=== PATIENT | male | born 1940 | race Caucasian/White ===

== ENCOUNTER 2016-08-12 07:31 | Inpatient (IN) | payer MEDICARE, MEDICAID ==
[~2016-08-12] VITALS: Ht 180.3 cm; Wt 110.5 kg
[~2016-08-12 07:31] MED LIST: /SUCR1TA OR; /WARF25TA PO; /WARF4TA OR; ACET65TA OR; ALLO100T OR; ALLO10TA PO; ARTI99.0 OU; ARTISOL10 OU; ASPI325T PO; ATEN50TA2 OR; ATOR1TAB18 PO; CETI10TA PO; CLOP75TA2 PO; DARV100T OR; DEMA100T PO; DIGO0.126 OR; DIGO0.257 OR; DILT180C3 OR; DILT1TAB7 PO; FERR325T PO; GLIM4TAB PO; GLIMEPIRIDE PO; GLUC500T OR; INSULANT SC; INVO300T PO; LEVA500T PO; LOPR100T OR; METF1000 PO; METO100T PO; METO5TAB2 PO; NITR4TASL SL; NORT10CA2 PO; NOVOLIN N SUBQ; OMEPPOW18 PO; ONGLYZA PO; PANT40TA2 PO; POTASSIUM PO; SUCR1TAB56 PO; TORS100T PO; VERA80TA OR; VICTOZA SUBQ; ZOCO40TA OR
[2016-08-12 08:44] LABS: BASO % 0.1 % (0.0-1.0); EOS # 0.3 K/mm3 (0.0-0.50); EOS % 2.5 % (0.0-3.0); LARGE UNSTAINED CELL # 0.1 K/mm3 (0.0-0.4); LARGE UNSTAINED CELL % 0.7 % (0.0-4.0); LYMPH # 1.2 K/mm3 (1.5-4.5); LYMPH % 11.1 % (24.0-44.0); MEAN CORPUSCULAR HEMOGLOBIN 25.9 pg (27.0-33.0); MEAN CORPUSCULAR HGB CONC 30.5 g/dl (32.0-36.5); MEAN CORPUSCULAR VOLUME 84.9 fl (80.0-96.0); MONO # 0.3 K/mm3 (0.0-0.8); MONO % 2.8 % (0.0-5.0); NEUTROPHILS # 9.1 K/mm3 (1.8-7.7); NEUTROPHILS % 82.8 % (36.0-66.0); PLATELET COUNT, AUTOMATED 346 k/mm3 (150-450); RED CELL DISTRIBUTION WIDTH 16.9 % (11.5-14.5)
[2016-08-12 08:55] LABS: ALBUMIN/GLOBULIN RATIO 0.97 (1.00-1.93); BILIRUBIN,DIRECT 0.1 MG/DL (0.0-0.2); BILIRUBIN,TOTAL 0.3 MG/DL (0.2-1.0); CALCIUM LEVEL 8.8 MG/DL (8.8-10.2); CREATININE FOR GFR 1.33 MG/DL (0.70-1.30); GLOMERULAR FILTRATION RATE 55.8 (>42); TOTAL PROTEIN 6.1 GM/DL (6.4-8.2)
[2016-08-12 09:28] LABS: INR 1.08
[2016-08-12] MEDS ORDERED: BYET1INJ SC (10:27)
[2016-08-12] MEDS ORDERED: NITROGLYCERIN 0.4 MG SUBL TABLET SL PRN (12:15)
[2016-08-12] MEDS ORDERED: POLYVINYL ALCOHOL OPHTH SOLN 15 ML(LIQUITEARS) OU PRN (12:15)
--- NOTE | 2016-08-12 13:02 | ECGEPIP ---
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
--- NOTE | 2016-08-12 15:19 | HPEPDOC ---
General Date of Admission 2016 Primary Care Physician: Dutch Lofton [facility] Attending Physician: GAUDENCIO ALVARENGA MD Chief Complaint Other Outpatient Providers: Dr. Cardona - Cardiology Dr. You - Gastroenterology The patient is a 75-year-old male admitted with a reason for visit of Bloody Stools. Source: Patient History of Present Illness Lucien Gillis is a 75 y/o male currently taking plavix and aspirin with a history of invasive polypectomy, GERD, HTN, HLD, and cardiac stent placements, presenting to the ED with a c/o hematochezia. He reports he has had 3 bloody BMs beginning yesterday at 2000, then again this AM at 0200 and 0630. Each time, pt reports BMs to be liquid diarrhea with occasional solid chunks, which is unusual for him. He describes the BMs as bright red blood filling the toilet bowl and dark red blood clots and streaks in his stool. Pt also has c/o of extreme weakness and fatigue this AM and reports having difficulty walking due to the weakness. Pt notes no episodes of blood in stool prior to this event. Pt currently denies any SOB, chest pain/pressure/tightness, palpitations , dizziness, N/V, abdominal pain, h/a, or changes in vision. Pt checks his blood sugars daily and notes that it was around 165 prior to arrival at the ED. Pt also monitors his BP daily and states it usually is around 130 systolic. Pt reports taking Plavix 75mg QD and Aspirin 325 PO QD. Pt' s last meal was at 1600 yesterday. Home Medications Scheduled ([place]) 5 Mcg/0.02 Ml Inj 5 MCG SC BID (Reported) Allopurinol (Allopurinol) 100 Mg Tab 200 MG PO DAILY (Reported) Aspirin (Aspirin) 325 Mg Tab 325 MG PO DAILY (Reported) Atorvastatin Calcium (Atorvastatin Calcium) 80 Mg Tab 80 MG PO QPM (Reported) Cetirizine HCl (Cetirizine HCl) 10 Mg Tab 10 MG PO DAILY (Reported) Clopidogrel Bisulfate (Clopidogrel) 75 Mg Tab 75 MG PO DAILY (Reported) Diltiazem HCl (Diltiazem HCl ER) 360 Mg Tab 360 MG PO DAILY (Reported) Ferrous Sulfate (Ferrous Sulfate) 325 Mg Tab 325 MG PO TID (Reported) Glimepiride (Glimepiride) 4 Mg Tab 4 MG PO DAILY (Reported) Insulin Glargine (Lantus) 1 Units/0.01 Ml Susp 50 UNITS SC BID (Reported) Metformin Hydrochloride (Metformin HCl) 1,000 Mg Tab 1,000 MG PO BID (Reported ) Metoprolol Tartrate (Metoprolol Tartrate) 100 Mg Tab 100 MG PO BID (Reported) Nortriptyline HCl (Nortriptyline HCl) 10 Mg Cap 10 MG PO TID (Reported) Pantoprazole Sodium (Pantoprazole Sodium) 40 Mg Tab 40 MG PO QPM (Reported) Torsemide (Torsemide) 100 Mg Tab 50 MG PO DAILY (Reported) Scheduled PRN Artificial Tears (Artificial Tears) 1.4 % Tran 1 DROP OU QID PRN PRN DRY EYES ( Reported) Nitroglycerin (Nitrostat) 0.4 Mg Subl 0.4 MG SL PRN PRN PRN CHEST PAIN (Reported ) Allergies Coded Allergies: No Known Drug Allergy (Verified Allergy, Unknown, 10/29/12) Past Medical History Medical History Diabetes - IDDM:controlled; GERD; Gout; Previous DC; Hypercholesterolemia; Hypertension Surgical History Cardiac Stents; Polypectomy via abdominal incision; R knee; L shoulder Family History Significant Family History: No pertinent family hx Social History * Smoker: former Smoker (2PPD/20 years. Non-smoking since 1996) Alcohol: other (Abstinent since 1996) Drugs: denies Recent Travel/Sick Contacts: Denies: Recent sick contacts, Recent travel Psychosocial History: No pertinent psych hx Review of Symptoms Constitutional: Reports: Malaise, Weakness, Denies: Chills, Fever, Night Sweats Eyes: Denies: Pain, Vision change ENT: Denies: Dysphagia, Head Aches Skin: Denies: Jaundice, Lesions, Rash Pulmonary: Denies: Cough, Dyspnea, Pleuritic Chest Pain Cardiovascular: Denies: Chest Pain, Edema, Lt Headedness, Orthopnea, Palpitations, Paroxysmal Noc. Dyspnea Gastrointestinal: Reports: Hematochezia, Denies: Abdominal Pain, Nausea, Vomiting Genitourinary: Denies: Dysuria, Frequency, Incontinence Hematologic: Denies: Bleeding Excessively, Bruising Endocrine: Denies: Polydipsia Musculoskeletal: Denies: Joint Pain Neurological: Reports: Numbness, Denies: Confusion Psych: Reports: Mood Normal Physical Examination General Exam: Positive: Alert, Cooperative, No Acute Distress, Other (Very pale appearing) Eye Exam: Positive: Conjunctiva & lids normal, EOMI, PERRLA, Negative: Ptosis, Sclera icteric ENT Exam: Positive: Atraumatic, Pharynx Normal, Negative: Mucous membr. moist/pink Neck Exam: Positive: +2 carotid pulse wo bruit, Supple, Negative: JVD, Lymphadenopathy, thyromegaly Chest Exam: Positive: Clear to auscultation, Normal air movement, Negative: Diminished, Rales, Rhonchi, Wheezing Heart Exam: Positive: Normal S1, Normal S2, Rate Normal, Regular Rhythm, Negative: Murmurs, Rubs Abdomen Exam: Positive: Hernia (midline Abdominal hernia), Normal bowel sounds , Other (Flat, ND, midline surgical scar approximately 6'' in length), Soft, Negative: Hepatospenomegaly, Mass, Tenderness Extremity Exam: Positive: Normal pulses, Negative: Clubbing, Cyanosis, Edema, Swelling, Tenderness Skin Exam: Positive: Nl turgor and temperature, Negative: Breakdown, Rash Neuro Exam: Positive: Normal Speech Psych Exam: Positive: Mental status NL, Mood NL, Oriented x 3 Vital Signs BP 94-118 Systolic 59-61 Diastolic; Pulse 77-85; Resp 18; Tmax 97.4; 94% on R/A Height (in): 71 Weight (kg): 110.77 Laboratory Data Labs 24H Laboratory Tests 2 08/12/16 08:25: Aspartate Amino Transf (AST/SGOT) 7L, Alanine Aminotransferase (ALT/SGPT) 11L, Alkaline Phosphatase 89, Total Bilirubin 0.3, Direct Bilirubin 0.1, Albumin 3.0L , Albumin/Globulin Ratio 0.97L, Amylase Level 50, Anion Gap 9, White Blood Count 11.0H, Red Blood Count 3.72L, Hemoglobin 9.6L, Hematocrit 31.6L, Mean Corpuscular Volume 84.9, Mean Corpuscular Hemoglobin 25.9L, Mean Corpuscular Hemoglobin Concent 30.5L, Red Cell Distribution Width 16.9H, Platelet Count 346 , Neutrophils (%) (Auto) 82.8H, Lymphocytes (%) (Auto) 11.1L, Monocytes (%) ( Auto) 2.8, Eosinophils (%) (Auto) 2.5, Basophils (%) (Auto) 0.1, Neutrophils # ( Auto) 9.1H, Lymphocytes # (Auto) 1.2L, Monocytes # (Auto) 0.3, Eosinophils # ( Auto) 0.3, Basophils # (Auto) 0.0, Calcium Level 8.8, Glomerular Filtration Rate 55.8, Large Unclassified Cells # 0.1, Large Unclassified Cells % 0.7, Lipase 107, Total Protein 6.1L 08/12/16 09:11: Prothromb Time International Ratio 1.08, Prothrombin Time 14.1 CBC/BMP Laboratory Tests 08/12/16 08:25 Red Blood Count 3.72 L, Mean Corpuscular Volume 84.9, Mean Corpuscular Hemoglobin 25.9 L, Mean Corpuscular Hemoglobin Concent 30.5 L, Red Cell Distribution Width 16.9 H, Neutrophils (%) (Auto) 82.8 H, Lymphocytes (%) (Auto ) 11.1 L, Monocytes (%) (Auto) 2.8, Eosinophils (%) (Auto) 2.5, Basophils (%) ( Auto) 0.1, Neutrophils # (Auto) 9.1 H, Lymphocytes # (Auto) 1.2 L, Monocytes # ( Auto) 0.3, Eosinophils # (Auto) 0.3, Basophils # (Auto) 0.0 Plan / VTE VTE Prophylaxis Ordered?: Yes Plan Plan Pt is a 75 y/o male presenting with hematochezia. 1. Acute Gastrointestinal bleeding: It is likely the etiology of the bleeding is lower GI in nature, possible right sided with the hx of bright red blood mixed with old blood, however, hemorrhoids, anal fissures, diverticular disease or ulcer could still be on the differential despite the pt denying any pain on defecation. The pt currently has a mildly elevated WBC, which could suggest an infectious etiology, all of which could be bleeding more due to the pt's antiplatelet regimen. There is also concern that this may be malignancy as cause of hematochezia for this pt b/c of pt's hx of "pre-cancerous" polyps and previous polypectomy and lack of previous episodes of bloody stools. It is less likely the pt's bleeding is cardiogenic despite his extensive cardiac history because pt does not describe any abdominal pain surround this episode of hematochezia. At this time, we will consult GI, Dr. You, and potentially schedule him for an EGD/colonoscopy to identify source of bleeding. We will hold his Plavix and aspirin and continue to replenish fluids, trend his H/H q6, give pantoprazole 40mg BID, and transfuse if necessary. Will keep him NPO at this time. 2. Symptomatic hypotension: secondary to GI bleeding and diarrhea. Pt reports baseline at 130 systolic. Will continue on maintenance fluids. 3. Anemia - likely secondary to his GI bleeding. Pt's baseline hemoglobin is 12- 13. We will trend H/H Q6 4. JEMIMA: Pt's BUN/Creatinine is a little elevated. We suspect it is due to his overnight episodes of diarrhea and overall hypovolemia. Will continue pt on maintenance fluids and expect it to resolve. 5. IDDM: Pt's DM is controlled and managed by PCP - will continue current home regimen of Lantus 100 unit/mL Sub-q: 50 in AM/50 in PM and hold all oral anti- diabetic medications 6. HLD: Controlled and managed by PCP - continue Atorvastatin 80mg PO QD 7. HTN: Controlled and managed by PCP - continue Diltiazem HCL 360mg PO TID, Metoprolol tartrate 100mg PO BID, 8. DVT prophylaxis: TINA's, SCDs IVF: Continue Diet: Make NPO Activity: Continue Current Respiratory: Pulse Ox on Room Air GME ATTESTATION GME ATTESTATION My preceptor for this patient encounter was physically present in the building during the encounter and was fully available. As needed, all aspects of the patient interview, examination, medical decision making process, and medical care plan development were reviewed and approved by the preceptor. Preceptor is aware and concurs with the plan as stated in the body of this note and will attest to such by his/her cosignature. JAVIER JENNINGS DO Aug 12, 2016 12:11
[2016-08-12] MEDS: HumaLOG INSULIN (NovoLOG) PER UNIT SC SCH (18:00)
[2016-08-12 18:22] VITALS: BP 142/63
--- NOTE | 2016-08-12 18:33 | EDDOCDS ---
Nurse's Notes [facility] Name: Lucien Gillis Age: 75 yrs Sex: Male : 1940 Arrival Date: 08/12/2016 Time: 07:31 Bed Admit Hold Private MD: Dutch Lofton NCFM; Paco Mcarthur Diagnosis: Diverticulosis of large intestine without perforation or abscess with bleeding Presentation: 08/12 07:35 Presenting complaint: Patient states: started with some blood with stool yesterday. dy states that blood is bright red with some clots noted. denies pain. states that today he has had 2 bouts with increased weakness throughout day. Suicide/Homicide risk assessment- the patient denies having any suicidal and/or homicidal ideations and does not present with any other emotional, behavioral or mental health complaints. 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 Transition of care: patient was not received from another setting of care. 07:35 Acuity: RAYNE Level 3 dy 07:35 Method Of Arrival: Wheelchair dy 17:15 Adult Sepsis Screening: The patient does not have new or worsening altered mentation. bcj Patient's respiratory rate is less than 22. Systolic blood pressure is greater than 100. Patient has a qSOFA score of 0- Negative Sepsis Screen. Triage Assessment: 07:41 General: Appears in no apparent distress. Pain: Denies pain. dy Historical: - Allergies: No known drug Allergies; - Home Meds: 1. Byetta 5 mcg/dose (250 mcg/mL) 1.2 mL subcutaneous pnij 2 times per day 2. Lantus 100 unit/mL Sub-Q crtg 50 units in the morning and nighttime 3. atorvastatin 80 mg oral tab 1 tab once daily 4. metformin 500 mg Oral Tb24 2 tabs 2 times per day 5. clopidogrel 75 mg oral tab 1 tab once daily 6. nortriptyline 10 mg Oral cap tid 7. diltiazem HCl 360 mg Oral Tb24 1 tab once daily 8. ferrous sulfate 325 mg (65 mg iron) Oral TbEC three times a day 9. glimepiride 4 mg Oral tab 1 tab once daily 10. torsemide 50 mg oral tab 1 tab once daily 11. allopurinol 100 mg Oral tab 2 tabs once daily 12. metoprolol tartrate 100 mg Oral tab 1 tab 2 times per day 13. cetirizine 10 mg oral tab 1 tab once daily 14. aspirin 325 mg Oral tab 1 tab once daily 15. pantoprazole 40 mg oral TbEC 1 tab once daily 16. Nitrostat 0.4 mg SL subl 1 tab every 5 minutes as needed - PMHx: Diabetes - IDDM: controlled; GERD; Gout; Hypercholesterolemia; Hypertension; - PSHx: Cardiac stents; - Social history: Smoking status: Patient states former smoker of tobacco. No barriers to communication noted, The patient speaks fluent Micronesian, Speaks appropriately for age. - Family history: Not pertinent. - : The pt / caregiver states he / she is on anticoagulants: Plavix. Home medication list is obtained from the patient. - Exposure Risk Screening:: None identified. Screenin:28 Screening information is obtained from the patient. Fall risk: No risks identified. bcj Assistance ADL's: requires no assistance with activities of daily living. Abuse/DV Screen: The patient / caregiver reports he/she is: not in a situation that causes fear, pain or injury. Nutritional screening: No deficits noted. home support is adequate. 15:19 Advance Directives: There is an active DNR order. bcj Assessment: 08:28 General: Appears in no apparent distress, comfortable, Behavior is cooperative. Pain: bcj Denies pain. GI: Abdomen is flat, non- distended Bowel sounds present X 4 quads. Abd is soft and non tender X 4 quads. Derm: Skin is pink, warm & dry. pale. 09:41 General: Appears in no apparent distress, comfortable, Behavior is cooperative. Pain: bcj Denies pain. GI: Abdomen is flat, non- distended. Derm: Skin is pink, warm & dry. 11:17 General: Appears in no apparent distress, comfortable, Behavior is cooperative. Pain: bcj Denies pain. Cardiovascular: Rhythm is sinus rhythm. Derm: Skin is pink, warm & dry. pale. 15:19 General: Appears in no apparent distress, comfortable, Behavior is cooperative. Pain: bcj Denies pain. Cardiovascular: Rhythm is sinus rhythm. GI: Abdomen is non- distended. Derm: Skin is pink, warm & dry. 17:12 General: Appears in no apparent distress, comfortable, Behavior is cooperative. Pain: bcj Denies pain. Cardiovascular: Rhythm is sinus rhythm. GI: Abdomen is flat, non- distended Abd is soft and non tender X 4 quads. Derm: Skin is pink, warm & dry. 18:01 General: Appears in no apparent distress, comfortable, Behavior is cooperative. Pain: j Denies pain. Cardiovascular: Rhythm is sinus rhythm. GI: Abdomen is non- distended. Derm: Skin is pink, warm & dry. pale. Vital Signs: 07:37 BP 94 / 61; Pulse 85; Resp 18; Temp 97.4(T); Pulse Ox 94% on R/A; Weight 109.77 kg; dy Height 5 ft. 11 in. (180.34 cm); 08:28 BP 118 / 59 Supine; Pulse 78; bcj 08:28 BP 94 / 51 Sitting; Pulse 77; bcj 09:45 BP 114 / 64; Pulse 88; bcj 10:30 BP 115 / 66; Pulse 88; bcj 11:00 BP 118 / 56; Pulse 86; bcj 13:00 BP 120 / 74; Pulse 76; bcj 15:30 BP 128 / 54; Pulse 81; bcj 17:12 BP 138 / 58; Pulse 74; Resp 16; Temp 97.6(O); Pulse Ox 95% on R/A; Pain 0/10; bcj 18:01 BP 115 / 74; Pulse 78; Resp 16; Temp 98.2(O); Pulse Ox 95% on R/A; Pain 0/10; bcj 07:37 Body Mass Index 33.75 (109.77 kg, 180.34 cm) dy Vitals: 07:37 Log In Time: August 12, 2016 at 07:30. dy 08:28 Refer to monitor trend for complete vital signs trends. [facility] ED Course: 07:33 Patient visited by Dvaide Salter. mm15 07:33 Paco Mcarthur PA is Private Physician. mm15 07:33 Dutch Lofton is Private Physician. mm15 07:33 Patient moved to Waiting mm15 07:37 Triage Initiated dy 07:42 Dolly Rivera,CULLEN is Primary Nurse. dy 07:42 Patient moved to 9 dy 07:46 Irene Santamaria MD is Attending Physician. sd1 07:47 Patient visited by Irene Santamaria MD. sd1 08:20 Patient visited by Al Masters PCA. jlf 08:28 No apparent distress. Resting quietly. awaiting re-evaluation by ER physician. bcj 08:28 The patient / caregiver is instructed regarding the plan of care and ED course. Patient german has correct armband on for positive identification. Placed in gown. Bed in low position. Call light in reach. Side rails up X 1. quality assurance monitor on. Pulse ox on. NIBP on. 08:28 Inserted saline lock: 20 gauge in right antecubital area. Labs drawn. (by ED staff). bcj Sent per order to lab. 08:31 Patient visited by Ayad Moe RN. bcj 08:52 Primary Nurse role handed off by Dolly Rivera RN jc4 08:53 Ayad Moe RN is Primary Nurse. jc4 09:13 [facility] Payment Agreement was scanned into [employer] and attached to record. lg 09:17 Patient visited by Al Masters PCA. jlf 09:41 No apparent distress. Resting quietly. Awaiting bed assignment. bcj 09:41 IV is intact. bcj 09:45 Patient visited by Ayad Moe RN. bcj 09:46 Sung Albarado is Hospitalizing Provider. sd1 10:00 EKG done. (by ED staff). Reviewed by Irene Santamaria MD. rn1 11:17 No apparent distress. Resting quietly. Awaiting bed assignment. bcj 11:17 IV is intact. bcj 11:19 Patient visited by Ayad Moe RN. bcj 12:23 Patient moved to Admit Hold jc4 13:43 EKG-ADULT Returned. EDMS 14:54 T-Sheet-- Draft Copy was scanned into [employer] and attached to record. gb 15:19 IV is intact. No procedures done that require assistance. bcj 15:21 Patient visited by Ayad Moe RN. bcj 16:42 Patient visited by Ayad Moe RN. bcj 17:12 No apparent distress. Resting quietly. Awaiting bed assignment. bcj 17:12 IV is intact. bcj 18:01 No apparent distress. Resting quietly. Awaiting bed assignment. bcj 18:01 IV is intact. bcj 18:31 Patient visited by Ayad Moe RN. bcj Output: 15:19 Stool: 3 (Loose Stool) ; Total: 0.00ml. bcj Order Results: Lab Order: Amylase; SPEC'M 08/12/16 08:25 Test: AMYLASE; Value: 50; Range: 25-115; Units: U/L; Status: F Lab Order: Basic Metabolic Profile; SPEC'M 08/12/16 08:25 Test: GLUCOSE, FASTING; Value: 199; Range: 83-110; Abnormal: Above high normal; Units: MG/DL; Status: F Test: BLOOD UREA NITROGEN; Value: 31; Range: 7-18; Abnormal: Above high normal; Units: MG/DL; Status: F Test: CREATININE FOR GFR; Value: 1.33; Range: 0.70-1.30; Abnormal: Above high normal; Units: MG/DL; Status: F Test: GLOMERULAR FILTRATION RATE; Value: 55.8; Range: >42; Status: F Test: SODIUM LEVEL; Value: 144; Range: 136-145; Units: MEQ/L; Status: F Test: POTASSIUM SERUM; Value: 5.0; Range: 3.5-5.1; Units: MEQ/L; Status: F Test: CHLORIDE LEVEL; Value: 112; Range: 98-107; Abnormal: Above high normal; Units: MEQ/L; Status: F Test: CARBON DIOXIDE LEVEL; Value: 23; Range: 21-32; Units: MEQ/L; Status: F Test: ANION GAP; Value: 9; Range: 8-16; Units: MEQ/L; Status: F Test: CALCIUM LEVEL; Value: 8.8; Range: 8.8-10.2; Units: MG/DL; Status: F Test Note: ; Units are mL/min/1.73 m2 Chronic Kidney Disease Staging per NKF: Stage I & II GFR >=60 Normal to Mildly Decreased Stage III GFR 30-59 Moderately Decreased Stage IV GFR 15-29 Severely Decreased Stage V GFR <15 Very Little GFR Left ESRD GFR <15 on SOLDER TECHNICIAN Lab Order: CBC with Diff; SPEC'M 08/12/16 08:25 Test: WHITE BLOOD COUNT; Value: 11.0; Range: 4.0-10.0; Abnormal: Above high normal; Units: K/mm3; Status: F Test: RED BLOOD COUNT; Value: 3.72; Range: 4.30-6.10; Abnormal: Below low normal; Units: M/mm3; Status: F Test: HEMOGLOBIN; Value: 9.6; Range: 14.0-18.0; Abnormal: Below low normal; Units: g/dl; Status: F Test: HEMATOCRIT; Value: 31.6; Range: 42.0-52.0; Abnormal: Below low normal; Units: %; Status: F Test: MEAN CORPUSCULAR VOLUME; Value: 84.9; Range: 80.0-96.0; Units: fl; Status: F Test: MEAN CORPUSCULAR HEMOGLOBIN; Value: 25.9; Range: 27.0-33.0; Abnormal: Below low normal; Units: pg; Status: F Test: MEAN CORPUSCULAR HGB CONC; Value: 30.5; Range: 32.0-36.5; Abnormal: Below low normal; Units: g/dl; Status: F Test: RED CELL DISTRIBUTION WIDTH; Value: 16.9; Range: 11.5-14.5; Abnormal: Above high normal; Units: %; Status: F Test: PLATELET COUNT, AUTOMATED; Value: 346; Range: 150-450; Units: k/mm3; Status: F Test: NEUTROPHILS %; Value: 82.8; Range: 36.0-66.0; Abnormal: Above high normal; Units: %; Status: F Test: LYMPH %; Value: 11.1; Range: 24.0-44.0; Abnormal: Below low normal; Units: %; Status: F Test: MONO %; Value: 2.8; Range: 0.0-5.0; Units: %; Status: F Test: EOS %; Value: 2.5; Range: 0.0-3.0; Units: %; Status: F Test: BASO %; Value: 0.1; Range: 0.0-1.0; Units: %; Status: F Test: LARGE UNSTAINED CELL %; Value: 0.7; Range: 0.0-4.0; Units: %; Status: F Test: NEUTROPHILS #; Value: 9.1; Range: 1.8-7.7; Abnormal: Above high normal; Units: K/mm3; Status: F Test: LYMPH #; Value: 1.2; Range: 1.5-4.5; Abnormal: Below low normal; Units: K/mm3; Status: F Test: MONO #; Value: 0.3; Range: 0.0-0.8; Units: K/mm3; Status: F Test: EOS #; Value: 0.3; Range: 0.0-0.50; Units: K/mm3; Status: F Test: BASO #; Value: 0.0; Range: 0.0-0.2; Units: K/mm3; Status: F Test: LARGE UNSTAINED CELL #; Value: 0.1; Range: 0.0-0.4; Units: K/mm3; Status: F Lab Order: Lipase; [facility] 08/12/16 08:25 Test: LIPASE; Value: 107; Range: 73-393; Units: U/L; Status: F Lab Order: Liver Profile; [facility] 08/12/16 08:25 Test: AST/SGOT; Value: 7; Range: 15-37; Abnormal: Below low normal; Units: U/L; Status: F Test: ALT/SGPT; Value: 11; Range: 12-78; Abnormal: Below low normal; Units: U/L; Status: F Test: ALKALINE PHOSPHATASE; Value: 89; Range: 45-117; Units: U/L; Status: F Test: BILIRUBIN,TOTAL; Value: 0.3; Range: 0.2-1.0; Units: MG/DL; Status: F Test: BILIRUBIN,DIRECT; Value: 0.1; Range: 0.0-0.2; Units: MG/DL; Status: F Test: TOTAL PROTEIN; Value: 6.1; Range: 6.4-8.2; Abnormal: Below low normal; Units: GM/DL; Status: F Test: ALBUMIN; Value: 3.0; Range: 3.2-5.2; Abnormal: Below low normal; Units: GM/DL; Status: F Test: ALBUMIN/GLOBULIN RATIO; Value: 0.97; Range: 1.00-1.93; Abnormal: Below low normal; Status: F Lab Order: Prothrombin Time Profile\E\INR; [facility] 08/12/16 09:11 Test: PROTHROMBIN TIME; Value: 14.1; Range: 12.3-14.5; Units: SECONDS; Status: F Test: INR; Value: 1.08; Status: F Test Note: ; THERAPUTIC HUMAN INR VALUES INDICATIONS NORMAL RANGES PROPHYLAXIS/TREATMENT OF: VENOUS THROMBOSIS 2.0-3.0 PULMONARY EMBOLISM 2.0-3.0 PREVENTION OF SYSTEMIC EMBOLISM FROM: TISSUE HEART VALVES 2.0-3.0 ACUTE MYOCARDIAL INFARCTION 2.0-3.0 VALVULAR HEART DISEASE 2.0-3.0 ATRIAL FIBRILLATION 2.0-3.0 MECHANICAL VALVES(HIGH RISK) 2.5-3.5 RECURRENT MYOCARDIAL INFARCTION 2.5-3.5 Lab Order: Type & Screen; [facility] 08/12/16 08:25 Test: BLOOD TYPE; Value: B NEG; Status: F Test: AB SCREEN (INDIRECT STONE)GEL; Value: NEGATIVE; Status: F Lab Order: HEMOGLOBIN; [facility] 08/12/16 12:32 Test: HEMOGLOBIN; Value: 9.6; Range: 14.0-18.0; Abnormal: Below low normal; Units: g/dl; Status: F Lab Order: HEMOGLOBIN & HEMATOCRIT; [facility] 08/12/16 17:46 Test: HEMOGLOBIN; Value: 9.6; Range: 14.0-18.0; Abnormal: Below low normal; Units: g/dl; Status: F Test: HEMATOCRIT; Value: 31.5; Range: 42.0-52.0; Abnormal: Below low normal; Units: %; Status: F Radiology Order: EKG-ADULT Test: EKG-ADULT REASON FOR EXAMINATION: weakness; Stationary ECG Study; [facility] - ED; ; Test Date: 2016-08-12; Pat Name: LUCIEN GILLIS Department:; Room: [place] [address]; Gender: M Gear Nicker: rn; : 1940 Requested By: Irene Santamaria; Order Number: [id number] Reading MD: Rocky Brewer; Measurements; Intervals Black; Rate: 82 P: 72; MN: 186 QRS: 24; QRSD: 90 T: 77; QT: 373; QTc: 437; Interpretive Statements; SINUS RHYTHM; NONSPECIFIC ST T-WAVE ABNORMALITY; ; Electronically Signed On 08-12-2016 13:01:55 EST by Rocky Brewer; Outcome: 09:46 Decision to Hospitalize by Provider. sd1 17:12 Discharge Assessment: patient administered narcotics - no. The following High Risk j Discharge criteria are identified: None. Admitted to ICU accompanied by nurse, accompanied by tech, via stretcher, on monitor. Condition: stable. No special radiology studies were completed. Admission hand-off: Report called to Lashell BERMAN. Property :Personal belongings accompany Pt. 18:32 Patient left the ED. [facility] Signatures: Dispatcher [employer] EDMS Irene Santamaria MD MD sd1 Ayad Moe, RN RN Radha Guerra, Reg Reg gb Tabitha Chen, Reg Reg lg Jeet Lane, RN RN Marilyn Navarro, RN RN Davide Miller mm15 Al Masters, SILK WINDING MACHINE OPERATOR SILK WINDING MACHINE OPERATOR Artur Rajan rn1 MTDClau
--- NOTE | 2016-08-12 18:33 | EDDOCDS ---
Physician Documentation [facility] Name: Lucien Gillis Age: 75 yrs Sex: Male : 1940 Arrival Date: 08/12/2016 Time: 07:31 Bed Admit Hold Private MD: Dutch Lofton [facility]; Paco Mcarthur Disposition: 08/12/16 09:46 Hospitalization ordered by Sung Albarado for Inpatient Admission. Preliminary diagnosis is Diverticulosis of large intestine without perforation or abscess with bleeding. - Bed requested for M ICU. - Status is Inpatient Admission. bcj - Condition is Stable. - Problem is new. - Symptoms are unchanged. Historical: - Allergies: No known drug Allergies; - Home Meds: 1. Byetta 5 mcg/dose (250 mcg/mL) 1.2 mL subcutaneous pnij 2 times per day 2. Lantus 100 unit/mL Sub-Q crtg 50 units in the morning and nighttime 3. atorvastatin 80 mg oral tab 1 tab once daily 4. metformin 500 mg Oral Tb24 2 tabs 2 times per day 5. clopidogrel 75 mg oral tab 1 tab once daily 6. nortriptyline 10 mg Oral cap tid 7. diltiazem HCl 360 mg Oral Tb24 1 tab once daily 8. ferrous sulfate 325 mg (65 mg iron) Oral TbEC three times a day 9. glimepiride 4 mg Oral tab 1 tab once daily 10. torsemide 50 mg oral tab 1 tab once daily 11. allopurinol 100 mg Oral tab 2 tabs once daily 12. metoprolol tartrate 100 mg Oral tab 1 tab 2 times per day 13. cetirizine 10 mg oral tab 1 tab once daily 14. aspirin 325 mg Oral tab 1 tab once daily 15. pantoprazole 40 mg oral TbEC 1 tab once daily 16. Nitrostat 0.4 mg SL subl 1 tab every 5 minutes as needed - PMHx: Diabetes - IDDM: controlled; GERD; Gout; Hypercholesterolemia; Hypertension; - PSHx: Cardiac stents; - Social history: Smoking status: Patient states former smoker of tobacco. No barriers to communication noted, The patient speaks fluent Vietnamese, Speaks appropriately for age. - Family history: Not pertinent. - : The pt / caregiver states he / she is on anticoagulants: Plavix. Home medication list is obtained from the patient. - Exposure Risk Screening:: None identified. Vital Signs: 08/12 07:37 BP 94 / 61; Pulse 85; Resp 18; Temp 97.4(T); Pulse Ox 94% on R/A; Weight 109.77 kg / dy 242 lbs; Height 5 ft. 11 in. (180.34 cm); 08:28 BP 118 / 59 Supine; Pulse 78; bcj 08:28 BP 94 / 51 Sitting; Pulse 77; bcj 09:45 BP 114 / 64; Pulse 88; bcj 10:30 BP 115 / 66; Pulse 88; bcj 11:00 BP 118 / 56; Pulse 86; bcj 13:00 BP 120 / 74; Pulse 76; bcj 15:30 BP 128 / 54; Pulse 81; bcj 17:12 BP 138 / 58; Pulse 74; Resp 16; Temp 97.6(O); Pulse Ox 95% on R/A; Pain 0/10; bcj 18:01 BP 115 / 74; Pulse 78; Resp 16; Temp 98.2(O); Pulse Ox 95% on R/A; Pain 0/10; bcj 07:37 Body Mass Index 33.75 (109.77 kg, 180.34 cm) dy MDM: 07:46 Digital Printer Operator/Pulse Ox/q 15 min VS ordered. sd1 07:46 IV Saline Lock ordered. sd1 07:46 Oxygen at 4L/Min NC or Home dosage ordered. sd1 07:46 Undress patient appropriately for examination ordered. sd1 07:46 Orthostatic VS ordered. sd1 07:47 Amylase Ordered. EDMS 07:47 Basic Metabolic Profile Ordered. EDMS 07:47 CBC with Diff Ordered. EDMS 07:47 Lipase Ordered. EDMS 07:47 Liver Profile Ordered. EDMS 07:47 Prothrombin Time Profile\E\INR Ordered. EDMS 07:47 Type & Screen Ordered. EDMS 07:47 NOTHING BY MOUTH+DIET ordered. EDMS 07:47 BED REQUEST+ADM ordered. EDMS 08:11 Financial registration complete. lg 09:13 [facility] Payment Agreement was scanned into [employer] and attached to record. lg 09:29 Basic Metabolic Profile Reviewed. sd1 09:29 CBC with Diff Reviewed. sd1 09:29 Liver Profile Reviewed. sd1 09:29 Amylase Reviewed. sd1 09:29 Lipase Reviewed. sd1 09:29 Type & Screen Reviewed. sd1 09:30 Misc. Nursing Order ordered. sd1 09:30 Prothrombin Time Profile\E\INR Reviewed. sd1 09:43 ECG WITH READING ER PHYS+CARDIAG ordered. EDMS 11:12 Admission / Observation Status ordered. EDMS 11:15 NPO DIET ordered. EDMS 12:18 HEMOGLOBIN Ordered. EDMS 13:15 HEMOGLOBIN & HEMATOCRIT Ordered. EDMS 14:54 T-Sheet-- Draft Copy was scanned into [employer] and attached to record. gb Signatures: Dispatcher [employer] EDMS Irene Santamaria MD MD sd1 Trupti Alonso, Environmental Technician Unit lbd Ayad Moe, RN RN bcRadha Anguiano, Reg Reg gb Tabitha Chen, Reg Reg lg Jeet Lane, RN Marilyn Byers, RN RN jc4 The chart was reviewed and I authenticate all verbal orders and agree with the evaluation and treatment provided.Corrections: (The following items were deleted from the chart) 13:15 12:18 HEMOGLOBIN ordered. EDMS EDMS 13:15 12:18 HEMOGLOBIN ordered. EDMS EDMS Attachments: 09:13 [facility] Payment Agreement lg 14:54 T-Sheet-- Draft Copy gb MTDD
[2016-08-12] MEDS ORDERED: DEXTROSE 50% 50 ML SYRINGE IV PRN (19:45)
[2016-08-12] MEDS ORDERED: GLUCOSE 4 GM CHEW TABLET PO PRN (19:45)
[2016-08-12] MEDS ORDERED: GLUCAGON FOR INJ 1 MG VIAL (J1610) SC PRN (19:45)
[2016-08-12] MEDS: NORTRIPTYLINE 10 MG CAP PO SCH ×2 (19:46→20:26)
[2016-08-12 20:00] VITALS: BP 140/65
[2016-08-12] MEDS: PANTOPRAZOLE 40MG INJ (PROTONIX) (C9113) IV SCH (20:26)
[2016-08-12] MEDS: ATORVASTATIN 20 MG TAB PO SCH (20:26)
[2016-08-12] MEDS: LEVEMIR (INSULIN DETEMIR) 1 UNITS/0.01ML SC SCH (20:30)
[2016-08-12] MEDS: NS 1,000 ML IV SCH (20:36)
[2016-08-12] MEDS ORDERED: METOPROLOL TARTRATE 100 MG TAB PO SCH (21:00)
[2016-08-13] VITALS (9 sets, daily range): BP systolic 131–176; BP diastolic 63–76
[2016-08-13] MEDS: HumaLOG INSULIN (NovoLOG) PER UNIT SC SCH ×6 (05:51→21:00)
[2016-08-13 06:40] LABS: MEAN CORPUSCULAR HEMOGLOBIN 25.7 pg (27.0-33.0); MEAN CORPUSCULAR HGB CONC 30.5 g/dl (32.0-36.5); MEAN CORPUSCULAR VOLUME 84.2 fl (80.0-96.0); RED CELL DISTRIBUTION WIDTH 17.2 % (11.5-14.5); WHITE BLOOD COUNT 8.2 K/mm3 (4.0-10.0)
[2016-08-13 06:44] LABS: INR 1.13
[2016-08-13 07:05] LABS: ALBUMIN/GLOBULIN RATIO 1.03 (1.00-1.93); ALKALINE PHOSPHATASE 88 U/L (45-117); ALT/SGPT 12 U/L (12-78); ANION GAP 11 MEQ/L (8-16); AST/SGOT 7 U/L (15-37); BILIRUBIN,TOTAL 0.3 MG/DL (0.2-1.0); BLOOD UREA NITROGEN 30 MG/DL (7-18); CALCIUM LEVEL 8.3 MG/DL (8.8-10.2); CARBON DIOXIDE LEVEL 23 MEQ/L (21-32); CHLORIDE LEVEL 113 MEQ/L (98-107); CREATININE FOR GFR 1.19 MG/DL (0.70-1.30); GLOMERULAR FILTRATION RATE > 60.0 (>42); GLUCOSE, FASTING 100 MG/DL (83-110); POTASSIUM SERUM 4.2 MEQ/L (3.5-5.1); SODIUM LEVEL 147 MEQ/L (136-145); TOTAL PROTEIN 5.9 GM/DL (6.4-8.2)
[2016-08-13] MEDS ORDERED: TORSEMIDE (DEMADEX) 50 MG PER 1/2 TAB PO SCH (09:00)
[2016-08-13] MEDS: LEVEMIR (INSULIN DETEMIR) 1 UNITS/0.01ML SC SCH ×3 (09:00→21:00)
[2016-08-13] MEDS ORDERED: PANTOPRAZOLE 40MG INJ (PROTONIX) (C9113) IV SCH (09:00)
[2016-08-13] MEDS: NS 1,000 ML IV SCH ×2 (09:02→17:30)
[2016-08-13] MEDS: NORTRIPTYLINE 10 MG CAP PO SCH ×3 (09:02→20:32)
[2016-08-13] MEDS: diltiaZEM **CD** 180 MG CAP PO SCH (09:02)
[2016-08-13] MEDS: CETIRIZINE (ZyrTEC) 10 MG TAB PO SCH (09:02)
[2016-08-13] MEDS: ALLOPURINOL 100 MG TAB PO SCH (09:02)
[2016-08-13] MEDS: PANTOPRAZOLE 40MG INJ (PROTONIX) (C9113) IV SCH ×2 (09:03→20:31)
--- NOTE | 2016-08-13 15:31 | IPNPDOC ---
Assessment/Plan Date Seen The patient was seen on 08/13/16. 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 He did have a slight drop in his H&H last night, however he has not had any bleeding. He also has not had any bowel movements at all since his last one in the emergency department. His acute kidney injury is also improving, this was likely a result of hypovolemia. We will advance him to clear liquids diet at this time, and move him to the [facility] floor. The plan is to perform an EGD and colonoscopy on Monday, therefore he will need to be nothing by mouth after midnight Monday evening. I will change his sliding scale insulin as well as fingersticks to before meals and at bedtime, we will resume his long-acting insulin, hopefully this will be sufficient while he is on a clear liquids diet, as he normally also receive his Byetta twice a day, which we are currently holding. Subjective Review of Systems CC/HPI The patient is a 75-year-old male admitted with a reason for visit of Gi Bleed. Events since last encounter Mr. Gillis is once again very pleasant to speak with. He purportedly is completely asymptomatic, he even states that his dizziness upon sitting upright has improved to what he considers to be his baseline. He has not had any bowel movements since coming up from the emergency department. He is hungry. Otherwise , he is in no pain or discomfort, he denies any nausea, vomiting, palpitations, chest discomfort. Objective Physical Examination General Exam: Positive: Alert, Cooperative, No Acute Distress, Other Eye Exam: Positive: Conjunctiva & lids normal, EOMI Chest Exam: Positive: Clear to auscultation, Normal air movement Heart Exam: Positive: Normal S1, Normal S2, Other (distant heart sounds), Rate Normal, Regular Rhythm Abdomen Exam: Positive: Hernia, Normal bowel sounds, Soft, Negative: Tenderness Extremity Exam: Positive: Normal pulses, Negative: Swelling, Tenderness Skin Exam: Positive: Nl turgor and temperature Neuro Exam: Positive: Normal Speech Psych Exam: Positive: Mental status NL, Mood NL, Oriented x 3 Vital Signs/I&O Vital Signs Date Time Temp Pulse Resp B/P Pulse Ox O2 Delivery O2 Flow Rate FiO2 08/13/16 12:00 98.3 93 20 163/76 94 Room Air I&O- Last 24 Hours up to 6 AM 08/13/16 06:00 Intake Total 875 ml Output Total 925 ml Balance -50 ml Laboratory Data Labs 24H Laboratory Tests 2 08/12/16 20:29: Bedside Glucose (Misc Panel) 112H 08/12/16 23:41: Bedside Glucose (Misc Panel) 116H 08/13/16 05:07: Bedside Glucose (Misc Panel) 109 08/13/16 06:23: Activated Partial Thromboplast Time 21.4L, Blood Urea Nitrogen 30H, Creatinine 1.19, Sodium Level 147H, Potassium Level 4.2, Chloride Level 113H, Carbon Dioxide Level 23, Calcium Level 8.3L, Aspartate Amino Transf (AST/SGOT) 7L, Alanine Aminotransferase (ALT/SGPT) 12, Alkaline Phosphatase 88, Total Bilirubin 0.3, Total Protein 5.9L, Albumin 3.0L, Albumin/Globulin Ratio 1.03, Anion Gap 11, Glomerular Filtration Rate > 60.0, Prothromb Time International Ratio 1.13, Prothrombin Time 14.6H 08/13/16 11:25: Bedside Glucose (Misc Panel) 164H CBC/BMP Laboratory Tests 08/12/16 17:46 08/13/16 00:01 08/13/16 06:23 Calcium Level 8.3 L, Aspartate Amino Transf (AST/SGOT) 7 L, Alanine Aminotransferase (ALT/SGPT) 12, Alkaline Phosphatase 88, Total Bilirubin 0.3, Total Protein 5.9 L, Albumin 3.0 L, Red Blood Count 3.38 L, Mean Corpuscular Volume 84.2, Mean Corpuscular Hemoglobin 25.7 L, Mean Corpuscular Hemoglobin Concent 30.5 L, Red Cell Distribution Width 17.2 H FSBS Laboratory Tests Test 08/12/16 20:29 08/12/16 23:41 08/13/16 05:07 08/13/16 11:25 Range/Units Bedside Glucose (Misc Panel) 112 116 109 164 83-110 MG/DL Microbiology Microbiology 08/12/16 MRSA Screen, Received Pending JAVIER JENNINGS DO Aug 13, 2016 15:31
[2016-08-13] MEDS: ATORVASTATIN 20 MG TAB PO SCH (20:32)
[2016-08-13] MEDS: METOPROLOL TARTRATE 100 MG TAB PO SCH (20:32)
[2016-08-14] VITALS (9 sets, daily range): BP systolic 114–166; BP diastolic 56–73
[2016-08-14] MEDS: NS 1,000 ML IV SCH ×2 (03:15→16:10)
[2016-08-14] MEDS ORDERED: GOLYTELY SOLN 4000 ML BTL PO ONE (06:00)
[2016-08-14 06:31] LABS: MEAN CORPUSCULAR HGB CONC 30.6 g/dl (32.0-36.5); MEAN CORPUSCULAR VOLUME 84.8 fl (80.0-96.0); RED CELL DISTRIBUTION WIDTH 17.3 % (11.5-14.5); WHITE BLOOD COUNT 8.9 K/mm3 (4.0-10.0)
[2016-08-14 06:38] LABS: CALCIUM LEVEL 8.3 MG/DL (8.8-10.2); CHLORIDE LEVEL 114 MEQ/L (98-107); CREATININE FOR GFR 0.96 MG/DL (0.70-1.30); GLUCOSE, FASTING 117 MG/DL (83-110); SODIUM LEVEL 146 MEQ/L (136-145)
[2016-08-14 06:47] LABS: BLOOD UREA NITROGEN 15 MG/DL (7-18)
[2016-08-14 06:57] LABS: ANION GAP 9 MEQ/L (8-16); CARBON DIOXIDE LEVEL 23 MEQ/L (21-32)
[2016-08-14] MEDS: diltiaZEM **CD** 180 MG CAP PO SCH (08:35)
[2016-08-14] MEDS: PANTOPRAZOLE 40MG INJ (PROTONIX) (C9113) IV SCH ×2 (08:35→22:05)
[2016-08-14] MEDS: HumaLOG INSULIN (NovoLOG) PER UNIT SC SCH ×4 (08:35→21:00)
[2016-08-14] MEDS: NORTRIPTYLINE 10 MG CAP PO SCH ×3 (08:35→22:05)
[2016-08-14] MEDS: CETIRIZINE (ZyrTEC) 10 MG TAB PO SCH (08:36)
[2016-08-14] MEDS: ALLOPURINOL 100 MG TAB PO SCH (08:36)
[2016-08-14] MEDS: METOPROLOL TARTRATE 100 MG TAB PO SCH ×2 (08:36→22:07)
--- NOTE | 2016-08-14 11:00 | IPNPDOC ---
Assessment/Plan Date Seen The patient was seen on 08/14/16. Problems Problems: (1) GI bleed Status: Acute Response to Treatment: Stable Discussed With: Resident Medical Officer, Patient Problem Specific Plan: Consult Specialist, Monitor Clinically, Repeat Labs Problem Text: Transfused 1 unit PRBC yesterday. 2 units ordered, however had some mild reaction to 1st unit which was stopped. Patient agreed to continue with 2nd unit, administered without issue. Hg stable at this time. Continue with serial H/H. Plan for colonoscopy tomorrow. Patient admits to some BRBPR today. Follow as per GI, assistance appreciated. (2) Acute blood loss anemia Status: Acute Problem Specific Plan: Consult Specialist, Monitor Clinically, Repeat Labs Problem Text: As per above, secondary to presumed lower GI bleed. 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 General: Denies: Chills, Fatigue, Malaise, Night Sweats, Normal Appetite, Other Symptoms, ROS Unobtainable Constitutional: Denies: Chills, Fatigue, Fever, Lethargy, Malaise, Night Sweats , Other, Weakness, Weight Loss Eyes: Denies: Conjunctivae inflammation, Eyelid inflammation, Other, Pain, Redness, Vision change ENT: Denies: Dysphagia, Ear Pain, Epistaxis, Head Aches, Other Symptoms, Post Nasal Drip, Sinus Congestion, Sore Throat Skin: Denies: Breakdown, Bruising, Dry, Itching, Jaundice, Lesions, Nail Changes, Other, Rash Pulmonary: Denies: Cough, Dyspnea, Other Symptoms, Pleuritic Chest Pain Cardiovascular: Denies: Chest Pain, Edema, Lt Headedness, Orthopnea, Other Symptoms, Palpitations, Paroxysmal Noc. Dyspnea Gastrointestinal: Denies: Abdominal Pain, Constipation, Diarrhea, Hematochezia , Melena, Nausea, Other Symptoms, Vomiting Genitourinary: Denies: Dysuria, Frequency, Hematuria, Incontinence, Other Symptoms, Retention Objective Physical Examination General Exam: Positive: Alert, Cooperative, No Acute Distress, Other Eye Exam: Positive: Conjunctiva & lids normal, EOMI ENT Exam: Positive: Atraumatic Neck Exam: Positive: Supple Chest Exam: Positive: Clear to auscultation, Normal air movement Heart Exam: Positive: Normal S1, Normal S2, Other (distant heart sounds), Rate Normal, Regular Rhythm Abdomen Exam: Positive: Hernia, Normal bowel sounds, Soft, Negative: Tenderness Extremity Exam: Positive: Normal pulses, Negative: Swelling, Tenderness Skin Exam: Positive: Nl turgor and temperature Neuro Exam: Positive: Normal Speech Psych Exam: Positive: Mental status NL, Mood NL, Oriented x 3 Vital Signs/I&O Vital Signs Date Time Temp Pulse Resp B/P Pulse Ox O2 Delivery O2 Flow Rate FiO2 08/14/16 08:36 72 144/69 08/14/16 06:00 96.2 20 92 08/14/16 04:05 Room Air I&O- Last 24 Hours up to 6 AM 08/14/16 06:00 Intake Total 2960 ml Output Total 950 ml Balance 2010 ml Laboratory Data Labs 24H Laboratory Tests 2 08/13/16 11:25: Bedside Glucose (Misc Panel) 164H 08/13/16 16:46: Bedside Glucose (Misc Panel) 122H 08/13/16 20:42: Bedside Glucose (Misc Panel) 128H 08/14/16 05:46: Anion Gap 9, Blood Urea Nitrogen 15, Creatinine 0.96, Sodium Level 146H, Potassium Level 4.0, Chloride Level 114H, Carbon Dioxide Level 23, Calcium Level 8.3L CBC/BMP Laboratory Tests 08/13/16 18:29 08/14/16 05:46 Calcium Level 8.3 L, Red Blood Count 3.57 L, Mean Corpuscular Volume 84.8, Mean Corpuscular Hemoglobin 26.0 L, Mean Corpuscular Hemoglobin Concent 30.6 L, Red Cell Distribution Width 17.3 H FSBS Laboratory Tests Test 08/13/16 11:25 08/13/16 16:46 08/13/16 20:42 Range/Units Bedside Glucose (Misc Panel) 164 122 128 83-110 MG/DL Microbiology Microbiology 08/12/16 MRSA Screen - Final, Complete GAUDENCIO ALVARENGA MD Aug 14, 2016 11:00
--- NOTE | 2016-08-14 12:05 | CR ---
DATE OF CONSULTATION: 08/13/2016 This is a 75-year-old white male admitted to [facility] ([facility]) for a 24-hour history of having acute lower gastrointestinal (GI) bleeding, bright red blood per rectum with clots. The patient has not had any previous episodes of GI bleeding nor does he have a previous history of peptic ulcer disease. The patient is on chronic medication of Plavix 75 mg a day and aspirin 325 mg a day for coronary artery disease. He is status post stent placement approximately five years ago. He has no complaints of abdominal pain, weight loss, or change in bowel habits. No fevers, night sweats, or shaking chills and he denies any hematemesis. The patient is being seen for anemia status post acute GI bleed. PAST MEDICAL HISTORY: Positive for: 1. Gout. 2. Diastolic congestive heart failure (CHF). 3. Pericardial effusion in 2009. 4. Diabetes mellitus. 5. Fatty liver. 6. Reflux. 7. Hyperlipidemia. 8. Hypertension. 9. Coronary artery disease with stents placed approximately five years ago. 10. The patient had a ST elevation myocardial infarction (STEMI) in 2012. 11. The patient had a history of atrial fibrillation but appears to be in sinus rhythm now. 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 Last upper endoscopies were in 2006 and 2009 for routine followup. The patient's only findings were diverticulosis and a hiatal hernia. SOCIAL HISTORY: Cigarettes: The patient stopped smoking and drinking in 1996. He used to smoke two packs of cigarettes a day for over 20 years. LABORATORY STUDIES: On admission showed a white count 11,000, hemoglobin and hematocrit is 9.6 and 31.6, now it is down to 8.7 and 28.5. INR was 1.13. He has had a gradual drop in his blood counts starting in September 2015 where he had a count of 14 and 45.5 and then this has been gradually falling to July 2016 he had a count of 9.6 and 31.6. PHYSICAL EXAMINATION: GENERAL: He is a well-developed, well-nourished, slightly obese, white male in no obvious acute distress. Appears his stated age. CHEST: Clear to auscultation. CARDIOVASCULAR: Examination showed a regular rhythm, 2/6 systolic ejection murmur in the left lower sternal border. ABDOMEN: Soft, nontender. No masses, guarding, rebound, or hepatosplenomegaly. Bowel sounds are positive. ANALYSIS: Probable lower gastrointestinal (GI) bleed, possibly secondary to diverticular bleed with some influence from the patient taking high-dose aspirin and Plavix. The plan will be to set the patient up for an upper and lower endoscopy on Monday for further evaluation. The patient's blood counts should be followed and if his blood count goes below 8 and 28 then I would recommend that due to his heart disease he be given several units of packed cells.
--- NOTE | 2016-08-14 19:32 | EDDOCDS ---
Physician Documentation [facility] Name: Lucien Gillis Age: 75 yrs Sex: Male : 1940 Arrival Date: 08/12/2016 Time: 07:31 Bed Admit Hold Private MD: Dutch Lofton [facility]; Paco Mcarthur Disposition: 08/12/16 09:46 Hospitalization ordered by Sung Albarado for Inpatient Admission. Preliminary diagnosis is Diverticulosis of large intestine without perforation or abscess with bleeding. - Bed requested for M ICU. - Status is Inpatient Admission. bcj - Condition is Stable. - Problem is new. - Symptoms are unchanged. Historical: - Allergies: No known drug Allergies; - Home Meds: 1. Byetta 5 mcg/dose (250 mcg/mL) 1.2 mL subcutaneous pnij 2 times per day 2. Lantus 100 unit/mL Sub-Q crtg 50 units in the morning and nighttime 3. atorvastatin 80 mg oral tab 1 tab once daily 4. metformin 500 mg Oral Tb24 2 tabs 2 times per day 5. clopidogrel 75 mg oral tab 1 tab once daily 6. nortriptyline 10 mg Oral cap tid 7. diltiazem HCl 360 mg Oral Tb24 1 tab once daily 8. ferrous sulfate 325 mg (65 mg iron) Oral TbEC three times a day 9. glimepiride 4 mg Oral tab 1 tab once daily 10. torsemide 50 mg oral tab 1 tab once daily 11. allopurinol 100 mg Oral tab 2 tabs once daily 12. metoprolol tartrate 100 mg Oral tab 1 tab 2 times per day 13. cetirizine 10 mg oral tab 1 tab once daily 14. aspirin 325 mg Oral tab 1 tab once daily 15. pantoprazole 40 mg oral TbEC 1 tab once daily 16. Nitrostat 0.4 mg SL subl 1 tab every 5 minutes as needed - PMHx: Diabetes - IDDM: controlled; GERD; Gout; Hypercholesterolemia; Hypertension; - PSHx: Cardiac stents; - Social history: Smoking status: Patient states former smoker of tobacco. No barriers to communication noted, The patient speaks fluent Kinyarwanda, Speaks appropriately for age. - Family history: Not pertinent. - : The pt / caregiver states he / she is on anticoagulants: Plavix. Home medication list is obtained from the patient. - Exposure Risk Screening:: None identified. Vital Signs: 08/12 07:37 BP 94 / 61; Pulse 85; Resp 18; Temp 97.4(T); Pulse Ox 94% on R/A; Weight 109.77 kg / dy 242 lbs; Height 5 ft. 11 in. (180.34 cm); 08:28 BP 118 / 59 Supine; Pulse 78; bcj 08:28 BP 94 / 51 Sitting; Pulse 77; bcj 09:45 BP 114 / 64; Pulse 88; bcj 10:30 BP 115 / 66; Pulse 88; bcj 11:00 BP 118 / 56; Pulse 86; bcj 13:00 BP 120 / 74; Pulse 76; bcj 15:30 BP 128 / 54; Pulse 81; bcj 17:12 BP 138 / 58; Pulse 74; Resp 16; Temp 97.6(O); Pulse Ox 95% on R/A; Pain 0/10; bcj 18:01 BP 115 / 74; Pulse 78; Resp 16; Temp 98.2(O); Pulse Ox 95% on R/A; Pain 0/10; bcj 07:37 Body Mass Index 33.75 (109.77 kg, 180.34 cm) dy MDM: 07:46 Conveyor Weigher Operator/Pulse Ox/q 15 min VS ordered. sd1 07:46 IV Saline Lock ordered. sd1 07:46 Oxygen at 4L/Min NC or Home dosage ordered. sd1 07:46 Undress patient appropriately for examination ordered. sd1 07:46 Orthostatic VS ordered. sd1 07:47 Amylase Ordered. EDMS 07:47 Basic Metabolic Profile Ordered. EDMS 07:47 CBC with Diff Ordered. EDMS 07:47 Lipase Ordered. EDMS 07:47 Liver Profile Ordered. EDMS 07:47 Prothrombin Time Profile\E\INR Ordered. EDMS 07:47 Type & Screen Ordered. EDMS 07:47 NOTHING BY MOUTH+DIET ordered. EDMS 07:47 BED REQUEST+ADM ordered. EDMS 08:11 Financial registration complete. lg 09:13 [facility] [place] was scanned into [employer] and attached to record. lg 09:29 Basic Metabolic Profile Reviewed. sd1 09:29 CBC with Diff Reviewed. sd1 09:29 Liver Profile Reviewed. sd1 09:29 Amylase Reviewed. sd1 09:29 Lipase Reviewed. sd1 09:29 Type & Screen Reviewed. sd1 09:30 Misc. Nursing Order ordered. sd1 09:30 Prothrombin Time Profile\E\INR Reviewed. sd1 09:43 ECG WITH READING ER PHYS+CARDIAG ordered. EDMS 11:12 Admission / Observation Status ordered. EDMS 11:15 NPO DIET ordered. EDMS 12:18 HEMOGLOBIN Ordered. EDMS 13:15 HEMOGLOBIN & HEMATOCRIT Ordered. EDMS 14:54 T-Sheet-- Draft Copy was scanned into [employer] and attached to record. gb 08/13 10:02 ECG/EKG was scanned into [employer] and attached to record. gb Signatures: Dispatcher [employer] EDMS Irene Santamaria MD MD sd1 Trupti Alonso, Picture Frames Inspector Unit lbd Ayad Moe, RN RN Radha Guerra, Reg Reg gb Tabitha Chen, Reg Reg lg Jeet Lane, RN Marilyn Byers RN RN [id number] The chart was reviewed and I authenticate all verbal orders and agree with the evaluation and treatment provided.Corrections: (The following items were deleted from the chart) 08/12 13:15 12:18 HEMOGLOBIN ordered. EDMS EDMS 13:15 12:18 HEMOGLOBIN ordered. EDMS EDMS Attachments: 09:13 [facility] [place] Agreement lg 14:54 T-Sheet-- Draft Copy 08/13 10:02 ECG/EKG gb Chart Complete MTDD
--- NOTE | 2016-08-14 19:32 | EDDOCDS ---
Nurse's Notes [facility] Name: Lucien Gillis Age: 75 yrs Sex: Male : 1940 Arrival Date: 08/12/2016 Time: 07:31 Bed Admit Hold Private MD: Dutch Lofton NCFM; Paco Mcarthur Diagnosis: Diverticulosis of large intestine without perforation or abscess with bleeding Presentation: 08/12 07:35 Presenting complaint: Patient states: started with some blood with stool yesterday. dy states that blood is bright red with some clots noted. denies pain. states that today he has had 2 bouts with increased weakness throughout day. Suicide/Homicide risk assessment- the patient denies having any suicidal and/or homicidal ideations and does not present with any other emotional, behavioral or mental health complaints. 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 Transition of care: patient was not received from another setting of care. 07:35 Acuity: RAYNE Level 3 dy 07:35 Method Of Arrival: Wheelchair dy 17:15 Adult Sepsis Screening: The patient does not have new or worsening altered mentation. bcj Patient's respiratory rate is less than 22. Systolic blood pressure is greater than 100. Patient has a qSOFA score of 0- Negative Sepsis Screen. Triage Assessment: 07:41 General: Appears in no apparent distress. Pain: Denies pain. dy Historical: - Allergies: No known drug Allergies; - Home Meds: 1. Byetta 5 mcg/dose (250 mcg/mL) 1.2 mL subcutaneous pnij 2 times per day 2. Lantus 100 unit/mL Sub-Q crtg 50 units in the morning and nighttime 3. atorvastatin 80 mg oral tab 1 tab once daily 4. metformin 500 mg Oral Tb24 2 tabs 2 times per day 5. clopidogrel 75 mg oral tab 1 tab once daily 6. nortriptyline 10 mg Oral cap tid 7. diltiazem HCl 360 mg Oral Tb24 1 tab once daily 8. ferrous sulfate 325 mg (65 mg iron) Oral TbEC three times a day 9. glimepiride 4 mg Oral tab 1 tab once daily 10. torsemide 50 mg oral tab 1 tab once daily 11. allopurinol 100 mg Oral tab 2 tabs once daily 12. metoprolol tartrate 100 mg Oral tab 1 tab 2 times per day 13. cetirizine 10 mg oral tab 1 tab once daily 14. aspirin 325 mg Oral tab 1 tab once daily 15. pantoprazole 40 mg oral TbEC 1 tab once daily 16. Nitrostat 0.4 mg SL subl 1 tab every 5 minutes as needed - PMHx: Diabetes - IDDM: controlled; GERD; Gout; Hypercholesterolemia; Hypertension; - PSHx: Cardiac stents; - Social history: Smoking status: Patient states former smoker of tobacco. No barriers to communication noted, The patient speaks fluent Jamaican, Speaks appropriately for age. - Family history: Not pertinent. - : The pt / caregiver states he / she is on anticoagulants: Plavix. Home medication list is obtained from the patient. - Exposure Risk Screening:: None identified. Screenin:28 Screening information is obtained from the patient. Fall risk: No risks identified. bcj Assistance ADL's: requires no assistance with activities of daily living. Abuse/DV Screen: The patient / caregiver reports he/she is: not in a situation that causes fear, pain or injury. Nutritional screening: No deficits noted. home support is adequate. 15:19 Advance Directives: There is an active DNR order. bcj Assessment: 08:28 General: Appears in no apparent distress, comfortable, Behavior is cooperative. Pain: bcj Denies pain. GI: Abdomen is flat, non- distended Bowel sounds present X 4 quads. Abd is soft and non tender X 4 quads. Derm: Skin is pink, warm & dry. pale. 09:41 General: Appears in no apparent distress, comfortable, Behavior is cooperative. Pain: bcj Denies pain. GI: Abdomen is flat, non- distended. Derm: Skin is pink, warm & dry. 11:17 General: Appears in no apparent distress, comfortable, Behavior is cooperative. Pain: bcj Denies pain. Cardiovascular: Rhythm is sinus rhythm. Derm: Skin is pink, warm & dry. pale. 15:19 General: Appears in no apparent distress, comfortable, Behavior is cooperative. Pain: bcj Denies pain. Cardiovascular: Rhythm is sinus rhythm. GI: Abdomen is non- distended. Derm: Skin is pink, warm & dry. 17:12 General: Appears in no apparent distress, comfortable, Behavior is cooperative. Pain: bcj Denies pain. Cardiovascular: Rhythm is sinus rhythm. GI: Abdomen is flat, non- distended Abd is soft and non tender X 4 quads. Derm: Skin is pink, warm & dry. 18:01 General: Appears in no apparent distress, comfortable, Behavior is cooperative. Pain: j Denies pain. Cardiovascular: Rhythm is sinus rhythm. GI: Abdomen is non- distended. Derm: Skin is pink, warm & dry. pale. Vital Signs: 07:37 BP 94 / 61; Pulse 85; Resp 18; Temp 97.4(T); Pulse Ox 94% on R/A; Weight 109.77 kg; dy Height 5 ft. 11 in. (180.34 cm); 08:28 BP 118 / 59 Supine; Pulse 78; bcj 08:28 BP 94 / 51 Sitting; Pulse 77; bcj 09:45 BP 114 / 64; Pulse 88; bcj 10:30 BP 115 / 66; Pulse 88; bcj 11:00 BP 118 / 56; Pulse 86; bcj 13:00 BP 120 / 74; Pulse 76; bcj 15:30 BP 128 / 54; Pulse 81; bcj 17:12 BP 138 / 58; Pulse 74; Resp 16; Temp 97.6(O); Pulse Ox 95% on R/A; Pain 0/10; bcj 18:01 BP 115 / 74; Pulse 78; Resp 16; Temp 98.2(O); Pulse Ox 95% on R/A; Pain 0/10; bcj 07:37 Body Mass Index 33.75 (109.77 kg, 180.34 cm) dy Vitals: 07:37 Log In Time: August 12, 2016 at 07:30. dy 08:28 Refer to monitor trend for complete vital signs trends. [facility] ED Course: 07:33 Patient visited by Davide Salter. mm15 07:33 Paco Mcarthur PA is Private Physician. mm15 07:33 Dutch Lofton is Private Physician. mm15 07:33 Patient moved to Waiting mm15 07:37 Triage Initiated dy 07:42 Dolly Rivera,CULLEN is Primary Nurse. dy 07:42 Patient moved to 9 dy 07:46 Irene Santamaria MD is Attending Physician. sd1 07:47 Patient visited by Irene Santamaria MD. sd1 08:20 Patient visited by Al Masters PCA. jlf 08:28 No apparent distress. Resting quietly. awaiting re-evaluation by ER physician. bcj 08:28 The patient / caregiver is instructed regarding the plan of care and ED course. Patient german has correct armband on for positive identification. Placed in gown. Bed in low position. Call light in reach. Side rails up X 1. compliance monitor on. Pulse ox on. NIBP on. 08:28 Inserted saline lock: 20 gauge in right antecubital area. Labs drawn. (by ED staff). bcj Sent per order to lab. 08:31 Patient visited by Ayad Moe RN. bcj 08:52 Primary Nurse role handed off by Dolly Rivera RN jc4 08:53 Ayad Moe RN is Primary Nurse. jc4 09:13 [facility] Payment Agreement was scanned into [employer] and attached to record. lg 09:17 Patient visited by Al Masters PCA. jlf 09:41 No apparent distress. Resting quietly. Awaiting bed assignment. bcj 09:41 IV is intact. bcj 09:45 Patient visited by Ayad Moe RN. bcj 09:46 Sung Albarado is Hospitalizing Provider. sd1 10:00 EKG done. (by ED staff). Reviewed by Irene Santamaria MD. rn1 11:17 No apparent distress. Resting quietly. Awaiting bed assignment. bcj 11:17 IV is intact. bcj 11:19 Patient visited by Ayad Moe RN. bcj 12:23 Patient moved to Admit Hold jc4 13:43 EKG-ADULT Returned. EDMS 14:54 T-Sheet-- Draft Copy was scanned into [employer] and attached to record. gb 15:19 IV is intact. No procedures done that require assistance. bcj 15:21 Patient visited by Ayad Moe RN. bcj 16:42 Patient visited by Ayad Moe RN. bcj 17:12 No apparent distress. Resting quietly. Awaiting bed assignment. bcj 17:12 IV is intact. bcj 18:01 No apparent distress. Resting quietly. Awaiting bed assignment. bcj 18:01 IV is intact. bcj 18:31 Patient visited by Ayad Moe RN. bcj 08/13 10:02 ECG/EKG was scanned into [employer] and attached to record. gb Output: 08/12 15:19 Stool: 3 (Loose Stool) ; Total: 0.00ml. bcj Order Results: Lab Order: Amylase; SPEC'M 08/12/16 08:25 Test: AMYLASE; Value: 50; Range: 25-115; Units: U/L; Status: F Lab Order: Basic Metabolic Profile; SPEC'M 08/12/16 08:25 Test: GLUCOSE, FASTING; Value: 199; Range: 83-110; Abnormal: Above high normal; Units: MG/DL; Status: F Test: BLOOD UREA NITROGEN; Value: 31; Range: 7-18; Abnormal: Above high normal; Units: MG/DL; Status: F Test: CREATININE FOR GFR; Value: 1.33; Range: 0.70-1.30; Abnormal: Above high normal; Units: MG/DL; Status: F Test: GLOMERULAR FILTRATION RATE; Value: 55.8; Range: >42; Status: F Test: SODIUM LEVEL; Value: 144; Range: 136-145; Units: MEQ/L; Status: F Test: POTASSIUM SERUM; Value: 5.0; Range: 3.5-5.1; Units: MEQ/L; Status: F Test: CHLORIDE LEVEL; Value: 112; Range: 98-107; Abnormal: Above high normal; Units: MEQ/L; Status: F Test: CARBON DIOXIDE LEVEL; Value: 23; Range: 21-32; Units: MEQ/L; Status: F Test: ANION GAP; Value: 9; Range: 8-16; Units: MEQ/L; Status: F Test: CALCIUM LEVEL; Value: 8.8; Range: 8.8-10.2; Units: MG/DL; Status: F Test Note: ; Units are mL/min/1.73 m2 Chronic Kidney Disease Staging per NKF: Stage I & II GFR >=60 Normal to Mildly Decreased Stage III GFR 30-59 Moderately Decreased Stage IV GFR 15-29 Severely Decreased Stage V GFR <15 Very Little GFR Left ESRD GFR <15 on MDM DEVELOPER Lab Order: CBC with Diff; SPEC'M 08/12/16 08:25 Test: WHITE BLOOD COUNT; Value: 11.0; Range: 4.0-10.0; Abnormal: Above high normal; Units: K/mm3; Status: F Test: RED BLOOD COUNT; Value: 3.72; Range: 4.30-6.10; Abnormal: Below low normal; Units: M/mm3; Status: F Test: HEMOGLOBIN; Value: 9.6; Range: 14.0-18.0; Abnormal: Below low normal; Units: g/dl; Status: F Test: HEMATOCRIT; Value: 31.6; Range: 42.0-52.0; Abnormal: Below low normal; Units: %; Status: F Test: MEAN CORPUSCULAR VOLUME; Value: 84.9; Range: 80.0-96.0; Units: fl; Status: F Test: MEAN CORPUSCULAR HEMOGLOBIN; Value: 25.9; Range: 27.0-33.0; Abnormal: Below low normal; Units: pg; Status: F Test: MEAN CORPUSCULAR HGB CONC; Value: 30.5; Range: 32.0-36.5; Abnormal: Below low normal; Units: g/dl; Status: F Test: RED CELL DISTRIBUTION WIDTH; Value: 16.9; Range: 11.5-14.5; Abnormal: Above high normal; Units: %; Status: F Test: PLATELET COUNT, AUTOMATED; Value: 346; Range: 150-450; Units: k/mm3; Status: F Test: NEUTROPHILS %; Value: 82.8; Range: 36.0-66.0; Abnormal: Above high normal; Units: %; Status: F Test: LYMPH %; Value: 11.1; Range: 24.0-44.0; Abnormal: Below low normal; Units: %; Status: F Test: MONO %; Value: 2.8; Range: 0.0-5.0; Units: %; Status: F Test: EOS %; Value: 2.5; Range: 0.0-3.0; Units: %; Status: F Test: BASO %; Value: 0.1; Range: 0.0-1.0; Units: %; Status: F Test: LARGE UNSTAINED CELL %; Value: 0.7; Range: 0.0-4.0; Units: %; Status: F Test: NEUTROPHILS #; Value: 9.1; Range: 1.8-7.7; Abnormal: Above high normal; Units: K/mm3; Status: F Test: LYMPH #; Value: 1.2; Range: 1.5-4.5; Abnormal: Below low normal; Units: K/mm3; Status: F Test: MONO #; Value: 0.3; Range: 0.0-0.8; Units: K/mm3; Status: F Test: EOS #; Value: 0.3; Range: 0.0-0.50; Units: K/mm3; Status: F Test: BASO #; Value: 0.0; Range: 0.0-0.2; Units: K/mm3; Status: F Test: LARGE UNSTAINED CELL #; Value: 0.1; Range: 0.0-0.4; Units: K/mm3; Status: F Lab Order: Lipase; [facility] 08/12/16 08:25 Test: LIPASE; Value: 107; Range: 73-393; Units: U/L; Status: F Lab Order: Liver Profile; [facility] 08/12/16 08:25 Test: AST/SGOT; Value: 7; Range: 15-37; Abnormal: Below low normal; Units: U/L; Status: F Test: ALT/SGPT; Value: 11; Range: 12-78; Abnormal: Below low normal; Units: U/L; Status: F Test: ALKALINE PHOSPHATASE; Value: 89; Range: 45-117; Units: U/L; Status: F Test: BILIRUBIN,TOTAL; Value: 0.3; Range: 0.2-1.0; Units: MG/DL; Status: F Test: BILIRUBIN,DIRECT; Value: 0.1; Range: 0.0-0.2; Units: MG/DL; Status: F Test: TOTAL PROTEIN; Value: 6.1; Range: 6.4-8.2; Abnormal: Below low normal; Units: GM/DL; Status: F Test: ALBUMIN; Value: 3.0; Range: 3.2-5.2; Abnormal: Below low normal; Units: GM/DL; Status: F Test: ALBUMIN/GLOBULIN RATIO; Value: 0.97; Range: 1.00-1.93; Abnormal: Below low normal; Status: F Lab Order: Prothrombin Time Profile\E\INR; [facility] 08/12/16 09:11 Test: PROTHROMBIN TIME; Value: 14.1; Range: 12.3-14.5; Units: SECONDS; Status: F Test: INR; Value: 1.08; Status: F Test Note: ; THERAPUTIC HUMAN INR VALUES INDICATIONS NORMAL RANGES PROPHYLAXIS/TREATMENT OF: VENOUS THROMBOSIS 2.0-3.0 PULMONARY EMBOLISM 2.0-3.0 PREVENTION OF SYSTEMIC EMBOLISM FROM: TISSUE HEART VALVES 2.0-3.0 ACUTE MYOCARDIAL INFARCTION 2.0-3.0 VALVULAR HEART DISEASE 2.0-3.0 ATRIAL FIBRILLATION 2.0-3.0 MECHANICAL VALVES(HIGH RISK) 2.5-3.5 RECURRENT MYOCARDIAL INFARCTION 2.5-3.5 Lab Order: Type & Screen; [facility] 08/12/16 08:25 Test: BLOOD TYPE; Value: B NEG; Status: F Test: AB SCREEN (INDIRECT STONE)GEL; Value: NEGATIVE; Status: F Lab Order: HEMOGLOBIN; [facility] 08/12/16 12:32 Test: HEMOGLOBIN; Value: 9.6; Range: 14.0-18.0; Abnormal: Below low normal; Units: g/dl; Status: F Lab Order: HEMOGLOBIN & HEMATOCRIT; [facility] 08/12/16 17:46 Test: HEMOGLOBIN; Value: 9.6; Range: 14.0-18.0; Abnormal: Below low normal; Units: g/dl; Status: F Test: HEMATOCRIT; Value: 31.5; Range: 42.0-52.0; Abnormal: Below low normal; Units: %; Status: F Radiology Order: EKG-ADULT Test: EKG-ADULT REASON FOR EXAMINATION: weakness; Stationary ECG Study; [facility] - ED; ; Test Date: 2016-08-12; Pat Name: LUCIEN GILLIS Department:; Room: [place] [address]; Gender: M 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 sd1 17:12 Discharge Assessment: patient administered narcotics - no. The following High Risk [facility] Discharge criteria are identified: None. Admitted to ICU accompanied by nurse, accompanied by tech, via stretcher, on monitor. Condition: stable. No special radiology studies were completed. Admission hand-off: Report called to Lashell BERMAN. Property :Personal belongings accompany Pt. 18:32 Patient left the ED. [facility] Signatures: Dispatcher [employer] EDMS Irene Santamaria MD MD sd1 Ayad Moe, RN RN Radha Guerra, Reg Reg gb Tabitha Chen, Reg Reg lg Jeet Lane, RN RN Marilyn Navarro, RN RN Davide Miller mm15 Al Masters, ROSANNA OPTICAL FABRICATION TECHNICIAN Artur Rajan rn1 Chart Complete MTDD
--- NOTE | 2016-08-14 19:32 | EDDOCDS ---
Physician Documentation [facility] Name: Lucien Gillis Age: 75 yrs Sex: Male : 1940 Arrival Date: 08/12/2016 Time: 07:31 Bed Admit Hold Private MD: Dutch Lofton [facility]; Paco Mcarthur Disposition: 08/12/16 09:46 Hospitalization ordered by Sung Albarado for Inpatient Admission. Preliminary diagnosis is Diverticulosis of large intestine without perforation or abscess with bleeding. - Bed requested for M ICU. - Status is Inpatient Admission. bcj - Condition is Stable. - Problem is new. - Symptoms are unchanged. Historical: - Allergies: No known drug Allergies; - Home Meds: 1. Byetta 5 mcg/dose (250 mcg/mL) 1.2 mL subcutaneous pnij 2 times per day 2. Lantus 100 unit/mL Sub-Q crtg 50 units in the morning and nighttime 3. atorvastatin 80 mg oral tab 1 tab once daily 4. metformin 500 mg Oral Tb24 2 tabs 2 times per day 5. clopidogrel 75 mg oral tab 1 tab once daily 6. nortriptyline 10 mg Oral cap tid 7. diltiazem HCl 360 mg Oral Tb24 1 tab once daily 8. ferrous sulfate 325 mg (65 mg iron) Oral TbEC three times a day 9. glimepiride 4 mg Oral tab 1 tab once daily 10. torsemide 50 mg oral tab 1 tab once daily 11. allopurinol 100 mg Oral tab 2 tabs once daily 12. metoprolol tartrate 100 mg Oral tab 1 tab 2 times per day 13. cetirizine 10 mg oral tab 1 tab once daily 14. aspirin 325 mg Oral tab 1 tab once daily 15. pantoprazole 40 mg oral TbEC 1 tab once daily 16. Nitrostat 0.4 mg SL subl 1 tab every 5 minutes as needed - PMHx: Diabetes - IDDM: controlled; GERD; Gout; Hypercholesterolemia; Hypertension; - PSHx: Cardiac stents; - Social history: Smoking status: Patient states former smoker of tobacco. No barriers to communication noted, The patient speaks fluent Bulgarian, Speaks appropriately for age. - Family history: Not pertinent. - : The pt / caregiver states he / she is on anticoagulants: Plavix. Home medication list is obtained from the patient. - Exposure Risk Screening:: None identified. Vital Signs: 08/12 07:37 BP 94 / 61; Pulse 85; Resp 18; Temp 97.4(T); Pulse Ox 94% on R/A; Weight 109.77 kg / dy 242 lbs; Height 5 ft. 11 in. (180.34 cm); 08:28 BP 118 / 59 Supine; Pulse 78; bcj 08:28 BP 94 / 51 Sitting; Pulse 77; bcj 09:45 BP 114 / 64; Pulse 88; bcj 10:30 BP 115 / 66; Pulse 88; bcj 11:00 BP 118 / 56; Pulse 86; bcj 13:00 BP 120 / 74; Pulse 76; bcj 15:30 BP 128 / 54; Pulse 81; bcj 17:12 BP 138 / 58; Pulse 74; Resp 16; Temp 97.6(O); Pulse Ox 95% on R/A; Pain 0/10; bcj 18:01 BP 115 / 74; Pulse 78; Resp 16; Temp 98.2(O); Pulse Ox 95% on R/A; Pain 0/10; bcj 07:37 Body Mass Index 33.75 (109.77 kg, 180.34 cm) dy MDM: 07:46 Meat Specialist/Pulse Ox/q 15 min VS ordered. sd1 07:46 IV Saline Lock ordered. sd1 07:46 Oxygen at 4L/Min NC or Home dosage ordered. sd1 07:46 Undress patient appropriately for examination ordered. sd1 07:46 Orthostatic VS ordered. sd1 07:47 Amylase Ordered. EDMS 07:47 Basic Metabolic Profile Ordered. EDMS 07:47 CBC with Diff Ordered. EDMS 07:47 Lipase Ordered. EDMS 07:47 Liver Profile Ordered. EDMS 07:47 Prothrombin Time Profile\E\INR Ordered. EDMS 07:47 Type & Screen Ordered. EDMS 07:47 NOTHING BY MOUTH+DIET ordered. EDMS 07:47 BED REQUEST+ADM ordered. EDMS 08:11 Financial registration complete. lg 09:13 [facility] [place] was scanned into [employer] and attached to record. lg 09:29 Basic Metabolic Profile Reviewed. sd1 09:29 CBC with Diff Reviewed. sd1 09:29 Liver Profile Reviewed. sd1 09:29 Amylase Reviewed. sd1 09:29 Lipase Reviewed. sd1 09:29 Type & Screen Reviewed. sd1 09:30 Misc. Nursing Order ordered. sd1 09:30 Prothrombin Time Profile\E\INR Reviewed. sd1 09:43 ECG WITH READING ER PHYS+CARDIAG ordered. EDMS 11:12 Admission / Observation Status ordered. EDMS 11:15 NPO DIET ordered. EDMS 12:18 HEMOGLOBIN Ordered. EDMS 13:15 HEMOGLOBIN & HEMATOCRIT Ordered. EDMS 14:54 T-Sheet-- Draft Copy was scanned into [employer] and attached to record. gb 08/13 10:02 ECG/EKG was scanned into MED[employer] and attached to record. gb Signatures: Dispatcher [employer] EDMS Irene Santamaria MD MD sd1 Trupti Alonso, Hadoop Developer Unit lbd Ayad Moe, RN RN Radha Guerra, Reg Reg gb Tabitha Chen, Reg Reg lg Jeet Lane, RN Marilyn Byers RN RN jc4 The chart was reviewed and I authenticate all verbal orders and agree with the evaluation and treatment provided.Corrections: (The following items were deleted from the chart) 08/12 13:15 12:18 HEMOGLOBIN ordered. EDMS EDMS 13:15 12:18 HEMOGLOBIN ordered. EDMS EDMS Attachments: 09:13 [facility] [place] Agreement lg 14:54 T-Sheet-- Draft Copy 08/13 10:02 ECG/EKG gb Chart Complete MTDD
[2016-08-14] MEDS: ATORVASTATIN 20 MG TAB PO SCH (22:06)
[2016-08-15] VITALS (9 sets, daily range): BP systolic 118–165; BP diastolic 56–80
[2016-08-15] MEDS: NS 1,000 ML IV SCH (03:19)
[2016-08-15 05:57] LABS: MEAN CORPUSCULAR HEMOGLOBIN 25.3 pg (27.0-33.0); MEAN CORPUSCULAR VOLUME 84.2 fl (80.0-96.0); RED CELL DISTRIBUTION WIDTH 18.5 % (11.5-14.5)
[2016-08-15] MEDS ORDERED: GOLYTELY SOLN 4000 ML BTL PO ONE (06:00)
[2016-08-15 06:28] LABS: ANION GAP 8 MEQ/L (8-16); BLOOD UREA NITROGEN 7 MG/DL (7-18); CALCIUM LEVEL 8.1 MG/DL (8.8-10.2); CARBON DIOXIDE LEVEL 24 MEQ/L (21-32); CHLORIDE LEVEL 114 MEQ/L (98-107); CREATININE FOR GFR 0.85 MG/DL (0.70-1.30); GLOMERULAR FILTRATION RATE > 60.0 (>42); GLUCOSE, FASTING 137 MG/DL (83-110); POTASSIUM SERUM 4.2 MEQ/L (3.5-5.1); SODIUM LEVEL 146 MEQ/L (136-145)
[2016-08-15] MEDS: PANTOPRAZOLE 40MG INJ (PROTONIX) (C9113) IV SCH ×2 (08:09→21:03)
[2016-08-15] MEDS: NORTRIPTYLINE 10 MG CAP PO SCH ×3 (08:09→21:03)
[2016-08-15] MEDS: HumaLOG INSULIN (NovoLOG) PER UNIT SC SCH ×4 (08:09→20:57)
[2016-08-15] MEDS: CETIRIZINE (ZyrTEC) 10 MG TAB PO SCH (08:10)
[2016-08-15] MEDS: ALLOPURINOL 100 MG TAB PO SCH (08:10)
[2016-08-15] MEDS: METOPROLOL TARTRATE 100 MG TAB PO SCH ×2 (08:11→21:03)
[2016-08-15] MEDS: diltiaZEM **CD** 180 MG CAP PO SCH (08:12)
--- NOTE | 2016-08-15 10:33 | IPNPDOC ---
Assessment/Plan Date Seen The patient was seen on 08/15/16. Problems Problems: (1) GI bleed Status: Acute Response to Treatment: Stable Discussed With: X Ray Consultant, Patient Problem Specific Plan: Consult Specialist, Monitor Clinically, Repeat Labs Problem Text: Transfused 1 unit PRBC. Hg relatively stable at this time. Continue with serial H/H. Plan for colonoscopy today. Follow as per GI, assistance appreciated. (2) Acute blood loss anemia Status: Acute Problem Specific Plan: Consult Specialist, Monitor Clinically, Repeat Labs Problem Text: As per above, secondary to presumed lower GI bleed. 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 Continue serial H/H. Further instructions as per results of colonoscopy and follow up with GI. Subjective Review of Systems CC/HPI The patient is a 75-year-old male admitted with a reason for visit of Gi Bleed. General: Denies: Chills, Fatigue, Malaise, Night Sweats, Normal Appetite, Other Symptoms, ROS Unobtainable Constitutional: Denies: Chills, Fatigue, Fever, Lethargy, Malaise, Night Sweats , Other, Weakness, Weight Loss Eyes: Denies: Conjunctivae inflammation, Eyelid inflammation, Other, Pain, Redness, Vision change ENT: Denies: Dysphagia, Ear Pain, Epistaxis, Head Aches, Other Symptoms, Post Nasal Drip, Sinus Congestion, Sore Throat Skin: Denies: Breakdown, Bruising, Dry, Itching, Jaundice, Lesions, Nail Changes, Other, Rash Pulmonary: Denies: Cough, Dyspnea, Other Symptoms, Pleuritic Chest Pain Cardiovascular: Denies: Chest Pain, Edema, Lt Headedness, Orthopnea, Other Symptoms, Palpitations, Paroxysmal Noc. Dyspnea Gastrointestinal: Denies: Abdominal Pain, Constipation, Diarrhea, Hematochezia , Melena, Nausea, Other Symptoms, Vomiting Objective Physical Examination General Exam: Positive: Alert, Cooperative, No Acute Distress, Other Eye Exam: Positive: Conjunctiva & lids normal, EOMI ENT Exam: Positive: Atraumatic Neck Exam: Positive: Supple Chest Exam: Positive: Clear to auscultation, Normal air movement Heart Exam: Positive: Normal S1, Normal S2, Other (distant heart sounds), Rate Normal, Regular Rhythm Abdomen Exam: Positive: Hernia, Normal bowel sounds, Soft, Negative: Tenderness Extremity Exam: Positive: Normal pulses, Negative: Swelling, Tenderness Skin Exam: Positive: Nl turgor and temperature Neuro Exam: Positive: Normal Speech Psych Exam: Positive: Mental status NL, Mood NL, Oriented x 3 Vital Signs/I&O Vital Signs Date Time Temp Pulse Resp B/P Pulse Ox O2 Delivery O2 Flow Rate FiO2 08/15/16 08:12 62 154/68 08/15/16 06:00 97.0 20 93 08/14/16 14:00 Room Air I&O- Last 24 Hours up to 6 AM 08/15/16 06:00 Intake Total 3700 ml Output Total 850 ml Balance 2850 ml Laboratory Data Labs 24H Laboratory Tests 2 08/14/16 11:43: Bedside Glucose (Misc Panel) 113H 08/14/16 16:42: Bedside Glucose (Misc Panel) 137H 08/14/16 20:28: Bedside Glucose (Misc Panel) 149H 08/15/16 05:32: Anion Gap 8, Blood Urea Nitrogen 7#, Creatinine 0.85, Sodium Level 146H, Potassium Level 4.2, Chloride Level 114H, Carbon Dioxide Level 24, Calcium Level 8.1L, Glomerular Filtration Rate > 60.0 CBC/BMP Laboratory Tests 08/14/16 12:17 08/14/16 18:34 08/15/16 00:14 08/15/16 05:32 Calcium Level 8.1 L, Red Blood Count 3.51 L, Mean Corpuscular Volume 84.2, Mean Corpuscular Hemoglobin 25.3 L, Mean Corpuscular Hemoglobin Concent 30.0 L, Red Cell Distribution Width 18.5 H FSBS Laboratory Tests Test 08/14/16 11:43 08/14/16 16:42 08/14/16 20:28 Range/Units Bedside Glucose (Misc Panel) 113 137 149 83-110 MG/DL Microbiology Microbiology 08/12/16 MRSA Screen - Final, Complete GAUDENCIO ALVARENGA MD Aug 15, 2016 10:33
[2016-08-15] MEDS ORDERED: PROPOFOL 200 MG/20 ML VIAL As Ordered ONE (14:25)
--- NOTE | 2016-08-15 14:39 | ROOR ---
Patient Name: Lucien Gillis Procedure Date: 08/15/2016 2:26 PM Date of : 1940 Age: 75 Room: [facility] Gender: Male Note Status: Finalized Procedure: Upper GI endoscopy Indications: Recent gastrointestinal bleeding Providers: Collin You MD Referring MD: 2. Inpatient 2. Inpatient Requesting Provider: Medicines: Monitored Anesthesia Care Complications: No immediate complications. Procedure: Pre-Anesthesia Assessment: - The heart rate, respiratory rate, oxygen saturations, blood pressure, adequacy of pulmonary ventilation, and response to care were monitored throughout the procedure. The Endoscope was introduced through the mouth, and advanced to the second part of duodenum. The upper GI endoscopy was accomplished without difficulty. The patient tolerated the procedure well. Findings: The Z-line was regular and was found 40 cm from the incisors. A medium-sized hiatus hernia was present. No other significant abnormalities were identified in a careful examination of the stomach. The exam of the duodenum was otherwise normal. Impression: - Z-line regular, 40 cm from the incisors. - Medium-sized hiatus hernia. - No specimens collected. - The examination was otherwise normal. Recommendation: - Patient has a contact number available for emergencies. The signs and symptoms of potential delayed complications were discussed with the patient. Return to normal activities tomorrow. Written discharge instructions were provided to the patient. - Resume previous diet. - Return patient to [facility] for [facility] care. - The findings and recommendations were discussed with the referring physician. Collin You MD Collin You MD 08/15/2016 2:39:18 PM This report has been signed electronically. Number of Addenda: 0 Note Initiated On: 08/15/2016 2:26 PM Estimated Blood Loss: Estimated blood loss: none.
--- NOTE | 2016-08-15 15:16 | ROOR ---
Patient Name: Lucien Gillis Procedure Date: 08/15/2016 2:25 PM Date of : 1940 Age: 75 Room: [facility] Gender: Male Note Status: Finalized Procedure: Colonoscopy to Anastomosis + Biopsies + Carbon Spot Marking Indications: Rectal bleeding Providers: Collin You MD Referring MD: 2. Inpatient 2. Inpatient Requesting Provider: Medicines: Monitored Anesthesia Care Complications: No immediate complications. Procedure: Pre-Anesthesia Assessment: - The heart rate, respiratory rate, oxygen saturations, blood pressure, adequacy of pulmonary ventilation, and response to care were monitored throughout the procedure. The Colonoscope was introduced through the anus and advanced to the ileocolonic anastomosis. The colonoscopy was performed without difficulty. The patient tolerated the procedure well. The quality of the bowel preparation was fair. Findings: The perianal and digital rectal examinations were normal. Non-bleeding internal hemorrhoids were found during retroflexion. The hemorrhoids were small and Grade I (internal hemorrhoids that do not prolapse). Multiple small and large-mouthed diverticula were found in the recto-sigmoid colon, in the sigmoid colon and in the descending colon. A large polyp was found in the descending colon. The polyp was sessile. Biopsies were taken with a cold forceps for histology. Area was successfully injected with Spot (carbon black) for tattooing. An ulcerated partially obstructing large mass was found in the transverse colon. The mass was partially circumferential (involving two-thirds of the lumen circumference). No bleeding was present. This was biopsied with a cold forceps for histology. The exam was otherwise without abnormality. Impression: - Non-bleeding internal hemorrhoids. - Diverticulosis in the recto-sigmoid colon, in the sigmoid colon and in the descending colon. - One large polyp in the descending colon. Biopsied. Injected. - Rule out malignancy, partially obstructing tumor in the transverse colon. Biopsied. - The examination was otherwise normal. - Malignant-appearing tumor in the colon. Biopsied. Recommendation: - Return patient to [facility] for ongoing care. - Resume previous diet. - The findings and recommendations were discussed with the patient. - The findings and recommendations were discussed with the referring physician. Collin You MD Collin You MD 08/15/2016 3:15:58 PM This report has been signed electronically. Number of Addenda: 0 Note Initiated On: 08/15/2016 2:25 PM Estimated Blood Loss: Estimated blood loss: none.
[2016-08-15] MEDS: ATORVASTATIN 20 MG TAB PO SCH (21:02)
[2016-08-16 06:00] VITALS: BP 140/60
[2016-08-16 06:46] LABS: MEAN CORPUSCULAR HEMOGLOBIN 26.1 pg (27.0-33.0); MEAN CORPUSCULAR HGB CONC 30.6 g/dl (32.0-36.5); MEAN CORPUSCULAR VOLUME 85.4 fl (80.0-96.0); RED CELL DISTRIBUTION WIDTH 17.4 % (11.5-14.5); WHITE BLOOD COUNT 11.2 K/mm3 (4.0-10.0)
[2016-08-16 06:55] LABS: ANION GAP 10 MEQ/L (8-16); BLOOD UREA NITROGEN 6 MG/DL (7-18); CALCIUM LEVEL 8.5 MG/DL (8.8-10.2); CARBON DIOXIDE LEVEL 22 MEQ/L (21-32); CHLORIDE LEVEL 113 MEQ/L (98-107); CREATININE FOR GFR 0.93 MG/DL (0.70-1.30); GLOMERULAR FILTRATION RATE > 60.0 (>42); GLUCOSE, FASTING 168 MG/DL (83-110); POTASSIUM SERUM 4.4 MEQ/L (3.5-5.1); SODIUM LEVEL 145 MEQ/L (136-145)
[2016-08-16] MEDS: HumaLOG INSULIN (NovoLOG) PER UNIT SC SCH ×4 (08:21→19:56)
[2016-08-16] MEDS: PANTOPRAZOLE 40MG INJ (PROTONIX) (C9113) IV SCH ×2 (08:22→20:02)
[2016-08-16] MEDS: CETIRIZINE (ZyrTEC) 10 MG TAB PO SCH (08:22)
[2016-08-16] MEDS: METOPROLOL TARTRATE 100 MG TAB PO SCH ×2 (08:22→20:03)
[2016-08-16] MEDS: ALLOPURINOL 100 MG TAB PO SCH (08:22)
[2016-08-16] MEDS: diltiaZEM **CD** 180 MG CAP PO SCH (08:22)
[2016-08-16] MEDS: NORTRIPTYLINE 10 MG CAP PO SCH ×3 (08:22→20:02)
[2016-08-16 10:00] VITALS: BP 161/60
--- NOTE | 2016-08-16 12:18 | REP ---
CT abdomen and pelvis without contrast, 08/16/2016. Comparison: CT abdomen and pelvis 10/15/2015, 10/14/2015, CT abdomen 04/02/2010. Technique: 3 mm spiral axial sections performed through abdomen and pelvis without contrast. Findings: There are small bilateral pleural effusions, right greater than left, increased from prior study. Bibasilar fibroatelectatic changes are seen in the lung bases. There is some stable fibrotic scarring in bases and along the lateral aspect of the right lung base and abutting the major fissure. The visualized portions of the heart are borderline in size. Liver is without focal lesion. The liver is enlarged, however 19.6 cm craniocaudal dimension. The spleen is mildly enlarged 13.6 cm craniocaudal dimension. Mild atrophic changes are seen in the pancreas. The gallbladder is unremarkable. Thickening of the left adrenal which is of density greater than adenoma therefore indeterminate. The right adrenal is within normal limits. There are two small right renal cortical cysts. Stomach is normal. Small bowel is without obstruction. Postsurgical changes are seen compatible with prior right hemicolectomy with ileocolonic anastomosis which is patent. Circumferential mural thickening is seen in the midportion of the transverse colon, 4.4 cm in length. This may be secondary to spasm or fixed narrowing. There is no bowel obstruction. There is extensive diverticulosis within the sigmoid colon. There is no free air or ascites. The bladder is underdistended yet grossly normal in appearance. Prostate is not enlarged. There is no lytic or blastic lesions of bone. Impression: 1. Small bilateral pleural effusions with bibasilar compressive atelectasis, increased bilaterally since 10/15/2015. Stranding densities within the lateral right base contiguous with the major fissure, on images 3 through 11 series 201 most compatible with scarring yet with some progressive thickening from prior studies.Interval followup recommended in 3 months. 2. Circumferential area of mural thickening and narrowing within the mid transverse colon of 4.4 cm in length. Differential diagnosis includes spasm, fixed narrowing. 3. Consider CT abdomen and pelvis with IV and oral contrast or possibly PET scan. MTDD
[2016-08-16 14:00] VITALS: BP 142/62
--- NOTE | 2016-08-16 15:42 | CR ---
DATE OF CONSULTATION: 08/16/2016 REASON FOR CONSULTATION: Status post colonoscopy, one large polyp in descending colon and tumor rule out malignancy in transverse colon. HISTORY OF PRESENT ILLNESS: The patient is a 75-year-old male without has been in the hospital since 08/12/2016. The patient was admitted to the hospital for history of bloody stools. The patient's significant past medical history include gastroesophageal reflux disease (GERD), hypertension, hyperlipidemia, cardiac stent placement, history of invasive polypectomy, and currently taking aspirin and Plavix. Presented to the ED on the with hematochezia. Since being in the hospital, the patient has had an upper endoscopy as well as a colonoscopy. Colonoscopy revealed diverticulitis, diverticulosis as well as a large polyp in descending colon which was biopsied. There was also a partially obstructing tumor discovered in the transverse colon, which was also biopsied to rule out malignancy. Still awaiting the results of biopsy at this time. Currently, the patient is not having any abdominal pain or discomfort. The patient denies any diarrhea, constipation, nausea, vomiting. The patient also denies chest pain, shortness of breath, headaches, changes in urination, changes in vision or hearing as well as palpitations. The patient's last bowel movement was yesterday and was regular without any blood. PAST MEDICAL HISTORY: Diabetes, controlled, GERD, gout, myocardial infarction (MA), congestive heart failure, hypercholesterolemia, hypertension, coronary artery disease with cardiac stents, history of atrial fibrillation. PAST SURGICAL HISTORY: Cardiac stents, status post right hemicolectomy in 2004, upper endoscopy, the last one being in 2009. SOCIAL HISTORY: The patient stopped smoking cigarettes and stopped drinking in 1996. The patient used to smoke two packs of cigarettes a day for over 20 years. HOME MEDICATIONS: - allopurinol - aspirin - atorvastatin - cetirizine - clopidogrel - diltiazem - ferrous sulfate - glimepiride - insulin glargine - metformin - metoprolol - nortriptyline - pantoprazole - torsemide The patient also has medications as needed, Artificial Tears and nitroglycerin. PHYSICAL EXAMINATION: VITAL SIGNS: Temperature 100.3, pulse 74, respiratory rate 18, blood pressure 161/60, pulse oximetry 94% on 3 liters nasal cannula. APPEARANCE: The patient is alert and oriented, comfortable. No acute distress. HEENT: Extraocular muscles intact. Eyes spontaneously open. Pupils equal and reactive to light and accommodation. No erythema or exudates in the oropharynx. CARDIAC: Normal S1 and S2 with no clicks, rubs, gallops or murmurs. LUNGS: Equal bilaterally. No wheezing on exam. ABDOMEN: Soft and distended. No guarding or rebound tenderness on exam. No pain to palpation. No rigidity. No masses or organomegaly palpated on exam. EXTREMITIES: Lower extremity, mild edema. The patient is wearing knee high stockings. The patient reports no pain in legs on exam. Pedal pulses 2 out of 4 bilaterally. ASSESSMENT AND PLAN: The patient is status post colonoscopy with polyp in descending colon and questionable malignancy in transverse colon. Discussed treatment plan with patient. Awaiting current pathology report for polyp in descending colon as well as tumor in transverse colon. Will talk with Dr. You about possible removal of polyp prior to any surgery. Discussed possible open surgery for removal of questionable malignancy in transverse colon. Also discuss possible removal of polyp if not performed by Dr. You, in addition to transverse colon surgery. At this current time awaiting pathology report. The patient will continue on current treatment plan at this time. Will discuss more with the patient after pathology report and discussion with Dr. You. Discussed plan with my attending Dr. Nino. My preceptor for this patient encounter was Dr. Nino. The preceptor was physically present in the building during the encounter and was fully available. As needed, all aspects of the patient interview, examination, medical decision making process, and medical care plan development were reviewed and approved by the preceptor. The preceptor is aware and concurs with the plan as stated in the body of this note and will attest to such by his/her cosignature. HEMA
--- NOTE | 2016-08-16 17:17 | IPNPDOC ---
Assessment/Plan Date Seen The patient was seen on 08/16/16. Problems Problems: (1) GI bleed Status: Acute Response to Treatment: Stable Discussed With: Custodial Services Manager, Patient Problem Specific Plan: Consult Specialist, Monitor Clinically, Repeat Labs Problem Text: * PRBC transfusion on 08/13/16 and 08/14/16. H/H is stable. * Colonoscopy shows mass-like lesion. biopsy results are pending. Suspect GI malignancy. * Obtain CT abdomen. * Consults General surgery. (2) Acute blood loss anemia Status: Acute Problem Specific Plan: Consult Specialist, Monitor Clinically, Repeat Labs Problem Text: As per above, secondary to presumed lower GI bleed. 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 Events since last encounter Patient is seen and examed in the room today. Patient tolerated colonoscopy without complication. He was informed about mass-like lesion. He is very concerned. No overnight event is reported. Objective Physical Examination General Exam: Positive: Alert, Cooperative, No Acute Distress, Other Eye Exam: Positive: Conjunctiva & lids normal, EOMI ENT Exam: Positive: Atraumatic Neck Exam: Positive: Supple Chest Exam: Positive: Clear to auscultation, Normal air movement Heart Exam: Positive: Normal S1, Normal S2, Other (distant heart sounds), Rate Normal, Regular Rhythm Abdomen Exam: Positive: Hernia, Normal bowel sounds, Soft, Negative: Tenderness Extremity Exam: Positive: Normal pulses, Negative: Swelling, Tenderness Skin Exam: Positive: Nl turgor and temperature Neuro Exam: Positive: Normal Speech Psych Exam: Positive: Mental status NL, Mood NL, Oriented x 3 Vital Signs/I&O Vital Signs Date Time Temp Pulse Resp B/P Pulse Ox O2 Delivery O2 Flow Rate FiO2 08/16/16 14:00 98.3 60 18 142/62 97 Nasal Cannula 2.0 I&O- Last 24 Hours up to 6 AM 08/16/16 06:00 Intake Total 1245 ml Output Total 1350 ml Balance -105 ml Laboratory Data Labs 24H Laboratory Tests 2 08/15/16 20:32: Bedside Glucose (Misc Panel) 184H 08/16/16 06:00: Anion Gap 10, Blood Urea Nitrogen 6L, Creatinine 0.93, Sodium Level 145, Potassium Level 4.4, Chloride Level 113H, Carbon Dioxide Level 22, Calcium Level 8.5L, Carcinoembryonic Antigen 1.3, Glomerular Filtration Rate > 60.0 08/16/16 11:26: Bedside Glucose (Misc Panel) 155H CBC/BMP Laboratory Tests 08/15/16 22:40 08/16/16 06:00 Calcium Level 8.5 L, Red Blood Count 3.48 L, Mean Corpuscular Volume 85.4, Mean Corpuscular Hemoglobin 26.1 L, Mean Corpuscular Hemoglobin Concent 30.6 L, Red Cell Distribution Width 17.4 H FSBS Laboratory Tests Test 08/15/16 20:32 08/16/16 11:26 Range/Units Bedside Glucose (Misc Panel) 184 155 83-110 MG/DL Microbiology Microbiology 08/12/16 MRSA Screen - Final, Complete AVIS WAGNER DO Aug 16, 2016 17:17
[2016-08-16 18:00] VITALS: BP 152/60
[2016-08-16] MEDS: ATORVASTATIN 20 MG TAB PO SCH (20:02)
[2016-08-16 22:00] VITALS: BP 148/52
[2016-08-17 06:00] VITALS: BP_SYST 138
[2016-08-17 06:44] LABS: MEAN CORPUSCULAR HEMOGLOBIN 25.6 pg (27.0-33.0); MEAN CORPUSCULAR HGB CONC 29.9 g/dl (32.0-36.5); MEAN CORPUSCULAR VOLUME 85.3 fl (80.0-96.0); RED CELL DISTRIBUTION WIDTH 18.6 % (11.5-14.5); WHITE BLOOD COUNT 9.1 K/mm3 (4.0-10.0)
[2016-08-17 06:58] LABS: ANION GAP 9 MEQ/L (8-16); BLOOD UREA NITROGEN 7 MG/DL (7-18); CARBON DIOXIDE LEVEL 24 MEQ/L (21-32); CHLORIDE LEVEL 110 MEQ/L (98-107); CREATININE FOR GFR 0.93 MG/DL (0.70-1.30); GLOMERULAR FILTRATION RATE > 60.0 (>42); GLUCOSE, FASTING 178 MG/DL (83-110); SODIUM LEVEL 143 MEQ/L (136-145)
[2016-08-17] MEDS: diltiaZEM **CD** 180 MG CAP PO SCH (08:27)
[2016-08-17] MEDS: NORTRIPTYLINE 10 MG CAP PO SCH ×3 (08:27→20:37)
[2016-08-17] MEDS: HumaLOG INSULIN (NovoLOG) PER UNIT SC SCH ×4 (08:27→20:36)
[2016-08-17] MEDS: METOPROLOL TARTRATE 100 MG TAB PO SCH ×2 (08:28→20:38)
[2016-08-17] MEDS: ALLOPURINOL 100 MG TAB PO SCH (08:28)
[2016-08-17] MEDS: PANTOPRAZOLE 40MG INJ (PROTONIX) (C9113) IV SCH ×2 (08:29→20:36)
[2016-08-17] MEDS: CETIRIZINE (ZyrTEC) 10 MG TAB PO SCH (08:29)
--- NOTE | 2016-08-17 09:07 | IPNPDOC ---
Date/Time Seen The patient was seen on 08/17/16 at 09:02. Progress Note SUBJECTIVE: Patient is a 75-year-old male with GI bleed. Patient still reports no abdominal pain today. Patient has not had bowel movement for past 2 days. Denies nausea vomiting pain with urination. Denies chest pain or shortness of breath. OBJECTIVE: PHYSICAL EXAMINATION: VITAL SIGNS: Please see below. GENERAL: Alert and orientated sitting in bed. Comfortable in no distress. HEENT: Extraocular muscles intact. CARDIOVASCULAR: Normal S1-S2 without clicks rubs gallops or murmurs.. RESPIRATORY: Equal bilaterally. No wheezing. ABDOMINAL: Soft and nondistended. Bowel sounds heard auscultation. No pain to palpation. No guarding or rebound tenderness. EXTREMITIES: Pedal pulses 2 out of 4 bilaterally. NEUROLOGICAL: Speech intact. LABORATORY DATA: Please see below. MICROBIOLOGY: Please see below. ASSESSMENT AND PLAN: Patient is a 75-year-old male with GI bleed. Patient reports still not abdominal pain at this time. Patient is haven't a bowel movement since before colonoscopy. Still awaiting pathology report of biopsies. Patient will most likely be a outpatient procedure. Need a cardiology consult prior to clear patient for surgery. Discussed patient with Dr. danae perez. Continue current treatment plan at this time. And continue monitoring as necessary. PROBLEMS: 1. Large polyp in descending colon 2. Tumor in the transverse colon, possible malignancy. 3. GI bleed VS, I&O, 24H, Fishbone VS, I&O, 24H, Fishbone Vital Signs Date Time Temp Pulse Resp B/P Pulse Ox O2 Delivery O2 Flow Rate FiO2 08/17/16 08:27 83 162/95 08/17/16 06:00 97.2 20 75 Nasal Cannula 3.0 I&O- Last 24 Hours up to 6 AM 08/17/16 06:00 Intake Total 960 ml Output Total 450 ml Balance 510 ml Laboratory Tests 2 08/16/16 11:26: Bedside Glucose (Misc Panel) 155H 08/17/16 06:18: Anion Gap 9, Blood Urea Nitrogen 7, Creatinine 0.93, Sodium Level 143, Potassium Level 4.0, Chloride Level 110H, Carbon Dioxide Level 24, Calcium Level 8.0L, Glomerular Filtration Rate > 60.0 Laboratory Tests 08/17/16 06:18 Calcium Level 8.0 L, Red Blood Count 3.47 L, Mean Corpuscular Volume 85.3, Mean Corpuscular Hemoglobin 25.6 L, Mean Corpuscular Hemoglobin Concent 29.9 L, Red Cell Distribution Width 18.6 H Microbiology 08/12/16 MRSA Screen - Final, Complete GME ATTESTATION GME ATTESTATION My preceptor for this patient encounter was Dr. Nino and he was physically present in the building during the encounter and was fully available. As needed , all aspects of the patient interview, examination, medical decision making process, and medical care plan development were reviewed and approved by the preceptor. Preceptor is aware and concurs with the plan as stated in the body of this note and will attest to such by his/her cosignature. GAUDENCIO RACHEL DO Aug 17, 2016 09:07
[2016-08-17 14:00] VITALS: BP 139/55
--- NOTE | 2016-08-17 17:30 | IPNPDOC ---
Assessment/Plan Date Seen The patient was seen on 08/17/16. Problems Problems: (1) GI bleed Status: Acute Response to Treatment: Stable Discussed With: Roll Capper, Patient Problem Specific Plan: Consult Specialist, Monitor Clinically, Repeat Labs Problem Text: * PRBC transfusion on 08/13/16 and 08/14/16. H/H is stable. * Colonoscopy shows mass-like lesion. biopsy results high grade adenocarcinoma. * Consults General surgery. (2) Acute blood loss anemia Status: Acute Problem Specific Plan: Consult Specialist, Monitor Clinically, Repeat Labs Problem Text: * No active bleeding currently. * H/H is stable. * Pt has colon cancer that is most likely the cause for his bleeding. 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 Events since last encounter Pt is seen and examed in the room today. Patient has not had bowel movement for the past 2 days. No rectal bleeding is noted. He still requires O2 support. Objective Physical Examination General Exam: Positive: Alert, Cooperative, No Acute Distress, Other Eye Exam: Positive: Conjunctiva & lids normal, EOMI ENT Exam: Positive: Atraumatic Neck Exam: Positive: Supple Chest Exam: Positive: Clear to auscultation, Normal air movement Heart Exam: Positive: Normal S1, Normal S2, Other (distant heart sounds), Rate Normal, Regular Rhythm Abdomen Exam: Positive: Hernia, Normal bowel sounds, Soft, Negative: Tenderness Extremity Exam: Positive: Normal pulses, Negative: Swelling, Tenderness Skin Exam: Positive: Nl turgor and temperature Neuro Exam: Positive: Normal Speech Psych Exam: Positive: Mental status NL, Mood NL, Oriented x 3 Vital Signs/I&O Vital Signs Date Time Temp Pulse Resp B/P Pulse Ox O2 Delivery O2 Flow Rate FiO2 08/17/16 14:00 98.9 60 19 139/55 97 Nasal Cannula 3.0 I&O- Last 24 Hours up to 6 AM 08/17/16 06:00 Intake Total 960 ml Output Total 450 ml Balance 510 ml Laboratory Data Labs 24H Laboratory Tests 2 08/17/16 06:18: Anion Gap 9, Blood Urea Nitrogen 7, Creatinine 0.93, Sodium Level 143, Potassium Level 4.0, Chloride Level 110H, Carbon Dioxide Level 24, Calcium Level 8.0L, Glomerular Filtration Rate > 60.0 CBC/BMP Laboratory Tests 08/17/16 06:18 Calcium Level 8.0 L, Red Blood Count 3.47 L, Mean Corpuscular Volume 85.3, Mean Corpuscular Hemoglobin 25.6 L, Mean Corpuscular Hemoglobin Concent 29.9 L, Red Cell Distribution Width 18.6 H Microbiology Microbiology 08/12/16 MRSA Screen - Final, Complete AVIS WAGNER DO Aug 17, 2016 17:30
[2016-08-17] MEDS: ATORVASTATIN 20 MG TAB PO SCH (20:37)
[2016-08-17 22:00] VITALS: BP 148/72
[2016-08-18 06:00] VITALS: BP 145/60
[2016-08-18 06:39] LABS: MEAN CORPUSCULAR HEMOGLOBIN 25.9 pg (27.0-33.0); MEAN CORPUSCULAR HGB CONC 30.5 g/dl (32.0-36.5); RED CELL DISTRIBUTION WIDTH 16.9 % (11.5-14.5); WHITE BLOOD COUNT 9.7 K/mm3 (4.0-10.0)
[2016-08-18 06:58] LABS: ANION GAP 8 MEQ/L (8-16); BLOOD UREA NITROGEN 10 MG/DL (7-18); CALCIUM LEVEL 8.5 MG/DL (8.8-10.2); CARBON DIOXIDE LEVEL 25 MEQ/L (21-32); CHLORIDE LEVEL 108 MEQ/L (98-107); CREATININE FOR GFR 0.99 MG/DL (0.70-1.30); GLOMERULAR FILTRATION RATE > 60.0 (>42); GLUCOSE, FASTING 217 MG/DL (83-110); POTASSIUM SERUM 4.1 MEQ/L (3.5-5.1); SODIUM LEVEL 141 MEQ/L (136-145)
[2016-08-18] MEDS: METOPROLOL TARTRATE 100 MG TAB PO SCH ×2 (08:26→21:20)
[2016-08-18] MEDS: ALLOPURINOL 100 MG TAB PO SCH (08:27)
[2016-08-18] MEDS: HumaLOG INSULIN (NovoLOG) PER UNIT SC SCH ×4 (08:27→21:21)
[2016-08-18] MEDS: CETIRIZINE (ZyrTEC) 10 MG TAB PO SCH (08:28)
[2016-08-18] MEDS: diltiaZEM **CD** 180 MG CAP PO SCH (08:28)
[2016-08-18] MEDS: NORTRIPTYLINE 10 MG CAP PO SCH ×3 (08:28→21:20)
[2016-08-18] MEDS: PANTOPRAZOLE 40MG INJ (PROTONIX) (C9113) IV SCH ×2 (08:28→21:19)
--- NOTE | 2016-08-18 10:09 | IPNPDOC ---
Date/Time Seen The patient was seen on 08/18/16 at 08:20. Progress Note SUBJECTIVE: Patient is a 75-year-old male with GI bleed. While in the hospital was found to have via colonoscopy a descending colon polyp and a transverse colon obstructing tumor. Today patient has no complaints. No abdominal pain, chest pain, shortness of breath, leg swelling, nausea, vomiting. Has not had a BM since before colonoscopy. Is passing gas. Has been ambulating more, walking around the hallways with his air tank. OBJECTIVE: PHYSICAL EXAMINATION: VITAL SIGNS: Please see below. GENERAL: Alert and orientated. No acute distress. HEENT: EOM intact. CARDIOVASCULAR: Normal s1 and s2. No clicks, rubs, gallops or murmurs. RESPIRATORY: Equal bilaterally. ABDOMINAL: Soft, nondistended. No pain to palpation. No masses or organomegaly palpated. EXTREMITIES: Radial pulse 2/4 bilaterally. No lower extremity edema. LABORATORY DATA: Please see below. MICROBIOLOGY: Please see below. ASSESSMENT AND PLAN: Patient is a 75-year-old male with descending colon polyp PROBLEMS: 1. GI bleed 2. Descending colon polyp 3. Transverse colon adenocarcinoma DISPOSITION: Pathology report returned. 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 Descending colon polyp shows villous adenoma and a fragment of adenocarcinoma similar to specimen seen with transverse colon, most likely a carry over from transverse colon. Plan is for possible outpatient hemicolectomy. Patient has history of heart stents and needs clearance from cab driver Dr. Cardona prior to procedure. Discussed with patient the plan and answered patients questions. Patient understood the plan. Continue to monitor the patient while in the hospital. Encourage patient ambulation, patient is compliant with. Monitor for bowel movements. Ordered Senokot S 2 tablets now and Colace 200 mg PO BID to help with bowel movements. Discussed plan with Dr. Nino. VS, I&O, 24H, Fishbone VS, I&O, 24H, Fishbone Vital Signs Date Time Temp Pulse Resp B/P Pulse Ox O2 Delivery O2 Flow Rate FiO2 08/18/16 06:00 98.6 74 17 145/60 92 Nasal Cannula 3.0 I&O- Last 24 Hours up to 6 AM 08/18/16 05:59 Intake Total 1400 ml Output Total 500 ml Balance 900 ml Laboratory Tests 2 08/17/16 11:30: Bedside Glucose (Misc Panel) 188H 08/17/16 16:35: Bedside Glucose (Misc Panel) 158H 08/17/16 20:07: Bedside Glucose (Misc Panel) 254H 08/18/16 06:14: Anion Gap 8, Blood Urea Nitrogen 10, Creatinine 0.99, Sodium Level 141, Potassium Level 4.1, Chloride Level 108H, Carbon Dioxide Level 25, Calcium Level 8.5L, Glomerular Filtration Rate > 60.0 Laboratory Tests 08/18/16 06:14 Calcium Level 8.5 L, Red Blood Count 3.44 L, Mean Corpuscular Volume 85.0, Mean Corpuscular Hemoglobin 25.9 L, Mean Corpuscular Hemoglobin Concent 30.5 L, Red Cell Distribution Width 16.9 H Microbiology 08/12/16 MRSA Screen - Final, Complete GME ATTESTATION GME ATTESTATION My preceptor for this patient encounter was Dr. Nino and he was physically present in the building during the encounter and was fully available. As needed , all aspects of the patient interview, examination, medical decision making process, and medical care plan development were reviewed and approved by the preceptor. Preceptor is aware and concurs with the plan as stated in the body of this note and will attest to such by his/her cosignature. GAUDENCIO RACHEL DO Aug 18, 2016 08:42
[2016-08-18] MEDS: DOCUSATE SODIUM 100 MG CAP PO SCH (12:14)
[2016-08-18] MEDS: FUROSEMIDE 100 MG/10 ML VIAL (J1940) IV SCH ×2 (12:14→16:52)
[2016-08-18] MEDS: SENOKOT S TAB PO SCH (12:14)
[2016-08-18 14:00] VITALS: BP 138/62
--- NOTE | 2016-08-18 17:44 | IPNPDOC ---
Assessment/Plan Date Seen The patient was seen on 08/18/16. Problems Problems: (1) Respiratory distress Status: Acute Response to Treatment: Controlled Problem Text: * secondary to bilateral pleural effusion. * At baseline patient does not need O2 at home. * Will continue diuresis. Trial of O2 weaning as tolerated. (2) GI bleed Status: Acute Response to Treatment: Stable Discussed With: Counseling Services Manager, Patient Problem Specific Plan: Consult Specialist, Monitor Clinically, Repeat Labs Problem Text: * PRBC transfusion on 08/13/16 and 08/14/16. H/H is stable. * Colonoscopy shows mass-like lesion. biopsy results high grade adenocarcinoma. * Consulted General surgery. Patient will need open abd surgery for tumor removal. However, surgeon believes the patient is medically clear for the procedure now. * Continue to optimize breathing; treating CHF and wean patient off O2 as tolerated. (3) Acute blood loss anemia Status: Acute Problem Specific Plan: Consult Specialist, Monitor Clinically, Repeat Labs Problem Text: * No active bleeding currently. * H/H is stable. * Pt has colon cancer that is most likely the cause for his bleeding. 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 Events since last encounter Patient is seen and examed in the room today. Patient still requires O2 support during exertion. Has no bowel movement since the bowel prep 3 days ago. He states he has bowel movement Q3D as his baseline before and he has not had enough oral intake in the past few days. Objective Physical Examination General Exam: Positive: Alert, Cooperative, No Acute Distress, Other Eye Exam: Positive: Conjunctiva & lids normal, EOMI ENT Exam: Positive: Atraumatic Neck Exam: Positive: Supple Chest Exam: Positive: Clear to auscultation, Normal air movement Heart Exam: Positive: Normal S1, Normal S2, Other (distant heart sounds), Rate Normal, Regular Rhythm Abdomen Exam: Positive: Hernia, Normal bowel sounds, Soft, Negative: Tenderness Extremity Exam: Positive: Normal pulses, Negative: Swelling, Tenderness Skin Exam: Positive: Nl turgor and temperature Neuro Exam: Positive: Normal Speech Psych Exam: Positive: Mental status NL, Mood NL, Oriented x 3 Vital Signs/I&O Vital Signs Date Time Temp Pulse Resp B/P Pulse Ox O2 Delivery O2 Flow Rate FiO2 08/18/16 17:00 91 Nasal Cannula 1.0 08/18/16 14:00 97.0 70 19 138/62 I&O- Last 24 Hours up to 6 AM 08/18/16 06:00 Intake Total 1640 ml Output Total 1300 ml Balance 340 ml Laboratory Data Labs 24H Laboratory Tests 2 08/17/16 20:07: Bedside Glucose (Misc Panel) 254H 08/18/16 06:14: Anion Gap 8, Blood Urea Nitrogen 10, Creatinine 0.99, Sodium Level 141, Potassium Level 4.1, Chloride Level 108H, Carbon Dioxide Level 25, Calcium Level 8.5L, Glomerular Filtration Rate > 60.0 08/18/16 09:46: B-Type Natriuretic Peptide 363H CBC/BMP Laboratory Tests 08/18/16 06:14 Calcium Level 8.5 L, Red Blood Count 3.44 L, Mean Corpuscular Volume 85.0, Mean Corpuscular Hemoglobin 25.9 L, Mean Corpuscular Hemoglobin Concent 30.5 L, Red Cell Distribution Width 16.9 H FSBS Laboratory Tests Test 08/17/16 20:07 Range/Units Bedside Glucose (Misc Panel) 254 83-110 MG/DL Microbiology Microbiology 08/12/16 MRSA Screen - Final, Complete AVIS WAGNER DO Aug 18, 2016 17:44
[2016-08-18 20:30] VITALS: BP 142/56
[2016-08-18] MEDS: ATORVASTATIN 20 MG TAB PO SCH (21:20)
[2016-08-19 06:35] VITALS: BP 143/70
[2016-08-19 07:04] LABS: MEAN CORPUSCULAR HEMOGLOBIN 25.6 pg (27.0-33.0); MEAN CORPUSCULAR HGB CONC 30.1 g/dl (32.0-36.5); MEAN CORPUSCULAR VOLUME 85.1 fl (80.0-96.0); RED CELL DISTRIBUTION WIDTH 16.9 % (11.5-14.5); WHITE BLOOD COUNT 8.9 K/mm3 (4.0-10.0)
[2016-08-19 07:21] LABS: ANION GAP 8 MEQ/L (8-16); BLOOD UREA NITROGEN 13 MG/DL (7-18); CALCIUM LEVEL 8.6 MG/DL (8.8-10.2); CARBON DIOXIDE LEVEL 28 MEQ/L (21-32); CHLORIDE LEVEL 106 MEQ/L (98-107); CREATININE FOR GFR 0.95 MG/DL (0.70-1.30); GLOMERULAR FILTRATION RATE > 60.0 (>42); GLUCOSE, FASTING 238 MG/DL (83-110); POTASSIUM SERUM 4.2 MEQ/L (3.5-5.1); SODIUM LEVEL 142 MEQ/L (136-145)
[2016-08-19] MEDS: CETIRIZINE (ZyrTEC) 10 MG TAB PO SCH (08:30)
[2016-08-19] MEDS: ALLOPURINOL 100 MG TAB PO SCH (08:30)
[2016-08-19] MEDS: SENOKOT S TAB PO SCH (08:30)
[2016-08-19] MEDS: DOCUSATE SODIUM 100 MG CAP PO SCH (08:30)
[2016-08-19] MEDS: METOPROLOL TARTRATE 100 MG TAB PO SCH ×2 (08:31→21:34)
[2016-08-19] MEDS: diltiaZEM **CD** 180 MG CAP PO SCH (08:34)
[2016-08-19] MEDS: NORTRIPTYLINE 10 MG CAP PO SCH ×3 (08:34→21:33)
[2016-08-19] MEDS: PANTOPRAZOLE 40MG INJ (PROTONIX) (C9113) IV SCH ×2 (08:35→21:33)
[2016-08-19] MEDS: FUROSEMIDE 100 MG/10 ML VIAL (J1940) IV SCH ×2 (08:35→17:59)
[2016-08-19] MEDS: HumaLOG INSULIN (NovoLOG) PER UNIT SC SCH ×4 (08:36→21:34)
--- NOTE | 2016-08-19 11:10 | IPNPDOC ---
Date/Time Seen The patient was seen on 08/19/16 at 11:03. Progress Note SUBJECTIVE: Patient is a 75 yo male with history of rectal bleeding and adenocarcinoma of the transverse colon. Patient reports no abdominal pain. Patient and nurse report 2 bowel movements the previous day with no blood. Patient reports good appetite and has been ambulating. No chest pain, palpitations, headache, or back pain. OBJECTIVE: PHYSICAL EXAMINATION: VITAL SIGNS: Please see below. GENERAL: Alert and orientated. No distress. Cooperative. On 1 L nasal canula. HEENT:EOM inatct. CARDIOVASCULAR: normal s1 and s2, no clicks rubs or gallops. RESPIRATORY: symmetrical chest rise. equal bilaterally. ABDOMINAL: Soft, nontender, nondistended. No pain to palpation. EXTREMITIES: No lower extremity edema. Radial pulses 2/4 bilaterally. NEUROLOGICAL: Speech intact. LABORATORY DATA: Please see below. MICROBIOLOGY: Please see below. ASSESSMENT AND PLAN: Patient is a 75 yo male with adenocarcinoma of the transverse colon. PROBLEMS: 1. GI bleed 2. Adenocarcinoma of the transverse colon DISPOSITION: Plan is patient is ready to be discharged from hospital from surgical stand point. Patient and nurse reported multiple bowel movements previous day without blood. Still reports no abdominal pain, nausea or vomiting. Patient will follow up with Dr. Nino outpatient and discuss undergoing operation for transverse colon resection for adenocarcinoma. Patient requires clearance from cardiology prior to surgery. VS, I&O, 24H, Fishbone VS, I&O, 24H, Fishbone Vital Signs Date Time Temp Pulse Resp B/P Pulse Ox O2 Delivery O2 Flow Rate FiO2 08/19/16 08:34 69 143/70 08/19/16 06:35 96.3 16 98 Room Air 08/18/16 21:20 1.0 I&O- Last 24 Hours up to 6 AM 08/19/16 06:00 Intake Total 1980 ml Output Total 2850 ml Balance -870 ml Laboratory Tests 2 08/18/16 11:53: Bedside Glucose (Misc Panel) 183H 08/18/16 16:30: Bedside Glucose (Misc Panel) 237H 08/18/16 20:33: Bedside Glucose (Misc Panel) 277H 08/19/16 06:05: Anion Gap 8, Blood Urea Nitrogen 13, Creatinine 0.95, Sodium Level 142, Potassium Level 4.2, Chloride Level 106, Carbon Dioxide Level 28, Calcium Level 8.6L, Glomerular Filtration Rate > 60.0 Laboratory Tests 08/19/16 06:05 Calcium Level 8.6 L, Red Blood Count 3.61 L, Mean Corpuscular Volume 85.1, Mean Corpuscular Hemoglobin 25.6 L, Mean Corpuscular Hemoglobin Concent 30.1 L, Red Cell Distribution Width 16.9 H Microbiology 08/12/16 MRSA Screen - Final, Complete GME ATTESTATION GME ATTESTATION My preceptor for this patient encounter was Dr. Nino and he was physically present in the building during the encounter and was fully available. As needed , all aspects of the patient interview, examination, medical decision making process, and medical care plan development were reviewed and approved by the preceptor. Preceptor is aware and concurs with the plan as stated in the body of this note and will attest to such by his/her cosignature. GAUDENCIO RACHEL DO Aug 19, 2016 11:10
[2016-08-19 14:00] VITALS: BP 141/65
--- NOTE | 2016-08-19 15:33 | IPNPDOC ---
Assessment/Plan Date Seen The patient was seen on 08/19/16. Problems Problems: (1) Respiratory distress Status: Acute Response to Treatment: Controlled Problem Text: * secondary to bilateral pleural effusion. * At baseline patient does not need O2 at home. * Will continue diuresis. Trial of O2 weaning as tolerated. * Breathing is improving with diuresis. (2) Colon cancer Status: Acute Response to Treatment: Uncontrolled Problem Text: * Biopsy shows high grade adenocarcinoma. * GI and general surgery consulted. * Currently patient is being treated for his other medical condition. (3) GI bleed Status: Acute Response to Treatment: Stable Discussed With: Olap Developer, Patient Problem Specific Plan: Consult Specialist, Monitor Clinically, Repeat Labs Problem Text: * PRBC transfusion on 08/13/16 and 08/14/16. H/H is stable. * Colonoscopy shows mass-like lesion. biopsy results high grade adenocarcinoma. * Consulted General surgery. Patient will need open abd surgery for tumor removal. However, surgeon believes the patient is medically clear for the procedure now. * Continue to optimize breathing; treating CHF and wean patient off O2 as tolerated. (4) Acute blood loss anemia Status: Acute Problem Specific Plan: Consult Specialist, Monitor Clinically, Repeat Labs Problem Text: * No active bleeding currently. * H/H is stable. * Pt has colon cancer that is most likely the cause for his bleeding. 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 Events since last encounter Patient is seen and examed in the room today. Patient states his breathing is improving. He has been having increased urinary output from diuresis. No overnight event is reported. Patient finally had bowel movement yesterday night. That was the first bowel movement since the colonoscopy 4 days ago. Objective Physical Examination General Exam: Positive: Alert, Cooperative, No Acute Distress, Other Eye Exam: Positive: Conjunctiva & lids normal, EOMI ENT Exam: Positive: Atraumatic Neck Exam: Positive: Supple Chest Exam: Positive: Clear to auscultation, Normal air movement Heart Exam: Positive: Normal S1, Normal S2, Other (distant heart sounds), Rate Normal, Regular Rhythm Abdomen Exam: Positive: Hernia, Normal bowel sounds, Soft, Negative: Tenderness Extremity Exam: Positive: Normal pulses, Negative: Swelling, Tenderness Skin Exam: Positive: Nl turgor and temperature Neuro Exam: Positive: Normal Speech Psych Exam: Positive: Mental status NL, Mood NL, Oriented x 3 Vital Signs/I&O Vital Signs Date Time Temp Pulse Resp B/P Pulse Ox O2 Delivery O2 Flow Rate FiO2 08/19/16 14:00 97.7 69 16 141/65 95 Room Air 08/19/16 08:00 1.0 I&O- Last 24 Hours up to 6 AM 08/19/16 05:59 Intake Total 2220 ml Output Total 3650 ml Balance -1430 ml Laboratory Data Labs 24H Laboratory Tests 2 08/18/16 16:30: Bedside Glucose (Misc Panel) 237H 08/18/16 20:33: Bedside Glucose (Misc Panel) 277H 08/19/16 06:05: Anion Gap 8, Blood Urea Nitrogen 13, Creatinine 0.95, Sodium Level 142, Potassium Level 4.2, Chloride Level 106, Carbon Dioxide Level 28, Calcium Level 8.6L, Glomerular Filtration Rate > 60.0 08/19/16 12:07: Bedside Glucose (Misc Panel) 299H CBC/BMP Laboratory Tests 08/19/16 06:05 Calcium Level 8.6 L, Red Blood Count 3.61 L, Mean Corpuscular Volume 85.1, Mean Corpuscular Hemoglobin 25.6 L, Mean Corpuscular Hemoglobin Concent 30.1 L, Red Cell Distribution Width 16.9 H FSBS Laboratory Tests Test 08/18/16 16:30 08/18/16 20:33 08/19/16 12:07 Range/Units Bedside Glucose (Misc Panel) 237 277 299 83-110 MG/DL Microbiology Microbiology 08/12/16 MRSA Screen - Final, Complete AVIS WAGNER DO Aug 19, 2016 15:33
[2016-08-19 21:20] VITALS: BP 130/55
[2016-08-19] MEDS: ATORVASTATIN 20 MG TAB PO SCH (21:33)
[2016-08-20 00:05] VITALS: BP 119/58
[2016-08-20 07:18] LABS: ANION GAP 7 MEQ/L (8-16); BLOOD UREA NITROGEN 14 MG/DL (7-18); CALCIUM LEVEL 8.1 MG/DL (8.8-10.2); CARBON DIOXIDE LEVEL 29 MEQ/L (21-32); CHLORIDE LEVEL 105 MEQ/L (98-107); CREATININE FOR GFR 0.94 MG/DL (0.70-1.30); GLOMERULAR FILTRATION RATE > 60.0 (>42); GLUCOSE, FASTING 267 MG/DL (83-110); POTASSIUM SERUM 3.7 MEQ/L (3.5-5.1); SODIUM LEVEL 141 MEQ/L (136-145)
[2016-08-20] MEDS: HumaLOG INSULIN (NovoLOG) PER UNIT SC SCH ×4 (07:30→21:28)
[2016-08-20 08:00] VITALS: BP 146/67
[2016-08-20] MEDS: PANTOPRAZOLE 40MG INJ (PROTONIX) (C9113) IV SCH ×2 (08:36→20:20)
[2016-08-20] MEDS: FUROSEMIDE 100 MG/10 ML VIAL (J1940) IV SCH ×2 (08:36→16:31)
[2016-08-20] MEDS: NORTRIPTYLINE 10 MG CAP PO SCH ×3 (08:37→20:21)
[2016-08-20] MEDS: ALLOPURINOL 100 MG TAB PO SCH (08:37)
[2016-08-20] MEDS: SENOKOT S TAB PO SCH (08:37)
[2016-08-20] MEDS: diltiaZEM **CD** 180 MG CAP PO SCH (08:37)
[2016-08-20] MEDS: DOCUSATE SODIUM 100 MG CAP PO SCH (08:38)
[2016-08-20] MEDS: METOPROLOL TARTRATE 100 MG TAB PO SCH ×2 (08:38→20:22)
[2016-08-20] MEDS: CETIRIZINE (ZyrTEC) 10 MG TAB PO SCH (08:38)
--- NOTE | 2016-08-20 10:47 | NOCOX ---
DATE OF STUDY: 08/18/2016 to 08/19/2016 INTERPRETATION: Recording overnight oximetry was performed initially on room air and then with the addition of 1 and 2 liters of oxygen. A total of 7 hours and 41 minutes of data was reviewed. Mean oxygenation for the entire study was 91%. Minimum saturation is listed as 61%. He was on room air for approximately the first 50 minutes, and then 1 liter was added. When he continued to have difficulties later in the night, that was increased to 2 liters. In reviewing the tracing, on 2 liters, he still appeared to have a stretch of time where his saturations were in the low 80s but then increased back up to the low 90s. This may be positional versus dislodgment of the device. IMPRESSION: Nocturnal hypoxemia. It is possible that it is ablated by 2 liters via nasal cannula, though there was one stretch when the saturations were in the 80s. It may have been positional versus dislodgment of the cannula. Clinical correlation will be necessary.
[2016-08-20 16:00] VITALS: BP 163/96
--- NOTE | 2016-08-20 17:19 | IPNPDOC ---
Assessment/Plan Date Seen The patient was seen on 08/20/16. Problems Problems: (1) Respiratory distress Status: Acute Response to Treatment: Controlled Problem Text: * secondary to bilateral pleural effusion. * At baseline patient does not need O2 at home. * Will continue diuresis. * Breathing is improving with diuresis. Patient has been weaning off O2. (2) Colon cancer Status: Acute Response to Treatment: Uncontrolled Problem Text: * Biopsy shows high grade adenocarcinoma. * GI and general surgery consulted. * Currently patient is being treated for his other medical condition. (3) GI bleed Status: Acute Response to Treatment: Stable Discussed With: Wholesale Loan Processor, Patient Problem Specific Plan: Consult Specialist, Monitor Clinically, Repeat Labs Problem Text: * PRBC transfusion on 08/13/16 and 08/14/16. H/H is stable. * Colonoscopy shows mass-like lesion. biopsy results high grade adenocarcinoma. * Consulted General surgery. Patient will need open abd surgery for tumor removal. However, surgeon believes the patient is medically clear for the procedure now. * Continue to optimize breathing; treating CHF and wean patient off O2 as tolerated. (4) Acute blood loss anemia Status: Acute Problem Specific Plan: Consult Specialist, Monitor Clinically, Repeat Labs Problem Text: * No active bleeding currently. * H/H is stable. * Pt has colon cancer that is most likely the cause for his bleeding. 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 Events since last encounter Patient is seen and examed in the room today. Patient states his breathing is improving with diuresis. Patient has been walking around the hallway for exercise. No overnight event is reported. Objective Physical Examination General Exam: Positive: Alert, Cooperative, No Acute Distress, Other Eye Exam: Positive: Conjunctiva & lids normal, EOMI ENT Exam: Positive: Atraumatic Neck Exam: Positive: Supple Chest Exam: Positive: Clear to auscultation, Normal air movement Heart Exam: Positive: Normal S1, Normal S2, Other (distant heart sounds), Rate Normal, Regular Rhythm Abdomen Exam: Positive: Hernia, Normal bowel sounds, Soft, Negative: Tenderness Extremity Exam: Positive: Normal pulses, Negative: Swelling, Tenderness Skin Exam: Positive: Nl turgor and temperature Neuro Exam: Positive: Normal Speech Psych Exam: Positive: Mental status NL, Mood NL, Oriented x 3 Vital Signs/I&O Vital Signs Date Time Temp Pulse Resp B/P Pulse Ox O2 Delivery O2 Flow Rate FiO2 08/20/16 16:00 97.2 70 18 163/96 93 Room Air 08/20/16 02:44 1.0 I&O- Last 24 Hours up to 6 AM 08/20/16 05:59 Intake Total 1680 ml Output Total 1150 ml Balance 530 ml Laboratory Data Labs 24H Laboratory Tests 2 08/19/16 17:18: Bedside Glucose (Misc Panel) 245H 08/19/16 21:14: Bedside Glucose (Misc Panel) 287H 08/20/16 06:27: Anion Gap 7L, Blood Urea Nitrogen 14, Creatinine 0.94, Sodium Level 141, Potassium Level 3.7, Chloride Level 105, Carbon Dioxide Level 29, Calcium Level 8.1L, Glomerular Filtration Rate > 60.0 CBC/BMP Laboratory Tests 08/20/16 06:27 Calcium Level 8.1 L FSBS Laboratory Tests Test 08/19/16 17:18 08/19/16 21:14 Range/Units Bedside Glucose (Misc Panel) 245 287 83-110 MG/DL Microbiology Microbiology 08/12/16 MRSA Screen - Final, Complete AVIS WAGNER DO Aug 20, 2016 17:19
[2016-08-20 20:00] VITALS: BP 133/62
[2016-08-20] MEDS: ATORVASTATIN 20 MG TAB PO SCH (20:21)
[2016-08-21 04:00] VITALS: BP 155/70
[2016-08-21 08:00] VITALS: BP 166/72
--- NOTE | 2016-08-21 08:27 | ECHO ---
DATE OF PROCEDURE: 08/19/2016 REFERRING PHYSICIAN: Nancy Locke MD INDICATION: Dyspnea. HEIGHT: 71 inches WEIGHT: 108.3 kg MEASUREMENTS: Ventricular septum: 1.76 cm Posterior wall: 1.81 cm Left ventricle diastole: 4.7 cm Left atrium: 4.6 cm Aortic root: 3.7 cm LVOT: 1.9 cm Inferior vena cava: 1.4 cm DOPPLER MEASUREMENTS: Mild aortic regurgitation. Aortic valve velocity: 174 cm/s LVOT velocity: 109 cm/s LVOT VTI: 22.0 cm Mitral E velocity: 66.9 cm/s Mitral A velocity: 40.0 cm/s Mitral deceleration time: 183 ms Very mild tricuspid regurgitation. Estimated right ventricle systolic pressure 34 mmHg assuming a right atrial pressure of 5 mmHg. Pulmonary artery systolic pressure 46 mmHg by pulmonary acceleration time method. MITRAL ANNULAR TISSUE DOPPLER: E prime septal: 6.8 cm/s E prime lateral: 7.4 cm/s DESCRIPTION: Rhythm was sinus with occasional premature ventricular contractions (PVCs) . This is a technically difficult echocardiogram. No pericardial effusion. CONCLUSIONS: 1. Moderately-severe concentric left ventricle hypertrophy. Normal left ventricle (LV) wall motion and wall thickening. Normal LV systolic function. Left ventricular ejection fraction (LVEF) 60% by visual estimate. Grade II LV diastolic dysfunction (pseudonormal LV filling pattern). 2. Moderate left atrial dilatation. 3. Suggestive of moderate elevation of pulmonary artery systolic pressure. 4. Mild aortic valve sclerosis. No aortic stenosis. Mild aortic regurgitation. 5. Technically difficult echocardiogram.
[2016-08-21] MEDS: TORSEMIDE (DEMADEX) 50 MG PER 1/2 TAB PO SCH (08:35)
[2016-08-21] MEDS: HumaLOG INSULIN (NovoLOG) PER UNIT SC SCH ×4 (08:35→20:28)
[2016-08-21] MEDS: NORTRIPTYLINE 10 MG CAP PO SCH ×3 (08:35→20:14)
[2016-08-21] MEDS: ALLOPURINOL 100 MG TAB PO SCH (08:35)
[2016-08-21] MEDS: CETIRIZINE (ZyrTEC) 10 MG TAB PO SCH (08:38)
[2016-08-21] MEDS: SENOKOT S TAB PO SCH (08:38)
[2016-08-21] MEDS: DOCUSATE SODIUM 100 MG CAP PO SCH (08:38)
[2016-08-21] MEDS: METOPROLOL TARTRATE 100 MG TAB PO SCH ×2 (08:38→20:28)
[2016-08-21] MEDS: diltiaZEM **CD** 180 MG CAP PO SCH (08:38)
[2016-08-21] MEDS: PANTOPRAZOLE 40MG INJ (PROTONIX) (C9113) IV SCH (08:39)
[2016-08-21 16:00] VITALS: BP 164/77
--- NOTE | 2016-08-21 18:13 | IPNPDOC ---
Assessment/Plan Date Seen The patient was seen on 08/21/16. Problems Problems: (1) DEREJE (obstructive sleep apnea) Status: Chronic Response to Treatment: Stable Problem Text: * Still requires 2L at night to prevent desaturation. * Tried CPAP previous but he could not tolerate it. * Does not have O2 tank at home. Consult social service * Will follow nocturnal O2 measurement. (2) Respiratory distress Status: Acute Response to Treatment: Controlled Problem Text: * secondary to bilateral pleural effusion. * At baseline patient does not need O2 at home. * Will continue diuresis. * Breathing is improving with diuresis. Patient has been weaning off O2. (3) Colon cancer Status: Acute Response to Treatment: Uncontrolled Problem Text: * Biopsy shows high grade adenocarcinoma. * GI and general surgery consulted. * Currently patient is being treated for his other medical condition. (4) GI bleed Status: Acute Response to Treatment: Stable Discussed With: Aerobics Teacher, Patient Problem Specific Plan: Consult Specialist, Monitor Clinically, Repeat Labs Problem Text: * PRBC transfusion on 08/13/16 and 08/14/16. H/H is stable. * Colonoscopy shows mass-like lesion. biopsy results high grade adenocarcinoma. * Consulted General surgery. Patient will need open abd surgery for tumor removal. However, surgeon believes the patient is medically clear for the procedure now. * Continue to optimize breathing; treating CHF and wean patient off O2 as tolerated. (5) Acute blood loss anemia Status: Acute Problem Specific Plan: Consult Specialist, Monitor Clinically, Repeat Labs Problem Text: * No active bleeding currently. * H/H is stable. * Pt has colon cancer that is most likely the cause for his bleeding. 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 Events since last encounter Patient is seen and examed in the room today. Patient does not requires O2 during the daytime. No sign of respiratory distress. Patient has good oral intake. No discomfort. However, patient does require O2 support at night for his DEREJE. Previously patient has tried CPAP but he was not able to tolerate it. Objective Physical Examination General Exam: Positive: Alert, Cooperative, No Acute Distress, Other Eye Exam: Positive: Conjunctiva & lids normal, EOMI ENT Exam: Positive: Atraumatic Neck Exam: Positive: Supple Chest Exam: Positive: Clear to auscultation, Normal air movement Heart Exam: Positive: Normal S1, Normal S2, Other (distant heart sounds), Rate Normal, Regular Rhythm Abdomen Exam: Positive: Hernia, Normal bowel sounds, Soft, Negative: Tenderness Extremity Exam: Positive: Normal pulses, Negative: Swelling, Tenderness Skin Exam: Positive: Nl turgor and temperature Neuro Exam: Positive: Normal Speech Psych Exam: Positive: Mental status NL, Mood NL, Oriented x 3 Vital Signs/I&O Vital Signs Date Time Temp Pulse Resp B/P Pulse Ox O2 Delivery O2 Flow Rate FiO2 08/21/16 16:00 97.9 77 18 164/77 93 Room Air 08/21/16 04:00 1.5 I&O- Last 24 Hours up to 6 AM 08/21/16 06:00 Intake Total 480 ml Balance 480 ml Laboratory Data Labs 24H Laboratory Tests 2 08/20/16 20:36: Bedside Glucose (Misc Panel) 316H 08/21/16 07:58: Bedside Glucose (Misc Panel) 303H 08/21/16 12:37: Bedside Glucose (Misc Panel) 311H 08/21/16 17:09: Bedside Glucose (Misc Panel) 344H FSBS Laboratory Tests Test 08/20/16 20:36 08/21/16 07:58 08/21/16 12:37 08/21/16 17:09 Range/Units Bedside Glucose (Misc Panel) 316 303 311 344 83-110 MG/DL Microbiology Microbiology 08/12/16 MRSA Screen - Final, Complete AVIS WAGNER DO Aug 21, 2016 18:13
[2016-08-21 20:00] VITALS: BP 164/62
[2016-08-21] MEDS: PANTOPRAZOLE 40MG TAB (PROTONIX) PO SCH (20:13)
[2016-08-21] MEDS: ATORVASTATIN 20 MG TAB PO SCH (20:14)
[2016-08-22 04:00] VITALS: BP 175/77
[2016-08-22] MEDS: HumaLOG INSULIN (NovoLOG) PER UNIT SC SCH ×4 (07:57→21:46)
[2016-08-22 08:00] VITALS: BP 134/88
[2016-08-22] MEDS: NORTRIPTYLINE 10 MG CAP PO SCH ×3 (08:32→21:45)
[2016-08-22] MEDS: PANTOPRAZOLE 40MG TAB (PROTONIX) PO SCH ×2 (08:32→21:45)
[2016-08-22] MEDS: TORSEMIDE (DEMADEX) 50 MG PER 1/2 TAB PO SCH (08:32)
[2016-08-22] MEDS: diltiaZEM **CD** 180 MG CAP PO SCH (08:32)
[2016-08-22] MEDS: SENOKOT S TAB PO SCH (08:33)
[2016-08-22] MEDS: ALLOPURINOL 100 MG TAB PO SCH (08:33)
[2016-08-22] MEDS: CETIRIZINE (ZyrTEC) 10 MG TAB PO SCH (08:33)
[2016-08-22] MEDS: METOPROLOL TARTRATE 100 MG TAB PO SCH ×2 (08:34→21:45)
[2016-08-22] MEDS: DOCUSATE SODIUM 100 MG CAP PO SCH (08:51)
--- NOTE | 2016-08-22 10:44 | NOCOX ---
DATE OF PROCEDURE: 08/21/2016 INTERPRETATION: Recording nocturnal polysomnography was performed on room air. About an hour and a half in, he was placed on 1 liter of oxygen. Approximately an hour and a half later, the nurse increased him to 2 liters by nasal cannula, which he remained on throughout the night. I reviewed 5 hours and 50 minutes of data. Mean oxygen saturation for the study was 94%. Minimum recorded value likely in the low 80s. It is listed as 76% on the form, but I feel that is likely artifact. In reviewing the SpO2 tracing, he had periods of variability. It appeared that his saturation likely had a mean value below 89% on room air. After he was placed on 1 liter, he appeared to do reasonably well but did appear to drift down to the mid 80s. He was then placed on 2 liters, which appeared to be sufficient. There is 1-2% variability it the SpO2 waveform suggestive of sleep disordered breathing. IMPRESSION: 1. Nocturnal hypoxemia, appears to be reasonably palliated on 2 liters by nasal cannula. 2. Variability in the SpO2 waveform that may be suggest sleep disordered breathing. Clinical correlation will be necessary. HEMA
[2016-08-22 16:00] VITALS: BP 128/60
--- NOTE | 2016-08-22 17:41 | IPN ---
DATE: 08/22/2016 SUBJECTIVE: The patient was seen and examined in the room today. The patient denies any respiratory distress, breathing comfortably in the room. No overnight events were reported. The patient has a good appetite. No issues with bowel movements or urination. The patient had a nocturnal pulse oximetry test yesterday; however, the test was not complete. OBJECTIVE: VITAL SIGNS: Temperature is 97.3, pulse is 91, respiration rate is 18, blood pressure is 134/88, pulse oximetry is 96% in room air. GENERAL: No signs of acute distress. Alert and oriented times three. HEENT: Normocephalic, atraumatic. Extraocular motor grossly intact. CARDIOVASCULAR: Positive S1, S2, regular rate. Distant heart sounds. LUNGS: Clear to auscultation bilaterally. No wheezes or rhonchi. ABDOMEN: Obese, soft, nontender, nondistended. Bowel sounds present. EXTREMITIES: Mild bilateral lower extremity edema. No sign of cyanosis. LABORATORY DATA: WBC is 8.9, hemoglobin 9.2, hematocrit 30.7, platelet count is 323. Sodium is 141, potassium 3.7, chloride is 105, carbon dioxide 29, BUN 14, creatinine 0.94, GFR is greater than 60, fasting glucose is 267. Calcium is 8.1. ASSESSMENT AND PLAN: 1. Colon cancer. Biopsy from colonoscopy showed high-grade adenocarcinoma. Gastrointestinal (GI) and general surgery was consulted, and per Dr. Nino's recommendations, the patient can followup with Dr. Nino in the outpatient setting. Currently, the patient has been optimized for medical condition. 2. History of GI bleed from the colon cancer. The patient had a blood transfusion on 08/13 and 08/14. The patient had a colonoscopy that showed mass-like lesions. Biopsy was taken. GI bleeding gradually resolved. No recurrence. The patient's hemoglobin and hematocrit has been stable. 3. Acute blood loss anemia, resolved. The patient has colon cancer. 4. Symptomatic hypotension. 5. Congestive heart failure exacerbation, diastolic dysfunction. Echocardiogram was done on 08/19/2016. The patient has been on the diuretic; currently, the patient is compensated. 6. Respiratory distress secondary to congestive heart failure exacerbation. The patient's breathing returned to his baseline. 7. Obstructive sleep apnea. The patient had a continuous positive airway pressure (CPAP) previously but unable to tolerate it. The patient did not complete nocturnal oxygen measurement on 08/21/2016. Will repeat the study today. financial services specialist has been involved in the case to help with oxygen supplement application. 8. Hyperlipidemia. 9. Hypertension. 10. Type 2 diabetes. On a consistent carbohydrate diet and on sliding scale. DISPOSITION: Currently, the patient is approaching his baseline. Will repeat the nocturnal pulse oximetry measurement tonight in order to help the patient apply for nighttime oxygen supplement. The patient may be discharged afterwards. The patient should followup with Dr. Nino for the colon cancer followup.
[2016-08-22 20:00] VITALS: BP 124/65
[2016-08-22] MEDS: ATORVASTATIN 20 MG TAB PO SCH (21:45)
[2016-08-23] VITALS: BP 164/68
[2016-08-23 02:28] VITALS: O2SAT 91
[2016-08-23 08:00] VITALS: BP 151/69
[2016-08-23] MEDS ORDERED: PANT40TA2 PO (08:03)
[2016-08-23] MEDS: DOCUSATE SODIUM 100 MG CAP PO SCH (08:39)
[2016-08-23] MEDS: TORSEMIDE (DEMADEX) 50 MG PER 1/2 TAB PO SCH (08:39)
[2016-08-23] MEDS: NORTRIPTYLINE 10 MG CAP PO SCH (08:39)
[2016-08-23] MEDS: CETIRIZINE (ZyrTEC) 10 MG TAB PO SCH (08:40)
[2016-08-23 08:41] VITALS: BP 151/69
[2016-08-23] MEDS: SENOKOT S TAB PO SCH (08:41)
[2016-08-23] MEDS: diltiaZEM **CD** 180 MG CAP PO SCH (08:41)
[2016-08-23] MEDS: METOPROLOL TARTRATE 100 MG TAB PO SCH (08:41)
[2016-08-23] MEDS: PANTOPRAZOLE 40MG TAB (PROTONIX) PO SCH (08:42)
[2016-08-23] MEDS: ALLOPURINOL 100 MG TAB PO SCH (08:42)
[2016-08-23] MEDS: HumaLOG INSULIN (NovoLOG) PER UNIT SC SCH ×2 (08:43→12:31)
--- NOTE | 2016-08-23 13:14 | DSES ---
DATE OF ADMISSION: 08/12/2016 DATE OF DISCHARGE: PRIMARY CARE PROVIDER: Dutch Lofton ADMISSIONS NURSE: Dr. Cardona PARTS SALES REPRESENTATIVE: Dr. You CONSULTANTS: Dr. Nino PROCEDURES: EGD, colonoscopy by Dr. You. Significant findings transverse colon mass demonstrates high-grade moderately to poorly differentiated adenocarcinoma, which he will need to followup outpatient with Dr. Nino. COMPLICATIONS: None. ADMISSION/DISCHARGE DIAGNOSES: 1. Colon mass with biopsy proven pathology consistent with moderate to poorly differentiated adenocarcinoma. 2. Acute gastrointestinal (GI) bleed. 3. Symptomatic hypotension. 4. Symptomatic anemia. 5. Acute kidney injury resolved. 6. Diabetes. 7. Hyperlipidemia. 8. Hypertension. BRIEF HOSPITAL COURSE: Mr. Gillis is a 75-year-old gentleman who presented to the emergency department on 08/12/2016 with bloody stools, had been taking Plavix and aspirin. History of invasive polypectomy in the past. He was encouraged to discontinue the Plavix and aspirin and Dr. You was consulted. On the EGD/ colonoscopy there was found to be a transverse colon mass that was pathology proven to be poorly differentiated adenocarcinoma. Dr. Nino was consulted and likely scheduled for hemicolectomy and appropriate oncology followup. He did receive 2 units of packed red blood cells while in the hospital on August 13 and August 14 with no further issues and his hemoglobin and hematocrit have remained stable since then. For further information regarding the intake physical and diagnostics, please refer to the history and physical. For consultative notes please refer to Dr. You's EGD colonoscopy reports as well as Dr. Nino's consult notes. At any rate he is stable today and looked to be appropriate for discharge. PHYSICAL EXAMINATION: Temperature is 96.8, pulse 74, respiratory rate 18, blood pressure 151/69, SpO2 is 93% on room air. GENERAL: The patient appears to be in no acute distress. He is pleasant. He is eating breakfast and tolerating meals. HEENT: Unremarkable. LUNGS: Clear. HEART: Regular rate and rhythm. ABDOMEN: Soft. EXTREMITIES: No edema. No calf tenderness. White count 8.9, hemoglobin 9.2, platelet 323. Sodium 141, potassium 3.7, chloride 105, bicarb 29, anion gap 7, BUN is 14, creatinine 0.94, glucose 267. DISCHARGE CONDITION: Good. DISPOSITION: Discharge to home with appropriate followup. MEDICATIONS; - pantoprazole 40 mg twice a day - allopurinol 200 mg daily - artificial tears one drop both eyes four times a day - Lipitor 80 mg daily - Byetta 5 mg subcu twice a day - Zyrtec 10 mg daily - diltiazem 360 mg daily - ferrous sulfate 325 mg three times a day - glimepiride 4 mg daily - Lantus 50 units twice a day - metformin 1000 mg twice a day - metoprolol tartrate 100 mg twice a day - sublingual nitroglycerin 0.4 mg sublingually every 5 minutes as needed for chest pain - nortriptyline 10 mg three times a day - furosemide 100 mg half a tablet daily MEDICATIONS TO HOLD: Aspirin and Plavix. DISCHARGE INSTRUCTIONS: Discharge to home. Activity as tolerated. Consistent carbohydrate diet. Followup with primary care provider in a week. Follow up with Dr. Nino within the next 1-2 weeks. Return to the emergency department if symptoms should worsen or progress. He voices understanding. Discharge took approximately 35 minutes.
--- NOTE | 2016-08-24 06:27 | NOCOX ---
DATE OF PROCEDURE: 08/22/2016 INTERPRETATION: Recording nocturnal oximetry was performed initially on room air. Approximately three and a half hours into the study, 2 liters of oxygen was added. Overall for the study his mean oxygen saturation was 91%. Corey is listed at 66%. There are regions of significant variation in the SpO2 waveform suggestive of sleep disordered breathing. In regards to oxygenation, it appears that oxygenation was appropriate on 2 liters of nasal cannula, though there was a time period initially that it may not have been enough which may be related to position or sleep stage. IMPRESSION: 1. Nocturnal hypoxemia, possibly reasonably well palliated on 2 liters by nasal cannula. There was a short period of time when saturations were in the 80% percentile that may have been secondary to stage sleep or position. 2. Fluctuations in SpO2 waveform that may be suggestive of sleep disordered breathing. Clinical correlation will be necessary. [facility]
== END 2016-08-23 13:40 | disposition home or self-care (01) | DRG 374 ==
LOC: M ED 07:31 → M ED INP 11:09 → M ICU 18:17 → M MSPAV 08-13 16:35 → M PED 08-19 23:58
PROVIDERS: ADMIT Internal Medicine; ATTEND Hospitalist
PROC: 30233N1 Transfusion of Nonautologous Red Blood Cells into Peripheral Vein, Percutaneous Approach (ICD-10-PCS; 2016-08-13)
PROC: 0DBL8ZX Excision of Transverse Colon, Via Natural or Artificial Opening Endoscopic, Diagnostic (ICD-10-PCS; 2016-08-15)
PROC: 0DBM8ZX Excision of Descending Colon, Via Natural or Artificial Opening Endoscopic, Diagnostic (ICD-10-PCS; 2016-08-15)
PROC: 0DJ08ZZ Inspection of Upper Intestinal Tract, Via Natural or Artificial Opening Endoscopic (ICD-10-PCS; principal; 2016-08-15 10:29)
DX: C18.4 Malignant neoplasm of transverse colon (principal); I50.33 Acute on chronic diastolic (congestive) heart failure; K92.2 Gastrointestinal hemorrhage, unspecified; D62 Acute posthemorrhagic anemia; N17.9 Acute kidney failure, unspecified; E11.9 Type 2 diabetes mellitus without complications; I95.9 Hypotension, unspecified; K57.30 Diverticulosis of large intestine without perforation or abscess without bleeding; D12.4 Benign neoplasm of descending colon; E78.5 Hyperlipidemia, unspecified; I10 Essential (primary) hypertension; Z79.4 Long term (current) use of insulin; Z79.899 Other long term (current) drug therapy; Z95.9 Presence of cardiac and vascular implant and graft, unspecified; I25.2 Old myocardial infarction; Z87.891 Personal history of nicotine dependence; Z90.49 Acquired absence of other specified parts of digestive tract

== ENCOUNTER → 2016-09-17 | Outpatient (CLI) | payer MEDICARE, MEDICAID ==
[~2016-09-17] MED LIST changes: +ASPI81TA85 PO; +BYET1INJ SC; +CARA1TAB2 PO
[2016-09-17 11:05] LABS: ALBUMIN 3.2 GM/DL (3.2-5.2); ALKALINE PHOSPHATASE 119 U/L (45-117); ALT/SGPT 11 U/L (12-78); ANION GAP 9 MEQ/L (8-16); AST/SGOT 9 U/L (15-37); BILIRUBIN,TOTAL 0.4 MG/DL (0.2-1.0); BLOOD UREA NITROGEN 13 MG/DL (7-18); CALCIUM LEVEL 8.9 MG/DL (8.8-10.2); CARBON DIOXIDE LEVEL 28 MEQ/L (21-32); CHLORIDE LEVEL 105 MEQ/L (98-107); CREATININE FOR GFR 1.14 MG/DL (0.70-1.30); GLOMERULAR FILTRATION RATE > 60.0 (>42); GLUCOSE, FASTING 54 MG/DL (83-110); POTASSIUM SERUM 4.4 MEQ/L (3.5-5.1); SODIUM LEVEL 142 MEQ/L (136-145); TOTAL PROTEIN 6.4 GM/DL (6.4-8.2)
[2016-09-17 11:25] LABS: MEAN CORPUSCULAR HEMOGLOBIN 23.8 pg (27.0-33.0); MEAN CORPUSCULAR HGB CONC 28.8 g/dl (32.0-36.5); MEAN CORPUSCULAR VOLUME 82.6 fl (80.0-96.0); RED CELL DISTRIBUTION WIDTH 20.4 % (11.5-14.5); WHITE BLOOD COUNT 13.2 K/mm3 (4.0-10.0)
== END ==
LOC: M LAB 10:26
PROVIDERS: ATTEND Nurse Practitioner Family
DX: Z01.812 Encounter for preprocedural laboratory examination (principal); E11.9 Type 2 diabetes mellitus without complications

== ENCOUNTER → 2016-09-17 | Outpatient (CLI) | payer MEDICARE, MEDICAID ==
[~2016-09-17] MED LIST changes: +CIPR-250 PO; +COLA100C PO; +FLAG250T PO; +PERCOCET PO
--- NOTE | 2016-09-17 11:16 | REP ---
Clinical: Chest pain with high risk factors. Technique: PA and lateral views. Comparison: 10/04/2013. Findings: Mediastinum and cardiac silhouette are stable. Chronic bibasilar changes are appreciated. Superimposed small left pleural effusion and bibasilar atelectasis (left greater than right) suggested. No pneumothorax. Skeletal structures intact. Impression: Small left pleural effusion and bibasilar atelectasis (left greater than right). Underlying chronic changes similar to 2013. Signed by Melquiades Blanca MD 09/17/2016 11:07 A
== END ==
LOC: M RAD 10:30
PROVIDERS: ATTEND Surgery
DX: Z87.891 Personal history of nicotine dependence (principal); J90 Pleural effusion, not elsewhere classified; J98.11 Atelectasis; Z79.899 Other long term (current) drug therapy

== ENCOUNTER → 2016-09-20 | Outpatient (CLI) | payer MEDICARE, MEDICAID ==
[~2016-09-20] MED LIST changes: -CIPR-250 PO; -COLA100C PO; -FLAG250T PO; -PERCOCET PO
== END ==
LOC: M CARPUL 10:57
PROVIDERS: ATTEND Surgery
DX: Z87.891 Personal history of nicotine dependence (principal)

== ENCOUNTER 2016-09-27 08:19 | Inpatient (IN) | payer MEDICARE, MEDICAID ==
--- NOTE | 2016-09-26 19:14 | HPE ---
DATE OF ADMISSION: 09/27/2016 HISTORY OF PRESENT ILLNESS: The patient is a 75-year-old gentleman who presents with a transverse colon cancer appreciated on colonoscopy. The patient had evidence of evidence of recent admission for rectal bleeding last month and had some significant shortness of breath, was fluid overloaded at that time. Fortunately had some significant improvement with his fluid overload issues and, gradually after he improved and has anemia improved as well, he was discharged to home. The plan was for him to continue making some progress with increased activity and improving his respiratory issues, and plan on operative intervention for his transverse colon cancer. The patient has undergone a right hemicolectomy in 2004, for a colon cancer which was not involving lymph nodes or metastatic. He had a colonoscopy for gastrointestinal (GI) bleeding anemia in July which revealed a large, ulcerating mass in the transverse colon consistent with a high-grade/moderately to poorly-differentiated adenocarcinoma. PAST MEDICAL HISTORY: The patient's past medical history is significant for history of sleep apnea, history of cardiac stents, history of right colectomy, history of diabetes mellitus, history of gastroesophageal (GE) reflux, history of gout, history of myocardial infarction, history of hypercholesterolemia, history of hypertension, history of right knee surgery, history of left shoulder surgery. MEDICATIONS: Include allopurinol, aspirin, atorvastatin, cetirizine, diltiazem, iron, glimepiride, insulin, metformin, metoprolol, nortriptyline, pantoprazole and torsemide. PHYSICAL EXAMINATION: GENERAL: The patient's physical exam reveals an elderly man who looks stated age. HEENT is unremarkable. NECK: Supple without adenopathy. LUNGS: Clear although with crackles at the bases bilaterally with no significant wheezing. HEART: Regular with multiple irregular beats. ABDOMEN: Softly distended. Has a midline incision which I feel he may have a small incisional hernia present, but more importantly been up just above the midline, I do believe that I can feel this transverse colon mass. It is nontender. IMPRESSION AND PLAN: The patient has evidence of a transverse colon cancer, and the recommendation at this time is to proceed with a transverse colectomy. I do feel that we may be able to mobilize this colon somewhat laparoscopically to allow a smaller incision, and given his overall medical problems, I would like to optimize the incision size as much as possible/ decrease this as much as possible. The operative intervention will be a laparoscopic-assisted transverse colectomy with probable primary anastomosis. However, at this point it is hard to know if I will need to mobilize his hepatic flexure to adequately bring this colon together. It looks like he has a fair bit of redundancy to his transverse colon but, once again I may need to mobilize his colon off his liver edge/gallbladder area on the right-hand side, and if so, then I would mobilize the entire portion of this colon, re-resect his ileocolic anastomosis and perform a new ileocolic anastomosis in the left upper quadrant. The patient will undergo a mechanical as well as antibiotic bowel prep, will be given intravenous (IV) fluids, IV antibiotics, placed nothing by mouth, and the have thromboembolism deterrent stockings (TEDs) and sequentials at the time of the operative intervention, as well as Castro catheter. The risk of operative intervention have been discussed with the patient at length, those including but not limited to infection, bleeding, damage to surrounding structures as well as need for colostomy, as well as need for open operative intervention. The patient understands would like to proceed with this. The patient has an additional polyp in the mid-sigmoid colon. If he does need a larger open operative intervention and we can feel this transverse colon polyp and it is readily accessible, it may be reasonable to perform a polypectomy as well, although at this point, when I have reviewed the colonoscopy with Dr. You and we have reviewed the pictures in [employer], it does seem that it would be amenable to colonoscopic removal and when I evaluate the polyp it seems as though it is medium in size and not truly large at this point. In any case, operative intervention for this benign-appearing sigmoid polyp is not the planned operative procedure at this time. He understands this as well and understands if we do happen to take out the polyp and it is readily accessible, we will do that at that time.
[~2016-09-27] VITALS: Ht 180.3 cm; Wt 110.9 kg
[2016-09-27] MEDS ORDERED: LR 1,000 ML IV SCH ×4 (08:30→16:15)
[2016-09-27] MEDS ORDERED: MIDAZOLAM INJ 2 MG/2 ML VIAL (J2250) As Ordered ONE (09:25)
[2016-09-27] MEDS ORDERED: fentaNYL 250 MCG/5 ML INJECTION (J3010) As Ordered ONE (09:26)
[2016-09-27] MEDS ORDERED: PROPOFOL 200 MG/20 ML VIAL As Ordered ONE ×2 (09:27→09:28)
[2016-09-27] MEDS ORDERED: LIDOCAINE 2% INJ 100 MG/5 ML SDV (FOR ANES.) As Ordered ONE ×2 (09:27→09:28)
[2016-09-27] MEDS ORDERED: ROCURONIUM BROMIDE 50 MG/5 ML VIAL As Ordered ONE ×2 (09:29→14:39)
[2016-09-27] MEDS ORDERED: BUPIVACAINE/EPIN 0.25% 30 ML VIAL As Ordered ONE (10:29)
[2016-09-27] MEDS ORDERED: GLUCAGON FOR INJ 1 MG VIAL (J1610) As Ordered ONE (10:32)
[2016-09-27] MEDS ORDERED: ALBUTEROL SULFATE 2.5 MG/0.5 ML INH NEB SOLN INH ONE (11:00)
[2016-09-27] MEDS ORDERED: ERTAPENEM SODIUM 1 GM in NS MINI-BAG PLUS 50 ML IV ONE (11:15)
[2016-09-27] MEDS ORDERED: BUPIVACAINE/EPIN 0.25% 30 ML VIAL XX ONE (11:39)
[2016-09-27] MEDS ORDERED: BUPIVACAINE LIPOSOME/PF 1.3% 20 ML VIAL (13.3MG/ML)(EXPAREL) As Ordered ONE (12:30)
[2016-09-27] MEDS ORDERED: BUPIVACAINE HCL 0.25% 30 ML VIAL As Ordered ONE (12:30)
[2016-09-27] MEDS ORDERED: ePHEDrine SULFATE 25 MG/5 ML(5MG/ML) SYRINGE As Ordered ONE ×2 (12:52→13:58)
[2016-09-27] MEDS ORDERED: dexameTHASONE 4 MG/ML 1ML VIAL (J1100) As Ordered ONE (13:03)
[2016-09-27] MEDS ORDERED: METOCLOPRAMIDE INJ 10MG/2ML VIAL (J2765) As Ordered ONE (13:03)
[2016-09-27] MEDS ORDERED: BUPIVACAINE LIPOSOME/PF 1.3% 20 ML VIAL (13.3MG/ML)(EXPAREL) INJ ONE (13:17)
[2016-09-27] MEDS ORDERED: BUPIVACAINE HCL 0.25% 30 ML VIAL XX ONE (13:19)
[2016-09-27] MEDS ORDERED: HYDROmorphone HCL 2 MG/ML 1ML VIAL (J1170) As Ordered ONE (14:26)
[2016-09-27] MEDS ORDERED: ONDANSETRON 4MG/2ML VIAL (J2405) As Ordered ONE (14:48)
[2016-09-27] MEDS ORDERED: DESFLURANE 240 ML INHALANT As Ordered ONE (14:57)
[2016-09-27] MEDS ORDERED: GLYCOPYRROLATE INJ 0.2 MG/ML 2 ML VIAL As Ordered ONE (15:11)
[2016-09-27] MEDS ORDERED: NEOSTIGMINE 1MG/ML 5 ML SYRINGE (J2710) As Ordered ONE (15:12)
[2016-09-27] MEDS ORDERED: ONDANSETRON 4MG/2ML VIAL (J2405) IV PRN ×2 (15:15→16:15)
[2016-09-27] MEDS ORDERED: ACETAMINOPHEN TAB 650MG DOSE (2X325MG) PO PRN (15:15)
[2016-09-27] MEDS ORDERED: PROMETHAZINE INJ 25 MG/ML VIAL (J2550) IV PRN (15:15)
[2016-09-27] MEDS ORDERED: zolPIDEM TARTRATE 10MG TAB PO PRN (15:15)
[2016-09-27] MEDS ORDERED: METOCLOPRAMIDE INJ 10MG/2ML VIAL (J2765) IV PRN ×2 (15:15→16:15)
[2016-09-27] MEDS: LR 1,000 ML IV SCH ×2 (15:15→21:36)
[2016-09-27] MEDS ORDERED: GLUCOSE 4 GM CHEW TABLET PO PRN (15:30)
[2016-09-27] MEDS ORDERED: IPRATROPIUM 0.5MG/ALBUTEROL 2.5MG INH SOL UD 3ML (DUONEB)(J7620) NEB PRN (15:30)
[2016-09-27] MEDS ORDERED: DEXTROSE 50% 50 ML SYRINGE IV PRN (15:30)
[2016-09-27] MEDS ORDERED: GLUCAGON FOR INJ 1 MG VIAL (J1610) SC PRN (15:30)
[2016-09-27] MEDS ORDERED: fentaNYL 100 MCG/2 ML INJECTION (J3010) As Ordered ONE (15:44)
[2016-09-27] MEDS: fentaNYL 100 MCG/2 ML INJECTION (J3010) IV PRN ×7 (15:48→16:57)
[2016-09-27 16:04] LABS: MEAN CORPUSCULAR HEMOGLOBIN 23.9 pg (27.0-33.0); MEAN CORPUSCULAR HGB CONC 28.4 g/dl (32.0-36.5); MEAN CORPUSCULAR VOLUME 83.9 fl (80.0-96.0); RED CELL DISTRIBUTION WIDTH 18.8 % (11.5-14.5); WHITE BLOOD COUNT 18.6 K/mm3 (4.0-10.0)
[2016-09-27] MEDS ORDERED: PERCOCET 5MG/325MG TAB PO PRN (16:15)
[2016-09-27] MEDS ORDERED: MEPERIDINE INJ 25 MG/ML VIAL (J2175) IV PRN (16:15)
[2016-09-27 16:55] LABS: ANION GAP 9 MEQ/L (8-16); BLOOD UREA NITROGEN 17 MG/DL (7-18); CALCIUM LEVEL 8.7 MG/DL (8.8-10.2); CARBON DIOXIDE LEVEL 26 MEQ/L (21-32); CHLORIDE LEVEL 105 MEQ/L (98-107); GLOMERULAR FILTRATION RATE > 60.0 (>42); GLUCOSE, FASTING 203 MG/DL (83-110); POTASSIUM SERUM 4.4 MEQ/L (3.5-5.1); SODIUM LEVEL 140 MEQ/L (136-145)
[2016-09-27 17:30] VITALS: BP 158/70
[2016-09-27 18:00] VITALS: BP 144/65
[2016-09-27] MEDS: ERTAPENEM SODIUM 1 GM in NS MINI-BAG PLUS 50 ML IV SCH (18:30)
[2016-09-27 19:00] VITALS: BP 168/74
[2016-09-27] MEDS: IPRATROPIUM 0.5MG/ALBUTEROL 2.5MG INH SOL UD 3ML (DUONEB)(J7620) NEB SCH (19:58)
[2016-09-27 20:00] VITALS: BP 138/65
[2016-09-27 21:00] VITALS: BP 135/62
[2016-09-27] MEDS ORDERED: POLYVINYL ALCOHOL OPHTH SOLN 15 ML(LIQUITEARS) OU PRN (21:00)
[2016-09-27 21:37] LABS: CALCIUM LEVEL 8.7 MG/DL (8.8-10.2); CREATININE FOR GFR 1.36 MG/DL (0.70-1.30); GLOMERULAR FILTRATION RATE 54.4 (>42); POTASSIUM SERUM 4.4 MEQ/L (3.5-5.1)
[2016-09-27 22:00] VITALS: BP 141/70
--- NOTE | 2016-09-27 22:03 | CR ---
DATE OF CONSULTATION: 09/27/2016 This is a patient of Dr. Wen. Dr. Suazo and Dr. Angela consultations completed for Dr. Nino. REASON FOR CONSULTATION: Medical management. HISTORY OF PRESENT ILLNESS: This is a 75-year-old who underwent a transverse colectomy today apparently without complication. Postoperatively he had no complaints. I was called for assistance with his medications. Currently the patient is not complaining of any chest pain. He is not short of breath. He does have some abdominal discomfort. He is not passing any flatus. He is concerned about his urinary output. PAST MEDICAL HISTORY: Notable for diabetes, hypertension, hyperlipidemia, osteoarthritis, gastroesophageal reflux disease (GERD), gout, sleep apnea, noncompliant with his BiPAP for many years, congestive heart failure, with left ventricular ejection fraction of 50%. Currently he is status post PTCA, hiatal hernia, history of colon cancer. PAST SURGICAL HISTORY: Notable for a colectomy and open reduction, internal fixation (ORIF) of the right leg. SOCIAL HISTORY: The patient is a former smoker who quit over 10 years ago. Does not use alcohol currently. No known drug allergies. MEDICATIONS: Currently include: - Artificial Tears - glimepiride - atorvastatin - Byetta - metoprolol tartrate - torsemide - nortriptyline - Lantus - Carafate - cetirizine - diltiazem CD - Protonix - allopurinol - metformin - Invokana - colchicine - Tylenol - sublingual nitroglycerin - Motrin - he had previously been on Plavix. FAMILY HISTORY: Not obtained. REVIEW OF SYSTEMS: Notable for no headache. No visual changes. No runny nose. No sore throat prior to his procedure. Now he has a slight sore throat. No chest pain, no shortness of breath. He has some abdominal discomfort which has been improving. Otherwise, unremarkable. PHYSICAL EXAMINATION: Temperature 99, pulse 100, respiratory rate 16, blood pressure is 168/74, 90% on 2 liters nasal cannula. He is awake and appropriately interactive. Pleasantly conversant. Head is normocephalic, sinuses nontender. Pupils equal, round and reactive. Anicteric. Mucous membranes moist. Neck supple, thick. Breathing is symmetrical, rested. I to E ratio is 1:4. Decreased aeration. No wheezes. Heart is distant sounding, normal S1, S2. His heart rate is regular. Abdomen is notable for clean dry and intact dressings. Hypoactive bowel sounds. No lower extremity edema. White cell count from earlier today was 18.6, hemoglobin 10.8, BUN 17, creatinine 1.1. ASSESSMENT: This is a 75-year-old postoperative day #0, status post transverse colectomy. PLAN: 1. Cardiovascular. The patient has coronary artery disease. The patient should be restarted on aspirin and Plavix as soon as reasonably possible. Will continue his statin in the perioperative period. 2. The patient has congestive heart failure, diastolic dysfunction. I have elected to decrease the rate of fluid infusion. I have also held his torsemide which would be reevaluated tomorrow. 3. The patient has history of atrial fibrillation or flutter. He is currently on Cardizem which I have held. I have continued his beta blockade, dosing at every 6 hours. Would consider restarting his Cardizem in the morning depending on his postoperative course. Could use short acting Cardizem with hold parameters. 4. The patient has diabetes. Will be maintained on sliding scale. He is on Lantus at home and may benefit from long acting insulin here in the hospital which can be assessed in the morning depending again on his clinical course. 5. The patient has gout. Will continue his allopurinol. 6. The patient has sleep apnea. He is noncompliant with BiPAP. Does use nocturnal oxygen, which he is currently wearing. Should followup with Dr. Suazo after discharge. 7. Deep venous thrombosis (DVT) prophylaxis. Management of GI issues, pain and activity per the primary team. This patient will be signed out to Dr. Ross.
[2016-09-27] MEDS: ATORVASTATIN 20 MG TAB PO SCH (22:48)
[2016-09-27] MEDS: HumaLOG INSULIN (NovoLOG) PER UNIT SC SCH (22:56)
[2016-09-28] MEDS: METOPROLOL TARTRATE 100 MG TAB PO SCH ×4 (00:39→17:32)
[2016-09-28 02:00] VITALS: BP 150/70
[2016-09-28] MEDS: IPRATROPIUM 0.5MG/ALBUTEROL 2.5MG INH SOL UD 3ML (DUONEB)(J7620) NEB SCH ×4 (02:16→20:00)
[2016-09-28 04:50] LABS: MEAN CORPUSCULAR VOLUME 82.6 fl (80.0-96.0)
[2016-09-28 04:53] LABS: ANION GAP 9 MEQ/L (8-16); BLOOD UREA NITROGEN 18 MG/DL (7-18); CALCIUM LEVEL 8.8 MG/DL (8.8-10.2); CARBON DIOXIDE LEVEL 27 MEQ/L (21-32); CHLORIDE LEVEL 104 MEQ/L (98-107); CREATININE FOR GFR 1.18 MG/DL (0.70-1.30); GLOMERULAR FILTRATION RATE > 60.0 (>42); GLUCOSE, FASTING 291 MG/DL (83-110); POTASSIUM SERUM 4.3 MEQ/L (3.5-5.1); SODIUM LEVEL 140 MEQ/L (136-145)
[2016-09-28 06:00] VITALS: BP 159/67
--- NOTE | 2016-09-28 08:20 | IPN ---
DATE: 09/28/2016 75-year-old gentleman that the hospitalist was requested to be involved with for medical management. He is resting, sitting at bedside. Has not passed any flatus at this point. Feels his abdominal pain is adequately controlled. No nausea, vomiting. No chest pain. OBJECTIVE: Temperature is 98.5, pulse 100, respiratory rate 16, , blood pressure (BP) 159/67, SPO2 is 94% on 2 liters. General: The patient appears to be in no acute distress. He is alert, oriented, pleasant. HEENT: Unremarkable. Lungs clear. Heart regular rate and rhythm. Abdomen does have dressings in place on the anterior abdomen from his surgical procedure with Dr. Nino. Otherwise normoactive bowel sounds. No masses or rebound. Extremities: No edema or calf tenderness. LABORATORY DATA: White count is 1800, hemoglobin 10, platelets 334,000. Sodium 140, potassium 4.3, chloride 104, bicarb 27, anion gap 9, BUN is 18, creatinine 1.18, glucose 291. ASSESSMENT/PLAN: 1. History of colon cancer status post resection by Dr. Nino Postoperative day #1. 2. History of coronary artery disease. Will plan on restarting aspirin and Plavix as soon as he tolerating by mouth intake. He is continued on a statin perioperatively. 3. Congestive heart failure (CHF), diastolic dysfunction. His rate on his lactated Ringers was reduced yesterday by Dr. Scott. I agree with this. Currently his furosemide is on hold. Will currently wait until he has been advanced on his diet and then assume his regular home dose. 4. History of atrial fibrillation/atrial flutter. Cardizem has been held. He is continued on beta-gerson dosing every 6 hours. Will however go ahead and plan on restarting his Cardizem this morning since he does have slightly elevated blood pressure and some tachycardia. 5. Diabetes. Continue fingersticks every 6 hours with sliding scale coverage and Lantus if need be. Hoping to advance his diet today if okay with Dr. Nino and he will need switch to before meal and at bedtime sliding scale coverage with consistent carbohydrate diet. 6. History of gout. Continue allopurinol. 7. History of obstructive sleep apnea (DEREJE), noncompliant with BiPAP, but he does use nocturnal oxygen. Followup with Dr. Rechlin after discharge. He is currently on our DEREJE protocol. 8. Deep vein thrombosis (DVT) prophylaxis, as well as, gastrointestinal (GI) issues. Pain management will be addressed by the primary team.
[2016-09-28 09:09] LABS: ANION GAP 8 MEQ/L (8-16); BLOOD UREA NITROGEN 18 MG/DL (7-18); CALCIUM LEVEL 8.7 MG/DL (8.8-10.2); CARBON DIOXIDE LEVEL 27 MEQ/L (21-32); CHLORIDE LEVEL 105 MEQ/L (98-107); CREATININE FOR GFR 1.08 MG/DL (0.70-1.30); GLOMERULAR FILTRATION RATE > 60.0 (>42); GLUCOSE, FASTING 205 MG/DL (83-110); POTASSIUM SERUM 4.8 MEQ/L (3.5-5.1); SODIUM LEVEL 140 MEQ/L (136-145)
[2016-09-28] MEDS ORDERED: MORPHINE 4 MG/ML 1ML SYRINGE IV PRN (09:45)
[2016-09-28 10:00] VITALS: BP 159/72
[2016-09-28] MEDS: PANTOPRAZOLE 40MG INJ (PROTONIX) (C9113) IV SCH (10:18)
[2016-09-28] MEDS: ALLOPURINOL 100 MG TAB PO SCH (10:18)
[2016-09-28] MEDS: CETIRIZINE (ZyrTEC) 10 MG TAB PO SCH (10:18)
[2016-09-28] MEDS: diltiaZEM **CD** 180 MG CAP PO SCH (10:18)
[2016-09-28] MEDS: MORPHINE 2 MG/ML 1ML SYRINGE IV PRN ×2 (10:23→21:00)
[2016-09-28 14:00] VITALS: BP 173/84
[2016-09-28 16:21] LABS: ANION GAP 9 MEQ/L (8-16); BLOOD UREA NITROGEN 16 MG/DL (7-18); CALCIUM LEVEL 8.7 MG/DL (8.8-10.2); CARBON DIOXIDE LEVEL 26 MEQ/L (21-32); CHLORIDE LEVEL 107 MEQ/L (98-107); CREATININE FOR GFR 0.85 MG/DL (0.70-1.30); GLOMERULAR FILTRATION RATE > 60.0 (>42); GLUCOSE, FASTING 167 MG/DL (83-110); POTASSIUM SERUM 4.6 MEQ/L (3.5-5.1); SODIUM LEVEL 142 MEQ/L (136-145)
[2016-09-28] MEDS: ERTAPENEM SODIUM 1 GM in NS MINI-BAG PLUS 50 ML IV SCH (17:31)
[2016-09-28 20:00] VITALS: O2SAT 90
[2016-09-28] MEDS: HumaLOG INSULIN (NovoLOG) PER UNIT SC SCH (20:49)
[2016-09-28] MEDS: ATORVASTATIN 20 MG TAB PO SCH (21:00)
[2016-09-28 21:54] LABS: ANION GAP 5 MEQ/L (8-16); BLOOD UREA NITROGEN 14 MG/DL (7-18); CALCIUM LEVEL 8.7 MG/DL (8.8-10.2); CARBON DIOXIDE LEVEL 29 MEQ/L (21-32); CHLORIDE LEVEL 107 MEQ/L (98-107); CREATININE FOR GFR 0.86 MG/DL (0.70-1.30); GLOMERULAR FILTRATION RATE > 60.0 (>42); GLUCOSE, FASTING 181 MG/DL (83-110); POTASSIUM SERUM 4.5 MEQ/L (3.5-5.1); SODIUM LEVEL 141 MEQ/L (136-145)
[2016-09-28 22:00] VITALS: BP 140/65
[2016-09-29] MEDS: METOPROLOL TARTRATE 100 MG TAB PO SCH ×5 (00:25→23:39)
[2016-09-29] MEDS: LR 1,000 ML IV SCH ×2 (00:25→20:47)
[2016-09-29 01:51] VITALS: O2SAT 88
[2016-09-29] MEDS: IPRATROPIUM 0.5MG/ALBUTEROL 2.5MG INH SOL UD 3ML (DUONEB)(J7620) NEB SCH ×4 (01:51→20:03)
[2016-09-29 06:00] VITALS: BP 151/72
[2016-09-29 07:13] LABS: MEAN CORPUSCULAR HEMOGLOBIN 23.6 pg (27.0-33.0); MEAN CORPUSCULAR HGB CONC 28.4 g/dl (32.0-36.5); RED CELL DISTRIBUTION WIDTH 18.8 % (11.5-14.5); WHITE BLOOD COUNT 15.8 K/mm3 (4.0-10.0)
[2016-09-29 07:30] LABS: ANION GAP 6 MEQ/L (8-16); BLOOD UREA NITROGEN 13 MG/DL (7-18); CALCIUM LEVEL 8.7 MG/DL (8.8-10.2); CARBON DIOXIDE LEVEL 28 MEQ/L (21-32); CHLORIDE LEVEL 106 MEQ/L (98-107); CREATININE FOR GFR 0.77 MG/DL (0.70-1.30); GLOMERULAR FILTRATION RATE > 60.0 (>42); GLUCOSE, FASTING 199 MG/DL (83-110); POTASSIUM SERUM 4.6 MEQ/L (3.5-5.1); SODIUM LEVEL 140 MEQ/L (136-145)
[2016-09-29] MEDS: PANTOPRAZOLE 40MG INJ (PROTONIX) (C9113) IV SCH (08:34)
[2016-09-29] MEDS: ALLOPURINOL 100 MG TAB PO SCH (08:34)
[2016-09-29] MEDS: CETIRIZINE (ZyrTEC) 10 MG TAB PO SCH (08:34)
[2016-09-29] MEDS: diltiaZEM **CD** 180 MG CAP PO SCH (08:34)
[2016-09-29 09:46] LABS: ANION GAP 9 MEQ/L (8-16); BLOOD UREA NITROGEN 13 MG/DL (7-18); CARBON DIOXIDE LEVEL 26 MEQ/L (21-32); CHLORIDE LEVEL 106 MEQ/L (98-107); GLOMERULAR FILTRATION RATE > 60.0 (>42); GLUCOSE, FASTING 195 MG/DL (83-110); POTASSIUM SERUM 4.6 MEQ/L (3.5-5.1); SODIUM LEVEL 141 MEQ/L (136-145)
--- NOTE | 2016-09-29 13:24 | RO ---
DATE OF PROCEDURE: 09/29/2016 PREOPERATIVE DIAGNOSIS: Transverse colon cancer. POSTOPERATIVE DIAGNOSIS: Transverse colon cancer. PROCEDURE: Transverse colectomy with transverse colon anastomosis. SURGEON: Dr. Dionisio Nino FUEL CELL ASSEMBLER: Dr. Moe (Dr. Moe provided retraction, assistance with observation, exposure and with the anastomosis). ESTIMATED BLOOD LOSS: Minimal. FLUIDS: Crystalloid. DISPOSITION: The patient was taken to recovery room awake, alert, stable. BRIEF OPERATIVE SUMMARY: The patient was taken to the operating room and was given general anesthesia. After adequate anesthesia was established, the patient was prepped and draped in usual sterile fashion. Next, a left subcostal incision was made with skin knife. Blunt dissection was carried down to fascia and the patient had numerous midline incisions present and I was hoping to get into the left upper quadrant to perform a laparoscopic colectomy and using the Veress needle, I was able to insert the Veress needle into the abdominal wall but he had such a very pliable abdominal wall, I did not feel comfortable with this placement and thus I felt an open approach would be more reasonable. Thus going to midline, I made a small incision on the midline and then once making the small incision getting down to the fascia, what was apparent was that the fascial layer was tightly adherent to underlying scar tissue and retracting this area and trying to expose the posterior aspect of the fascia and using the trocar, I made an enterotomy in the small bowel thus I felt that it was not a situation that would be amenable to further attempts at a laparoscopic approach. Thus an open incision was made above the midline. Electrocautery was used to cut through dermis, underlying subcutaneous tissue down through what appeared to be several hernias present. The adhesions along the midline were extensive, severe and needed to be taken down sharply with scissors. There were a few small serosal tears with taking down these adhesions that were imbricated with #3-0 Vicryl and the enterotomy in the small bowel was taken care with some interrupted #3-0 Vicryls as well. Next, once this I was able to mobilize this, the omentum was lifted up, the transverse colon could be seen and the palpable mass could be seen left of midline on the transverse colon. Taking down the omentum off the transverse colon, I was able to get into the avascular plane but once again, because of previous surgery in there were multiple adhesions out of proportion to what I would have expected, I needed to take this transverse colon and eventually mobilized it off the hepatic flexure area and the ileocolic anastomosis and the small bowel was left, it was still tightly adherent to the deeper structures, i.e. the duodenal area in this area but I was able to mobilize it well enough that I felt that it gave a good amount of redundancy. Then I went to the splenic flexure and mobilized the splenic flexure in the same manner. Once again, a great deal of adhesions all in this area as well and eventually this was taken down adequately so that the transverse colon could be brought over to the mid right transverse colon. The bowel was resected using LENKA staplers. [place] 60 staplers were used to transect the mesentery. There was some minimal oozing from the mesentery which was controlled along the staple line with some clips. Once this bowel was resected down to its base, there seemed to be a little bit of avascular portion of the transverse colon which was re-resected and then a [id number] anastomosis was created. The abdomen was copiously irrigated until clear and additional reinforcing anterior #3-0 Vicryls were placed along the suture line as well as in the crotch of the anastomosis. The incision then was closed with looped #0 PDS and vee were used to approximate the skin. A dry sterile dressing was applied. The patient was awakened, extubated and brought to the recovery room awake, alert, hemodynamically stable. During the procedure, a separate cart was used for the final closure.
[2016-09-29 14:00] VITALS: BP 169/77
--- NOTE | 2016-09-29 17:45 | IPN ---
DATE: 09/29/2016 75-year-old gentleman seen at bedside. No overnight issues reported. Resting comfortably. No chest pain. No nausea or vomiting. OBJECTIVE: Temperature is 98.4, pulse 87, respiratory rate is 18, BP is 161/73, SPO2 is 92% on 2 liters. General: The patient appears to be in no acute distress. He is alert, oriented, pleasant to talk to. HEENT: Unremarkable. Lungs: Clear. Heart: Regular rhythm. Abdomen: Soft. Extremities: No edema. No calf tenderness. LABORATORY DATA: White count is 15.8, down from 18,000, hemoglobin 9.8, platelets 315,000. Sodium 141, potassium 4.6, chloride 106, bicarb 26, anion gap 9, BUN is 13, creatinine 0.8, glucose 195. ASSESSMENT/PLAN: 1. History of colon cancer, status post resection by Dr. Nino. Postoperative day #2. 2. History of coronary artery disease. Restarting aspirin and Plavix as soon as he resumes regular oral by mouth intake. Continue statin therapy. 3. CHF, diastolic dysfunction. Will resume his furosemide once he resumes p.o. intake. 4. History of atrial fibrillation with atrial flutter. Will resume his Cardizem. 5. Diabetes. Continue fingersticks every 6 hours with sliding scale coverage until he begins eating. Once he has advanced his diet will resume his Lantus as well as his sliding scale coverage before food and nightly. 6. History of gout, on allopurinol. 7. Obstructive sleep apnea (DEREJE). Noncompliant with BiPap, but he does use nocturnal oxygen. 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 8. Deep venous thrombosis (DVT) prophylaxis, gastrointestinal (GI) prophylaxis, pain management is addressed by primary team.
[2016-09-29] MEDS: ERTAPENEM SODIUM 1 GM in NS MINI-BAG PLUS 50 ML IV SCH (18:49)
[2016-09-29 19:54] VITALS: O2SAT 93
[2016-09-29] MEDS: ALVIMOPAN 12 MG CAPSULE (ENTEREG) PO SCH (20:47)
[2016-09-29] MEDS: ATORVASTATIN 20 MG TAB PO SCH (20:47)
[2016-09-29] MEDS: HumaLOG INSULIN (NovoLOG) PER UNIT SC SCH (21:00)
[2016-09-29 22:00] VITALS: BP 198/89
[2016-09-30 02:27] VITALS: O2SAT 94
[2016-09-30] MEDS: IPRATROPIUM 0.5MG/ALBUTEROL 2.5MG INH SOL UD 3ML (DUONEB)(J7620) NEB SCH ×4 (02:35→19:41)
[2016-09-30] MEDS: METOPROLOL TARTRATE 100 MG TAB PO SCH ×4 (05:25→23:19)
[2016-09-30 06:00] VITALS: BP 192/86
[2016-09-30] MEDS ORDERED: **hydrALAZINE** 10 MG TAB PO ONE (06:15)
[2016-09-30 06:54] LABS: MEAN CORPUSCULAR HEMOGLOBIN 23.4 pg (27.0-33.0); MEAN CORPUSCULAR HGB CONC 28.1 g/dl (32.0-36.5); MEAN CORPUSCULAR VOLUME 83.3 fl (80.0-96.0); RED CELL DISTRIBUTION WIDTH 18.8 % (11.5-14.5); WHITE BLOOD COUNT 13.8 K/mm3 (4.0-10.0)
[2016-09-30 07:10] LABS: ANION GAP 9 MEQ/L (8-16); BLOOD UREA NITROGEN 11 MG/DL (7-18); CALCIUM LEVEL 8.7 MG/DL (8.8-10.2); CARBON DIOXIDE LEVEL 26 MEQ/L (21-32); CHLORIDE LEVEL 107 MEQ/L (98-107); CREATININE FOR GFR 0.72 MG/DL (0.70-1.30); GLOMERULAR FILTRATION RATE > 60.0 (>42); GLUCOSE, FASTING 200 MG/DL (83-110); POTASSIUM SERUM 4.5 MEQ/L (3.5-5.1); SODIUM LEVEL 142 MEQ/L (136-145)
[2016-09-30] MEDS: PANTOPRAZOLE 40MG INJ (PROTONIX) (C9113) IV SCH (08:37)
[2016-09-30 08:45] VITALS: BP 146/66
[2016-09-30] MEDS: ALVIMOPAN 12 MG CAPSULE (ENTEREG) PO SCH ×2 (09:15→21:57)
[2016-09-30] MEDS: ALLOPURINOL 100 MG TAB PO SCH (09:15)
[2016-09-30] MEDS: CETIRIZINE (ZyrTEC) 10 MG TAB PO SCH (09:16)
[2016-09-30] MEDS: diltiaZEM **CD** 180 MG CAP PO SCH (09:16)
[2016-09-30] MEDS ORDERED: BISACODYL 10 MG SUPP PR ONE (09:30)
[2016-09-30 13:00] VITALS: BP 143/65
[2016-09-30 14:00] VITALS: BP 156/70
--- NOTE | 2016-09-30 17:10 | IPN ---
DATE: 09/30/2016 A 75-year-old gentleman seen at bedside. No overnight issues reported. Resting comfortably. He states he is not passing flatus yet but denies any chest pain. No nausea or vomiting. OBJECTIVE: Temperature is 97.7, pulse 62, respiratory rate 16, blood pressure (BP) 156/70, SPO2 is 93% on 2 liters. GENERAL: The patient appears to be in no acute distress, alert, pleasant. HEENT: Unremarkable. LUNGS: Clear. HEART: Regular rate and rhythm. ABDOMEN: Soft. EXTREMITIES: No edema. No calf tenderness. LABORATORY DATA: White count 13.8, down from 15,000, hemoglobin is 10, platelets 342,000. Sodium 142, potassium 4.5, chloride 107, bicarbonate 26, anion gap 9, BUN is 11, creatinine 0.72, glucose is 200. ASSESSMENT AND PLAN: 1. History of colon cancer status post resection by Dr. Nino, postoperative day #3. 2. History of coronary artery disease. Plan will be to resume his aspirin and Plavix as soon as he resumes oral intake. Continue statin therapy. 3. Congestive heart failure (CHF) with diastolic dysfunction. Continue furosemide when he resumes oral intake. 4. History of atrial fibrillation with atrial flutter. Continue with Cardizem. 5. Diabetes. Continue fingersticks every 6 hours. Will change to before meals and at bedtime as well as change his sliding scale coverage. Plan on resuming his Lantus when diet is resumed. 6. History of gout. Continue allopurinol. 7. Obstructive sleep apnea (DEREJE), noncompliant with BiPAP, but he does use nocturnal oxygen. 8. Deep vein thrombosis (DVT) prophylaxis with thromboembolic deterrents (TEDs) and sequential compression devices (SCDs). Further management by his primary team.
[2016-09-30] MEDS: ERTAPENEM SODIUM 1 GM in NS MINI-BAG PLUS 50 ML IV SCH (17:12)
[2016-09-30] MEDS: HumaLOG INSULIN (NovoLOG) PER UNIT SC SCH (21:00)
[2016-09-30] MEDS: ATORVASTATIN 20 MG TAB PO SCH (21:57)
[2016-09-30] MEDS: **hydrALAZINE** 10 MG TAB PO SCH (21:58)
[2016-09-30 21:59] VITALS: BP 135/73
[2016-10-01] MEDS: IPRATROPIUM 0.5MG/ALBUTEROL 2.5MG INH SOL UD 3ML (DUONEB)(J7620) NEB SCH ×4 (01:28→19:28)
[2016-10-01] MEDS: METOPROLOL TARTRATE 100 MG TAB PO SCH ×3 (05:25→17:44)
[2016-10-01 06:00] VITALS: BP 177/86
[2016-10-01 06:58] LABS: MEAN CORPUSCULAR HEMOGLOBIN 24.3 pg (27.0-33.0); MEAN CORPUSCULAR VOLUME 83.6 fl (80.0-96.0); RED CELL DISTRIBUTION WIDTH 18.7 % (11.5-14.5); WHITE BLOOD COUNT 9.4 K/mm3 (4.0-10.0)
[2016-10-01 07:05] LABS: ANION GAP 8 MEQ/L (8-16); BLOOD UREA NITROGEN 13 MG/DL (7-18); CALCIUM LEVEL 8.8 MG/DL (8.8-10.2); CARBON DIOXIDE LEVEL 26 MEQ/L (21-32); CHLORIDE LEVEL 108 MEQ/L (98-107); CREATININE FOR GFR 0.83 MG/DL (0.70-1.30); GLOMERULAR FILTRATION RATE > 60.0 (>42); GLUCOSE, FASTING 232 MG/DL (83-110); POTASSIUM SERUM 3.9 MEQ/L (3.5-5.1); SODIUM LEVEL 142 MEQ/L (136-145)
[2016-10-01 09:08] VITALS: BP 157/72
[2016-10-01 09:17] VITALS: BP 157/72
[2016-10-01] MEDS: ALVIMOPAN 12 MG CAPSULE (ENTEREG) PO SCH ×2 (09:31→20:25)
[2016-10-01] MEDS: **hydrALAZINE** 10 MG TAB PO SCH ×2 (09:31→20:26)
[2016-10-01] MEDS: diltiaZEM **CD** 180 MG CAP PO SCH (09:32)
[2016-10-01] MEDS: ALLOPURINOL 100 MG TAB PO SCH (09:32)
[2016-10-01] MEDS: CETIRIZINE (ZyrTEC) 10 MG TAB PO SCH (09:33)
[2016-10-01] MEDS: PANTOPRAZOLE 40MG INJ (PROTONIX) (C9113) IV SCH (09:33)
--- NOTE | 2016-10-01 10:41 | IPN ---
DATE: 10/01/2016 75-year-old gentleman seen at bedside. No overnight issues, resting comfortably. OBJECTIVE Temperature 96.8, pulse 76, respiratory rate 22, blood pressure 157/72, SpO2 is 97% on 2 liters. GENERAL: The patient appears to be in no acute distress. He is alert, pleasant. HEENT: Unremarkable. LUNGS: Clear. HEART: Regular rate and rhythm. ABDOMEN: Soft. EXTREMITIES: No edema. No calf tenderness. LABORATORIES: White count 9.4, hemoglobin 9.7, platelets 328. Sodium is 142, potassium 3.9, chloride 108, bicarb 26, anion gap 8, BUN is 13, creatinine 0.83, glucose 232. ASSESSMENT/PLAN: 1. History of colon cancer status post resection by Dr. Nino. Postoperative day 4. He is attempting to advance his diet today. 2. History of coronary artery disease. Will resume the aspirin and Plavix today. Continue statin therapy. 3. Congestive heart failure (CHF) with diastolic dysfunction. Continue furosemide starting to tomorrow. 4. History of atrial fibrillation with A-flutter. Continue Cardizem with hold parameters. 5. Diabetes. Continue fingersticks before meals and at bedtime. Sliding scale coverage. Will resume Lantus tomorrow. 6. History of gout. Continue allopurinol. 7. Obstructive sleep apnea (DEREJE) . Noncompliant with BiPAP. Uses nocturnal oxygen. 8. Deep vein thrombosis (DVT) prophylaxis. Thromboembolic deterrent stockings (TEDS) and sequential compression devices (SCD).
[2016-10-01] MEDS: HumaLOG INSULIN (NovoLOG) PER UNIT SC SCH ×3 (12:19→20:16)
[2016-10-01 14:00] VITALS: BP 159/72
--- NOTE | 2016-10-01 17:32 | IPN ---
DATE: 09/30/2016 SUBJECTIVE: The patient states that he has had no flatus. The patient continues to have a low-grade temperature with a temperature of 100.6 yesterday but has been afebrile since that, last temperature overnight and into the morning. Overall not complaining of any chest pain. No respiratory complaints. No dysuria, although he has a Castro in. Will take out this morning. His incision seems to be healing nicely without any erythema, drainage, or discharge. He is not complaining of any significant pain that is not controlled with some minimal pain medications. He is not having any nausea. No vomiting. No crampy abdominal pain. PHYSICAL EXAMINATION: His lungs are diminished with crackles at the bases. Heart is regular. Abdomen is soft, nontender except maury-incisionally, and, once again, his incision seems to be healing adequately at this time. IMPRESSION AND PLAN: 1. Respiratory. The patient needs it seems to be stable, although I appreciate medicines recommendations concerning this. I anticipate with his obese abdomen and his overall baseline chronic obstructive pulmonary disease (COPD) and congestive heart failure (CHF) issues, he has some additional atelectasis. Will continue with his current respiratory treatments. 2. Gastrointestinal (GI). Still has not had a flatus or bowel movements, although he has been okay without any nausea, vomiting; thus I will start him on some clear liquids today. Will see how he does with that. He did have a fair bit of stool in his colon, so I will give him a suppository. 3. Castro. Will discontinue his Castro. 4. His white count was elevated, slowly coming down. I am not sure of the etiology for this. It may be inflammatory. It is hard to know, but overall he continues to have some slow but progressive improvement of this. Will see how he does over the ensuing 24-48 hours.
[2016-10-01] MEDS: ASPIRIN 81 MG ENTERIC TAB PO SCH (17:43)
[2016-10-01] MEDS: ERTAPENEM SODIUM 1 GM in NS MINI-BAG PLUS 50 ML IV SCH (17:45)
[2016-10-01] MEDS: MORPHINE 2 MG/ML 1ML SYRINGE IV PRN (18:12)
[2016-10-01] MEDS: ATORVASTATIN 20 MG TAB PO SCH (20:25)
[2016-10-01 22:00] VITALS: BP 176/84
[2016-10-02] MEDS: METOPROLOL TARTRATE 100 MG TAB PO SCH ×4 (00:11→18:00)
[2016-10-02] MEDS: IPRATROPIUM 0.5MG/ALBUTEROL 2.5MG INH SOL UD 3ML (DUONEB)(J7620) NEB SCH ×4 (01:15→19:57)
[2016-10-02 05:17] VITALS: BP 142/67
[2016-10-02 06:00] VITALS: BP 129/61
[2016-10-02 06:33] LABS: MEAN CORPUSCULAR HGB CONC 29.3 g/dl (32.0-36.5); MEAN CORPUSCULAR VOLUME 81.7 fl (80.0-96.0); RED CELL DISTRIBUTION WIDTH 18.2 % (11.5-14.5); WHITE BLOOD COUNT 8.8 K/mm3 (4.0-10.0)
[2016-10-02 06:44] LABS: ANION GAP 8 MEQ/L (8-16); BLOOD UREA NITROGEN 11 MG/DL (7-18); CALCIUM LEVEL 8.5 MG/DL (8.8-10.2); CARBON DIOXIDE LEVEL 26 MEQ/L (21-32); CHLORIDE LEVEL 109 MEQ/L (98-107); CREATININE FOR GFR 0.78 MG/DL (0.70-1.30); GLOMERULAR FILTRATION RATE > 60.0 (>42); GLUCOSE, FASTING 222 MG/DL (83-110); POTASSIUM SERUM 4.2 MEQ/L (3.5-5.1); SODIUM LEVEL 143 MEQ/L (136-145)
[2016-10-02] MEDS: HumaLOG INSULIN (NovoLOG) PER UNIT SC SCH ×4 (07:30→20:16)
[2016-10-02] MEDS: **hydrALAZINE** 10 MG TAB PO SCH ×2 (07:56→20:10)
[2016-10-02] MEDS: ALLOPURINOL 100 MG TAB PO SCH (07:56)
[2016-10-02] MEDS: ASPIRIN 81 MG ENTERIC TAB PO SCH (07:57)
[2016-10-02] MEDS: ALVIMOPAN 12 MG CAPSULE (ENTEREG) PO SCH ×2 (07:58→20:10)
[2016-10-02] MEDS: CETIRIZINE (ZyrTEC) 10 MG TAB PO SCH (07:58)
[2016-10-02] MEDS: diltiaZEM **CD** 180 MG CAP PO SCH (07:58)
[2016-10-02] MEDS: PANTOPRAZOLE 40MG INJ (PROTONIX) (C9113) IV SCH (07:59)
[2016-10-02] MEDS: PERCOCET 5MG/325MG TAB PO PRN ×2 (08:05→20:10)
--- NOTE | 2016-10-02 08:56 | IPN ---
DATE: 10/02/2016 A 75-year-old gentleman seen at bedside, resting comfortably, did finish his clear liquid diet this morning and states he did have flatulence last night. He is a little disappointed with the clear liquid diet and plans on discussing this with the surgeon when he rounds today to see if he could have his diet advanced. OBJECTIVE: VITAL SIGNS: Temperature is 97.6, pulse 61, respiratory rate 20, blood pressure 129/61, SPO2 is 92% on room air. GENERAL: The patient appears to be in no acute distress. He is alert, oriented, pleasant. HEENT: Unremarkable. LUNGS: Clear. HEART: Regular rate and rhythm. ABDOMEN: Soft. Normoactive bowel sounds. No masses. No rebound. EXTREMITIES: No edema. No calf tenderness. LABORATORY DATA: White count 8.8, hemoglobin 9.7, platelets 354. Sodium 143, potassium 4.2, chloride 109, bicarbonate 26, anion gap 8, BUN is 11, creatinine 0.78, glucose 222. ASSESSMENT AND PLAN: 1. History of colon cancer, status post resection by Dr. Nino, postoperative day number five. We will see if his diet will be advanced but I will leave this to the surgical team's discretion. 2. History of coronary artery disease. We resumed aspirin yesterday and we should be able to resume Plavix today. Continue on statin therapy. 3. Congestive heart failure with diastolic dysfunction. Continue furosemide. We will resume his furosemide today. 4. Atrial fibrillation with history of flutter. Continue Cardizem with hold parameters. 5. Diabetes. Continue with fingersticks before meals and at bedtime, sliding scale coverage, and plan on resuming Lantus/long-acting as long as his diet is progressed. 6. History of gout. Continue allopurinol. 7. Obstructive sleep apnea (DEREJE). He is noncompliant with bilevel positive airway pressure (BiPAP). He is using nocturnal oxygen. 8. Deep vein thrombosis (DVT) prophylaxis. Thromboembolic-deterrent stockings (TEDS) and sequentials. DISPOSITION: We will see how he does today. I do anticipate that he is likely close to discharge within the next day or two. However, I will leave this to the primary team's discretion.
[2016-10-02] MEDS: TORSEMIDE (DEMADEX) 50 MG PER 1/2 TAB PO SCH (09:00)
[2016-10-02 10:00] VITALS: BP 129/60
[2016-10-02 14:00] VITALS: BP 142/65
[2016-10-02] MEDS: ERTAPENEM SODIUM 1 GM in NS MINI-BAG PLUS 50 ML IV SCH (17:00)
[2016-10-02] MEDS: ATORVASTATIN 20 MG TAB PO SCH (20:10)
[2016-10-02 22:00] VITALS: BP 146/68
[2016-10-03] MEDS: IPRATROPIUM 0.5MG/ALBUTEROL 2.5MG INH SOL UD 3ML (DUONEB)(J7620) NEB SCH ×4 (00:08→20:28)
[2016-10-03] MEDS: METOPROLOL TARTRATE 100 MG TAB PO SCH ×5 (00:25→23:49)
[2016-10-03 06:00] VITALS: BP 146/67
[2016-10-03 06:55] LABS: MEAN CORPUSCULAR HEMOGLOBIN 23.8 pg (27.0-33.0); MEAN CORPUSCULAR VOLUME 82.1 fl (80.0-96.0); RED CELL DISTRIBUTION WIDTH 18.2 % (11.5-14.5); WHITE BLOOD COUNT 10.7 K/mm3 (4.0-10.0)
[2016-10-03 07:03] LABS: ANION GAP 8 MEQ/L (8-16); BLOOD UREA NITROGEN 12 MG/DL (7-18); CALCIUM LEVEL 8.9 MG/DL (8.8-10.2); CARBON DIOXIDE LEVEL 28 MEQ/L (21-32); CHLORIDE LEVEL 105 MEQ/L (98-107); CREATININE FOR GFR 0.95 MG/DL (0.70-1.30); GLOMERULAR FILTRATION RATE > 60.0 (>42); GLUCOSE, FASTING 220 MG/DL (83-110); POTASSIUM SERUM 4.2 MEQ/L (3.5-5.1); SODIUM LEVEL 141 MEQ/L (136-145)
[2016-10-03] MEDS: TORSEMIDE (DEMADEX) 50 MG PER 1/2 TAB PO SCH (08:16)
[2016-10-03] MEDS: ALVIMOPAN 12 MG CAPSULE (ENTEREG) PO SCH ×2 (08:17→19:52)
[2016-10-03] MEDS: PERCOCET 5MG/325MG TAB PO PRN ×2 (08:18→19:52)
[2016-10-03] MEDS: CETIRIZINE (ZyrTEC) 10 MG TAB PO SCH (08:19)
[2016-10-03] MEDS: ALLOPURINOL 100 MG TAB PO SCH (08:19)
[2016-10-03] MEDS: HumaLOG INSULIN (NovoLOG) PER UNIT SC SCH ×4 (08:19→20:30)
[2016-10-03] MEDS: ASPIRIN 81 MG ENTERIC TAB PO SCH (08:20)
[2016-10-03] MEDS: **hydrALAZINE** 10 MG TAB PO SCH ×2 (08:20→19:52)
[2016-10-03] MEDS: PANTOPRAZOLE 40MG INJ (PROTONIX) (C9113) IV SCH (08:20)
[2016-10-03] MEDS: diltiaZEM **CD** 180 MG CAP PO SCH (08:20)
[2016-10-03] MEDS: DOCUSATE SODIUM 100 MG CAP PO SCH ×2 (13:05→19:51)
--- NOTE | 2016-10-03 14:02 | IPNPDOC ---
Date Seen The patient was seen on 10/03/16. Progress Note Hospitalist Progress Note Subjective: Patient states that he feels well Objective: Physical Exam: Vitals: Vital Sign - Last 24 Hours 10/02/16 10/02/16 10/02/16 10/02/16 14:00 18:00 19:49 20:10 Temp 98.7 Pulse 63 68 Resp 16 B/P 142/65 142/65 Pulse Ox 94 O2 Delivery Nasal Cannula Nasal Cannula Nasal Cannula O2 Flow Rate 1.5 3.0 2.0 10/02/16 10/02/16 10/03/16 10/03/16 20:10 22:00 00:25 06:00 Temp 97.4 97.8 Pulse 66 61 70 Resp 20 18 18 B/P 146/68 132/58 146/67 Pulse Ox 97 97 O2 Delivery Nasal Cannula Nasal Cannula O2 Flow Rate 1.5 1.5 10/03/16 10/03/16 10/03/16 10/03/16 06:23 07:30 08:18 08:20 Pulse 70 Resp 18 B/P 146/67 O2 Delivery Nasal Cannula Room Air O2 Flow Rate 3.0 10/03/16 10/03/16 10/03/16 08:20 08:48 13:05 Pulse 64 Resp 18 B/P 146/67 135/65 General: Awake, alert, no acute distress HEENT: Normocephalic, atraumatic, extraocular movements intact CV: Regular rate and rhythm Lungs: Clear to auscultation bilaterally Abd: Soft Extremities: No edema Neuro: Alert and oriented 3 Psych: Normal mood and affect Labs and Imaging: Laboratory Tests 10/03/16 06:39 Calcium Level 8.9, Red Blood Count 4.52, Mean Corpuscular Volume 82.1, Mean Corpuscular Hemoglobin 23.8 L, Mean Corpuscular Hemoglobin Concent 29.0 L, Red Cell Distribution Width 18.2 H Assessment and Plan: 75-year-old male with diabetes mellitus type 2, hypertension, hyperlipidemia, osteoarthritis, GERD, gout, DEREJE noncompliant with BiPAP, chronic CHF, colon cancer, who is admitted on the service of Dr. Nino and has undergone transverse colectomy. We have been consulted for medical management. 1. Diabetes mellitus type 2: The patient's diet has just been advanced to normal today. At his time, we will continue his sliding scale insulin. We are currently holding the patient's home glimepiride, metformin, Byetta, and Lantus 50 units twice a day. Since his fingersticks have continued to be under 200, we will not restart these at this time. As the amount that the patient eats continues to increase, we can slowly add these back. 2. DEREJE: The patient is noncompliant with BiPAP. He has been using nocturnal oxygen. 3. Coronary artery disease, HLP: Continue aspirin, statin, and beta gerson. It is documented that the patient was previously on Plavix, but this was not reported on his current home med list. 4. Chronic diastolic CHF: Continue diuretic. The patient currently appears compensated. 5. History of gout: Continue home allopurinol. 6. Hypertension: Currently controlled. Continue home beta gerson, hydralazine, and calcium channel gerson. 7. History of a flutter/A. fib: It is documented in prior notes, that the patient has a history of A. fib/flutter. He currently appears to be in sinus rhythm. He is rate controlled, and we will continue his calcium channel gerson and beta gerson. He does not report any anticoagulation at home. DVT prophylaxis: As per the primary team Dispo: at the discretion of the primary team VS, I&O, 24H, Fishbone Vital Signs/I&O Vital Signs Date Time Temp Pulse Resp B/P Pulse Ox O2 Delivery O2 Flow Rate FiO2 10/03/16 13:05 64 135/65 10/03/16 08:48 18 10/03/16 07:30 Room Air 10/03/16 06:23 3.0 10/03/16 06:00 97.8 97 I&O- Last 24 Hours up to 6 AM 10/03/16 06:00 Intake Total 1460 ml Output Total 300 ml Balance 1160 ml Laboratory Data 24H LABS Laboratory Tests 2 10/02/16 16:37: Bedside Glucose (Misc Panel) 178H 10/02/16 19:47: Bedside Glucose (Misc Panel) 192H 10/03/16 06:39: Anion Gap 8, Blood Urea Nitrogen 12, Creatinine 0.95, Sodium Level 141, Potassium Level 4.2, Chloride Level 105, Carbon Dioxide Level 28, Calcium Level 8.9, Glomerular Filtration Rate > 60.0 10/03/16 12:07: Bedside Glucose (Misc Panel) 202H CBC/BMP Laboratory Tests 10/03/16 06:39 Calcium Level 8.9, Red Blood Count 4.52, Mean Corpuscular Volume 82.1, Mean Corpuscular Hemoglobin 23.8 L, Mean Corpuscular Hemoglobin Concent 29.0 L, Red Cell Distribution Width 18.2 H ARCELIA ARANGO Oct 03, 2016 14:02
[2016-10-03] MEDS: ATORVASTATIN 20 MG TAB PO SCH (19:51)
[2016-10-03 22:00] VITALS: BP 167/76
--- NOTE | 2016-10-03 22:30 | IPN ---
DATE: 10/03/2016 SUBJECTIVE: The patient has been afebrile. His white count has slightly increased today, but it looks like it is hemoconcentration with his hematocrit as well as his platelet count all have bumped up and thus, I anticipate his white blood cell count has been stable and within normal limits. He has been afebrile, as I stated, and overall has had some flatus without a bowel movement over the last 24 hours. No nausea, no vomiting, tolerating a regular diet without any complaints. He has been increasing his activity and walking around his room, has not been walking in his hallway, though. PHYSICAL EXAM: Lungs are still diminished bilaterally, worse at the bases posteriorly. Abdomen is obese, distended, mildly with some tympanitic sounds. He has an incision, which is healing nicely without any erythema, drainage or discharge. [place] were intact. IMPRESSION AND PLAN: 1. Patient's gastrointestinal (GI) function seems to have slowly progressed, although I would like to start him on some stool softeners. I am not convinced that he is moving things along as well as I would like to at this point. 2. Will stop his antibiotics. I do feel that he has been afebrile for several days. I am not sure what his elevated white count was from, whether this is reactive or infectious. My concern was initially respiratory given his overall chronic respiratory issues, but this has resolved and he has been otherwise doing well. Will see what his CBC shows tomorrow. If it is progressing, there may be some underlying issue that we will have to address, i.e. recheck a UA as well as check an x-ray of his lungs. 3. Respiratory. The patient's respiratory status has improved and he states he is almost back to baseline. Hopefully we will be able to get him out of the hospital starting tomorrow if he is tolerating a diet, increasing his activity and will have him go through a physical therapy home safety evaluation.
[2016-10-04 02:00] VITALS: BP 143/62
[2016-10-04] MEDS: IPRATROPIUM 0.5MG/ALBUTEROL 2.5MG INH SOL UD 3ML (DUONEB)(J7620) NEB SCH ×4 (02:00→21:38)
[2016-10-04] MEDS: METOPROLOL TARTRATE 100 MG TAB PO SCH ×4 (05:43→23:34)
[2016-10-04 06:00] VITALS: BP 151/70
[2016-10-04 07:07] LABS: ADD MORPHOLOGY? YES; BASO % 0.2 % (0.0-1.0); EOS # 0.5 K/mm3 (0.0-0.50); EOS % 4.3 % (0.0-3.0); LARGE UNSTAINED CELL # 0.1 K/mm3 (0.0-0.4); LARGE UNSTAINED CELL % 0.7 % (0.0-4.0); LYMPH # 1.3 K/mm3 (1.5-4.5); LYMPH % 11.1 % (24.0-44.0); MEAN CORPUSCULAR HGB CONC 29.6 g/dl (32.0-36.5); MEAN CORPUSCULAR VOLUME 81.3 fl (80.0-96.0); MONO # 0.5 K/mm3 (0.0-0.8); MONO % 4.9 % (0.0-5.0); NEUTROPHILS # 8.5 K/mm3 (1.8-7.7); NEUTROPHILS % 78.9 % (36.0-66.0); PLATELET COUNT, AUTOMATED 397 k/mm3 (150-450); RED CELL DISTRIBUTION WIDTH 18.5 % (11.5-14.5); WHITE BLOOD COUNT 10.7 K/mm3 (4.0-10.0)
[2016-10-04 07:08] LABS: ANION GAP 10 MEQ/L (8-16); BLOOD UREA NITROGEN 13 MG/DL (7-18); CALCIUM LEVEL 8.5 MG/DL (8.8-10.2); CARBON DIOXIDE LEVEL 27 MEQ/L (21-32); CHLORIDE LEVEL 104 MEQ/L (98-107); CREATININE FOR GFR 1.04 MG/DL (0.70-1.30); GLOMERULAR FILTRATION RATE > 60.0 (>42); GLUCOSE, FASTING 271 MG/DL (83-110); MAGNESIUM LEVEL 1.7 MG/DL (1.8-2.4); POTASSIUM SERUM 3.9 MEQ/L (3.5-5.1); SODIUM LEVEL 141 MEQ/L (136-145)
[2016-10-04 07:18] LABS: ANISOCYTOSIS 2+; HYPOCHROMASIA 2+
[2016-10-04] MEDS: GLIMEPIRIDE 2 MG TAB PO SCH (08:32)
[2016-10-04] MEDS: PANTOPRAZOLE 40MG INJ (PROTONIX) (C9113) IV SCH (08:33)
[2016-10-04] MEDS: metroNIDAZOLE (FLAGYL) 250 MG TAB PO SCH ×3 (08:33→20:33)
[2016-10-04] MEDS: CIPROFLOXACIN 250 MG TAB PO SCH ×2 (08:33→17:59)
[2016-10-04] MEDS: DOCUSATE SODIUM 100 MG CAP PO SCH ×2 (08:33→20:33)
[2016-10-04] MEDS: HumaLOG INSULIN (NovoLOG) PER UNIT SC SCH ×4 (08:33→21:00)
[2016-10-04] MEDS: ALVIMOPAN 12 MG CAPSULE (ENTEREG) PO SCH ×2 (08:34→20:33)
[2016-10-04] MEDS: ALLOPURINOL 100 MG TAB PO SCH (08:34)
[2016-10-04] MEDS: PERCOCET 5MG/325MG TAB PO PRN ×2 (08:35→20:32)
[2016-10-04] MEDS: TORSEMIDE (DEMADEX) 50 MG PER 1/2 TAB PO SCH (08:36)
[2016-10-04] MEDS: diltiaZEM **CD** 180 MG CAP PO SCH (08:36)
[2016-10-04] MEDS: CETIRIZINE (ZyrTEC) 10 MG TAB PO SCH (08:36)
[2016-10-04] MEDS: ASPIRIN 81 MG ENTERIC TAB PO SCH (08:36)
[2016-10-04] MEDS: **hydrALAZINE** 10 MG TAB PO SCH ×2 (08:36→20:33)
--- NOTE | 2016-10-04 09:49 | REP ---
CHEST, TWO VIEWS: HISTORY: Fever. COMPARISON: 09/17/2016. Increased density is present in the lower lobes consistent with bibasilar atelectasis or infiltrate. Small bilateral pleural effusions are present. The heart is upper limits of normal in size. The pulmonary vasculature is normal in appearance. Degenerative change is present in the thoracic spine. IMPRESSION: 1. Bibasilar atelectasis or infiltrates. 2. Small bilateral pleural effusions. Signed by Sung Jimenes MD 10/04/2016 09:50 A
[2016-10-04] MEDS: cefTRIAXone SOD 1 GM in D5W MINI-BAG PLUS 50 ML IV SCH (13:18)
[2016-10-04 14:00] VITALS: BP 144/78
[2016-10-04] MEDS: ATORVASTATIN 20 MG TAB PO SCH (20:34)
[2016-10-04 22:00] VITALS: BP 144/67
[2016-10-05] MEDS: IPRATROPIUM 0.5MG/ALBUTEROL 2.5MG INH SOL UD 3ML (DUONEB)(J7620) NEB SCH ×3 (01:18→12:44)
[2016-10-05] MEDS: METOPROLOL TARTRATE 100 MG TAB PO SCH (05:15)
[2016-10-05] MEDS: metroNIDAZOLE (FLAGYL) 250 MG TAB PO SCH ×2 (05:15→13:03)
[2016-10-05] MEDS: CIPROFLOXACIN 250 MG TAB PO SCH (05:15)
[2016-10-05 06:00] VITALS: BP 148/63
[2016-10-05 07:02] LABS: BASO % 0.3 % (0.0-1.0); EOS # 0.6 K/mm3 (0.0-0.50); EOS % 5.5 % (0.0-3.0); LARGE UNSTAINED CELL # 0.1 K/mm3 (0.0-0.4); LARGE UNSTAINED CELL % 0.9 % (0.0-4.0); LYMPH # 1.3 K/mm3 (1.5-4.5); LYMPH % 11.2 % (24.0-44.0); MEAN CORPUSCULAR HGB CONC 29.3 g/dl (32.0-36.5); MEAN CORPUSCULAR VOLUME 82.1 fl (80.0-96.0); MONO # 0.6 K/mm3 (0.0-0.8); MONO % 5.3 % (0.0-5.0); NEUTROPHILS # 8.4 K/mm3 (1.8-7.7); NEUTROPHILS % 76.9 % (36.0-66.0); PLATELET COUNT, AUTOMATED 421 k/mm3 (150-450); RED CELL DISTRIBUTION WIDTH 18.5 % (11.5-14.5); WHITE BLOOD COUNT 10.9 K/mm3 (4.0-10.0)
[2016-10-05 07:15] LABS: ANION GAP 10 MEQ/L (8-16); BLOOD UREA NITROGEN 14 MG/DL (7-18); CALCIUM LEVEL 8.7 MG/DL (8.8-10.2); CARBON DIOXIDE LEVEL 28 MEQ/L (21-32); CHLORIDE LEVEL 104 MEQ/L (98-107); CREATININE FOR GFR 1.01 MG/DL (0.70-1.30); GLOMERULAR FILTRATION RATE > 60.0 (>42); GLUCOSE, FASTING 245 MG/DL (83-110); MAGNESIUM LEVEL 1.8 MG/DL (1.8-2.4); POTASSIUM SERUM 3.5 MEQ/L (3.5-5.1); SODIUM LEVEL 142 MEQ/L (136-145)
[2016-10-05] MEDS: HumaLOG INSULIN (NovoLOG) PER UNIT SC SCH ×2 (08:19→13:03)
[2016-10-05] MEDS: PANTOPRAZOLE 40MG INJ (PROTONIX) (C9113) IV SCH (08:19)
[2016-10-05] MEDS: ALLOPURINOL 100 MG TAB PO SCH (08:20)
[2016-10-05] MEDS: TORSEMIDE (DEMADEX) 50 MG PER 1/2 TAB PO SCH (08:20)
[2016-10-05] MEDS: GLIMEPIRIDE 2 MG TAB PO SCH (08:20)
[2016-10-05] MEDS: ASPIRIN 81 MG ENTERIC TAB PO SCH (08:20)
[2016-10-05] MEDS: ALVIMOPAN 12 MG CAPSULE (ENTEREG) PO SCH (08:20)
[2016-10-05] MEDS: diltiaZEM **CD** 180 MG CAP PO SCH (08:20)
[2016-10-05] MEDS: CETIRIZINE (ZyrTEC) 10 MG TAB PO SCH (08:20)
[2016-10-05] MEDS: **hydrALAZINE** 10 MG TAB PO SCH (08:21)
[2016-10-05] MEDS ORDERED: SENNA 8.6 MG TAB (SENOKOT) PO ONE (09:00)
[2016-10-05] MEDS ORDERED: LEVEMIR (INSULIN DETEMIR) 1 UNITS/0.01ML SC SCH (09:00)
[2016-10-05] MEDS ORDERED: DOCUSATE SODIUM 100 MG CAP PO SCH (09:00)
[2016-10-05] MEDS ORDERED: METOPROLOL TART 50 MG TAB PO ONE (09:15)
[2016-10-05 09:49] VITALS: BP 175/78
[2016-10-05] MEDS ORDERED: PERCOCET PO (11:37)
[2016-10-05] MEDS ORDERED: FLAG250T PO (11:37)
[2016-10-05] MEDS ORDERED: COLA100C PO (11:37)
[2016-10-05] MEDS ORDERED: CIPR-250 PO (11:40)
[2016-10-05] MEDS: cefTRIAXone SOD 1 GM in D5W MINI-BAG PLUS 50 ML IV SCH (13:00)
[2016-10-05] MEDS ORDERED: METOPROLOL TARTRATE 100 MG TAB PO SCH (21:00)
== END 2016-10-05 14:30 | disposition home or self-care (01) | DRG 330 ==
LOC: M OR 08:19 → M MS5PR 17:25
PROVIDERS: ADMIT Surgery; ATTEND Surgery
PROC: 0DBL0ZZ Excision of Transverse Colon, Open Approach (ICD-10-PCS; principal; 2016-09-29)
PROC: 0DNL0ZZ Release Transverse Colon, Open Approach (ICD-10-PCS; 2016-09-29)
PROC: 0DNV0ZZ Release Mesentery, Open Approach (ICD-10-PCS; 2016-09-29)
DX: C18.4 Malignant neoplasm of transverse colon (principal); I50.32 Chronic diastolic (congestive) heart failure; G47.33 Obstructive sleep apnea (adult) (pediatric); E11.9 Type 2 diabetes mellitus without complications; K21.9 Gastro-esophageal reflux disease without esophagitis; M10.9 Gout, unspecified; I25.2 Old myocardial infarction; E78.5 Hyperlipidemia, unspecified; I10 Essential (primary) hypertension; Z79.82 Long term (current) use of aspirin; Z79.899 Other long term (current) drug therapy; Z87.891 Personal history of nicotine dependence; I48.91 Unspecified atrial fibrillation; Z91.19 Patient's noncompliance with other medical treatment and regimen

== ENCOUNTER → 2017-03-03 | Outpatient (CLI) | payer MEDICARE, MEDICAID ==
[~2017-03-03] MED LIST changes: -ATOR1TAB18 PO; +ATOR80TA59 PO; -CARA1TAB2 PO; +CARA1TAB6 PO; +CIPR-250 PO; +COLA100C5 PO; +COLC1CAP PO; +FERR1TAB8 PO; -FERR325T PO; +FLAG250T PO; +LEVA1TAB2 PO; -LEVA500T PO; -METF1000 PO; +METF10004 PO; -METO100T PO; +METO100T5 PO; +PERCOCET PO
[2017-03-03 13:47] LABS: ALBUMIN 3.6 GM/DL (3.2-5.2); ALBUMIN/GLOBULIN RATIO 1.24 (1.00-1.93); ALKALINE PHOSPHATASE 111 U/L (45-117); ALT/SGPT 15 U/L (12-78); ANION GAP 9 MEQ/L (8-16); AST/SGOT 9 U/L (15-37); BILIRUBIN,TOTAL 0.4 MG/DL (0.2-1.0); BLOOD UREA NITROGEN 15 MG/DL (7-18); CALCIUM LEVEL 9.3 MG/DL (8.8-10.2); CARBON DIOXIDE LEVEL 29 MEQ/L (21-32); CHLORIDE LEVEL 106 MEQ/L (98-107); CHOLESTEROL LEVEL 105 MG/DL (<200); CREATININE FOR GFR 1.05 MG/DL (0.70-1.30); GLOMERULAR FILTRATION RATE > 60.0 (>42); GLUCOSE, FASTING 47 MG/DL (83-110); POTASSIUM SERUM 4.5 MEQ/L (3.5-5.1); SODIUM LEVEL 144 MEQ/L (136-145); TOTAL PROTEIN 6.5 GM/DL (6.4-8.2); TRIGLYCERIDES LEVEL 76 MG/DL (<150)
[2017-03-03 13:51] LABS: BASO % 0.4 % (0.0-1.0); EOS # 0.2 K/mm3 (0.0-0.50); EOS % 2.6 % (0.0-3.0); LARGE UNSTAINED CELL # 0.1 K/mm3 (0.0-0.4); LARGE UNSTAINED CELL % 1.1 % (0.0-4.0); LYMPH # 1.3 K/mm3 (1.5-4.5); LYMPH % 13.4 % (24.0-44.0); MEAN CORPUSCULAR HEMOGLOBIN 25.9 pg (27.0-33.0); MEAN CORPUSCULAR HGB CONC 30.8 g/dl (32.0-36.5); MEAN CORPUSCULAR VOLUME 83.9 fl (80.0-96.0); MONO # 0.5 K/mm3 (0.0-0.8); MONO % 5.6 % (0.0-5.0); NEUTROPHILS # 7.3 K/mm3 (1.8-7.7); NEUTROPHILS % 76.8 % (36.0-66.0); PLATELET COUNT, AUTOMATED 352 k/mm3 (150-450); WHITE BLOOD COUNT 9.4 K/mm3 (4.0-10.0)
== END ==
LOC: M WUC 09:01
PROVIDERS: ATTEND Nurse Practitioner Family
DX: E61.1 Iron deficiency (principal); E78.4 Other hyperlipidemia

== ENCOUNTER 2017-05-04 08:42 | Outpatient (CLI) | payer MEDICARE, MEDICAID ==
[~2017-05-04] VITALS: Ht 180.3 cm; Wt 108.4 kg
[2017-05-04] MEDS ORDERED: NS 1,000 ML IV ONE (08:45)
[2017-05-04] MEDS ORDERED: PROPOFOL 200 MG/20 ML VIAL As Ordered ONE ×2 (09:57→10:33)
[2017-05-04] MEDS ORDERED: METOPROLOL 5 MG/5 ML VIAL As Ordered ONE (09:57)
[2017-05-04] MEDS ORDERED: LIDOCAINE 2% INJ 100 MG/5 ML SDV (FOR ANES.) As Ordered ONE (09:57)
[2017-05-04] MEDS ORDERED: LABETALOL HCL 100 MG/20 ML VIAL As Ordered ONE (09:57)
--- NOTE | 2017-05-04 10:43 | ROOR ---
Patient Name: Lucien Gillis Procedure Date: 05/04/2017 9:54 AM Date of : 1940 Age: 76 Room: [facility] Gender: Male Note Status: Finalized Procedure: Colonoscopy Indications: Therapeutic procedure for known colon polyp Providers: Dionisio Nino Jr, MD Referring MD: Dutch Lofton NP Requesting Provider: Medicines: Propofol per Anesthesia Complications: No immediate complications. Procedure: Pre-Anesthesia Assessment: - Prior to the procedure, a History and Physical was performed, and patient medications and allergies were reviewed. The patient is competent. The risks and benefits of the procedure and the sedation options and risks were discussed with the patient. All questions were answered and informed consent was obtained. Patient identification and proposed procedure were verified by the physician and the nurse in the pre-procedure area and in the procedure room. Mental Status Examination: alert and oriented. Airway Examination: normal oropharyngeal airway and neck mobility. Respiratory Examination: clear to auscultation. CV Examination: normal. ASA Grade Assessment: II - A patient with mild systemic disease. After reviewing the risks and benefits, the patient was deemed in satisfactory condition to undergo the procedure. The anesthesia plan was to use moderate sedation / analgesia (conscious sedation). Immediately prior to administration of medications, the patient was re-assessed for adequacy to receive sedatives. The heart rate, respiratory rate, oxygen saturations, blood pressure, adequacy of pulmonary ventilation, and response to care were monitored throughout the procedure. The physical status of the patient was re-assessed after the procedure. The Colonoscope was introduced through the anus and advanced to the hepatic flexure. The colonoscopy was performed with moderate difficulty due to multiple diverticula in the colon. The patient tolerated the procedure well. The quality of the bowel preparation was adequate and good. Findings: Multiple small and large-mouthed diverticula were found in the sigmoid colon. A large polyp was found in the descending colon. The polyp was sessile. The polyp was removed with a piecemeal technique using a hot snare. Polyp resection was incomplete. The resected tissue was retrieved. The hepatic flexure appeared normal. Impression: - Diverticulosis in the sigmoid colon. - One large polyp in the descending colon, removed piecemeal using a hot snare. Incomplete resection. Resected tissue retrieved. - The hepatic flexure is normal. Recommendation: - Discharge patient to home (ambulatory). - Repeat colonoscopy in 3 months for retreatment. Dionisio Nino MD Dionisio Nino Jr, MD 05/04/2017 10:43:11 AM This report has been signed electronically. Number of Addenda: 0 Note Initiated On: 05/04/2017 9:54 AM Estimated Blood Loss: Estimated blood loss was minimal.
[2017-05-04 11:23] VITALS: BP 181/74
== END 2017-05-04 11:24 | disposition home or self-care (01) ==
LOC: M OPP 08:42
PROVIDERS: ATTEND Surgery
DX: Z08 Encounter for follow-up examination after completed treatment for malignant neoplasm (principal); Z85.038 Personal history of other malignant neoplasm of large intestine; Z86.010 Personal history of colon polyps; D12.4 Benign neoplasm of descending colon; K57.30 Diverticulosis of large intestine without perforation or abscess without bleeding; K21.9 Gastro-esophageal reflux disease without esophagitis; I48.91 Unspecified atrial fibrillation; I48.92 Unspecified atrial flutter; I25.10 Atherosclerotic heart disease of native coronary artery without angina pectoris; I25.2 Old myocardial infarction; I10 Essential (primary) hypertension; E78.5 Hyperlipidemia, unspecified; E11.9 Type 2 diabetes mellitus without complications; M10.9 Gout, unspecified; R12 Heartburn; D64.9 Anemia, unspecified; M19.90 Unspecified osteoarthritis, unspecified site; F32.9 Major depressive disorder, single episode, unspecified; G47.30 Sleep apnea, unspecified; Z95.5 Presence of coronary angioplasty implant and graft; Z79.82 Long term (current) use of aspirin; Z79.899 Other long term (current) drug therapy; Z79.4 Long term (current) use of insulin

== ENCOUNTER → 2018-03-09 | Outpatient (CLI) | payer MEDICARE, MEDICAID ==
[2018-03-09 09:33] LABS: BASO % 0.4 % (0.0-1.0); EOS # 0.2 10^3/uL (0.0-0.50); EOS % 2.3 % (0.0-3.0); HEMATOCRIT 43.2 % (42.0-52.0); HEMOGLOBIN 13.3 g/dl (13.5-17.5); IMMATURE GRANULOCYTE % 0.4 % (0-3.0); LYMPH # 1.6 10^3/uL (1.5-4.5); LYMPH % 15.8 % (24.0-44.0); MEAN CORPUSCULAR HEMOGLOBIN 26.9 pg (27.0-33.0); MEAN CORPUSCULAR HGB CONC 30.8 g/dl (32.0-36.5); MEAN CORPUSCULAR VOLUME 87.4 fl (80.0-96.0); MONO # 0.6 10^3/uL (0.0-0.8); MONO % 5.8 % (0.0-5.0); NEUTROPHILS # 7.7 10^3/uL (1.8-7.7); NEUTROPHILS % 75.3 % (36.0-66.0); PLATELET COUNT, AUTOMATED 264 10^3/uL (150-450); RED BLOOD COUNT 4.94 10^6/uL (4.30-6.10); RED CELL DISTRIBUTION WIDTH 17.4 % (11.5-14.5); WHITE BLOOD COUNT 10.2 10^3/uL (4.0-10.0)
[2018-03-09 10:09] LABS: ALBUMIN 3.6 GM/DL (3.2-5.2); ALBUMIN/GLOBULIN RATIO 1.16 (1.00-1.93); ALKALINE PHOSPHATASE 115 U/L (45-117); ALT/SGPT 18 U/L (12-78); ANION GAP 10 MEQ/L (8-16); AST/SGOT 12 U/L (7-37); BILIRUBIN,TOTAL 0.4 MG/DL (0.2-1.0); BLOOD UREA NITROGEN 17 MG/DL (7-18); CALCIUM LEVEL 9.1 MG/DL (8.8-10.2); CARBON DIOXIDE LEVEL 29 MEQ/L (21-32); CHLORIDE LEVEL 105 MEQ/L (98-107); CHOLESTEROL LEVEL 100 MG/DL (<200); CREATININE FOR GFR 1.27 MG/DL (0.70-1.30); GLOMERULAR FILTRATION RATE 58.5 (>42); GLUCOSE, FASTING 110 MG/DL (70-100); HDL CHOLESTEROL 49 MG/DL (>40); IRON (FE) 72 UG/DL (65-175); NON-HDL-C 51 MG/DL; POTASSIUM SERUM 4.9 MEQ/L (3.5-5.1); SODIUM LEVEL 144 MEQ/L (136-145); TOTAL PROTEIN 6.7 GM/DL (6.4-8.2); TRIGLYCERIDES LEVEL 55 MG/DL (<150)
== END ==
LOC: M WUC 08:08
DX: I11.0 Hypertensive heart disease with heart failure (principal); E61.1 Iron deficiency; E78.4 Other hyperlipidemia; I50.9 Heart failure, unspecified
CPT/HCPCS: 83540

== ENCOUNTER → 2018-05-05 | Outpatient (CLI) | payer MEDICARE, MEDICAID ==
[2018-05-05 19:34] LABS: HEMOGLOBIN 13.3 g/dl (13.5-17.5); MEAN CORPUSCULAR HEMOGLOBIN 26.7 pg (27.0-33.0); MEAN CORPUSCULAR HGB CONC 29.6 g/dl (32.0-36.5); MEAN CORPUSCULAR VOLUME 90.2 fl (80.0-96.0); PLATELET COUNT, AUTOMATED 306 10^3/uL (150-450); RED BLOOD COUNT 4.99 10^6/uL (4.30-6.10); RED CELL DISTRIBUTION WIDTH 17.7 % (11.5-14.5); WHITE BLOOD COUNT 11.2 10^3/uL (4.0-10.0)
== END ==
LOC: M WUC 09:27
DX: I48.3 Typical atrial flutter (principal)
CPT/HCPCS: 85027

== ENCOUNTER 2018-10-24 11:23 | Inpatient (IN) | payer MEDICARE, MEDICAID ==
[~2018-10-24] VITALS: Ht 180.3 cm; Wt 99.5 kg
[~2018-10-24 11:23] MED LIST changes: -PANT40TA2 PO; +PANT40TA3 PO; +VICT18IN SC
[2018-10-24 12:01] LABS: BASO % 0.3 % (0.0-1.0); EOS # 0.3 10^3/uL (0.0-0.50); EOS % 2.8 % (0.0-3.0); HEMATOCRIT 38.6 % (42.0-52.0); HEMOGLOBIN 11.6 g/dl (13.5-17.5); LYMPH # 1.4 10^3/uL (1.5-4.5); LYMPH % 11.9 % (24.0-44.0); MEAN CORPUSCULAR HEMOGLOBIN 26.4 pg (27.0-33.0); MEAN CORPUSCULAR HGB CONC 30.1 g/dl (32.0-36.5); MEAN CORPUSCULAR VOLUME 87.7 fl (80.0-96.0); MONO # 0.6 10^3/uL (0.0-0.8); MONO % 5.2 % (0.0-5.0); NEUTROPHILS # 9.2 10^3/uL (1.8-7.7); NEUTROPHILS % 79.4 % (36.0-66.0); PLATELET COUNT, AUTOMATED 328 10^3/uL (150-450); WHITE BLOOD COUNT 11.6 10^3/uL (4.0-10.0)
[2018-10-24 12:13] LABS: INR 1.32; PROTHROMBIN TIME 16.6 SECONDS (12.1-14.4)
[2018-10-24 12:35] LABS: ALBUMIN 3.5 GM/DL (3.2-5.2); BILIRUBIN,DIRECT 0.1 MG/DL (0.0-0.2); BILIRUBIN,TOTAL 0.4 MG/DL (0.2-1.0); CALCIUM LEVEL 9.2 MG/DL (8.8-10.2); CREATININE FOR GFR 1.25 MG/DL (0.70-1.30); GLOMERULAR FILTRATION RATE 59.6 (>42); POTASSIUM SERUM 4.4 MEQ/L (3.5-5.1); TOTAL PROTEIN 6.4 GM/DL (6.4-8.2)
[2018-10-24] MEDS ORDERED: NS 1,000 ML IV SCH (12:45)
[2018-10-24] MEDS ORDERED: OCTREOTIDE ACETATE 1,200 MCG in NS 238.8 ML IV SCH (15:15)
[2018-10-24] MEDS ORDERED: METF-839 PO (15:17)
[2018-10-24] MEDS ORDERED: ELIQ5TAB PO (15:19)
[2018-10-24] MEDS ORDERED: DILT240C47 PO (15:19)
[2018-10-24] MEDS ORDERED: ACET1TAB55 PO (15:20)
[2018-10-24] MEDS ORDERED: ACETAMINOPHEN TAB 650MG DOSE (2X325MG) PO PRN (15:30)
[2018-10-24] MEDS ORDERED: NITROGLYCERIN 0.4 MG SUBL TABLET SL PRN (15:30)
[2018-10-24] MEDS ORDERED: POLYVINYL ALCOHOL OPHTH SOLN 15 ML(LIQUITEARS) OU PRN (15:30)
[2018-10-24] MEDS: NS 1,000 ML IV SCH ×2 (16:03→20:32)
--- NOTE | 2018-10-24 16:34 | HPE ---
DATE OF ADMISSION: 10/24/2018 A 77-year-old male with a past medical history of colon cancer, status post right hemicolectomy, history of polypectomy in March of 2018 and again on 10/16/2018 in [place], history of atrial fibrillation on Eliquis who presents to the emergency room with bright red blood per rectum which occurred yesterday around 10:00 in the evening. There were a few episodes during the night where painless rectal bleed mixed with clots and so he came to the emergency room (ER) for evaluation. He had another bloody bowel movement in the ER which was mostly consistent with clots. Initial hemoglobin and hematocrit were normal. We are still awaiting repeat complete blood count (CBC) in four hours. The patient at this time denies any abdominal pain, nausea or vomiting. He has no chest pain or shortness of breath or vertigo. His blood pressure has been stable. The patient will be admitted for further management and Dr. Nino our surgeon is aware and will be on consult. PAST MEDICAL HISTORY: 1. Hypertension. 2. Diabetes. 3. Hyperlipidemia. 4. History of colon cancer, status post right colectomy. 5. History of atrial fibrillation, on Eliquis. 6. He has a history of coronary artery disease, status post myocardial infarction (MD), status post stent placement. 7. Gout. ALLERGIES: He has no known drug allergies. FAMILY HISTORY: Noncontributory. SOCIAL HISTORY: The patient denies tobacco, alcohol or illicit drugs. MEDICATIONS: He takes at home are as follows: - Tylenol as needed - allopurinol 100 mg orally daily - aspirin 81 mg orally daily - atorvastatin 80 mg orally daily - Cardizem 240 mg orally daily - iron sulfate 325 mg orally daily - insulin glargine 30 units subcutaneous twice a day - liraglutide 0.6 mg subcutaneous daily - metformin 1000 mg orally twice daily - metoprolol 100 mg orally twice daily - nitroglycerin 0.4 mg sublingual as needed - nortriptyline 10 mg orally three times a day - pantoprazole 40 mg orally twice daily - sucralfate 1 gram orally before meals and at bedtime - torsemide 50 mg orally daily - apixaban 5 mg orally twice daily REVIEW OF SYSTEMS: Negative for all 10 major systems except for what is mentioned in the history of present illness (HPI). VITAL SIGNS: Blood pressure is 147/69, heart rate is 68 and regular, respiratory rate 16, temperature is 97.6, oxygen saturation is 93% on room air. Head is normocephalic, atraumatic. Neck is supple with no jugular venous distention (JVD). Lungs are clear to auscultation. S1, S2 audible. No murmurs appreciated. Abdomen is soft. Positive bowel sounds. No pedal edema. Skin is intact. On neurologic examination, the patient is awake, alert, and oriented times three. LABORATORY DATA: WBC 11.6, hemoglobin is 11.6, hematocrit 38.6, platelets are 328,000. Sodium 140, potassium 4.4, chloride 105, CO2 28, anion gap 7, BUN 32, creatinine 1.25, lipase 136, INR is 1.32. IMPRESSION: Lower gastrointestinal (GI) bleed. PLAN: The patient will be admitted to the medical/surgical floor. We will have complete blood count (CBC) done every eight hours for 24 hours to see if there is any drop in his hemoglobin and hematocrit. He has already been type and crossed so we will transfuse if necessary. Dr. Nino is on consult for surgery and we will be awaiting his recommendations. We will hold his aspirin and his Eliquis for now. Otherwise, we will continue his other preadmission medications and continue his care on the medical/surgical floor.
[2018-10-24] MEDS ORDERED: metFORMIN (GLUCOPHAGE) 1000 MG TABLET PO SCH (18:00)
[2018-10-24 18:53] VITALS: BP 166/74
[2018-10-24] MEDS: SUCRALFATE 1 GM TAB PO SCH ×2 (19:56→20:31)
[2018-10-24] MEDS: NORTRIPTYLINE 10 MG CAP PO SCH ×2 (19:56→20:31)
[2018-10-24 20:00] LABS: BASO % 0.3 % (0.0-1.0); EOS # 0.2 10^3/uL (0.0-0.50); EOS % 1.8 % (0.0-3.0); HEMATOCRIT 33.8 % (42.0-52.0); HEMOGLOBIN 10.2 g/dl (13.5-17.5); LYMPH % 9.5 % (24.0-44.0); MEAN CORPUSCULAR HEMOGLOBIN 25.9 pg (27.0-33.0); MEAN CORPUSCULAR HGB CONC 30.2 g/dl (32.0-36.5); MEAN CORPUSCULAR VOLUME 85.8 fl (80.0-96.0); MONO # 0.6 10^3/uL (0.0-0.8); MONO % 5.6 % (0.0-5.0); NEUTROPHILS # 8.4 10^3/uL (1.8-7.7); NEUTROPHILS % 82.5 % (36.0-66.0); PLATELET COUNT, AUTOMATED 255 10^3/uL (150-450); RED BLOOD COUNT 3.94 10^6/uL (4.30-6.10); WHITE BLOOD COUNT 10.1 10^3/uL (4.0-10.0)
[2018-10-24] MEDS: METOPROLOL TARTRATE 100 MG TAB PO SCH (20:31)
[2018-10-24] MEDS: ATORVASTATIN 20 MG TAB PO SCH (20:31)
[2018-10-24] MEDS ORDERED: DEXTROSE 50% 50 ML SYRINGE As Ordered ONE (20:41)
[2018-10-24] MEDS: DEXTROSE 50% 50 ML SYRINGE IV PRN ×2 (20:43→22:54)
[2018-10-24] MEDS ORDERED: GLUCOSE 4 GM CHEW TABLET PO PRN (20:45)
[2018-10-24] MEDS ORDERED: GLUCAGON FOR INJ 1 MG VIAL (J1610) SC PRN (20:45)
[2018-10-24] MEDS ORDERED: PANTOPRAZOLE 40MG TAB (PROTONIX) PO SCH (21:00)
[2018-10-24 22:00] VITALS: BP 135/72
[2018-10-24] MEDS: HumaLOG INSULIN (NovoLOG) PER UNIT SC SCH (23:59)
[2018-10-25] MEDS: D5W/0.9% SODIUM CHLORIDE 1,000 ML IV SCH ×2 (00:20→10:13)
[2018-10-25 06:00] VITALS: BP 141/85
[2018-10-25] MEDS: HumaLOG INSULIN (NovoLOG) PER UNIT SC SCH ×4 (06:12→21:00)
[2018-10-25 06:15] LABS: BASO % 0.5 % (0.0-1.0); EOS # 0.3 10^3/uL (0.0-0.50); EOS % 2.9 % (0.0-3.0); HEMATOCRIT 29.3 % (42.0-52.0); HEMOGLOBIN 8.9 g/dl (13.5-17.5); LYMPH # 1.2 10^3/uL (1.5-4.5); LYMPH % 14.2 % (24.0-44.0); MEAN CORPUSCULAR HEMOGLOBIN 26.6 pg (27.0-33.0); MEAN CORPUSCULAR HGB CONC 30.4 g/dl (32.0-36.5); MEAN CORPUSCULAR VOLUME 87.5 fl (80.0-96.0); MONO # 0.5 10^3/uL (0.0-0.8); NEUTROPHILS # 6.5 10^3/uL (1.8-7.7); PLATELET COUNT, AUTOMATED 234 10^3/uL (150-450); RED BLOOD COUNT 3.35 10^6/uL (4.30-6.10); WHITE BLOOD COUNT 8.5 10^3/uL (4.0-10.0)
[2018-10-25 08:48] VITALS: BP 144/67
[2018-10-25] MEDS: FERROUS SULFATE 325MG TAB PO SCH (08:54)
[2018-10-25] MEDS: ALLOPURINOL 100 MG TAB PO SCH (08:54)
[2018-10-25] MEDS: METOPROLOL TARTRATE 100 MG TAB PO SCH ×2 (08:55→21:52)
[2018-10-25] MEDS: SUCRALFATE 1 GM TAB PO SCH ×4 (08:55→21:51)
[2018-10-25] MEDS: PANTOPRAZOLE 40MG INJ (PROTONIX) (C9113) IV SCH ×2 (08:55→21:52)
[2018-10-25] MEDS ORDERED: TORSEMIDE (DEMADEX) 50 MG PER 1/2 TAB PO SCH (09:00)
[2018-10-25] MEDS: NORTRIPTYLINE 10 MG CAP PO SCH ×3 (09:00→21:51)
--- NOTE | 2018-10-25 10:14 | ECGEPIP ---
Stationary ECG Study [facility] - ED Test Date: 2018-10-24 Pat Name: BETTY OROZCO Department: Room: - Gender: M Tuckpointer: : 1940 Requested By: Irene Santamaria Order Number: [id number] Reading MD: Irene Santamaria Measurements Intervals Bastian Rate: 58 P: LA: 0 QRS: 9 QRSD: 100 T: 80 QT: 429 QTc: 424 Interpretive Statements ATRIAL FIBRILLATION WITH SLOW VENTRICULAR RESPONSE NONSPECIFIC ST & T-WAVE ABNORMALITY ABNORMAL RHYTHM ECG SINUS RHYTHM 82 08/12/16 Electronically Signed On 10-25-2018 10:13:44 EDT by Irene Santamaria
[2018-10-25 14:00] VITALS: BP_SYST 125; BP_SYST 166; BP_DIAS 74
[2018-10-25 17:19] LABS: HEMATOCRIT 29.6 % (42.0-52.0); HEMOGLOBIN 8.7 g/dl (13.5-17.5); MEAN CORPUSCULAR HEMOGLOBIN 26.1 pg (27.0-33.0); MEAN CORPUSCULAR HGB CONC 29.4 g/dl (32.0-36.5); MEAN CORPUSCULAR VOLUME 88.9 fl (80.0-96.0); PLATELET COUNT, AUTOMATED 310 10^3/uL (150-450); RED BLOOD COUNT 3.33 10^6/uL (4.30-6.10)
--- NOTE | 2018-10-25 21:06 | CR ---
DATE OF CONSULTATION: 10/24/2018 The patient was seen earlier today in my office with some orthostatic hypotension, recent rectal bleeding, status post colonoscopy with polypectomy on 10/16/2018. The patient had his Eliquis restarted and developed multiple bright red bowel movements. He presented to the emergency room after being at our office and was admitted for observation/evaluation. PAST MEDICAL HISTORY: History of hypertension, diabetes, hyperlipidemia, history of colon cancer, status post right colectomy, history of atrial fibrillation (a fib), history of coronary artery disease, myocardial infarction, and status post stent placement, history of gout. MEDICATIONS: Include aspirin, allopurinol, Tylenol, atorvastatin, Cardizem, iron, insulin, liraglutide, metformin, metoprolol, nitroglycerin as needed, nortriptyline, pantoprazole, Carafate, torsemide and Eliquis. PHYSICAL EXAM: Reveals a frail appearing 77-year-old male who looks older than stated age. HEENT is unremarkable. Neck: Supple without adenopathy. Lungs are diminished at the bases bilaterally. Heart is regular with multiple irregular beats. Abdomen is soft, nontender, nondistended. IMPRESSION AND PLAN: The patient has some bright red blood per rectum, has undergone a polypectomy and my recommendation at this point is that this is a probable post polypectomy bleed. I anticipate this should stop with him being off Eliquis for the next 24-48 hours and will see how he does overnight. He has had some minimal bleeding, and he has not been truly hypotensive, but he does have some orthostatic changes when he stands up. I will be available to consult and evaluate him should he have ongoing bleeding.
--- NOTE | 2018-10-25 21:09 | IPN ---
DATE: 10/25/2018 Although the patient has had a bowel movement this morning that was bright red blood, it is not as significant, not as large as yesterday morning. His hematocrit has come down a little bit to 29 from 38 originally but otherwise his blood pressure has been stable. Heart rate has been stable as well. His abdomen is soft, nontender, nondistended. IMPRESSION AND PLAN: The patient's gastrointestinal (GI) bleed seems to be stabilizing out at this point; I will start him back on some clear liquids and tomorrow probably progress him to a regular diet. I would recommend that he stay off Eliquis until next week. I do believe he has a followup appointment with his tour operator in [place] within the next week or so, and he can discuss restarting Eliquis at that time. Otherwise I would keep him off the Eliquis for right now.
[2018-10-25] MEDS: ATORVASTATIN 20 MG TAB PO SCH (21:52)
[2018-10-25 22:00] VITALS: BP 140/65
--- NOTE | 2018-10-25 22:13 | IPNPDOC ---
Text Note Date of Service The patient was seen on 10/25/18. NOTE Subjective: pateint continues to have small amouts of bring red blood per rectum but says it has slowed down. Denies any abdominal pain though says there is a mild soreness in th lower abdomen on deep plapation. Denies any light headedness or dizziness. Physical Exam: VITAL SIGNS: As below Head is normocephalic, atraumatic. Neck is supple with no jugular venous distention (JVD). Lungs are clear to auscultation. Heart S1, S2 iregular. No murmurs appreciated. Abdomen is soft. Positive bowel sounds. No pedal edema. Skin is intact. On neurologic examination, the patient is awake, alert, and oriented times three. Labs and radiology : reviewed. Assessment and plan; A 77-year-old male with a past medical history of colon cancer, status post right hemicolectomy, history of polypectomy in March of 2018 and again on 10/16/2018 in [place], history of atrial fibrillation on Eliquis, HTN, diabetes, hyperlipidemia, CAD s/p [place] andstent, gout who presents to the emergency room with bright red blood per rectum which started on the night of 10/23/18. He had gone to see Dr Nino in the office on 10/24/18 to set up care with hime at that time he was found to have orthostatic hypotension with ongoing rectal bleeding so was sent to the ED. He was admitted for GIB. GIB this is probably post polypectomy bleed and being on eliquis will continue to hold eliquis HH seems to be stable at this point. Has not required any PRBC transfusion. continue PPI and sucralfate for now. Acute blood loss anemia due to GIB. continue to monitor HH if drops below 8 will transfuse continue iron. Afib continue metoprolol continue to hold liquis for at least another week. Hypertension continue metoprolol and diltiazem with hold parameters Diabetes was hypoglycemic overnight as he was NPO now sugars better after starting cear liquid diet. Lispro Ac and HS Hyperlipidemia continue statin CAD stable continue statin , betablocker Gout allopurinol DVT prophylaxis has been ordered. VS,Fishbone, I+O VS, Fishbone, I+O Laboratory Tests 10/25/18 05:31 Red Blood Count 3.35 L, Mean Corpuscular Volume 87.5, Mean Corpuscular Hem oglobin 26.6 L, Mean Corpuscular Hemoglobin Concent 30.4 L, Red Cell Distribution Width 18.0 H, Neutrophils (%) (Auto) 76.0 H, Lymphocytes (%) (Auto) 14.2 L, Monocytes (%) (Auto) 6.0 H, Eosinophils (%) (Auto) 2.9, Basophils (%) (Auto) 0.5, Neutrophils # (Auto) 6.5, Lymphocytes # (Auto) 1.2 L, Monocytes # (Auto) 0.5, Eosinophils # (Auto) 0.3, Basophils # (Auto) 0.0 10/25/18 16:51 Red Blood Count 3.33 L, Mean Corpuscular Volume 88.9, Mean Corpuscular Hemoglobin 26.1 L, Mean Corpuscular Hemoglobin Concent 29.4 L, Red Cell Distribution Width 18.3 H Vital Signs Date Time Temp Pulse Resp B/P (MAP) Pulse Ox O2 Delivery O2 Flow Rate FiO2 10/25/18 21:52 59 140/65 10/25/18 14:00 96.8 24 96 2.0 10/25/18 05:25 Nasal Cannula I&O- Last 24 Hours up to 6 AM 10/25/18 06:00 Intake Total 1200 ml Output Total 550 ml Balance 650 ml ALONA VARGAS MD Oct 25, 2018 22:12
[2018-10-26 06:00] VITALS: BP 140/64
[2018-10-26 06:04] LABS: BASO # 0.1 10^3/uL (0.0-0.2); BASO % 0.7 % (0.0-1.0); EOS # 0.4 10^3/uL (0.0-0.50); EOS % 5.3 % (0.0-3.0); HEMATOCRIT 28.2 % (42.0-52.0); HEMOGLOBIN 8.2 g/dl (13.5-17.5); LYMPH # 1.2 10^3/uL (1.5-4.5); LYMPH % 15.9 % (24.0-44.0); MEAN CORPUSCULAR HGB CONC 29.1 g/dl (32.0-36.5); MEAN CORPUSCULAR VOLUME 89.5 fl (80.0-96.0); MONO # 0.5 10^3/uL (0.0-0.8); MONO % 6.1 % (0.0-5.0); NEUTROPHILS # 5.3 10^3/uL (1.8-7.7); NEUTROPHILS % 71.5 % (36.0-66.0); PLATELET COUNT, AUTOMATED 226 10^3/uL (150-450); RED BLOOD COUNT 3.15 10^6/uL (4.30-6.10); WHITE BLOOD COUNT 7.4 10^3/uL (4.0-10.0)
[2018-10-26 06:20] LABS: BLOOD UREA NITROGEN 19 MG/DL (7-18); CARBON DIOXIDE LEVEL 23 MEQ/L (21-32); CHLORIDE LEVEL 114 MEQ/L (98-107); CREATININE FOR GFR 0.92 MG/DL (0.70-1.30); GLOMERULAR FILTRATION RATE > 60.0 (>42); GLUCOSE, FASTING 136 MG/DL (70-100); MAGNESIUM LEVEL 1.9 MG/DL (1.8-2.4); SODIUM LEVEL 145 MEQ/L (136-145)
[2018-10-26] MEDS: ALLOPURINOL 100 MG TAB PO SCH (07:30)
[2018-10-26] MEDS: PANTOPRAZOLE 40MG INJ (PROTONIX) (C9113) IV SCH ×2 (07:31→20:00)
[2018-10-26] MEDS: METOPROLOL TARTRATE 100 MG TAB PO SCH (07:31)
[2018-10-26] MEDS: SUCRALFATE 1 GM TAB PO SCH ×4 (07:31→20:00)
[2018-10-26] MEDS: FERROUS SULFATE 325MG TAB PO SCH (07:31)
[2018-10-26] MEDS: HumaLOG INSULIN (NovoLOG) PER UNIT SC SCH ×5 (07:31→19:57)
[2018-10-26] MEDS: NORTRIPTYLINE 10 MG CAP PO SCH ×3 (07:31→20:00)
--- NOTE | 2018-10-26 09:39 | IPN ---
DATE: 10/26/2018 Patient overall has been doing well since yesterday. He was admitted for gastrointestinal (GI) bleeding and it is a post polypectomy bleed after being restarted on his anticoagulation both aspirin and Eliquis. His rectal bleeding had stopped at this point. He has not had any bowel movement since yesterday. He has had no nausea, no vomiting. No diarrhea or abdominal pain symptoms. He has been afebrile. However, his hematocrit is settling out this morning 8.2, yesterday is was 8.7, 8.9 prior to that, and thus, I think he is starting to level out at this point with no active evidence of ongoing bleeding. His abdomen is otherwise soft, nontender, nondistended. IMPRESSION/PLAN: Patient has had some rectal bleeding. His bleeding seems to have stopped at this point, and from a surgical standpoint, he can be discharged to home. I started him on a regular diet this morning and he is tolerating this at bedside. What we will do is I will see him in the office next Monday and I would recommend keeping him off the Eliquis until the followup appointment. my standpoint as well, he will need followup with his primary care provider within the next week or so. I anticipate at his followup visit next Monday will restart his Eliquis.
[2018-10-26] MEDS ORDERED: FUROSEMIDE 40 MG/4 ML VIAL (J1940) IV ONE (10:00)
[2018-10-26 15:53] VITALS: BP 128/68
[2018-10-26] MEDS: ATORVASTATIN 20 MG TAB PO SCH (20:01)
[2018-10-26] MEDS ORDERED: METOPROLOL TART 50 MG TAB PO SCH (21:00)
[2018-10-26 22:00] VITALS: BP 145/70
--- NOTE | 2018-10-26 22:31 | IPNPDOC ---
Text Note Date of Service The patient was seen on 10/26/18. NOTE Subjective: Does not have any complaints this am . No further bloody stools h owever his hh dropped to 8.2 also noted to have bradycardia in 40s with some pauses up to 1.9 sec. Will give 1 unit of PRBC. Physical Exam: VITAL SIGNS: As below Head is normocephalic, atraumatic. Neck is supple with no jugular venous distention (JVD). Lungs are clear to auscultation. Heart S1, S2 iregular. No murmurs appreciated. Abdomen is soft. Positive bowel sounds. No pedal edema. Skin is intact. On neurologic examination, the patient is awake, alert, and oriented times three. Labs and radiology : reviewed. Assessment and plan; A 77-year-old male with a past medical history of colon cancer, status post right hemicolectomy, history of polypectomy in March of 2018 and again on 10/16/2018 in [place], history of atrial fibrillation on Eliquis, HTN, diabetes, hyperlipidemia, CAD s/p [place] andstent, gout who presents to the emergency room with bright red blood per rectum which started on the night of 10/23/18. He had gone to see Dr Nino in the office on 10/24/18 to set up care with hime at that time he was found to have orthostatic hypotension with ongoing rectal bleeding so was sent to the ED. He was admitted for GIB. GIB this is probably post polypectomy bleed and being on eliquis will continue to hold eliquis HH seems to be stable at this point. Has not required any PRBC transfusion. continue PPI and sucralfate for now. will give 1 unit of PRBC Bradycardia will stop metoprolol and put hold parameters on dialtiazem. pateint has underlying A fib. Acute blood loss anemia due to GIB. continue to monitor HH if drops below 8 will transfuse continue iron. Afib continue diltiazem but stop metoprolol due to bradycardia continue to hold liquis for at least another week. Chronic Diastolic chf now euvolemic. will give lasix after blood transfusion. DEREJE with pulmonary hypertension due to obesity chronic hypoxic respiratory failure. prior PFTs show restrictive lung disease. Used to be much heavier before. Does not use any CPAP or BIPAP as was non compliant with it. Says uses only oxygen at night. Hypertension continue metoprolol and diltiazem with hold parameters Diabetes was hypoglycemic overnight as he was NPO now sugars better after starting cear liquid diet. Lispro Ac and HS Hyperlipidemia continue statin CAD stable continue statin Gout allopurinol DVT prophylaxis has been ordered. VS,Fishbone, I+O VS, Fishbone, I+O Laboratory Tests 10/26/18 05:37 Red Blood Count 3.15 L, Mean Corpuscular Volume 89.5, Mean Corpuscular Hemoglobin 26.0 L, Mean Corpuscular Hemoglobin Concent 29.1 L, Red Cell Distribution Width 18.1 H, Neutrophils (%) (Auto) 71.5 H, Lymphocytes (%) (Auto) 15.9 L, Monocytes (%) (Auto) 6.1 H, Eosinophils (%) (Auto) 5.3 H, Basophils (%) (Auto) 0.7, Neutrophils # (Auto) 5.3, Lymphocytes # (Auto) 1.2 L, Monocytes # (Auto) 0.5, Eosinophils # (Auto) 0.4, Basophils # (Auto) 0.1, Calcium Level 8.0 L Vital Signs Date Time Temp Pulse Resp B/P (MAP) Pulse Ox O2 Delivery O2 Flow Rate FiO2 10/26/18 15:53 98.0 54 16 128/68 (88) 97 10/26/18 06:00 2.0 10/25/18 22:00 Nasal Cannula I&O- Last 24 Hours up to 6 AM 10/26/18 06:00 Intake Total 1725 ml Output Total 600 ml Balance 1125 ml ALONA VARGAS MD Oct 26, 2018 22:31
[2018-10-27 06:00] VITALS: BP 149/82
[2018-10-27 06:20] LABS: BASO % 0.5 % (0.0-1.0); EOS # 0.3 10^3/uL (0.0-0.50); EOS % 4.1 % (0.0-3.0); HEMATOCRIT 27.5 % (42.0-52.0); HEMOGLOBIN 8.5 g/dl (13.5-17.5); LYMPH # 1.1 10^3/uL (1.5-4.5); LYMPH % 15.2 % (24.0-44.0); MEAN CORPUSCULAR HEMOGLOBIN 27.3 pg (27.0-33.0); MEAN CORPUSCULAR HGB CONC 30.9 g/dl (32.0-36.5); MEAN CORPUSCULAR VOLUME 88.4 fl (80.0-96.0); MONO # 0.5 10^3/uL (0.0-0.8); MONO % 7.3 % (0.0-5.0); NEUTROPHILS # 5.3 10^3/uL (1.8-7.7); NEUTROPHILS % 72.2 % (36.0-66.0); PLATELET COUNT, AUTOMATED 198 10^3/uL (150-450); RED BLOOD COUNT 3.11 10^6/uL (4.30-6.10); WHITE BLOOD COUNT 7.4 10^3/uL (4.0-10.0)
[2018-10-27 06:43] LABS: BLOOD UREA NITROGEN 17 MG/DL (7-18); CALCIUM LEVEL 8.3 MG/DL (8.8-10.2); CARBON DIOXIDE LEVEL 25 MEQ/L (21-32); CHLORIDE LEVEL 110 MEQ/L (98-107); CREATININE FOR GFR 1.06 MG/DL (0.70-1.30); GLOMERULAR FILTRATION RATE > 60.0 (>42); GLUCOSE, FASTING 160 MG/DL (70-100); POTASSIUM SERUM 3.7 MEQ/L (3.5-5.1); SODIUM LEVEL 142 MEQ/L (136-145)
[2018-10-27] MEDS: HumaLOG INSULIN (NovoLOG) PER UNIT SC SCH ×4 (07:30→21:00)
[2018-10-27] MEDS: NORTRIPTYLINE 10 MG CAP PO SCH ×3 (08:03→20:11)
[2018-10-27] MEDS: FERROUS SULFATE 325MG TAB PO SCH (08:03)
[2018-10-27] MEDS: ALLOPURINOL 100 MG TAB PO SCH (08:03)
[2018-10-27] MEDS: SUCRALFATE 1 GM TAB PO SCH ×4 (08:03→20:11)
[2018-10-27] MEDS: PANTOPRAZOLE 40MG INJ (PROTONIX) (C9113) IV SCH ×2 (08:04→09:00)
--- NOTE | 2018-10-27 10:36 | REP ---
Clinical: Possible acute cerebral infarction . Findings: Age-related atrophy and microvascular ischemic changes are appreciated. The ventricles and sulci are symmetric. Siegel-white differentiation is maintained. There is no evidence for acute intracranial hemorrhage, mass/mass effect, pathology or infarction. No extra-axial fluid collection. Calvarium is intact. Paranasal sinuses and mastoid air cells are clear. Impression: Age related atrophy and microvascular ischemic changes. No acute intracranial hemorrhage, infarction, or mass/mass effect. Electronically Signed by Melquiades Blanca MD 10/27/2018 10:27 A
[2018-10-27] MEDS ORDERED: FUROSEMIDE 40 MG/4 ML VIAL (J1940) IV ONE (11:00)
--- NOTE | 2018-10-27 13:25 | IPNPDOC ---
Text Note Date of Service The patient was seen on 10/27/18. NOTE Subjective: Patient did have 1 bloody movement again this morning, no abdominal pain, nausea or vomiting or diarrhea. His Hb did not rise appropriately after 1 unit PRBC yesterday which leads me to believe that he may still be bleeding. will give 2 more units today. His bradycardia is better this am however overnight his lowest pulse rate was low 40s . Will continue to hold metoprolol. Physical Exam: VITAL SIGNS: As below Head is normocephalic, atraumatic. Neck is supple with no jugular venous distention (JVD). Lungs are clear to auscultation. Heart S1, S2 iregular. No murmurs appreciated. Abdomen is soft. Positive bowel sounds. No pedal edema. Skin is intact. On neurologic examination, the patient is awake, alert, and oriented times three. Labs and radiology : reviewed. Assessment and plan; A 77-year-old male with a past medical history of colon cancer, status post right hemicolectomy, history of polypectomy in March of 2018 and again on 10/16/2018 in [place], history of atrial fibrillation on Eliquis, HTN, diabetes, hyperlipidemia, CAD s/p [place] andstent, gout who presents to the emergency room with bright red blood per rectum which started on the night of 10/23/18. He had gone to see Dr Nino in the office on 10/24/18 to set up care with hime at that time he was found to have orthostatic hypotension with ongoing rectal bleeding so was sent to the ED. He was admitted for GIB. GIB this is probably post polypectomy bleed and being on eliquis will continue to hold eliquis HH seems to be stable at this point. Has not required any PRBC transfusion. continue PPI and sucralfate for now. will give 2 more units today making the total to 3. Bradycardia will stop metoprolol and put hold parameters on dialtiazem. will follow cardiology recommendations. Acute blood loss anemia due to GIB. continue to monitor HH if drops below 8 will transfuse continue iron. Afib continue diltiazem but stop metoprolol due to bradycardia continue to hold liquis for at least another week. Chronic Diastolic chf now euvolemic. will give lasix after blood transfusion. DEREJE with pulmonary hypertension due to obesity chronic hypoxic respiratory failure. prior PFTs show restrictive lung disease. Used to be much heavier before. Does not use any CPAP or BIPAP as was non compliant with it. Says uses only oxygen at night. Hypertension continue metoprolol and diltiazem with hold parameters Diabetes was hypoglycemic overnight as he was NPO now sugars better after starting cear liquid diet. Lispro Ac and HS Hyperlipidemia continue statin CAD stable continue statin Gout allopurinol DVT prophylaxis has been ordered. VS,Fishbone, I+O VS, Fishbone, I+O Laboratory Tests 10/27/18 06:06 Red Blood Count 3.11 L, Mean Corpuscular Volume 88.4, Mean Corpuscular Hemoglobin 27.3, Mean Corpuscular Hemoglobin Concent 30.9 L, Red Cell Distribution Width 17.4 H, Neutrophils (%) (Auto) 72.2 H, Lymphocytes (%) (Auto) 15.2 L, Monocytes (%) (Auto) 7.3 H, Eosinophils (%) (Auto) 4.1 H, Basophils (%) (Auto) 0.5, Neutrophils # (Auto) 5.3, Lymphocytes # (Auto) 1.1 L, Monocytes # (Auto) 0.5, Eosinophils # (Auto) 0.3, Basophils # (Auto) 0.0, Calcium Level 8.3 L Vital Signs Date Time Temp Pulse Resp B/P (MAP) Pulse Ox O2 Delivery O2 Flow Rate FiO2 10/27/18 08:06 86 158/76 10/27/18 06:00 97.9 17 96 10/26/18 22:00 Room Air 10/26/18 06:00 2.0 I&O- Last 24 Hours up to 6 AM 10/27/18 06:00 Intake Total 1290 ml Output Total 1550 ml Balance -260 ml ALONA VARGAS MD Oct 27, 2018 13:25
[2018-10-27 14:00] VITALS: BP 158/72
[2018-10-27] MEDS ORDERED: LISINOPRIL 5 MG TAB PO ONE (19:00)
[2018-10-27] MEDS: ATORVASTATIN 20 MG TAB PO SCH (20:11)
[2018-10-27] MEDS: PANTOPRAZOLE 40MG TAB (PROTONIX) PO SCH (20:11)
[2018-10-27 22:00] VITALS: BP 162/76
[2018-10-28 05:50] LABS: BASO % 0.4 % (0.0-1.0); EOS # 0.3 10^3/uL (0.0-0.50); EOS % 2.9 % (0.0-3.0); HEMATOCRIT 35.9 % (42.0-52.0); LYMPH # 1.3 10^3/uL (1.5-4.5); LYMPH % 13.7 % (24.0-44.0); MEAN CORPUSCULAR HEMOGLOBIN 27.3 pg (27.0-33.0); MEAN CORPUSCULAR HGB CONC 31.8 g/dl (32.0-36.5); MEAN CORPUSCULAR VOLUME 85.9 fl (80.0-96.0); MONO # 0.6 10^3/uL (0.0-0.8); MONO % 6.3 % (0.0-5.0); NEUTROPHILS # 7.4 10^3/uL (1.8-7.7); NEUTROPHILS % 76.2 % (36.0-66.0); PLATELET COUNT, AUTOMATED 257 10^3/uL (150-450); RED BLOOD COUNT 4.18 10^6/uL (4.30-6.10); WHITE BLOOD COUNT 9.7 10^3/uL (4.0-10.0)
[2018-10-28 05:55] LABS: HEMOGLOBIN 11.4 g/dl (13.5-17.5)
[2018-10-28 06:00] VITALS: BP 136/68
[2018-10-28 06:16] LABS: BLOOD UREA NITROGEN 11 MG/DL (7-18); CALCIUM LEVEL 8.7 MG/DL (8.8-10.2); CARBON DIOXIDE LEVEL 26 MEQ/L (21-32); CHLORIDE LEVEL 108 MEQ/L (98-107); CREATININE FOR GFR 0.99 MG/DL (0.70-1.30); GLOMERULAR FILTRATION RATE > 60.0 (>42); GLUCOSE, FASTING 169 MG/DL (70-100); POTASSIUM SERUM 3.2 MEQ/L (3.5-5.1); SODIUM LEVEL 143 MEQ/L (136-145)
[2018-10-28] MEDS: SUCRALFATE 1 GM TAB PO SCH (07:33)
[2018-10-28] MEDS: FERROUS SULFATE 325MG TAB PO SCH (07:33)
[2018-10-28] MEDS: HumaLOG INSULIN (NovoLOG) PER UNIT SC SCH (07:33)
[2018-10-28] MEDS: NORTRIPTYLINE 10 MG CAP PO SCH (07:33)
[2018-10-28] MEDS: ALLOPURINOL 100 MG TAB PO SCH (07:34)
[2018-10-28] MEDS: PANTOPRAZOLE 40MG TAB (PROTONIX) PO SCH (07:34)
[2018-10-28 07:40] VITALS: BP 177/82
[2018-10-28] MEDS ORDERED: LISI-542 PO (08:43)
[2018-10-28] MEDS ORDERED: POTASSIUM CHLORIDE 10 MEQ SR TABLET PO ONE (09:00)
--- NOTE | 2018-10-28 23:23 | DS.PDOC ---
Discharge Summary General Date of Admission Oct 24, 2018 at 15:24 Date of Discharge 10/28/18 Attending Physician: ALONA VARGAS MD Discharge Summary PROCEDURES PERFORMED DURING STAY: [None]. DISCHARGE DIAGNOSES: GIB due to postpolypectomy bleed and being on Eliquis Acute blood loss anemia received 3 units of PRBC Asymptomatic bradycardia in low 40s and high 30s at night A fib DEREJE with pulmonary hypertension on oxygen at night. Chronic diastolic CHF. Obesity Hypertension Diabetes Hyperlipidemia Gout COMPLICATIONS/CHIEF COMPLAINT: Gi Bleed. HISTORY OF PRESENT ILLNESS: See history and physical HOSPITAL COURSE: A 77-year-old male with a past medical history of colon cancer, status post right hemicolectomy, history of polypectomy in March of 2018 and again on 10/16/2018 in [place], history of atrial fibrillation on Eliquis, HTN, diabetes, hyperlipidemia, CAD s/p [place] andstent, gout who presents to the emergency room with bright red blood per rectum which started on the night of 10/23/18. He had gone to see Dr Nino in the office on 10/24/18 to set up care with hime at that time he was found to have orthostatic hypotension with ongoing rectal bleeding so was sent to the ED. He was admitted for GIB. GIB this is probably post polypectomy bleed and being on eliquis will continue to hold eliquis HH seems to be stable at this point. Has not required any PRBC transfusion. continue PPI and sucralfate for now. will give 2 more units today making the total to 3. Bradycardia will stop metoprolol and put hold parameters on diltiazem. follow up with advertiser as outpatient. Acute blood loss anemia due to GIB. continue to monitor HH if drops below 8 will transfuse continue iron. Afib continue diltiazem but stop metoprolol due to bradycardia continue to hold liquis for at least another week till seen by Dr Nino Chronic Diastolic chf now euvolemic. DEREJE with pulmonary hypertension due to obesity chronic hypoxic respiratory failure. prior PFTs show restrictive lung disease. Used to be much heavier before. Does not use any CPAP or BIPAP as was non compliant with it. Says uses only oxygen at night. Hypertension continue diltiazem . Metoprolol stopped for bradycardia started on lisinopril Diabetes resume home meds. Hyperlipidemia continue statin CAD stable continue statin Gout allopurinol DISCHARGE MEDICATIONS: Please see below. ALLERGIES: Please see below. PHYSICAL EXAMINATION ON DISCHARGE: VITAL SIGNS: Please see below. GENERAL: Awake, alert, oriented x 3, sitting up comfortably in chair. Head is normocephalic, atraumatic. Neck is supple with no jugular venous distention (JVD). Lungs are clear to auscultation. Heart S1, S2 iregular. No murmurs appreciated. Abdomen is soft. Positive bowel sounds. No pedal edema. Skin is intact. On neurologic examination, the patient is awake, alert, and oriented times three. LABORATORY DATA: Please see below. ACTIVITY: [As tolerated]. DIET: carb consistent DISPOSITION: 01 Home, Self-Care. DISCHARGE INSTRUCTIONS: Follow up with Dr Nino in 1 week Follow up with PMD in 1 to 2 weeks DISCHARGE CONDITION: [Stable]. TIME SPENT ON DISCHARGE: Greater than 30 minutes. Vital Signs/I&Os Vital Signs Date Time Temp Pulse Resp B/P (MAP) Pulse Ox O2 Delivery O2 Flow Rate FiO2 10/28/18 07:40 94 177/82 10/28/18 06:00 98.3 18 94 1.0 10/26/18 22:00 Room Air I&O- Last 24 Hours up to 6 AM 10/28/18 06:00 Intake Total 2646 ml Output Total 4450 ml Balance -1804 ml Laboratory Data Labs 24H Laboratory Tests 2 10/28/18 05:31: Immature Granulocyte % (Auto) 0.5, White Blood Count 9.7, Red Blood Count 4.18L, Hemoglobin 11.4#L, Hematocrit 35.9L, Mean Corpuscular Volume 85.9, Mean Corpuscular Hemoglobin 27.3, Mean Corpuscular Hemoglobin Concent 31.8L, Red Cell Distribution Width 17.3H, Platelet Count 257, Neutrophils (%) (Auto) 76.2H, Lymphocytes (%) (Auto) 13.7L, Monocytes (%) (Auto) 6.3H, Eosinophils (%) (Auto) 2.9, Basophils (%) (Auto) 0.4, Neutrophils # (Auto) 7.4, Lymphocytes # (Auto) 1.3L, Monocytes # (Auto) 0.6, Eosinophils # (Auto) 0.3, Basophils # (Auto) 0.0, Nucleated Red Blood Cells % (auto) 0.0, Anion Gap 9, Glomerular Filtration Rate > 60.0, Blood Urea Nitrogen 11, Creatinine 0.99, Sodium Level 143, Potassium Level 3.2L, Chloride Level 108H, Carbon Dioxide Level 26, Calcium Level 8.7L, Magnesium Level 2.0 CBC/BMP Laboratory Tests 10/28/18 05:31 Red Blood Count 4.18 L, Mean Corpuscular Volume 85.9, Mean Corpuscular Hemoglobin 27.3, Mean Corpuscular Hemoglobin Concent 31.8 L, Red Cell Distribution Width 17.3 H, Neutrophils (%) (Auto) 76.2 H, Lymphocytes (%) (Auto) 13.7 L, Monocytes (%) (Auto) 6.3 H, Eosinophils (%) (Auto) 2.9, Basophils (%) (Auto) 0.4, Neutrophils # (Auto) 7.4, Lymphocytes # (Auto) 1.3 L, Monocytes # (Auto) 0.6, Eosinophils # (Auto) 0.3, Basophils # (Auto) 0.0, Calcium Level 8.7 L Discharge Medications Scheduled Allopurinol (Allopurinol) 100 Mg Tab, 200 MG PO DAILY, (Reported) Aspirin (Aspir-81) 81 Mg Tab, 81 MG PO DAILY, (Reported) Atorvastatin Calcium (Atorvastatin Calcium) 80 Mg Tab, 80 MG PO QPM, (Reported) Diltiazem HCl (Diltiazem HCl ER) 240 Mg Cap, 240 MG PO DAILY, (Reported) Ferrous Sulfate (Ferrous Sulfate) 325 Mg Tab, 325 MG PO DAILY, (Reported) Insulin Glargine (Lantus) 1 Units/0.01 Ml Susp, 30 UNITS SC BID, (Reported) Liraglutide (Victoza) 18 Mg/3 Ml Inj, 0.6 MG SC DAILY, (Reported) Lisinopril (Lisinopril) 5 Mg Tab, 5 MG PO QHS Metformin Hydrochloride (Metformin Hydrochloride) 500 Mg Tab, 1,000 MG PO BID, (Reported) Nortriptyline HCl (Nortriptyline HCl) 10 Mg Cap, 10 MG PO TID, (Reported) Pantoprazole Sodium (Pantoprazole Sodium) 40 Mg Tab, 40 MG PO BID, (Reported) Sucralfate (Carafate) 1 Gm Tab, 1 GM PO ACHS, (Reported) Torsemide (Torsemide) 100 Mg Tab, 50 MG PO DAILY, (Reported) Scheduled PRN Acetaminophen (Acetaminophen) 325 Mg Tab, 650 MG PO Q4H PRN for PAIN, (Reported) Artificial Tears (Artificial Tears) 1.4 % Tran, 1 DROP OU QID PRN for DRY EYES, (Reported) Nitroglycerin (Nitrostat) 0.4 Mg Subl, 0.4 MG SL NITRO PRN for CHEST PAIN, (Reported) Allergies Coded Allergies: No Known Allergies (Unverified , 10/24/18) ALONA VARGAS MD Oct 28, 2018 23:23
== END 2018-10-28 09:47 | disposition home or self-care (01) | DRG 920 ==
LOC: M ED 11:23 → M ED INP 15:24 → M MSPAV 18:53
PROVIDERS: ADMIT Internal Medicine; ATTEND Internal Medicine Nephrology
PROC: 30233N1 Transfusion of Nonautologous Red Blood Cells into Peripheral Vein, Percutaneous Approach (ICD-10-PCS; principal; 2018-10-26)
DX: K91.840 Postprocedural hemorrhage of a digestive system organ or structure following a digestive system procedure (principal); D68.32 Hemorrhagic disorder due to extrinsic circulating anticoagulants; D62 Acute posthemorrhagic anemia; I50.32 Chronic diastolic (congestive) heart failure; Z79.01 Long term (current) use of anticoagulants; I48.91 Unspecified atrial fibrillation; G47.33 Obstructive sleep apnea (adult) (pediatric); I27.20 Pulmonary hypertension, unspecified; E66.9 Obesity, unspecified; I11.0 Hypertensive heart disease with heart failure; E11.9 Type 2 diabetes mellitus without complications; E78.5 Hyperlipidemia, unspecified; M10.9 Gout, unspecified; Z85.038 Personal history of other malignant neoplasm of large intestine; I25.2 Old myocardial infarction; Z95.2 Presence of prosthetic heart valve; I25.10 Atherosclerotic heart disease of native coronary artery without angina pectoris; R00.1 Bradycardia, unspecified; Z79.899 Other long term (current) drug therapy; Z79.82 Long term (current) use of aspirin

== ENCOUNTER → 2018-11-06 | Outpatient (CLI) | payer OTHER, MEDICAID ==
[~2018-11-06] MED LIST changes: -/SUCR1TA OR; -/WARF25TA PO; -/WARF4TA OR; +ACET1TAB55 PO; +ASPI-1 PO; -ASPI325T PO; +COUM1TAB14 OR; +COUM1TAB18 PO; +DILT240C47 PO; +ELIQ5TAB PO; +LISI-542 PO; +METF-839 PO; +SUCR1TAB56 OR
[2018-11-06 13:06] LABS: CALCIUM LEVEL 9.6 MG/DL (8.8-10.2); CREATININE FOR GFR 1.26 MG/DL (0.70-1.30); GLOMERULAR FILTRATION RATE 59.1 (>42); POTASSIUM SERUM 4.8 MEQ/L (3.5-5.1)
== END ==
LOC: M WUC 10:51
PROVIDERS: ATTEND Nurse Practitioner Family
DX: K92.2 Gastrointestinal hemorrhage, unspecified (principal)

== ENCOUNTER 2018-11-10 07:47 | Emergency (ER) | payer MEDICARE, MEDICAID ==
[~2018-11-10] VITALS: Ht 180.3 cm; Wt 99.5 kg
--- NOTE | 2018-11-10 08:57 | REP ---
Chest x-ray: Two views. History: Chest pain. Comparison chest x-ray: October 04, 2016. Findings: There is blunting of the pleural angles bilaterally similar to the prior study consistent with small bilateral effusions. Cardiomegaly is again observed unchanged. The aorta is calcific and tortuous. Pulmonary vasculature is not increased. No infiltrate is seen. There are degenerative changes in the thoracic spine. Impression: Cardiomegaly. Blunted pleural angles bilaterally consistent with small bilateral effusions. Essentially unchanged. Electronically Signed by Chriss Hinkle MD 11/10/2018 08:48 A
[2018-11-10 09:11] LABS: BASO % 0.5 % (0.0-1.0); EOS # 0.3 10^3/uL (0.0-0.50); EOS % 3.1 % (0.0-3.0); HEMATOCRIT 41.6 % (42.0-52.0); HEMOGLOBIN 12.8 g/dl (13.5-17.5); LYMPH # 0.9 10^3/uL (1.5-4.5); LYMPH % 10.2 % (24.0-44.0); MEAN CORPUSCULAR HEMOGLOBIN 27.8 pg (27.0-33.0); MEAN CORPUSCULAR HGB CONC 30.8 g/dl (32.0-36.5); MEAN CORPUSCULAR VOLUME 90.2 fl (80.0-96.0); MONO # 0.6 10^3/uL (0.0-0.8); MONO % 7.4 % (0.0-5.0); NEUTROPHILS # 6.6 10^3/uL (1.8-7.7); NEUTROPHILS % 78.4 % (36.0-66.0); PLATELET COUNT, AUTOMATED 313 10^3/uL (150-450); RED BLOOD COUNT 4.61 10^6/uL (4.30-6.10); WHITE BLOOD COUNT 8.4 10^3/uL (4.0-10.0)
[2018-11-10 09:36] LABS: ALBUMIN 3.8 GM/DL (3.2-5.2); ALT/SGPT 16 U/L (12-78); BILIRUBIN,DIRECT 0.1 MG/DL (0.0-0.2); BILIRUBIN,TOTAL 0.5 MG/DL (0.2-1.0); BLOOD UREA NITROGEN 22 MG/DL (7-18); CALCIUM LEVEL 9.3 MG/DL (8.8-10.2); CARBON DIOXIDE LEVEL 26 MEQ/L (21-32); CHLORIDE LEVEL 106 MEQ/L (98-107); CPK CREATINE PHOSPHOKINASE 71 U/L (39-308); CREATININE FOR GFR 1.09 MG/DL (0.70-1.30); GLOMERULAR FILTRATION RATE > 60.0 (>42); GLUCOSE, FASTING 104 MG/DL (70-100); MB/CK RELATIVE INDEX 2.54 (< OR =4); NT-PRO BNP 1256 PG/ML (<450); POTASSIUM SERUM 4.3 MEQ/L (3.5-5.1); SODIUM LEVEL 141 MEQ/L (136-145); TOTAL PROTEIN 7.1 GM/DL (6.4-8.2); TROPONIN I 0.02 NG/ML (< 0.10)
[2018-11-10] MEDS ORDERED: NITROGLYCERIN 0.4 MG SUBL TABLET SL STA (09:46)
[2018-11-10 09:59] VITALS: BP 132/66
[2018-11-10] MEDS ORDERED: ISOVUE-370 76% 100ML VIAL (Q9967) As Ordered ONE (10:01)
[2018-11-10] MEDS ORDERED: LISI-542 PO (10:40)
[2018-11-10] MEDS ORDERED: ELIQ5TAB PO (10:40)
--- NOTE | 2018-11-10 11:47 | REP ---
CT pulmonary angiogram: With IV contrast. History: Rule out pulmonary embolus. Comparison studies: October 05, 2012. Contrast dose: 75 ML of Isovue [address] technique: Helical scanning is acquired and overlapping 1.5 mm and contiguous 3 mm axial images are reformatted. In addition, maximum intensity projection and multiplanar re-formation images are generated in sagittal and coronal imaging projections. CT pulmonary angiographic findings: There is good opacification in the pulmonary arterial tree. There is no CT evidence of pulmonary embolism. There is no evidence of aortic dissection or aneurysm. Vascular calcifications again noted. No hilar or mediastinal mass is seen. Granulomatous lymph node residuals are seen in the right hilus and mediastinum. No pericardial effusion is seen. There is a small quantity of left pleural fluid. No adrenal lesion is observed. There are cysts in the upper pole right kidney which measure up to 2.8 cm in diameter. There is no evidence of infiltrate in the lung [place]. No pulmonary nodule or mass lesion is visible. A degenerative changes in the thoracic spine. No bony destructive lesion is seen. Impression: No CT evidence of pulmonary embolus. Small amount of left pleural fluid. Otherwise no acute disease. Electronically Signed by Chriss Hinkle MD 11/10/2018 02:28 P
[2018-11-10] MEDS ORDERED: FUROSEMIDE 20 MG TAB PO ONE (12:30)
[2018-11-10 13:35] LABS: MB/CK RELATIVE INDEX 2.86 (< OR =4); TROPONIN I 0.03 NG/ML (< 0.10)
[2018-11-10 14:15] VITALS: BP 125/60
--- NOTE | 2018-11-10 17:23 | CR ---
DATE OF CONSULTATION: 11/10/2018 REASON FOR CONSULTATION: Chest pain. HOSPITAL COURSE: The patient is a 77-year-old man who normally follows with Dr. Cardona with known hypertension, diabetes, dyslipidemia, atrial fibrillation, coronary artery disease status post stent placement in the past. He tells me that yesterday evening began to have some cough and some associated shortness of breath. The cough continued this morning and associated chest pressure, prompting him to present to the emergency room this morning. By the time I enter to evaluate the patient, he tells me that his symptoms have completely resolved and that he is not having any chest pain, he is not having any shortness of breath, and he would like to go home. The patient denies pain with deep inspiration. He denies any exertional chest pain or pressure. He denies any associated diaphoresis, shortness of breath. He tells me he is able to lie completely flat, and this does not worsen his symptoms whatsoever. He denies any abdominal pain. No fevers, chills, nausea, vomiting, diarrhea, changes in his bowel or bladder habits otherwise. He denies any visual changes. PAST MEDICAL HISTORY: 1. Hypertension. 2. Diabetes. 3. Dyslipidemia. 4. Colon cancer, status post right colectomy. 5. Atrial fibrillation. 6. Coronary artery disease, status post stent. 7. Gout. 8. Diastolic congestive heart failure. 9. Morbid obesity. PAST SURGICAL HISTORY: Right colectomy. FAMILY HISTORY: Noncontributory. REVIEW OF SYSTEMS: Negative other than in history of present illness (HPI). ALLERGIES: No known drug allergies. SOCIAL HISTORY: Patient denies alcohol or illicit drug use. He lives independently. He is independent with his activities of daily living (ADLs). He currently follows with Dr. Cardona. HOME MEDICATIONS: - acetaminophen 650 mg every 4 hours as needed for pain - allopurinol 200 mg daily - Eliquis 5 mg by mouth twice a day - aspirin 81 mg daily - atorvastatin 81 mg daily - diltiazem extended release 240 mg daily - ferrous sulfate 225 mg daily - Lantus 30 units subcutaneously twice a day - lisinopril 5 mg daily - metformin 1 gram by mouth twice a day - nitroglycerine 0.4 mg sublingual as needed for chest pain - nortriptyline 10 mg by mouth three times a day - pantoprazole 40 mg twice a day - Carafate 1 gram by mouth at bedtime - torsemide 50 mg daily - Victoza 0.6 mg subcutaneously daily PHYSICAL EXAMINATION: Temperature 99.1, pulse 86, respiratory rate 18, blood pressure (BP) 125/60, oxygen saturation 94% on room air. GENERAL: He is a pleasant, obese, elderly man lying flat on a stretcher. He is speaking in complete sentences. No accessory muscle use. He does not appear to be in any acute distress whatsoever. HEENT: He is wearing glasses. Moist mucous membranes. No elevation in central venous pressure (CVP). CARDIOVASCULAR: S1, S2, regular. RESPIRATORY: Actually quite clear with good breath sounds in all lung [place]. ABDOMEN: Grossly obese. Bowel sounds present. The abdomen is soft and nontender. EXTREMITIES: No clubbing or cyanosis. There is trace edema bilaterally. LABORATORY STUDIES: WBC 8.4, hemoglobin 12.8, platelet count 313. Chemistry panel: Sodium 141, potassium 4.0, chloride 106, bicarbonate 26, BUN 22, creatinine 1.0. BNP mildly elevated at 1256. Two sets of cardiac enzymes are negative. TSH within normal limits. A D-dimer was elevated at 843. Patient did have CT angiography of the chest that revealed no pulmonary embolism. Small amount of left pleural fluid. No acute disease. ASSESSMENT AND PLAN: This is a 77-year-old man who presents for chest pressure. Chest pressure. Seems to have spontaneously resolved. I suspect is was related to coughing and may have been some mild costochondritis. At the present time; however, it is not reproducible, and he is not experiencing any of it. My suspicion for a cardiac etiology is lower. I have reviewed his telemetry. There are no suspicious cardiac changes. It is not exertional in nature. He does have some trace edema but certainly not decompensated heart failure. He is comfortable lying flat on room air. Denies any paroxysmal nocturnal dyspnea (PND) or orthopnea. He was recently hospitalized and did receive blood transfusions. I did suggest to the emergency room (ER) provider that he potentially could benefit from some additional Lasix dosing on top of his normal torsemide home dosing; however, even this is quite questionable, given his baseline functional status. There is certainly no evidence of PE, and laboratory studies are otherwise fairly unremarkable. He may have some viral upper respiratory tract infection, cough. I did suggest that should he get any recurrence of his symptoms, he should have re-evaluation and followup with Dr. Cardona this coming week. Patient declines offers for hospitalization and insists on going home. At this point in time, I see no strong indication to hold him against his will. Plan was discussed with ER provider.
--- NOTE | 2018-11-11 07:16 | ECGEPIP ---
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
[2018-11-11] MEDS ORDERED: SPIRONOLACTONE 12.5MG PER 1/2 TABLET PO SCH (09:00)
--- NOTE | 2018-11-12 13:14 | ED PDOC ---
Post-Departure Follow-Up nasreen delcid faxed formal report of cta chest for fu Emma Kothari MD Nov 12, 2018 13:14
== END 2018-11-10 14:49 | disposition home or self-care (01) ==
LOC: M ED 07:47
DX: I48.91 Unspecified atrial fibrillation (principal); I50.9 Heart failure, unspecified; R05 Cough; R07.9 Chest pain, unspecified; D64.9 Anemia, unspecified; I25.10 Atherosclerotic heart disease of native coronary artery without angina pectoris; I25.2 Old myocardial infarction; E11.9 Type 2 diabetes mellitus without complications; I51.7 Cardiomegaly; I10 Essential (primary) hypertension; G47.30 Sleep apnea, unspecified; K21.9 Gastro-esophageal reflux disease without esophagitis; M10.9 Gout, unspecified; Z95.5 Presence of coronary angioplasty implant and graft; Z95.1 Presence of aortocoronary bypass graft; Z87.891 Personal history of nicotine dependence; Z79.82 Long term (current) use of aspirin; Z79.4 Long term (current) use of insulin; Z79.899 Other long term (current) drug therapy
CPT/HCPCS: 71046; 71275; 80048; 80076; 82550; 82553; 83880; 84443; 84484; 85025; 85379; 93005; 99284; Q9967

== ENCOUNTER 2018-12-27 08:08 | Emergency (ER) | payer MEDICARE, MEDICAID ==
[~2018-12-27] VITALS: Ht 180.3 cm; Wt 90.9 kg
[2018-12-27] MEDS ORDERED: DELS1LIQ3 PO (08:45)
--- NOTE | 2018-12-27 09:00 | REP ---
CT Head without contrast HISTORY: Numbness COMPARISON: 10/27/2018 Areas of decreased attenuation are present in the periventricular and subcortical white matter. This represents small-vessel ischemic disease. There is no intraparenchymal hemorrhage, acute infarct, mass or midline shift. The ventricular system and cortical sulci as well as subarachnoid space in the posterior fossa are dilated consistent with moderate volume loss. There is no extra cerebral collection. There is no fracture. The visualized sinuses are clear. IMPRESSION: 1. Small vessel ischemic disease. 2. Moderate volume loss. Electronically Signed by Sung Jimenes MD 12/27/2018 08:52 A
[2018-12-27 09:11] LABS: BASO % 0.4 % (0.0-1.0); EOS # 0.1 10^3/uL (0.0-0.50); EOS % 1.8 % (0.0-3.0); HEMATOCRIT 40.1 % (42.0-52.0); HEMOGLOBIN 12.2 g/dl (13.5-17.5); LYMPH # 0.9 10^3/uL (1.5-4.5); LYMPH % 12.1 % (24.0-44.0); MEAN CORPUSCULAR HEMOGLOBIN 26.3 pg (27.0-33.0); MEAN CORPUSCULAR HGB CONC 30.4 g/dl (32.0-36.5); MEAN CORPUSCULAR VOLUME 86.4 fl (80.0-96.0); MONO # 0.4 10^3/uL (0.0-0.8); MONO % 4.9 % (0.0-5.0); NEUTROPHILS # 6.3 10^3/uL (1.8-7.7); NEUTROPHILS % 80.5 % (36.0-66.0); PLATELET COUNT, AUTOMATED 305 10^3/uL (150-450); RED BLOOD COUNT 4.64 10^6/uL (4.30-6.10); WHITE BLOOD COUNT 7.8 10^3/uL (4.0-10.0)
[2018-12-27 09:21] LABS: INR 1.35; PROTHROMBIN TIME 16.9 SECONDS (12.1-14.4)
[2018-12-27 09:31] LABS: CALCIUM LEVEL 9.6 MG/DL (8.8-10.2); CREATININE FOR GFR 1.25 MG/DL (0.70-1.30); GLOMERULAR FILTRATION RATE 59.5 (>42); POTASSIUM SERUM 4.1 MEQ/L (3.5-5.1)
--- NOTE | 2018-12-27 09:44 | REP ---
CHEST, SINGLE VIEW: Single view of the chest is performed and compared to a prior study of 11/10/2018. There is mild cardiomegaly. I see no acute infiltrate. There is mild blunting of the right costophrenic angle unchanged. There is mild calcification and tortuosity of the thoracic aorta. The mediastinal silhouette is unchanged. IMPRESSION: Mild cardiomegaly. Mild chronic changes without acute infiltrate. Electronically Signed by Paramjit Siegel MD 12/27/2018 04:28 P
--- NOTE | 2018-12-27 11:53 | REP ---
MRA BRAIN WITHOUT CONTRAST: HISTORY: Left-sided weakness. 3D [id number] MR angiography was performed at the level of the [place] of Card[place]. There is no aneurysm or arteriovenous malformation. Mild atherosclerotic disease involves the vertical petrous, cavernous and supraclinoid internal carotid arteries. 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 Major intracranial vessels are patent. The left vertebral artery is dominant. IMPRESSION: 1. There is no aneurysm or arteriovenous malformation. 2. Atherosclerotic disease as described above. Electronically Signed by Sung Jimenes MD 12/27/2018 12:05 P
--- NOTE | 2018-12-27 11:54 | REP ---
MR BRAIN WITHOUT CONTRAST: HISTORY: Left-side weakness. COMPARISON: CT 12/27/2018 An area of increased signal intensity on T2-weighted images is present in the right basal ganglia. This represents an old lacunar infarction. Areas of increased signal intensity on T2-weighted images are present in the periventricular and subcortical white matter. This represents small vessel ischemic disease. There is no intraparenchymal hemorrhage, acute infarct, mass or midline shift. The ventricular system and cortical sulci as well as subarachnoid space in the posterior fossa are dilated consistent with moderate volume loss. There is no extracerebral collection. The sinuses are clear. IMPRESSION: 1. Old right basal ganglia lacunar infarction. 2. Small vessel ischemic disease. 3. Moderate volume loss. Electronically Signed by Sung Jimenes MD 12/27/2018 12:05 P
[2018-12-27 12:40] VITALS: BP 180/84
[2018-12-27 12:58] LABS: FOLATE 13.7 NG/ML
--- NOTE | 2018-12-28 05:47 | ECGEPIP ---
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
== END 2018-12-27 12:41 | disposition home or self-care (01) ==
LOC: M ED 08:08
DX: R20.2 Paresthesia of skin (principal); I67.82 Cerebral ischemia; I67.2 Cerebral atherosclerosis; I65.23 Occlusion and stenosis of bilateral carotid arteries; I48.91 Unspecified atrial fibrillation; I11.0 Hypertensive heart disease with heart failure; I50.9 Heart failure, unspecified; E11.9 Type 2 diabetes mellitus without complications; E78.5 Hyperlipidemia, unspecified; M10.9 Gout, unspecified; Z85.038 Personal history of other malignant neoplasm of large intestine; Z90.49 Acquired absence of other specified parts of digestive tract; Z79.899 Other long term (current) drug therapy; Z79.01 Long term (current) use of anticoagulants; Z79.4 Long term (current) use of insulin; Z79.82 Long term (current) use of aspirin

== ENCOUNTER 2019-01-13 19:38 | Inpatient (IN) | payer MEDICARE, MEDICAID ==
[~2019-01-13] VITALS: Ht 180.3 cm; Wt 94.0 kg
[~2019-01-13 19:38] MED LIST changes: +DELS1LIQ3 PO
[2019-01-13] MEDS ORDERED: MORPHINE 4 MG/ML 1ML VIAL/SYRINGE (J2270) IV PRN (20:15)
[2019-01-13] MEDS ORDERED: ONDANSETRON 4MG/2ML VIAL (J2405) IV ONE (20:15)
[2019-01-13 20:36] LABS: BASO % 0.2 % (0.0-1.0); EOS # 0.2 10^3/uL (0.0-0.50); EOS % 1.2 % (0.0-3.0); HEMATOCRIT 42.1 % (42.0-52.0); LYMPH # 1.1 10^3/uL (1.5-4.5); MEAN CORPUSCULAR HEMOGLOBIN 26.7 pg (27.0-33.0); MEAN CORPUSCULAR HGB CONC 30.9 g/dl (32.0-36.5); MEAN CORPUSCULAR VOLUME 86.4 fl (80.0-96.0); MONO # 0.7 10^3/uL (0.0-0.8); MONO % 4.6 % (0.0-5.0); NEUTROPHILS # 13.7 10^3/uL (1.8-7.7); NEUTROPHILS % 86.6 % (36.0-66.0); PLATELET COUNT, AUTOMATED 323 10^3/uL (150-450); RED BLOOD COUNT 4.87 10^6/uL (4.30-6.10); WHITE BLOOD COUNT 15.8 10^3/uL (4.0-10.0)
[2019-01-13] MEDS ORDERED: ISOVUE-370 76% 100ML VIAL (Q9967) As Ordered ONE (20:38)
[2019-01-13 20:48] LABS: INR 1.17; PROTHROMBIN TIME 15.1 SECONDS (12.1-14.4)
[2019-01-13 20:49] LABS: PARTIAL THROMBOPLASTIN TIME 33.4 SECONDS (25.4-37.6)
[2019-01-13 21:01] LABS: ALBUMIN 3.4 GM/DL (3.2-5.2); BILIRUBIN,DIRECT 0.2 MG/DL (0.0-0.2); BILIRUBIN,TOTAL 0.5 MG/DL (0.2-1.0)
--- NOTE | 2019-01-13 22:34 | REPVR ---
EXAM: CT Angiography Abdomen With Contrast EXAM DATE/TIME: 01/13/2019 8:41 PM CLINICAL HISTORY: 78 years old, male; Abdominal pain; Generalized; Additional info: Central abd pain, R/O dissection TECHNIQUE: Imaging protocol: Axial computed tomographic angiography images of the abdomen with intravenous contrast material. Coronal and sagittal reformatted images were created and reviewed. 3D rendering: MIP reconstructed images were created and reviewed. Radiation optimization: All CT scans at this facility use at least one of these dose optimization techniques: automated exposure control; mA and/or kV adjustment per patient size (includes targeted exams where dose is matched to clinical indication); or iterative reconstruction. Contrast material: ISOVUE 370; Contrast volume: 100 ml; Contrast route: IV; COMPARISON: CT ABD PELVIS WITH CONTRAST 10/15/2015 10:34 AM FINDINGS: Lungs: See Pleura Finding. Pleura: Small left pleural effusion. Compressive atelectasis both lung bases. VASCULATURE: Aorta: The aorta demonstrates mild atherosclerotic calcification. Small left paracentral aortic aneurysm in the distal normal aorta versus limited aortic dissection which opacifies with intravenous contrast media measuring 1.5 x 0.7 x 2 cm. Findings stable in appearance in comparison to the prior exam. Celiac trunk and mesenteric arteries: Atherosclerotic changes at the origin of the superior mesenteric artery without significant stenosis. Atherosclerotic changes at the origin of the celiac artery without significant stenosis. Renal arteries: Atherosclerotic changes at the origin of the right renal artery without stenosis with poststenotic dilatation. Atherosclerotic changes at the origin of the left renal artery without significant stenosis with poststenotic dilatation. Right iliac arteries: Atherosclerotic changes in the right iliac arteries. No aneurysm, stenosis, or occlusion. Left iliac arteries: Atherosclerotic changes in the left iliac arteries. No aneurysm, stenosis, or occlusion. ABDOMEN: Liver: There is a diffuse decrease in hepatic parenchymal density, consistent with fatty infiltration. Examination of the liver demonstrates a minimally lobular surface contour, and enlargement of the left lobe, findings which may be consistent with cirrhosis. Gallbladder and bile ducts: Normal. No calcified stones. No ductal dilation. Pancreas: There is diffuse pancreatic atrophy. Spleen: There is moderate splenomegaly with a maximum span of 16 centimeters. No focal abnormalities demonstrated. Adrenals: There is bilateral adrenal hyperplasia. Kidneys and ureters: Bilateral renal cysts measure up to 2.8 cm and the right kidney. Stomach and bowel: Multiple dilated loops of small bowel consistent with small bowel obstruction or diffuse ileus. Moderate diverticulosis is present in the visualized left colon. No diverticulitis. Status post right hemicolectomy. Intraperitoneal space: There is a small amount of free intraperitoneal fluid present. Bones/joints: Diffuse decrease in bone mineralization consistent with osteoporosis or osteopenia. Moderate to severe central spinal stenosis L4-5. Soft tissues: Unremarkable. Lymph nodes: Unremarkable. No enlarged lymph nodes. IMPRESSION: 1. There is a small amount of free intraperitoneal fluid present. 2. There is a diffuse decrease in hepatic parenchymal density, consistent with fatty infiltration. 3. Examination of the liver demonstrates a minimally lobular surface contour, and enlargement of the left lobe, findings which may be consistent with cirrhosis. 4. There is moderate splenomegaly. No focal abnormalities demonstrated. 5. There is bilateral adrenal hyperplasia. 6. There is diffuse pancreatic atrophy. 7. The aorta demonstrates mild atherosclerotic calcification. Small left paracentral aortic aneurysm in the distal normal aorta versus limited aortic dissection without branch vessel involvement. Findings stable in appearance in comparison to the prior exam. 8. Moderate diverticulosis is present in the visualized left colon. No diverticulitis. Status post right hemicolectomy. Electronically signed by: Dutch Milligan On 01/13/2019 22:34:28 PM
--- NOTE | 2019-01-13 22:36 | REPVR ---
EXAM: CT Pelvis Without Contrast EXAM DATE/TIME: 01/13/2019 8:59 PM CLINICAL HISTORY: 78 years old, male; Abdominal pain; Other: General; Patient HX: PT just had angio abd. . . Added on pelvis; Additional info: Abd pain, vomiting, ? sbo TECHNIQUE: Imaging protocol: Axial computed tomography images of the pelvis without intravenous contrast. Coronal and sagittal reformatted images were created and reviewed. Radiation optimization: All CT scans at this facility use at least one of these dose optimization techniques: automated exposure control; mA and/or kV adjustment per patient size (includes targeted exams where dose is matched to clinical indication); or iterative reconstruction. COMPARISON: CT ABD PELVIS W/O CONTRAST 08/16/2016 10:59 AM FINDINGS: Stomach and bowel: Multiple dilated loops of small bowel consistent with small bowel obstruction less likely ileus. Status post right hemicolectomy. Moderate diverticulosis is present in the distal colon. No diverticulitis. Appendix: No evidence of appendicitis. Bladder: Normal. No mass. Reproductive: Normal as visualized. Intraperitoneal space: Unremarkable. No free air. No significant fluid collection. Lymph nodes: Unremarkable. No enlarged lymph nodes. Bones/joints: The spine demonstrates mild degenerative changes. Soft tissues: Unremarkable. IMPRESSION: 1. Multiple dilated loops of small bowel consistent with small bowel obstruction less likely ileus. 2. Status post right hemicolectomy. 3. Moderate diverticulosis is present in the distal colon. No diverticulitis. Electronically signed by: Dutch Milligan On 01/13/2019 22:36:08 PM
[2019-01-13] MEDS ORDERED: SYST1SOL OS (23:28)
[2019-01-14] MEDS ORDERED: DEXTROSE 50% 50 ML SYRINGE IV PRN (00:45)
[2019-01-14] MEDS ORDERED: GLUCOSE 4 GM CHEW TABLET PO PRN (00:45)
[2019-01-14] MEDS ORDERED: GLUCAGON FOR INJ 1 MG VIAL (J1610) SC PRN (00:45)
[2019-01-14] MEDS ORDERED: MORPHINE 4 MG/ML 1ML VIAL/SYRINGE (J2270) IV PRN (01:00)
[2019-01-14 03:52] VITALS: BP 158/85
[2019-01-14] MEDS: LISINOPRIL 5 MG TAB PO SCH ×2 (04:14→21:42)
[2019-01-14] MEDS: NS 1,000 ML IV SCH ×2 (04:15→17:59)
--- NOTE | 2019-01-14 05:51 | ECGEPIP ---
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
[2019-01-14 06:00] VITALS: BP 160/83
[2019-01-14] MEDS: HEPARIN SOD (PORCINE) 5000 UNITS/ML VIAL SC SCH ×2 (06:14→18:22)
[2019-01-14] MEDS: HumaLOG INSULIN (NovoLOG) PER UNIT SC SCH ×3 (07:30→17:30)
--- NOTE | 2019-01-14 08:15 | HPE ---
DATE OF ADMISSION: 01/14/2019 PRIMARY CARE PROVIDER: Dr. Wen ATTENDING PHYSICIAN: Dr. Lyle CONSULTING PHYSICIAN: Dr. Lakahni from the surgical service. CHIEF COMPLAINT: Abdominal pain. HISTORY OF PRESENT ILLNESS: The patient is a 78-year-old white male with history of colectomy due to colon cancer who presented to the hospital for evaluation of abdominal pain. History is provided by himself. Per the patient, he was doing fine until this evening around 10:30 he suddenly developed abdominal pain which initially started with the middle abdomen and then diffused to other places and the pain is constant, the worst pain is about 10/10 in severity. It is sharp pain, no radiation, and any movement makes the pain worse. Also, he threw up once in the ER. He stated he had a bowel movement this morning and he denies any other symptoms. In the ER, he had an abdominal CT done which demonstrated he had bowel obstruction and the surgical service was called for consultation. Meanwhile, the medicine service was called for admission. REVIEW OF SYSTEMS: Denies fevers. No chills. No headache. No blurry vision. No shortness of breath. No cough. No chest pain. Positive abdominal pain with vomiting, but no diarrhea. No tingling, numbness or weakness in the arms and lower extremities. All other systems were reviewed, but were negative. PAST MEDICAL HISTORY: 1. Hypertension. 2. Type 2 diabetes. 3. Dyslipidemia. 4. History of colon cancer status post right colectomy. 5. Chronic atrial fibrillation on Eliquis. 6. History of coronary artery disease (CAD), status post stent. 7. History of gout. PAST SURGICAL HISTORY: Right colectomy as well as colonoscopy with polyps removed. ALLERGIES: No known drug allergies. MEDICATIONS: Reviewed. SOCIAL HISTORY: Remote tobacco use. Denies alcohol use. Denies illicit drug abuse. He lives with his female partner for more than 30 years. He has one son. He is a DO NOT RESUSCITATE, DO NOT INTUBATE. PHYSICAL EXAMINATION: VITAL SIGNS: Temperature 98.3, heart rate 109, respiratory rate 20, blood pressure 213/91, oxygen saturation 92% on room air. GENERAL: He is awake, alert and oriented times three. He is not in acute distress. HEENT: Atraumatic. Pupils equal, round, and reactive to light. No jaundice. Extraocular muscles intact. Ears, nose and throat are normal. Mouth mucous not dry. NECK: No jugular venous distention (JVD). No bruits. LUNGS: Clear, no wheezing, no crackles. HEART: S1, S2 irregular, but not tachycardic. ABDOMEN: Soft. Bowel sounds positive. Diffuse tenderness but no rebound. LOWER EXTREMITIES: No edema in bilateral lower extremities. NEUROLOGIC: Nonfocal. SKIN: No rash. PSYCHIATRIC: No acute psychosis. DIAGNOSTIC LABORATORY STUDIES: Including the following CBC with differential WBC 15.8, hemoglobin and hematocrit 13/42, platelets 223. Sodium 141, potassium 4.1, chloride 105, bicarb 28, BUN 20, creatinine 1.2, glucose 78. CT of abdomen and pelvis reviewed. IMPRESSION: 1. Small bowel obstruction. 2. History of colon cancer post colectomy. 3. Hypertension. 4. Dyslipidemia. 5. Type 2 diabetes. 6. Chronic atrial fibrillation. PLAN: Patient will be admitted to the medical/surgical floor with remote telemetry. Will keep him nothing by mouth. Will gently hydrate him. Dr. Lakhani from the surgical service will consult the patient and further recommendations will follow. Will hold his Eliquis due to possible procedure, and heparin will be used for deep vein thrombosis (DVT) prophylaxis. Otherwise, will continue most medications and start him on insulin sliding scale for sugar control.
--- NOTE | 2019-01-14 08:28 | CR ---
DATE OF CONSULTATION: 01/14/2019 REASON FOR CONSULTATION: Small bowel obstruction. HISTORY OF PRESENT ILLNESS: The patient is a 78-year-old man with multiple medical issues and a history of several prior bowel resections who presented to the emergency department at approximately 7:30 in the evening of the complaining of abdominal pain. The patient reported that the discomfort had started at about 10-o'clock in the morning on the and persisted during the course of the day. He had some nausea but no vomiting. In the emergency department he was found to have tenderness across the upper abdomen. He did have an episode of vomiting after presentation to the emergency room (ER) according to the patient. He underwent evaluation with some laboratory studies and a CT scan was obtained. The labs showed somewhat elevated white blood cell count at 16,000 with 87% neutrophils. A CT scan of the abdomen and pelvis revealed evidence of prior surgery with some dilated small-bowel loops in the upper abdomen but some distal nondilated small bowel. This was felt to be consistent with a small bowel obstruction and the patient was felt to be a candidate for admission. Because of his multiple medical issues including atrial fib on anticoagulation and prior coronary artery disease and diabetes, he is being admitted by the hospitalist for management of these issues and I am consulted to recommend any surgical management for the obstruction. ALLERGIES: The patient has no reported drug allergies. MEDICATIONS: The patient's current medications include: - allopurinol - apixaban - aspirin - atorvastatin - diltiazem - hydrochloride ER - ferrous sulfate - Glargine insulin - Liraglutide - lisinopril, - metformin - nitroglycerin - nortriptyline - pantoprazole - propylene glycol/peg 400 eye drops - Carafate - torsemide. PAST MEDICAL HISTORY: Significant for Hypertension. Diabetes. Hyperlipidemia. History of colon cancer. Atrial fibrillation on Eliquis. Coronary artery disease status post myocardial infarction and stenting. Gout. PAST SURGICAL HISTORY: Significant for Right hemicolectomy many years ago and a transverse colectomy for cancer about 2 years ago. He had a most recent colonoscopy locally in March [address] Nino. He has a history of prior cataract extraction and also had undergone a reduction and fixation of lower extremity fracture. FAMILY HISTORY: Noncontributory. REVIEW OF SYSTEMS: Shows no prior episode of bowel obstruction. He has not had any similar discomfort previously. He reports no passage of flatus or stool today. PHYSICAL EXAMINATION: Reveals a somewhat obese man lying quietly on the ER stretcher. He is alert and oriented and responsive. SKIN: Is warm and dry. He appears slightly pale. Sclerae are anicteric. Mucous membranes are moist. Neck is supple. HEART: Exam shows an irregular rhythm at a rate of about 100. LUNGS: The lungs show clear breath sounds bilaterally. ABDOMEN: The abdomen is somewhat obese and protuberant. He has a few faint bowel sounds. There is some tympany to percussion in the epigastrium. He has some mild tenderness, which is direct in the mid epigastrium and across the upper quadrants bilaterally. There is no definite mass appreciated. He does have several long midline scars consistent with his prior surgery. EXTREMITIES: Lower extremities are without edema and he has palpable radial and pedal pulses. LABORATORY STUDIES: Showed a white count of 16 with a hemoglobin of 13, hematocrit of 42 and platelet count of 323,000. His differential showed 87% neutrophils and 7% lymphocytes. Chemistry profile showed sodium of 139, potassium 3.8, chloride 98, CO2 of 27, BUN of 22, creatinine 1.2 and glucose of 126. Liver function tests were normal with the exception of an alk phos of 119. Lipase was 87. The CT scan images I reviewed personally. There appear to be two staple lines that can be identified. One appears to be in the very proximal transverse colon and appears to be an ileocolic anastomosis. There is another anastomosis which is somewhat more dilated in the mid to left-sided transverse colon. He does have some full proximal small bowel with some short sections of distal small bowel looking very small and decompressed and a minimal amount of free intraperitoneal fluid and there is diverticulosis noted in the left colon. IMPRESSION: 1. Abdominal pain, possible small bowel obstruction secondary to adhesions. 2. Status post two separate colectomies for colon carcinoma. 3. Atrial fibrillation on anticoagulation. 4. History of coronary artery disease status post stenting. 5. Diabetes mellitus type 2. 6. Hypercholesterolemia. 7. Obstructive sleep apnea. RECOMMENDATIONS: At this point the patient likely has a small bowel obstruction secondary to adhesions. An NG tube was placed in the emergency department and I would recommend continuing this to low intermittent suction. He should be monitored closely for evidence of resolution of his obstruction. Passage of flatus and development of bowel movements with resolution of his pain would be consistent with resolution of his obstruction. Certainly, if he does not show evidence for resolution within the next 48-72 hours, surgery must be considered. He should receive maintenance IV fluid. I would recommend holding his anticoagulation for now until a determination is made whether surgery would be necessary for his obstruction. We will be happy to follow along as we wait to see if he will resolve this on his own or require surgery for his obstruction.
[2019-01-14] MEDS: POLYVINYL ALCOHOL OPHTH SOLN 15 ML(LIQUITEARS) OS SCH ×4 (09:42→21:41)
[2019-01-14] MEDS: NORTRIPTYLINE 10 MG CAP PO SCH ×3 (09:42→21:41)
--- NOTE | 2019-01-14 11:48 | IPNPDOC ---
Text Note Date of Service The patient was seen on 01/14/19. NOTE Subjective: feels much better today. Abdominal pain is much better. Has NG tube in place with is connected to suction. Telemetry shows that he is in A flutter but rate is controlled. Physical Exam Vitals : As below GENERAL: He is awake, alert and oriented times three. He is not in acute distress. Sitting up by the side of the bed. HEENT: Atraumatic. Pupils equal, round, and reactive to light. No jaundice. Extraocular muscles intact. Ears, nose and throat are normal. Mouth mucous not dry. NECK: No jugular venous distention (JVD). No bruits. LUNGS: Clear, no wheezing, no crackles. HEART: S1, S2 irregular, but not tachycardic. No rub, murmur or gallop. ABDOMEN: Soft. Bowel sounds positive. Diffuse tenderness but no rebound. LOWER EXTREMITIES: No edema in bilateral lower extremities. NEUROLOGIC: No focal neuro deficits. SKIN: No rash. PSYCHIATRIC: No acute psychosis. Labs and radiology : reviewed. Assessment and Plan: This is a 78-year-old white male With PMH of Afib/ futter on eliquis, CAD s/p stents, Hypertension, Dyslipidemia, gout, diabetes, history of right hemicolectomy several years ago then a transverse colectomy in 2018 for colon cancer who presented to the hospital for evaluation of abdominal pain. In the ER, he had an abdominal CT done which demonstrated he had bowel obstruction and the surgical service was called for consultation. Meanwhile, the medicine service was called for admission. SBO Continue NPO, IVF, NG tube follow surgery recommendations. Afib/ aflutter rate controlled will continue diltiazem will hold eliquis as the patient may need surgery if SBO does not resolve but conservative means. Hypertension BP controlled diltiazem and lisinopril Diastolic CHF with moderate plmonary hypertension patient is euvolemic at present continue IVF hold torsemide Dyslipidemia hold statin Diabetes Lispo q 6 hors while he remains NPO. hold metformin and lantus and victoza. GERD continue PPI GOT no issues hold allopurinol DVT prophylaxis: heparin. VS,Fishbone, I+O VS, Fishbone, I+O Laboratory Tests 01/13/19 20:22 Red Blood Count 4.87, Mean Corpuscular Volume 86.4, Mean Corpuscular Hemoglobin 26.7 L, Mean Corpuscular Hemoglobin Concent 30.9 L, Red Cell Distribution Width 19.1 H, Neutrophils (%) (Auto) 86.6 H, Lymphocytes (%) (Auto) 7.0 L, Monocytes (%) (Auto) 4.6, Eosinophils (%) (Auto) 1.2, Basophils (%) (Auto) 0.2, Neutrophils # (Auto) 13.7 H, Lymphocytes # (Auto) 1.1 L, Monocytes # (Auto) 0.7, Eosinophils # (Auto) 0.2, Basophils # (Auto) 0.0 Vital Signs Date Time Temp Pulse Resp B/P (MAP) Pulse Ox O2 Delivery O2 Flow Rate FiO2 01/14/19 09:42 94 149/74 01/14/19 06:00 96.8 18 93 2.0 01/14/19 03:25 Nasal Cannula I&O- Last 24 Hours up to 6 AM 01/14/19 06:00 Intake Total 0 ml Output Total 400 ml Balance -400 ml ALONA VARGAS MD Jan 14, 2019 11:48
[2019-01-14 12:21] LABS: BASO % 0.2 % (0.0-1.0); EOS # 0.1 10^3/uL (0.0-0.50); EOS % 0.4 % (0.0-3.0); HEMATOCRIT 41.8 % (42.0-52.0); HEMOGLOBIN 12.7 g/dl (13.5-17.5); LYMPH # 0.8 10^3/uL (1.5-4.5); LYMPH % 5.8 % (24.0-44.0); MEAN CORPUSCULAR HEMOGLOBIN 25.7 pg (27.0-33.0); MEAN CORPUSCULAR HGB CONC 30.4 g/dl (32.0-36.5); MEAN CORPUSCULAR VOLUME 84.6 fl (80.0-96.0); MONO # 0.7 10^3/uL (0.0-0.8); MONO % 5.3 % (0.0-5.0); NEUTROPHILS # 11.4 10^3/uL (1.8-7.7); PLATELET COUNT, AUTOMATED 306 10^3/uL (150-450); RED BLOOD COUNT 4.94 10^6/uL (4.30-6.10); WHITE BLOOD COUNT 12.9 10^3/uL (4.0-10.0)
[2019-01-14 12:45] LABS: BLOOD UREA NITROGEN 21 MG/DL (7-18); CALCIUM LEVEL 9.3 MG/DL (8.8-10.2); CARBON DIOXIDE LEVEL 31 MEQ/L (21-32); CHLORIDE LEVEL 106 MEQ/L (98-107); GLOMERULAR FILTRATION RATE > 60.0 (>42); GLUCOSE, FASTING 132 MG/DL (70-100); POTASSIUM SERUM 4.6 MEQ/L (3.5-5.1); SODIUM LEVEL 143 MEQ/L (136-145)
[2019-01-14] MEDS: PANTOPRAZOLE 40MG INJ (PROTONIX) (C9113) IV SCH ×2 (13:52→21:42)
[2019-01-14 14:00] VITALS: BP 170/70
[2019-01-14 22:00] VITALS: BP 156/84
--- NOTE | 2019-01-15 00:06 | IPN ---
DATE: 01/14/2019 HISTORY: The patient was admitted very early the morning of January 14, 2019 with evidence for a bowel obstruction. I was consulted and saw him in the emergency department. Since admission, he reports that he has been feeling a little better with less abdominal discomfort. He still has not had any flatus or bowel movement. The nasogastric (NG) tube remains in place. Vital signs: Show that he has been afebrile since admission. His pulse is in the 70s currently with a somewhat elevated blood pressure. Intake and output show that he has had 900 mL of urine output today with 700 out from his NG tube. PHYSICAL EXAMINATION: Patient is lying quietly on the hospital bed. He appears in good spirits and is alert and oriented. Abdomen is obese. He does have some bowel sounds present on auscultation. The abdomen is soft. He does have some mild tenderness on palpation, particularly in the right upper quadrant slightly above the level of the umbilicus. There is no guarding or rebound. Laboratory studies today show a white count of 13,000 with a hemoglobin of 13, hematocrit of 42 and a platelet count of 306,000. Differential count showed 88% neutrophils, 6% lymphocytes and 5% monocytes. Chemistry profile showed normal electrolytes with a BUN of 21, creatinine 1 and a glucose of 132. IMPRESSION: Patient is stable with persistent evidence for a small bowel obstruction. The NG tube continues to drain, and he has had no flatus or bowel movement. PLAN: The patient will be monitored for at least another 24 hours to see if there will be evidence for spontaneous resolution of his obstruction.
[2019-01-15] MEDS: HEPARIN SOD (PORCINE) 5000 UNITS/ML VIAL SC SCH ×2 (05:45→17:51)
[2019-01-15 06:00] VITALS: BP 146/67
[2019-01-15 06:12] LABS: BASO % 0.2 % (0.0-1.0); EOS % 0.3 % (0.0-3.0); HEMATOCRIT 40.7 % (42.0-52.0); HEMOGLOBIN 12.5 g/dl (13.5-17.5); LYMPH # 0.8 10^3/uL (1.5-4.5); LYMPH % 7.6 % (24.0-44.0); MEAN CORPUSCULAR HEMOGLOBIN 26.4 pg (27.0-33.0); MEAN CORPUSCULAR HGB CONC 30.7 g/dl (32.0-36.5); MONO # 0.8 10^3/uL (0.0-0.8); MONO % 7.3 % (0.0-5.0); NEUTROPHILS # 8.7 10^3/uL (1.8-7.7); NEUTROPHILS % 84.2 % (36.0-66.0); PLATELET COUNT, AUTOMATED 274 10^3/uL (150-450); RED BLOOD COUNT 4.73 10^6/uL (4.30-6.10); WHITE BLOOD COUNT 10.3 10^3/uL (4.0-10.0)
[2019-01-15 06:37] LABS: BLOOD UREA NITROGEN 24 MG/DL (7-18); CALCIUM LEVEL 9.1 MG/DL (8.8-10.2); CARBON DIOXIDE LEVEL 28 MEQ/L (21-32); CHLORIDE LEVEL 108 MEQ/L (98-107); CREATININE FOR GFR 0.87 MG/DL (0.70-1.30); GLOMERULAR FILTRATION RATE > 60.0 (>42); GLUCOSE, FASTING 139 MG/DL (70-100); MAGNESIUM LEVEL 2.3 MG/DL (1.8-2.4); SODIUM LEVEL 143 MEQ/L (136-145)
[2019-01-15] MEDS: PANTOPRAZOLE 40MG INJ (PROTONIX) (C9113) IV SCH ×2 (08:13→20:45)
[2019-01-15] MEDS: HumaLOG INSULIN (NovoLOG) PER UNIT SC SCH ×3 (08:13→17:51)
[2019-01-15] MEDS: NORTRIPTYLINE 10 MG CAP PO SCH ×3 (08:13→20:45)
[2019-01-15] MEDS: NS 1,000 ML IV SCH ×2 (08:13→17:51)
[2019-01-15] MEDS: POLYVINYL ALCOHOL OPHTH SOLN 15 ML(LIQUITEARS) OS SCH ×4 (08:14→20:45)
[2019-01-15 14:00] VITALS: BP 169/80
--- NOTE | 2019-01-15 17:08 | IPNPDOC ---
Text Note Date of Service The patient was seen on 01/15/19. NOTE Subjective: Patient is 78-year-old male with a PMhx of Atrial fibrillation/Atrial flutter (on Eliquis), CAD s/p stent, HTN, DLP, DM2, Gout, Hx of R hemicolectomy several years ago, followed by a transverse colectomy in 2018 for colon cancer who presented to the ER for abdominal evaluation of his abdominal pain. In the emergency room, patient was found to have imaging that was consistent with a small bowel obstruction. Patient was admitted to hospitalist service for further evaluation and treatment and general surgery was called on consultation Patient was seen and examined at the bedside. . Patient seems NG tube in place. He denies any nausea, vomiting, abdominal pain. Patient has not yet passed any gas or has had any bowel movements. He denies any urinary discomfort. Denies chest pain, shortness of breath or palpitations. Objective: Vitals (See below) General: Lying in bed, no acute distress, comfortable, Awake / Alert HEENT: NC, AT, +NG tube CVS: +S1S2 Lungs: Fair air entry b/l, -w/r/r Abdomen: Soft, ND, NT Extremities: - Edema, - Calf tenderness Assessment and plan: Abdominal pain - likely 2/2 SBO - Will c/w NPO, IVF and NG tube - General surgery on consultation; will follow recommendations Afib/ aflutter - Currently appears rate controlled - c/w rate control with Diltiazem - Eliquis on hold (re: possible intervention) Hypertension - BP well controlled - c/w Diltiazem and Lisinopril Diastolic CHF with moderate pulmonary hypertension - Patient is currently euvolemic and does not display any signs of fluid overload - c/w NS for now - Will hold Torsemide DLP - Hold statin Diabetes - c/w ISS q6h Gout - Will hold Allopurinol (re: NPO) GI prophylaxis - c/w Protonix DVT prophylaxis - c/w Heparin VS,Fishbone, I+O VS, Fishbone, I+O Laboratory Tests 01/15/19 05:20 Red Blood Count 4.73, Mean Corpuscular Volume 86.0, Mean Corpuscular Hemoglobin 26.4 L, Mean Corpuscular Hemoglobin Concent 30.7 L, Red Cell Distribution Width 19.0 H, Neutrophils (%) (Auto) 84.2 H, Lymphocytes (%) (Auto) 7.6 L, Monocytes (%) (Auto) 7.3 H, Eosinophils (%) (Auto) 0.3, Basophils (%) (Auto) 0.2, Neutrophils # (Auto) 8.7 H, Lymphocytes # (Auto) 0.8 L, Monocytes # (Auto) 0.8, Eosinophils # (Auto) 0.0, Basophils # (Auto) 0.0, Calcium Level 9.1 Vital Signs Date Time Temp Pulse Resp B/P (MAP) Pulse Ox O2 Delivery O2 Flow Rate FiO2 01/15/19 14:00 97.7 92 17 169/80 (109) 90 01/15/19 06:00 2.0 01/14/19 03:25 Nasal Cannula I&O- Last 24 Hours up to 6 AM 01/15/19 06:00 Intake Total 1050 ml Output Total 2100 ml Balance -1050 ml LASHAUN BRIDGES MD Jan 15, 2019 17:08
[2019-01-15] MEDS: LISINOPRIL 5 MG TAB PO SCH (20:45)
[2019-01-15 22:00] VITALS: BP 156/82
[2019-01-16] MEDS: HEPARIN SOD (PORCINE) 5000 UNITS/ML VIAL SC SCH ×2 (05:24→18:25)
[2019-01-16 06:00] VITALS: BP 146/76
[2019-01-16 06:29] LABS: BASO % 0.3 % (0.0-1.0); EOS % 0.6 % (0.0-3.0); HEMATOCRIT 38.1 % (42.0-52.0); HEMOGLOBIN 11.5 g/dl (13.5-17.5); LYMPH # 0.7 10^3/uL (1.5-4.5); LYMPH % 9.3 % (24.0-44.0); MEAN CORPUSCULAR HEMOGLOBIN 26.4 pg (27.0-33.0); MEAN CORPUSCULAR HGB CONC 30.2 g/dl (32.0-36.5); MEAN CORPUSCULAR VOLUME 87.4 fl (80.0-96.0); MONO # 0.6 10^3/uL (0.0-0.8); MONO % 8.2 % (0.0-5.0); NEUTROPHILS # 5.7 10^3/uL (1.8-7.7); NEUTROPHILS % 81.2 % (36.0-66.0); PLATELET COUNT, AUTOMATED 242 10^3/uL (150-450); RED BLOOD COUNT 4.36 10^6/uL (4.30-6.10)
[2019-01-16] MEDS: NS 1,000 ML IV SCH (06:35)
[2019-01-16 06:44] LABS: BLOOD UREA NITROGEN 22 MG/DL (7-18); CALCIUM LEVEL 8.6 MG/DL (8.8-10.2); CARBON DIOXIDE LEVEL 27 MEQ/L (21-32); CHLORIDE LEVEL 114 MEQ/L (98-107); CREATININE FOR GFR 0.95 MG/DL (0.70-1.30); GLOMERULAR FILTRATION RATE > 60.0 (>42); GLUCOSE, FASTING 133 MG/DL (70-100); POTASSIUM SERUM 3.8 MEQ/L (3.5-5.1); SODIUM LEVEL 147 MEQ/L (136-145)
[2019-01-16] MEDS: PANTOPRAZOLE 40MG INJ (PROTONIX) (C9113) IV SCH ×2 (08:45→20:03)
[2019-01-16] MEDS: NORTRIPTYLINE 10 MG CAP PO SCH ×3 (08:46→20:04)
[2019-01-16] MEDS: POLYVINYL ALCOHOL OPHTH SOLN 15 ML(LIQUITEARS) OS SCH ×4 (08:47→20:09)
[2019-01-16] MEDS: D5W/0.45% SODIUM CHLORIDE 1,000 ML IV SCH ×2 (09:54→22:20)
--- NOTE | 2019-01-16 10:09 | IPN ---
DATE: 01/15/2019 HISTORY: The patient was admitted to the hospitalist service on the morning of January 14 with multiple medical problems and possible small bowel obstruction. He has been maintained with a nasogastric tube in place with IV hydration. He reports today that he still is not passing any flatus or stool and has some abdominal pain though this is not severe currently. Vital signs show that he has been afebrile over the past 24 hours. Pulse is about 100 and his blood pressure is in the 150s to 160s systolic. Intake and output shows that yesterday he had 700 mL of drainage in his nasogastric tube and today only 300 mL recorded to this time. PHYSICAL EXAMINATION: The patient is lying quietly on the hospital bed. He has apparently dislodged his NG tube while washing his face earlier this evening and this has not yet been reinserted. He is complaining of some mild abdominal discomfort but it is quite mild currently. He has not had any nausea or vomiting. Abdomen is mildly obese. He has bowel sounds present. The abdomen is soft throughout. He has some mild tenderness approximately low in the midline of the abdomen. There is no mass appreciated. LABORATORY STUDIES: Today showed a white count of 10, hemoglobin of 12, hematocrit 41 and a platelet count of 274,000. Differential count shows 84% neutrophils, 8% lymphocytes and 7% monocytes. His chemistry profile shows sodium of 143, potassium 4.0, chloride 108, CO2 of 28, BUN of 24, creatinine 0.9 and a glucose of 139. IMPRESSION: The patient still shows some evidence for a persistent bowel obstruction. He has tenderness and no passage of flatus or stool. His NG tube output has diminished. PLAN: We will continue to monitor his NG output. I will obtain a repeat KUB in the morning of the . It looks like he may well require surgical intervention.
--- NOTE | 2019-01-16 10:16 | REP ---
KUB: Two views. History: Followup small bowel obstruction. Comparison study: CT abdomen and pelvis 01/13/2019. Findings: There are moderately dilated small bowel loops throughout the central abdomen. A small quantity of air and stool is seen in the distal left colon. There are scattered surgical clips. The small bowel distension pattern is essentially unchanged from the January 13, 2019 CT radiographs. Impression: Persistent small bowel obstruction pattern. Electronically Signed by Chriss Hinkle MD 01/16/2019 11:12 A
--- NOTE | 2019-01-16 11:52 | IPNPDOC ---
Text Note Date of Service The patient was seen on 01/16/19. NOTE Subjective: Patient is 78-year-old male with a PMhx of Atrial fibrillation/Atrial flutter (on Eliquis), CAD s/p stent, HTN, DLP, DM2, Gout, Hx of R hemicolectomy several years ago, followed by a transverse colectomy in 2018 for colon cancer who presented to the ER for abdominal evaluation of his abdominal pain. In the emergency room, patient was found to have imaging that was consistent with a small bowel obstruction. Patient was admitted to hospitalist service for further evaluation and treatment and general surgery was called on consultation Patient was seen and examined at the bedside. Patient accidentally removed his NG tube yesterday evening. , Currently patient denies nausea or vomiting. Denies any abdominal pain. Has not yet had any bowel movements or passed any gas. Denies chest pain, shortness of breath or palpitations. Objective: Vitals (See below) General: Lying in bed, no acute distress, comfortable, Awake / Alert HEENT: NC, AT, CVS: +S1S2 Lungs: No evidence of wheezing, rhonchi or rales Abdomen: Soft, nondistended and nontender Extremities: No evidence of LE edema, - Calf tenderness Assessment and plan: Abdominal pain - likely 2/2 SBO - Will c/w NPO and IVF - s/p NG tube - had accidental removal yesterday - XR Abdomen 01/16: Persistent small bowel obstruction pattern. - General surgery on consultation; will follow recommendations - likely will require surgery Afib/ aflutter - Currently appears rate controlled - c/w rate control with Diltiazem - Eliquis on hold (re: possible intervention) Hypertension - BP well controlled - c/w Diltiazem and Lisinopril Diastolic CHF with moderate pulmonary hypertension - Patient is currently euvolemic and does not display any signs of fluid overload - c/w NS for now - Will hold Torsemide Hypernatremia - likely 2/2 normal saline - Will adjust fluids to D5 1/2 NS DLP - Hold statin Diabetes - c/w ISS q6h Gout - Will hold Allopurinol (re: NPO) GI prophylaxis - c/w Protonix DVT prophylaxis - c/w Heparin Disposition: - Possible surgical intervention VS,Fishbone, I+O VS, Fishbone, I+O Laboratory Tests 01/16/19 06:08 Red Blood Count 4.36, Mean Corpuscular Volume 87.4, Mean Corpuscular Hemoglobin 26.4 L, Mean Corpuscular Hemoglobin Concent 30.2 L, Red Cell Distribution Width 19.0 H, Neutrophils (%) (Auto) 81.2 H, Lymphocytes (%) (Auto) 9.3 L, Monocytes (%) (Auto) 8.2 H, Eosinophils (%) (Auto) 0.6, Basophils (%) (Auto) 0.3, Neutrophils # (Auto) 5.7, Lymphocytes # (Auto) 0.7 L, Monocytes # (Auto) 0.6, Eosinophils # (Auto) 0.0, Basophils # (Auto) 0.0, Calcium Level 8.6 L Vital Signs Date Time Temp Pulse Resp B/P (MAP) Pulse Ox O2 Delivery O2 Flow Rate FiO2 01/16/19 08:46 95 159/82 01/16/19 06:00 97.8 20 93 01/15/19 06:00 2.0 01/14/19 03:25 Nasal Cannula I&O- Last 24 Hours up to 6 AM 01/16/19 05:59 Intake Total 900 ml Output Total 1150 ml Balance -250 ml LASHAUN BRIDEGS MD Jan 16, 2019 11:52
[2019-01-16 14:00] VITALS: BP 124/70
[2019-01-16] MEDS: LISINOPRIL 5 MG TAB PO SCH (20:08)
[2019-01-16 22:00] VITALS: BP 134/79
[2019-01-17] MEDS: HEPARIN SOD (PORCINE) 5000 UNITS/ML VIAL SC SCH (05:33)
[2019-01-17 06:00] VITALS: BP 148/87
[2019-01-17 06:10] LABS: BASO % 0.1 % (0.0-1.0); EOS # 0.1 10^3/uL (0.0-0.50); EOS % 1.9 % (0.0-3.0); HEMATOCRIT 35.9 % (42.0-52.0); LYMPH # 0.8 10^3/uL (1.5-4.5); LYMPH % 11.2 % (24.0-44.0); MEAN CORPUSCULAR HEMOGLOBIN 27.1 pg (27.0-33.0); MEAN CORPUSCULAR HGB CONC 30.6 g/dl (32.0-36.5); MEAN CORPUSCULAR VOLUME 88.4 fl (80.0-96.0); MONO # 0.5 10^3/uL (0.0-0.8); MONO % 7.9 % (0.0-5.0); NEUTROPHILS # 5.2 10^3/uL (1.8-7.7); NEUTROPHILS % 78.6 % (36.0-66.0); PLATELET COUNT, AUTOMATED 229 10^3/uL (150-450); RED BLOOD COUNT 4.06 10^6/uL (4.30-6.10); WHITE BLOOD COUNT 6.7 10^3/uL (4.0-10.0)
[2019-01-17 06:21] LABS: BLOOD UREA NITROGEN 16 MG/DL (7-18); CALCIUM LEVEL 8.5 MG/DL (8.8-10.2); CARBON DIOXIDE LEVEL 27 MEQ/L (21-32); CHLORIDE LEVEL 115 MEQ/L (98-107); CREATININE FOR GFR 0.81 MG/DL (0.70-1.30); GLOMERULAR FILTRATION RATE > 60.0 (>42); GLUCOSE, FASTING 147 MG/DL (70-100); POTASSIUM SERUM 3.5 MEQ/L (3.5-5.1); SODIUM LEVEL 147 MEQ/L (136-145)
--- NOTE | 2019-01-17 07:45 | ECGEPIP ---
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
[2019-01-17] MEDS: PANTOPRAZOLE 40MG INJ (PROTONIX) (C9113) IV SCH ×2 (08:05→21:56)
[2019-01-17] MEDS: NORTRIPTYLINE 10 MG CAP PO SCH ×3 (08:08→21:55)
[2019-01-17] MEDS: POLYVINYL ALCOHOL OPHTH SOLN 15 ML(LIQUITEARS) OS SCH ×4 (08:08→21:55)
[2019-01-17] MEDS: D5W/0.45% SODIUM CHLORIDE 1,000 ML IV SCH (11:33)
--- NOTE | 2019-01-17 11:40 | IPNPDOC ---
Text Note Date of Service The patient was seen on 01/17/19. NOTE Subjective: Patient is 78-year-old male with a PMhx of Atrial fibrillation/Atrial flutter (on Eliquis), CAD s/p stent, HTN, DLP, DM2, Gout, Hx of R hemicolectomy several years ago, followed by a transverse colectomy in 2018 for colon cancer who presented to the ER for abdominal evaluation of his abdominal pain. In the emergency room, patient was found to have imaging that was consistent with a small bowel obstruction. Patient was admitted to hospitalist service for further evaluation and treatment and general surgery was called on consultation Patient was seen and examined at the bedside. Patient has reported that he did not experience any nausea, vomiting, abdominal pain or bowel movements. . She has reported ability to pass gas. Denies any chest pain, shortness of breath or palpitations. Denies any urinary discomfort. Objective: Vitals (See below) General: Lying in bed, no acute distress, comfortable, Awake / Alert HEENT: NC, AT, CVS: +S1S2 Lungs: -w/r/r Abdomen: Soft, non-tender and no distention Extremities: LE are without any edema, - Calf tenderness Assessment and plan: Abdominal pain - likely 2/2 SBO - Patient has reported ability to pass gas - Will c/w NPO and IVF - s/p NG tube - had accidental removal yesterday - XR Abdomen 01/16: Persistent small bowel obstruction pattern. - General surgery on consultation; will follow recommendations; in light of patient's ability to pass gas, will discuss with surgery about further interventions A. fib/ A. flutter - Currently appears rate controlled - c/w rate control with Diltiazem - Eliquis on hold (re: possible intervention) Hypertension - BP well controlled - c/w Diltiazem and Lisinopril Diastolic CHF with moderate pulmonary hypertension - Patient is currently euvolemic and does not display any signs of fluid over load - c/w NS for now - Will hold Torsemide Hypernatremia - likely 2/2 normal saline - c/w D5 1/2 NS DLP - Hold statin Diabetes - c/w ISS q6h Gout - Will hold Allopurinol (re: NPO) GI prophylaxis - c/w Protonix DVT prophylaxis - c/w Heparin Disposition: - Possible surgical intervention; will discuss with surgery in light of recent ability to pass flatus VS,Fishbone, I+O VS, Fishbone, I+O Laboratory Tests 01/17/19 05:46 Red Blood Count 4.06 L, Mean Corpuscular Volume 88.4, Mean Corpuscular Hemoglobin 27.1, Mean Corpuscular Hemoglobin Concent 30.6 L, Red Cell Distribution Width 19.3 H, Neutrophils (%) (Auto) 78.6 H, Lymphocytes (%) (Auto) 11.2 L, Monocytes (%) (Auto) 7.9 H, Eosinophils (%) (Auto) 1.9, Basophils (%) (Auto) 0.1, Neutrophils # (Auto) 5.2, Lymphocytes # (Auto) 0.8 L, Monocytes # (Auto) 0.5, Eosinophils # (Auto) 0.1, Basophils # (Auto) 0.0, Calcium Level 8.5 L Vital Signs Date Time Temp Pulse Resp B/P (MAP) Pulse Ox O2 Delivery O2 Flow Rate FiO2 01/17/19 08:08 84 141/65 01/17/19 06:00 97.1 18 95 01/15/19 06:00 2.0 01/14/19 03:25 Nasal Cannula I&O- Last 24 Hours up to 6 AM 01/17/19 06:00 Intake Total 0 ml Output Total 1450 ml Balance -1450 ml LASHAUN BRIDGES MD Jan 17, 2019 11:39
--- NOTE | 2019-01-17 11:56 | REP ---
Acute abdominal series, 10:50 a.m., three views including PA chest and supine upright abdomen: PA chest: Comparison is 2018. Lung campover[place] are clear. Costophrenic angles are effaced suggestive of bilateral pleural effusions. There is no free subdiaphragmatic air. Cardiac size is upper normal. Supine upright abdomen: Comparison is 01/16/2019. Markedly dilated small bowel loops containing air fluid levels are again identified, not significantly changed. There are numerous surgical clips in the upper abdomen, unchanged. Electronically Signed by Paramjit Schuster MD 01/17/2019 11:47 A
[2019-01-17] MEDS: SIMETHICONE 80 MG CHEW TAB PO SCH ×3 (13:20→21:55)
[2019-01-17 14:00] VITALS: BP 132/82
--- NOTE | 2019-01-17 15:01 | REP ---
Supine upright abdomen: Comparison is from 10:53 a.m. earlier today. There has been interval placement of a nasogastric tube with the tip positioned satisfactorily in the abdominal left upper quadrant. There is persisting marked distension of the small bowel, unchanged. Numerous surgical clips in the upper abdomen are again identified, unchanged. Electronically Signed by Paramjit Schuster MD 01/17/2019 12:13 P
--- NOTE | 2019-01-17 21:52 | IPN ---
DATE: 01/17/2019 CHIEF COMPLAINT The patient has been admitted with a small bowel obstruction, has had some flatus. No nausea, no vomiting. And has had some abdominal distension, although he feels better since his NG tube has gone in this morning. The patient's NG tube had come out yesterday and he developed some progressive abdominal distension overnight. The patient has been afebrile. Eyes and nose reveal good urine output and overall after manipulating his NG tube in the room I was able to aspirate approximately 150 mL of bile, but a significant amount of air and his abdominal distension was visibly better. His abdomen is soft, softly distended and nontender. No guarding, no rebound. No peritoneal signs and relatively benign exam on his physical exam, however, on his x-ray exam he has dilated loops of small bowel throughout and significantly dilated consistent with a small bowel obstruction with some decompressed small bowel appreciated as well. His NG tube placement seems to be adequate on the last study. IMPRESSION AND PLAN The patient has a small bowel obstruction. Does not seem to be resolving from an x-ray standpoint. However from a clinical standpoint, he has some marginal improvements and seems to be making some progress. I do feel that it is reasonable to keep his NG tube in him overnight. Will see if he has bowel movements. If he does have bowel movements then we may consider a small-bowel follow-through prior to proceeding with operative intervention. However, if not my recommendation is that we proceed with a diagnostic laparoscopy with possible lysis of adhesions or possible laparotomy. The patient understands our current plan. I have held his heparin tonight and he will continue with n.p.o.
[2019-01-17] MEDS: LISINOPRIL 5 MG TAB PO SCH (21:56)
[2019-01-17 22:00] VITALS: BP 130/80
[2019-01-18] VITALS (8 sets, daily range): BP systolic 138–160; BP diastolic 40–88
[2019-01-18] MEDS: D5W/0.45% SODIUM CHLORIDE 1,000 ML IV SCH ×2 (00:09→12:03)
[2019-01-18 06:28] LABS: BASO % 0.3 % (0.0-1.0); EOS # 0.3 10^3/uL (0.0-0.50); EOS % 3.9 % (0.0-3.0); HEMATOCRIT 38.2 % (42.0-52.0); HEMOGLOBIN 11.5 g/dl (13.5-17.5); LYMPH # 0.7 10^3/uL (1.5-4.5); LYMPH % 10.6 % (24.0-44.0); MEAN CORPUSCULAR HGB CONC 30.1 g/dl (32.0-36.5); MEAN CORPUSCULAR VOLUME 86.4 fl (80.0-96.0); MONO # 0.5 10^3/uL (0.0-0.8); NEUTROPHILS # 5.2 10^3/uL (1.8-7.7); NEUTROPHILS % 77.9 % (36.0-66.0); PLATELET COUNT, AUTOMATED 248 10^3/uL (150-450); RED BLOOD COUNT 4.42 10^6/uL (4.30-6.10); WHITE BLOOD COUNT 6.7 10^3/uL (4.0-10.0)
[2019-01-18 06:45] LABS: BLOOD UREA NITROGEN 13 MG/DL (7-18); CALCIUM LEVEL 8.4 MG/DL (8.8-10.2); CARBON DIOXIDE LEVEL 26 MEQ/L (21-32); CHLORIDE LEVEL 114 MEQ/L (98-107); CREATININE FOR GFR 0.98 MG/DL (0.70-1.30); GLOMERULAR FILTRATION RATE > 60.0 (>42); GLUCOSE, FASTING 162 MG/DL (70-100); POTASSIUM SERUM 3.8 MEQ/L (3.5-5.1); SODIUM LEVEL 146 MEQ/L (136-145)
[2019-01-18] MEDS: PANTOPRAZOLE 40MG INJ (PROTONIX) (C9113) IV SCH ×2 (08:55→20:50)
[2019-01-18] MEDS: SIMETHICONE 80 MG CHEW TAB PO SCH ×4 (08:55→20:50)
[2019-01-18] MEDS: NORTRIPTYLINE 10 MG CAP PO SCH ×3 (08:56→20:50)
[2019-01-18] MEDS: GASTROGRAFIN SOLUTION 30ML PO SCH ×2 (08:56→09:32)
[2019-01-18] MEDS: POLYVINYL ALCOHOL OPHTH SOLN 15 ML(LIQUITEARS) OS SCH ×4 (08:59→20:51)
--- NOTE | 2019-01-18 10:01 | IPNPDOC ---
Text Note Date of Service The patient was seen on 01/18/19. NOTE Subjective: Patient is 78-year-old male with a PMhx of Atrial fibrillation/Atrial flutter (on Eliquis), CAD s/p stent, HTN, DLP, DM2, Gout, Hx of R hemicolectomy several years ago, followed by a transverse colectomy in 2018 for colon cancer who presented to the ER for abdominal evaluation of his abdominal pain. In the emergency room, patient was found to have imaging that was consistent with a small bowel obstruction. Patient was admitted to hospitalist service for further evaluation and treatment and general surgery was called on consultation Patient was seen and examined at the bedside. . Currently, patient reports that he's feeling fine. NG tube is still in place. Denies any nausea or vomiting. Has not yet had any bowel movements or passed any further flatus. Denies chest pain, shortness of breath or palpitations. Denies any urinary discomfort. Objective: Vitals (See below) General: Lying in bed, no acute distress, comfortable, Awake / Alert HEENT: NC, AT CVS: +S1S2 Lungs: No appreciable wheezing, rhonchi or rales Abdomen: Remains soft without distention or tenderness Extremities: LE do not reveal any edema, - Calf tenderness Assessment and plan: Abdominal pain - likely 2/2 SBO - Patient has reported ability to pass gas - Will c/w NPO and IVF - NG tube was re-inserted - XR Abdomen 01/16: Persistent small bowel obstruction pattern. - XR Abdomen 01/17: There is persisting marked distension of the small bowel, unchanged. - General surgery on consultation; will follow recommendations; plan for CT abdomen today - based on findings patient is tentatively scheduled for OR A. fib/ A. flutter - Currently appears rate controlled - c/w rate control with Diltiazem - Eliquis on hold (re: possible intervention) Hypertension - BP well controlled - c/w Diltiazem and Lisinopril Diastolic CHF with moderate pulmonary hypertension - Patient is currently euvolemic and does not display any signs of fluid overload - c/w fluids for now - Will hold Torsemide Hypernatremia - likely 2/2 normal saline - c/w D5 1/2 NS DLP - Hold statin Diabetes - c/w ISS q6h Gout - Will hold Allopurinol (re: NPO) GI prophylaxis - c/w Protonix DVT prophylaxis - c/w Heparin Disposition: - Pending CT scan - possible OR intervention VS,[place], I+O VS, [place], I+O Laboratory Tests 01/18/19 05:25 Red Blood Count 4.42, Mean Corpuscular Volume 86.4, Mean Corpuscular Hemoglobin 26.0 L, Mean Corpuscular Hemoglobin Concent 30.1 L, Red Cell Distribution Width 19.3 H, Neutrophils (%) (Auto) 77.9 H, Lymphocytes (%) (Auto) 10.6 L, Monocytes (%) (Auto) 7.0 H, Eosinophils (%) (Auto) 3.9 H, Basophils (%) (Auto) 0.3, Neutrophils # (Auto) 5.2, Lymphocytes # (Auto) 0.7 L, Monocytes # (Auto) 0.5, Eosinophils # (Auto) 0.3, Basophils # (Auto) 0.0, Calcium Level 8.4 L Vital Signs Date Time Temp Pulse Resp B/P (MAP) Pulse Ox O2 Delivery O2 Flow Rate FiO2 01/18/19 08:55 92 138/82 01/18/19 06:00 97.5 15 91 01/15/19 06:00 2.0 01/14/19 03:25 Nasal Cannula I&O- Last 24 Hours up to 6 AM 01/18/19 06:00 Intake Total 1360 ml Output Total 1350 ml Balance 10 ml LASHAUN BRIDGES MD Jan 18, 2019 10:01
--- NOTE | 2019-01-18 11:16 | REP ---
CT of the abdomen and pelvis with bowel contrast, without IV contrast: Comparison is 01/13/2019. There are dilated proximal and mid small bowel loops and nine dilated mid and distal small bowel loops. A focal transition zone is identified in the midabdomen slightly to the right of midline. The bowel contrast is in the stomach and some of the proximal dilated small bowel loops. The bowel contrast has not reached the transition zone at the time of scanning. There is no bowel contrast in the nondilated small bowel loops. The patient reportedly has a right hemicolectomy. The transition zone appears to be near the surgical clips in the bowel compatible with bile anastomosis. There is no colonic distension. There is no pneumoperitoneum. There is a small volume of ascites surrounding the liver and spleen. There are small bilateral pleural effusions. There is a nasogastric tube terminating in the gastric fundus. The stomach is nondistended. The unenhanced hepatic parenchyma is unremarkable. The gallbladder lumen is opacified, likely vicarious opacification from the IV contrast on the prior study. The pancreas is atrophic but otherwise unremarkable. The unenhanced spleen is unremarkable. The adrenals are unremarkable. There is a right renal cortical simple cyst, unchanged. The kidneys are otherwise unremarkable. Abdominal aorta again demonstrates search segment dissection along the left lateral wall of the distal aorta, unchanged. There is no periaortic hematoma. Pelvis: The bladder is unremarkable. There is no adenopathy or free fluid. The the the Impression: Findings are compatible with small bowel obstruction , the complete versus partial, the tip of the with dilated proximal small bowel loops and nondilated distal small bowel loops. There appears to be a transition zone in the midabdomen slightly to the right of midline. The transition appears to be near surgical clips in the bowel compatible with anastomosis from the right hemicolectomy. There is a small volume of ascites adjacent to the liver and spleen. There are small bilateral pleural effusions. 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 Electronically Signed by Paramjit Schuster MD 01/18/2019 11:07 A
[2019-01-18] MEDS ORDERED: BUPIVACAINE/EPIN 0.25% 30 ML VIAL As Ordered ONE (14:30)
[2019-01-18] MEDS ORDERED: ceFAZolin 1GM INJ (J0690 PER 500MG) As Ordered ONE (14:49)
[2019-01-18] MEDS: fentaNYL 100 MCG/2 ML INJECTION (J3010) IV PRN ×2 (14:50→17:45)
[2019-01-18] MEDS ORDERED: SUCCINYLCHOLINE 100 MG/5 ML SYRINGE (J0330) As Ordered ONE (15:13)
[2019-01-18] MEDS ORDERED: fentaNYL 100 MCG/2 ML INJECTION (J3010) As Ordered ONE ×3 (16:03→17:42)
[2019-01-18] MEDS ORDERED: ROCURONIUM BROMIDE 50 MG/5 ML VIAL As Ordered ONE (16:05)
[2019-01-18] MEDS ORDERED: dexameTHASONE 4 MG/ML 1ML VIAL (J1100) As Ordered ONE (16:05)
[2019-01-18] MEDS ORDERED: PROPOFOL 200 MG/20 ML VIAL As Ordered ONE (16:05)
[2019-01-18] MEDS ORDERED: ONDANSETRON 4MG/2ML VIAL (J2405) As Ordered ONE (16:05)
[2019-01-18] MEDS ORDERED: MIDAZOLAM INJ 2 MG/2 ML VIAL (J2250) As Ordered ONE (16:05)
[2019-01-18] MEDS ORDERED: LIDOCAINE 2% INJ 100 MG/5 ML SDV (FOR ANES.) As Ordered ONE (16:05)
[2019-01-18] MEDS ORDERED: BUPIVACAINE HCL 0.25% 10 ML VIAL As Ordered ONE (16:07)
[2019-01-18] MEDS ORDERED: BUPIVACAINE LIPOSOME/PF 1.3% 20ML VIAL (13.3MG/ML)(EXPAREL)(C9290 PER1MG) As Ordered ONE (16:07)
[2019-01-18] MEDS ORDERED: SUGAMMADEX SODIUM 500 MG/5 ML VIAL (BRIDION) As Ordered ONE (16:22)
[2019-01-18] MEDS ORDERED: MORPHINE 4 MG/ML 1ML VIAL/SYRINGE (J2270) IV PRN (17:15)
[2019-01-18] MEDS ORDERED: ACETAMINOPHEN TAB 650MG DOSE (2X325MG) PO PRN (17:15)
[2019-01-18] MEDS ORDERED: LR 1,000 ML IV SCH ×2 (17:30→18:30)
[2019-01-18] MEDS ORDERED: ONDANSETRON 4MG/2ML VIAL (J2405) IV PRN ×2 (17:30→18:30)
[2019-01-18] MEDS ORDERED: LABETALOL HCL 100 MG/20 ML VIAL As Ordered ONE (18:02)
[2019-01-18] MEDS: LABETALOL HCL 100 MG/20 ML VIAL IV PRN ×2 (18:02→18:11)
--- NOTE | 2019-01-18 18:27 | RO ---
DATE OF PROCEDURE: 01/18/2019 PREOPERATIVE DIAGNOSIS: Small-bowel obstruction. POSTOPERATIVE DIAGNOSIS: Small bowel obstruction. OPERATIVE PROCEDURE: 1. Laparoscopic lysis of adhesions. 2. Open small bowel resection. SURGEON: Dionisio Nino MD INFORMATION TECHNOLOGY CONSULTANT: ANESTHESIA: General endotracheal. ESTIMATED BLOOD LOSS: Minimal. FLUIDS: Crystalloid. BRIEF PROCEDURE SUMMARY: The patient was brought to the operating room and was given general anesthesia. After adequate anesthesia and preoperative antibiotics were given the patient was prepped and draped in the usual sterile fashion. Next, a left upper quadrant incision was made with skin knife and a 5 mm trocar was inserted after insufflating with a Veress needle up to 15 mm of pressure and to the peritoneal cavity. A second 5 mm trocar was placed. There were multiple adhesions along the midline which were taken down with harmonic scalpel. Eventually once these were taken down there was still a great deal of adhesions and literally a matted portion of small bowel was appreciated on the right side of the abdomen and then there was a twist of the bowel with some chronic fibrosis up against the anterior abdominal wall. This twist was significantly fibrotic and after mobilizing extensive adhesions throughout the area and going back in this area, it was obvious that this was thickened significantly and the area of obstruction with proximal dilated bowel and distally deep decompressed bowel. Next a midline incision was made over this area seeing that this was going to need a bowel resection. The adhesions were taken down around this, but while taking down the adhesions for this and the small bowel it essentially was imbedded within the abdominal wall. I made a small enterotomy in the small bowel that was fibrotic in this area. In any case, proximal distal control was obtained with clamps and this bowel was eventually mobilized nicely. After I had adequate control of this area I did try to mobilize some of small bowel in this area to see if there were any other small bowel twists, or adhesions or areas of obstruction and unfortunately much of the small bowel was fused together in such a manner that trying to take this apart was extremely difficult and I felt that would lead to a probable enterotomy unnecessarily. Thus, a small portion of bowel right at the fibrotic portion was resected using [place] 60 stapler along the vessels and a 75 blue load for the small bowel [id number] anastomosis. The anterior portion of the anastomosis was reinforced with #3-0 Vicryl and the opening was widely patent. Attention was turned to the abdominal cavity and the abdomen copiously irrigated until clear. There was a great deal of ascites like fluid in the abdomen before I drained this and I felt that it would benefit from leaving a drain in to get some the extra fluid/third spacing of this area out and thus I left a YESSENIA drain and brought it out through a lateral stab incision. The midline was closed with running #0 PDS and vee were used to approximate the skin. Dry sterile dressing was applied. The patient was awakened, extubated, brought to the recovery room awake, alert and hemodynamic stable. Sponge and needle counts correct times two.
[2019-01-18] MEDS ORDERED: fentaNYL 100 MCG/2 ML INJECTION (J3010) IV PRN (18:30)
[2019-01-18] MEDS ORDERED: LABETALOL HCL 100 MG/20 ML VIAL IV SCH (18:30)
[2019-01-18] MEDS: LISINOPRIL 5 MG TAB PO SCH (20:51)
[2019-01-19] VITALS: BP 148/72
[2019-01-19] MEDS: NORCO, ANEXSIA 5/325MG TABLET (HYDROcodone/ACETAMINOPHEN) PO PRN ×2 (03:55→10:25)
[2019-01-19 04:00] VITALS: BP 142/62
[2019-01-19] MEDS: D5W/0.45% SODIUM CHLORIDE 1,000 ML IV SCH ×2 (05:47→12:12)
[2019-01-19 05:53] LABS: BASO % 0.1 % (0.0-1.0); HEMATOCRIT 38.9 % (42.0-52.0); HEMOGLOBIN 12.1 g/dl (13.5-17.5); LYMPH # 0.7 10^3/uL (1.5-4.5); LYMPH % 6.1 % (24.0-44.0); MEAN CORPUSCULAR HEMOGLOBIN 26.8 pg (27.0-33.0); MEAN CORPUSCULAR HGB CONC 31.1 g/dl (32.0-36.5); MEAN CORPUSCULAR VOLUME 86.3 fl (80.0-96.0); MONO # 0.9 10^3/uL (0.0-0.8); MONO % 7.3 % (0.0-5.0); NEUTROPHILS # 10.5 10^3/uL (1.8-7.7); NEUTROPHILS % 86.1 % (36.0-66.0); PLATELET COUNT, AUTOMATED 276 10^3/uL (150-450); RED BLOOD COUNT 4.51 10^6/uL (4.30-6.10); WHITE BLOOD COUNT 12.2 10^3/uL (4.0-10.0)
[2019-01-19 06:15] LABS: BLOOD UREA NITROGEN 15 MG/DL (7-18); CALCIUM LEVEL 8.2 MG/DL (8.8-10.2); CARBON DIOXIDE LEVEL 22 MEQ/L (21-32); CHLORIDE LEVEL 112 MEQ/L (98-107); CREATININE FOR GFR 1.01 MG/DL (0.70-1.30); GLOMERULAR FILTRATION RATE > 60.0 (>42); GLUCOSE, FASTING 223 MG/DL (70-100); POTASSIUM SERUM 3.6 MEQ/L (3.5-5.1); SODIUM LEVEL 143 MEQ/L (136-145)
[2019-01-19] MEDS: NORTRIPTYLINE 10 MG CAP PO SCH ×3 (08:07→20:16)
[2019-01-19] MEDS: SIMETHICONE 80 MG CHEW TAB PO SCH ×4 (08:07→20:16)
[2019-01-19] MEDS: PANTOPRAZOLE 40MG INJ (PROTONIX) (C9113) IV SCH ×2 (08:08→20:16)
[2019-01-19] MEDS: POLYVINYL ALCOHOL OPHTH SOLN 15 ML(LIQUITEARS) OS SCH ×4 (08:11→20:15)
--- NOTE | 2019-01-19 08:26 | IPNPDOC ---
Text Note Date of Service The patient was seen on 01/19/19. NOTE No acute events overnight. He is passing flatus. Denies problems with nausea, emesis, or fevers. Pain is minimal and controlled. No BMs yet, and his NGT output is still high and bilious. drain - left - serosanguinous NGT - bilious VSSAF NAD abd - soft, diffuse tenderness, aretha drains serosanguinous, incisions c/d/i labs - below A) 78y/o male with SBO s/p lap FLAVIA and SBR P) NGT to LIS due to persistent bilious output ambulate strict I's and O's IVF abx IS plan on clamp NGT tomorrow if output decreases Anselmo Mir DO VS,[place], I+O VS, Fishbone, I+O Laboratory Tests 01/19/19 05:27 Red Blood Count 4.51, Mean Corpuscular Volume 86.3, Mean Corpuscular Hemoglobin 26.8 L, Mean Corpuscular Hemoglobin Concent 31.1 L, Red Cell Distribution Width 18.7 H, Neutrophils (%) (Auto) 86.1 H, Lymphocytes (%) (Auto) 6.1 L, Monocytes (%) (Auto) 7.3 H, Eosinophils (%) (Auto) 0.0, Basophils (%) (Auto) 0.1, Neutrophils # (Auto) 10.5 H, Lymphocytes # (Auto) 0.7 L, Monocytes # (Auto) 0.9 H, Eosinophils # (Auto) 0.0, Basophils # (Auto) 0.0, Calcium Level 8.2 L Vital Signs Date Time Temp Pulse Resp B/P (MAP) Pulse Ox O2 Delivery O2 Flow Rate FiO2 01/19/19 08:08 100 139/62 01/19/19 04:25 18 2.0 01/19/19 04:00 97.5 90 01/14/19 03:25 Nasal Cannula I&O- Last 24 Hours up to 6 AM 01/19/19 06:00 Intake Total 3000 ml Output Total 1880 ml Balance 1120 ml JAVIER MIR DO Jan 19, 2019 08:26
[2019-01-19 10:00] VITALS: BP 146/66
--- NOTE | 2019-01-19 10:46 | IPNPDOC ---
Text Note Date of Service The patient was seen on 01/19/19. NOTE Subjective: Patient is 78-year-old male with a PMhx of Atrial fibrillation/Atrial flutter (on Eliquis), CAD s/p stent, HTN, DLP, DM2, Gout, Hx of R hemicolectomy several years ago, followed by a transverse colectomy in 2018 for colon cancer who presented to the ER for abdominal evaluation of his abdominal pain. In the emergency room, patient was found to have imaging that was consistent with a small bowel obstruction. Patient was admitted to hospitalist service for further evaluation and treatment and general surgery was called on consultation Patient was seen and examined at the bedside. Patient is seen postoperatively. Reports that h. He does not experience significant abdominal pain. Denies any nausea or vomiting. Still has NG tube in place that is draining bilious output. Denies chest pain, shortness breath or palpitations. Reports that he is passing gas, however, has not yet had a bowel movement. Denies any urinary discomfort. Objective: Vitals (See below) General: Lying in bed, no acute distress, comfortable, Awake / Alert HEENT: NC, AT CVS: +S1S2 Lungs: Negative for rhonchi, wheezing or rales Abdomen: Soft without distention, mild tenderness appreciated at right of mid abdominal incision, YESSENIA drain is present Extremities: LE do not reveal any significant extent of edema, - Calf tenderness Assessment and plan: Abdominal pain - likely 2/2 SBO s/p lysis of adhesion and partial small bowel resection (01/18) - Patient continues to have flatus - XR Abdomen 01/16: Persistent small bowel obstruction pattern. - CT abdomen / pelvis 01/18: Findings are compatible with small bowel obstruction , the complete versus partial, the tip of the with dilated proximal small bowel loops and nondilated distal small bowel loops. There appears to be a transition zone in the midabdomen slightly to the right of midline. The transition appears to be near surgical clips in the bowel compatible with anastomosis from the right hemicolectomy. There is a small volume of ascites adjacent to the liver and spleen. There are small bilateral pleural effusions. 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 - c/w NPO, NGT to LIS, and IVF - General surgery on consultation A. fib/ A. flutter - Currently appears rate controlled - c/w rate control with Diltiazem - Eliquis on hold; will resume on discharge Leukocytosis - likely 2/2 reactive etiology - ROS negative for infectious etiology - Will hold off on antibiotics at this time Hypertension - BP well controlled - c/w Diltiazem and Lisinopril Diastolic CHF with moderate pulmonary hypertension - Patient is currently euvolemic and does not display any signs of fluid overload - c/w fluids for now - Will hold Torsemide s/p Hypernatremia - likely 2/2 normal saline - c/w D5 1/2 NS DLP - Hold statin Diabetes - c/w ISS q6h Gout - Will hold Allopurinol (re: NPO) GI prophylaxis - c/w Protonix DVT prophylaxis - c/w Heparin Disposition: - Awaiting clinical progression; bowel movement and tolerating diet VS,Fishbone, I+O VS, Fishbone, I+O Laboratory Tests 01/19/19 05:27 Red Blood Count 4.51, Mean Corpuscular Volume 86.3, Mean Corpuscular Hemoglobin 26.8 L, Mean Corpuscular Hemoglobin Concent 31.1 L, Red Cell Distribution Width 18.7 H, Neutrophils (%) (Auto) 86.1 H, Lymphocytes (%) (Auto) 6.1 L, Monocytes ( %) (Auto) 7.3 H, Eosinophils (%) (Auto) 0.0, Basophils (%) (Auto) 0.1, Neutrophils # (Auto) 10.5 H, Lymphocytes # (Auto) 0.7 L, Monocytes # (Auto) 0.9 H, Eosinophils # (Auto) 0.0, Basophils # (Auto) 0.0, Calcium Level 8.2 L Vital Signs Date Time Temp Pulse Resp B/P (MAP) Pulse Ox O2 Delivery O2 Flow Rate FiO2 01/19/19 10:25 16 01/19/19 08:08 100 139/62 01/19/19 04:25 2.0 01/19/19 04:00 97.5 90 01/14/19 03:25 Nasal Cannula I&O- Last 24 Hours up to 6 AM 01/19/19 06:00 Intake Total 3000 ml Output Total 1880 ml Balance 1120 ml LASHAUN BRIDGES MD Jan 19, 2019 10:46
[2019-01-19] MEDS ORDERED: GLUCOSE 4 GM CHEW TABLET PO PRN (13:15)
[2019-01-19] MEDS ORDERED: DEXTROSE 50% 50 ML SYRINGE IV PRN (13:15)
[2019-01-19] MEDS ORDERED: GLUCAGON FOR INJ 1 MG VIAL (J1610) SC PRN (13:15)
[2019-01-19] MEDS: HumaLOG INSULIN (NovoLOG) PER UNIT SC SCH ×2 (13:29→17:20)
[2019-01-19 14:00] VITALS: BP 166/63
[2019-01-19 18:00] VITALS: BP 141/63
[2019-01-19] MEDS: LISINOPRIL 5 MG TAB PO SCH (20:16)
[2019-01-20] MEDS: HumaLOG INSULIN (NovoLOG) PER UNIT SC SCH ×4 (00:11→18:40)
[2019-01-20] MEDS: D5W/0.45% SODIUM CHLORIDE 1,000 ML IV SCH ×2 (01:30→06:42)
[2019-01-20 06:00] VITALS: BP 140/92
[2019-01-20 06:20] LABS: BASO % 0.2 % (0.0-1.0); EOS # 0.1 10^3/uL (0.0-0.50); EOS % 0.8 % (0.0-3.0); HEMATOCRIT 41.6 % (42.0-52.0); HEMOGLOBIN 12.8 g/dl (13.5-17.5); LYMPH # 1.1 10^3/uL (1.5-4.5); LYMPH % 9.2 % (24.0-44.0); MEAN CORPUSCULAR HEMOGLOBIN 26.8 pg (27.0-33.0); MEAN CORPUSCULAR HGB CONC 30.8 g/dl (32.0-36.5); MEAN CORPUSCULAR VOLUME 87.2 fl (80.0-96.0); NEUTROPHILS # 9.7 10^3/uL (1.8-7.7); NEUTROPHILS % 81.5 % (36.0-66.0); PLATELET COUNT, AUTOMATED 312 10^3/uL (150-450); RED BLOOD COUNT 4.77 10^6/uL (4.30-6.10); WHITE BLOOD COUNT 11.9 10^3/uL (4.0-10.0)
[2019-01-20 06:36] LABS: BLOOD UREA NITROGEN 23 MG/DL (7-18); CALCIUM LEVEL 8.7 MG/DL (8.8-10.2); CARBON DIOXIDE LEVEL 22 MEQ/L (21-32); CHLORIDE LEVEL 111 MEQ/L (98-107); CREATININE FOR GFR 1.13 MG/DL (0.70-1.30); GLOMERULAR FILTRATION RATE > 60.0 (>42); GLUCOSE, FASTING 170 MG/DL (70-100); POTASSIUM SERUM 3.5 MEQ/L (3.5-5.1); SODIUM LEVEL 140 MEQ/L (136-145)
[2019-01-20] MEDS: PANTOPRAZOLE 40MG INJ (PROTONIX) (C9113) IV SCH ×2 (08:40→20:59)
[2019-01-20] MEDS: SIMETHICONE 80 MG CHEW TAB PO SCH ×4 (08:40→20:59)
[2019-01-20] MEDS: NORTRIPTYLINE 10 MG CAP PO SCH ×2 (08:40→18:40)
[2019-01-20] MEDS: D5W/0.9% SODIUM CHLORIDE 1,000 ML IV SCH ×2 (08:41→20:59)
[2019-01-20] MEDS: POLYVINYL ALCOHOL OPHTH SOLN 15 ML(LIQUITEARS) OS SCH ×4 (08:42→21:00)
--- NOTE | 2019-01-20 09:31 | IPNPDOC ---
Text Note Date of Service The patient was seen on 01/20/19. NOTE No acute events overnight. He is passing lots of flatus, but no BM yet. Denies problems with nausea, emesis, or fevers. Pain is minimal and controlled. drain - left - serous NGT - thin bilious VSSAF NAD abd - soft, diffuse tenderness, aretha drains serous, incisions c/d/i labs - below A) 78y/o male with SBO s/p lap FLAVIA and SBR P) clamp NGT ambulate strict I's and O's IVF abx IS will dc NGT and advance diet after a BM, or if he tolerates it clamped 24 hours Anselmo Mir DO VS,Fishbone, I+O VS, Fishbone, I+O Laboratory Tests 01/20/19 05:50 Red Blood Count 4.77, Mean Corpuscular Volume 87.2, Mean Corpuscular Hemoglobin 26.8 L, Mean Corpuscular Hemoglobin Concent 30.8 L, Red Cell Distribution Width 19.1 H, Neutrophils (%) (Auto) 81.5 H, Lymphocytes (%) (Auto) 9.2 L, Monocytes (%) (Auto) 8.0 H, Eosinophils (%) (Auto) 0.8, Basophils (%) (Auto) 0.2, Neutrophils # (Auto) 9.7 H, Lymphocytes # (Auto) 1.1 L, Monocytes # (Auto) 1.0 H, Eosinophils # (Auto) 0.1, Basophils # (Auto) 0.0, Calcium Level 8.7 L Vital Signs Date Time Temp Pulse Resp B/P (MAP) Pulse Ox O2 Delivery O2 Flow Rate FiO2 01/20/19 08:41 97 148/87 01/20/19 06:00 98.4 16 95 2.0 01/14/19 03:25 Nasal Cannula I&O- Last 24 Hours up to 6 AM 01/20/19 06:00 Intake Total 1930 ml Output Total 2270 ml Balance -340 ml JAVIER MIR DO Jan 20, 2019 09:31
--- NOTE | 2019-01-20 11:08 | IPNPDOC ---
Text Note Date of Service The patient was seen on 01/20/19. NOTE Subjective: Patient is 78-year-old male with a PMhx of Atrial fibrillation/Atrial flutter (on Eliquis), CAD s/p stent, HTN, DLP, DM2, Gout, Hx of R hemicolectomy several years ago, followed by a transverse colectomy in 2018 for colon cancer who presented to the ER for abdominal evaluation of his abdominal pain. In the emergency room, patient was found to have imaging that was consistent with a small bowel obstruction. Patient was admitted to hospitalist service for further evaluation and treatment and general surgery was called on consultation Patient was seen and examined at the bedside. Patient reports that he is not expressing any nausea, vomiting. Denies any significant abdominal pain. Has been passing gas but denies any bowel movements. Denies chest pain, shortness breath or palpitations. Objective: Vitals (See below) General: Lying in bed, no acute distress, comfortable, Awake / Alert HEENT: NC, AT CVS: +S1S2 Lungs: No w/r/r Abdomen: Soft, ND, mild tenderness around incision sites, +YESSENIA drain Extremities: No edema at LE, - Calf tenderness Assessment and plan: Abdominal pain - likely 2/2 SBO s/p lysis of adhesion and partial small bowel resection (01/18) - Patient continues to have flatus, although no bowel movemeents - XR Abdomen 01/16: Persistent small bowel obstruction pattern. - CT abdomen / pelvis 01/18: Findings are compatible with small bowel obstruction , the complete versus partial, the tip of the with dilated proximal small bowel loops and nondilated distal small bowel loops. There appears to be a transition zone in the midabdomen slightly to the right of midline. The transition appears to be near surgical clips in the bowel compatible with anastomosis from the right hemicolectomy. There is a small volume of ascites adjacent to the liver and spleen. There are small bilateral pleural effusions. 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 - c/w NPO and IVF; NG tube has been clamped today; will continue with ambulation - General surgery on consultation; will advance diet as per their recommendations A. fib/ A. flutter - Currently appears rate controlled - c/w rate control with Diltiazem - Eliquis on hold; will resume on discharge Leukocytosis - likely 2/2 reactive etiology - Improving - ROS negative for infectious etiology - Will hold off on antibiotics at this time Hypertension - BP well controlled - c/w Diltiazem and Lisinopril Diastolic CHF with moderate pulmonary hypertension - Patient is currently euvolemic and does not display any signs of fluid overload - c/w fluids for now - Will hold Torsemide s/p Hypernatremia - likely 2/2 normal saline DLP - Hold statin Diabetes - c/w ISS q6h Gout - Will hold Allopurinol (re: NPO) GI prophylaxis - c/w Protonix DVT prophylaxis - c/w Heparin Disposition: - Awaiting clinical progression; bowel movement and tolerating diet VS,Fishbone, I+O VS, Fishbone, I+O Laboratory Tests 01/20/19 05:50 Red Blood Count 4.77, Mean Corpuscular Volume 87.2, Mean Corpuscular Hemoglobin 26.8 L, Mean Corpuscular Hemoglobin Concent 30.8 L, Red Cell Distribution Width 19.1 H, Neutrophils (%) (Auto) 81.5 H, Lymphocytes (%) (Auto) 9.2 L, Monocytes (%) (Auto) 8.0 H, Eosinophils (%) (Auto) 0.8, Basophils (%) (Auto) 0.2, Neutrophils # (Auto) 9.7 H, Lymphocytes # (Auto) 1.1 L, Monocytes # (Auto) 1.0 H, Eosinophils # (Auto) 0.1, Basophils # (Auto) 0.0, Calcium Level 8.7 L Vital Signs Date Time Temp Pulse Resp B/P (MAP) Pulse Ox O2 Delivery O2 Flow Rate FiO2 01/20/19 08:41 97 148/87 01/20/19 06:00 98.4 16 95 2.0 01/14/19 03:25 Nasal Cannula I&O- Last 24 Hours up to 6 AM 01/20/19 06:00 Intake Total 1930 ml Output Total 2270 ml Balance -340 ml LASHAUN BRIDGES MD Jan 20, 2019 11:08
[2019-01-20 14:00] VITALS: BP 120/70
[2019-01-20] MEDS: LISINOPRIL 5 MG TAB PO SCH (21:00)
[2019-01-20 22:00] VITALS: BP 159/85
[2019-01-21] MEDS: NORTRIPTYLINE 10 MG CAP PO SCH ×4 (00:09→21:34)
[2019-01-21] MEDS: HumaLOG INSULIN (NovoLOG) PER UNIT SC SCH ×5 (00:10→21:00)
[2019-01-21] MEDS: NORCO, ANEXSIA 5/325MG TABLET (HYDROcodone/ACETAMINOPHEN) PO PRN (01:29)
[2019-01-21 06:00] VITALS: BP 154/82
[2019-01-21 06:36] LABS: BASO % 0.3 % (0.0-1.0); EOS # 0.3 10^3/uL (0.0-0.50); EOS % 3.1 % (0.0-3.0); HEMATOCRIT 38.5 % (42.0-52.0); HEMOGLOBIN 11.7 g/dl (13.5-17.5); LYMPH # 0.7 10^3/uL (1.5-4.5); LYMPH % 9.2 % (24.0-44.0); MEAN CORPUSCULAR HEMOGLOBIN 26.7 pg (27.0-33.0); MEAN CORPUSCULAR HGB CONC 30.4 g/dl (32.0-36.5); MEAN CORPUSCULAR VOLUME 87.7 fl (80.0-96.0); MONO # 0.7 10^3/uL (0.0-0.8); MONO % 9.2 % (0.0-5.0); NEUTROPHILS # 6.2 10^3/uL (1.8-7.7); NEUTROPHILS % 77.7 % (36.0-66.0); PLATELET COUNT, AUTOMATED 289 10^3/uL (150-450); RED BLOOD COUNT 4.39 10^6/uL (4.30-6.10)
[2019-01-21 07:05] LABS: BLOOD UREA NITROGEN 19 MG/DL (7-18); CALCIUM LEVEL 8.4 MG/DL (8.8-10.2); CARBON DIOXIDE LEVEL 25 MEQ/L (21-32); CHLORIDE LEVEL 114 MEQ/L (98-107); CREATININE FOR GFR 1.11 MG/DL (0.70-1.30); GLOMERULAR FILTRATION RATE > 60.0 (>42); GLUCOSE, FASTING 167 MG/DL (70-100); POTASSIUM SERUM 3.8 MEQ/L (3.5-5.1); SODIUM LEVEL 144 MEQ/L (136-145)
[2019-01-21] MEDS: PANTOPRAZOLE 40MG INJ (PROTONIX) (C9113) IV SCH ×2 (09:09→21:34)
[2019-01-21] MEDS: POLYVINYL ALCOHOL OPHTH SOLN 15 ML(LIQUITEARS) OS SCH ×4 (09:09→21:34)
[2019-01-21] MEDS: SIMETHICONE 80 MG CHEW TAB PO SCH ×4 (09:10→21:34)
[2019-01-21] MEDS: D5W/0.9% SODIUM CHLORIDE 1,000 ML IV SCH ×2 (09:11→21:35)
--- NOTE | 2019-01-21 09:46 | IPNPDOC ---
Text Note Date of Service The patient was seen on 01/21/19. NOTE Subjective: Patient is 78-year-old male with a PMhx of Atrial fibrillation/Atrial flutter (on Eliquis), CAD s/p stent, HTN, DLP, DM2, Gout, Hx of R hemicolectomy several years ago, followed by a transverse colectomy in 2018 for colon cancer who presented to the ER for abdominal evaluation of his abdominal pain. In the emergency room, patient was found to have imaging that was consistent with a small bowel obstruction. Patient was admitted to hospitalist service for further evaluation and treatment and general surgery was called on consultation Patient was seen and examined at the bedside. . Currently, patient reports that his NG tube was clamped and he is not expressing any nausea or vomiting. Reports that his abdominal pain has subsided significantly. Has not had any bowel movements, but does report the ability to pass gas. Denies any urinary discomfort. Denies chest pain, shortness of breath or palpitations. Objective: Vitals (See below) General: Lying in bed, no acute distress, comfortable, Awake / Alert HEENT: NC, AT CVS: +S1S2 Lungs: Air entry is fair bilaterally, without auscultated evidence of rales, rhonchi or wheezing Abdomen: Soft, remains nondistended, mild tenderness noted around the incision s ites. YESSENIA drain is still present and draining serosanguineous fluid Extremities: LE are without any edema, - Calf tenderness Assessment and plan: Abdominal pain - likely 2/2 SBO s/p lysis of adhesion and partial small bowel resection (01/18) - Patient continues to have flatus, although no bowel movements - XR Abdomen 01/16: Persistent small bowel obstruction pattern. - CT abdomen / pelvis 01/18: Findings are compatible with small bowel obstruction , the complete versus partial, the tip of the with dilated proximal small bowel loops and nondilated distal small bowel loops. There appears to be a transition zone in the midabdomen slightly to the right of midline. The transition appears to be near surgical clips in the bowel compatible with anastomosis from the right hemicolectomy. There is a small volume of ascites adjacent to the liver and spleen. There are small bilateral pleural effusions. 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 - c/w NPO and IVF; NG tube has been clamped for 24 hours - General surgery on consultation; likely will discontinue NG tube and advance diet to clear liquids; however will discuss with surgery first Konrad pepper/ Konrad greenwood - Currently appears rate controlled - c/w rate control with Diltiazem - Eliquis on hold; will resume on discharge Leukocytosis - likely 2/2 reactive etiology - Improving - ROS negative for infectious etiology - Will hold off on antibiotics at this time Hypertension - BP well controlled - c/w Diltiazem and Lisinopril Diastolic CHF with moderate pulmonary hypertension - Patient is currently euvolemic and does not display any signs of fluid overload - c/w fluids for now - will discontinue fluids once tolerating PO diet - Will hold Torsemide; will likely resume within 24-48 hours after starting diet s/p Hypernatremia - likely 2/2 normal saline DLP - Hold statin Diabetes - c/w ISS q6h; will likely transition to AC/HS once diet is started Gout - Will hold Allopurinol (re: NPO) GI prophylaxis - c/w Protonix DVT prophylaxis - c/w Heparin Disposition: - Will likely advance diet today VS,Fishbone, I+O VS, Fishbone, I+O Laboratory Tests 01/21/19 05:29 Red Blood Count 4.39, Mean Corpuscular Volume 87.7, Mean Corpuscular Hemoglobin 26.7 L, Mean Corpuscular Hemoglobin Concent 30.4 L, Red Cell Distribution Width 18.9 H, Neutrophils (%) (Auto) 77.7 H, Lymphocytes (%) (Auto) 9.2 L, Monocytes (%) (Auto) 9.2 H, Eosinophils (%) (Auto) 3.1 H, Basophils (%) (Auto) 0.3, Neutro phils # (Auto) 6.2, Lymphocytes # (Auto) 0.7 L, Monocytes # (Auto) 0.7, Eosinophils # (Auto) 0.3, Basophils # (Auto) 0.0, Calcium Level 8.4 L Vital Signs Date Time Temp Pulse Resp B/P (MAP) Pulse Ox O2 Delivery O2 Flow Rate FiO2 01/21/19 09:10 99 154/82 01/21/19 06:00 96.9 20 95 01/20/19 06:00 2.0 I&O- Last 24 Hours up to 6 AM 01/21/19 06:00 Intake Total 2130 ml Output Total 1170 ml Balance 960 ml LASHAUN BRIDGES MD Jan 21, 2019 09:46
[2019-01-21 13:50] VITALS: BP 135/81
[2019-01-21 14:00] VITALS: BP 129/60
[2019-01-21] MEDS: LISINOPRIL 5 MG TAB PO SCH (21:34)
[2019-01-21 22:00] VITALS: BP 151/68
[2019-01-21] MEDS ORDERED: NS 1,000 ML IV SCH (23:00)
[2019-01-22 06:00] VITALS: BP 138/71
[2019-01-22 06:32] LABS: BLOOD UREA NITROGEN 19 MG/DL (7-18); CALCIUM LEVEL 8.2 MG/DL (8.8-10.2); CARBON DIOXIDE LEVEL 24 MEQ/L (21-32); CHLORIDE LEVEL 112 MEQ/L (98-107); CREATININE FOR GFR 0.94 MG/DL (0.70-1.30); GLOMERULAR FILTRATION RATE > 60.0 (>42); GLUCOSE, FASTING 171 MG/DL (70-100); POTASSIUM SERUM 3.7 MEQ/L (3.5-5.1); SODIUM LEVEL 143 MEQ/L (136-145)
[2019-01-22] MEDS: HumaLOG INSULIN (NovoLOG) PER UNIT SC SCH ×4 (07:35→20:44)
[2019-01-22 07:53] LABS: HEMATOCRIT 36.8 % (42.0-52.0); HEMOGLOBIN 11.1 g/dl (13.5-17.5); MEAN CORPUSCULAR HEMOGLOBIN 25.9 pg (27.0-33.0); MEAN CORPUSCULAR HGB CONC 30.2 g/dl (32.0-36.5); MEAN CORPUSCULAR VOLUME 85.8 fl (80.0-96.0); PLATELET COUNT, AUTOMATED 353 10^3/uL (150-450); RED BLOOD COUNT 4.29 10^6/uL (4.30-6.10); WHITE BLOOD COUNT 5.8 10^3/uL (4.0-10.0)
[2019-01-22] MEDS: SIMETHICONE 80 MG CHEW TAB PO SCH ×4 (08:51→20:47)
[2019-01-22] MEDS: POLYVINYL ALCOHOL OPHTH SOLN 15 ML(LIQUITEARS) OS SCH ×4 (08:52→20:44)
[2019-01-22] MEDS: NORTRIPTYLINE 10 MG CAP PO SCH ×3 (08:52→20:45)
[2019-01-22] MEDS ORDERED: PANTOPRAZOLE 40MG TAB (PROTONIX) PO SCH (09:00)
--- NOTE | 2019-01-22 10:22 | IPNPDOC ---
Text Note Date of Service The patient was seen on 01/22/19. NOTE Subjective: Patient is 78-year-old male with a PMhx of Atrial fibrillation/Atrial flutter (on Eliquis), CAD s/p stent, HTN, DLP, DM2, Gout, Hx of R hemicolectomy several years ago, followed by a transverse colectomy in 2018 for colon cancer who presented to the ER for abdominal evaluation of his abdominal pain. In the emergency room, patient was found to have imaging that was consistent with a small bowel obstruction. Patient was admitted to hospitalist service for further evaluation and treatment and general surgery was called on consultation Patient was seen and examined at the bedside. Patient has had his NG tube removed and has been placed on clear liquid diet which he has been tolerating. He denies any nausea, vomiting. Denies abdominal pain. Denies chest pain, shortness of breath or palpitations. Patient does report ability to pass gas, but has not yet had a bowel movement. Objective: Vitals (See below) General: Lying in bed, no acute distress, comfortable, Awake / Alert HEENT: NC, AT CVS: +S1S2 Lungs: Air entry is fair bilaterally, no evidence of wheezing, rhonchi or rales when auscultated Abdomen: Soft, ND, mild tenderness at lower quadrants, +YESSENIA drain with serosanguineous fluid Extremities: No edema at LE, - Calf tenderness Imaging: - XR Abdomen 01/16: Persistent small bowel obstruction pattern. - CT abdomen / pelvis 01/18: Findings are compatible with small bowel obstruction , the complete versus partial, the tip of the with dilated proximal small bowel loops and nondilated distal small bowel loops. There appears to be a transition zone in the midabdomen slightly to the right of midline. The transition appears to be near surgical clips in the bowel compatible with anastomosis from the right hemicolectomy. There is a small volume of ascites adjacent to the liver and spleen. There are small bilateral pleural effusions. 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 Assessment and plan: Abdominal pain - likely 2/2 SBO s/p lysis of adhesion and partial small bowel resection (01/18) - Patient continues to have flatus, although no bowel movements - Imaging was consistent with SBO - s/p IV fluids and NG tube removal - Diet was advanced to clear liquids; will likely advance again today as per surgery - General surgery on consultation Konrad pepper/ Konrad whitlocktter - Remains rate controlled - c/w rate control with Diltiazem - Eliquis on hold; will resume on discharge s/p Leukocytosis - likely 2/2 reactive etiology - ROS negative for infectious etiology - Will hold off on antibiotics at this time Hypertension - BP well controlled - c/w Diltiazem and Lisinopril Diastolic CHF with moderate pulmonary hypertension - Patient is currently euvolemic and does not display any signs of fluid overload - s/p IV fluids - Will hold Torsemide; will likely resume tomorrow as diet continues to advanced s/p Hypernatremia - likely 2/2 normal saline DLP - Hold statin Diabetes - c/w ISS Gout - Will hold Allopurinol (re: NPO) GI prophylaxis - c/w Protonix DVT prophylaxis - c/w Heparin Disposition: - Will discuss with surgery about starting anticoagulation / ASA 81 VS,Fishbone, I+O VS, Fishbone, I+O Laboratory Tests 01/22/19 05:29 Red Blood Count 4.29 L, Mean Corpuscular Volume 85.8, Mean Corpuscular Hemoglobin 25.9 L, Mean Corpuscular Hemoglobin Concent 30.2 L, Red Cell Distribution Width 18.9 H, Calcium Level 8.2 L Vital Signs Date Time Temp Pulse Resp B/P (MAP) Pulse Ox O2 Delivery O2 Flow Rate FiO2 01/22/19 08:52 86 132/68 01/22/19 06:00 96.7 18 97 2.0 I&O- Last 24 Hours up to 6 AM 01/22/19 06:00 Intake Total 1210 ml Output Total 560 ml Balance 650 ml LASHAUN BRIDGES MD Jan 22, 2019 10:22
[2019-01-22] MEDS ORDERED: NITROGLYCERIN 0.4 MG SUBL TABLET SL PRN (10:30)
[2019-01-22] MEDS: ATORVASTATIN 20 MG TAB PO SCH (10:50)
[2019-01-22] MEDS: ALLOPURINOL 100 MG TAB PO SCH (10:50)
[2019-01-22] MEDS: FERROUS SULFATE 325MG TAB PO SCH (10:50)
[2019-01-22] MEDS: SUCRALFATE 1 GM TAB PO SCH ×3 (12:19→20:45)
[2019-01-22 14:00] VITALS: BP 128/69
[2019-01-22] MEDS: PANTOPRAZOLE 40MG TAB (PROTONIX) PO SCH (20:45)
[2019-01-22] MEDS: LISINOPRIL 5 MG TAB PO SCH (20:47)
[2019-01-22 22:00] VITALS: BP 138/74
[2019-01-23 06:00] VITALS: BP 140/68
[2019-01-23 06:37] LABS: HEMATOCRIT 42.4 % (42.0-52.0); HEMOGLOBIN 12.7 g/dl (13.5-17.5); MEAN CORPUSCULAR HEMOGLOBIN 25.6 pg (27.0-33.0); MEAN CORPUSCULAR VOLUME 85.5 fl (80.0-96.0); PLATELET COUNT, AUTOMATED 479 10^3/uL (150-450); RED BLOOD COUNT 4.96 10^6/uL (4.30-6.10); WHITE BLOOD COUNT 8.4 10^3/uL (4.0-10.0)
[2019-01-23 06:56] LABS: BLOOD UREA NITROGEN 18 MG/DL (7-18); CALCIUM LEVEL 8.8 MG/DL (8.8-10.2); CARBON DIOXIDE LEVEL 23 MEQ/L (21-32); CHLORIDE LEVEL 111 MEQ/L (98-107); CREATININE FOR GFR 1.07 MG/DL (0.70-1.30); GLOMERULAR FILTRATION RATE > 60.0 (>42); GLUCOSE, FASTING 161 MG/DL (70-100); MAGNESIUM LEVEL 2.1 MG/DL (1.8-2.4); POTASSIUM SERUM 3.7 MEQ/L (3.5-5.1); SODIUM LEVEL 142 MEQ/L (136-145)
[2019-01-23] MEDS: SUCRALFATE 1 GM TAB PO SCH ×4 (07:55→21:14)
[2019-01-23] MEDS: HumaLOG INSULIN (NovoLOG) PER UNIT SC SCH ×4 (07:55→21:00)
[2019-01-23] MEDS: SIMETHICONE 80 MG CHEW TAB PO SCH ×4 (08:01→21:11)
[2019-01-23] MEDS: ALLOPURINOL 100 MG TAB PO SCH (08:01)
[2019-01-23] MEDS: ATORVASTATIN 20 MG TAB PO SCH (08:01)
[2019-01-23] MEDS: FERROUS SULFATE 325MG TAB PO SCH (08:02)
[2019-01-23] MEDS: PANTOPRAZOLE 40MG TAB (PROTONIX) PO SCH ×2 (08:02→21:13)
[2019-01-23] MEDS: BISACODYL 10 MG SUPP PR SCH ×2 (08:02→21:00)
[2019-01-23] MEDS: NORTRIPTYLINE 10 MG CAP PO SCH ×3 (08:02→21:10)
[2019-01-23] MEDS: POLYVINYL ALCOHOL OPHTH SOLN 15 ML(LIQUITEARS) OS SCH ×4 (08:02→21:14)
[2019-01-23] MEDS: TORSEMIDE (DEMADEX) 50 MG PER 1/2 TAB PO SCH (08:15)
[2019-01-23] MEDS: ONDANSETRON 4 MG TAB (S0181) PO PRN (10:30)
--- NOTE | 2019-01-23 11:19 | IPNPDOC ---
Text Note Date of Service The patient was seen on 01/23/19. NOTE Subjective: Patient is 78-year-old male with a PMhx of Atrial fibrillation/Atrial flutter (on Eliquis), CAD s/p stent, HTN, DLP, DM2, Gout, Hx of R hemicolectomy several years ago, followed by a transverse colectomy in 2018 for colon cancer who presented to the ER for abdominal evaluation of his abdominal pain. In the emergency room, patient was found to have imaging that was consistent with a small bowel obstruction. Patient was admitted to hospitalist service for further evaluation and treatment and general surgery was called on consultation Patient was seen and examined at the bedside. Patient reports that he had an episode of nausea and vomiting yesterday. He denies any abdominal pain today. Denies any further episodes of nausea, vomiting. Has had a large bowel movement. Denies any chest pain, shortness of breath or palpitations. Objective: Vitals (See below) General: Lying in bed, no acute distress, comfortable, Awake / Alert HEENT: NC, AT CVS: +S1S2 Lungs: There is fair air entry bilaterally without auscultated rhonchi / rales / wheezing Abdomen: Remains soft, without any distention. There is mild tenderness that is appreciated at bilateral lower quadrants, +YESSENIA drain with serosanguineous fluid Extremities: LE are without edema, - Calf tenderness Imaging: - XR Abdomen 01/16: Persistent small bowel obstruction pattern. - CT abdomen / pelvis 01/18: Findings are compatible with small bowel obstruction , the complete versus partial, the tip of the with dilated proximal small bowel loops and nondilated distal small bowel loops. There appears to be a transition zone in the midabdomen slightly to the right of midline. The transition appears to be near surgical clips in the bowel compatible with anastomosis from the right hemicolectomy. There is a small volume of ascites adjacent to the liver and spleen. There are small bilateral pleural effusions. 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 Assessment and plan: Abdominal pain - likely 2/2 SBO s/p lysis of adhesion and partial small bowel resection (01/18) - Patient continues to have flatus, although no bowel movements - Imaging was consistent with SBO - s/p IV fluids and NG tube removal - c/w Regular diet - General surgery on consultation; anticipate surgical clearance by tomorrow Konrad pepper/ Konrad greenwood - Remains rate controlled - c/w rate control with Diltiazem - Eliquis on hold; will resume on discharge s/p Leukocytosis - likely 2/2 reactive etiology - ROS negative for infectious etiology - Will hold off on antibiotics at this time Hypertension - BP well controlled - c/w Diltiazem and Lisinopril Diastolic CHF with moderate pulmonary hypertension - Patient is currently euvolemic and does not display any signs of fluid over load - s/p IV fluids - c/w Torsemide - was resumed today s/p Hypernatremia - likely 2/2 normal saline DLP - Hold statin Diabetes - c/w ISS Gout - Resumed Allopurinol GI prophylaxis - c/w Protonix DVT prophylaxis - c/w Heparin Disposition: - Will discuss with surgery about starting anticoagulation / ASA 81 VS,Fishbone, I+O VS, Fishbone, I+O Laboratory Tests 01/23/19 05:30 Red Blood Count 4.96, Mean Corpuscular Volume 85.5, Mean Corpuscular Hemoglobin 25.6 L, Mean Corpuscular Hemoglobin Concent 30.0 L, Red Cell Distribution Width 18.8 H, Calcium Level 8.8 Vital Signs Date Time Temp Pulse Resp B/P (MAP) Pulse Ox O2 Delivery O2 Flow Rate FiO2 01/23/19 08:01 86 152/80 01/23/19 06:00 98.1 16 99 01/22/19 06:00 2.0 I&O- Last 24 Hours up to 6 AM 01/23/19 06:00 Intake Total 760 ml Output Total 1940 ml Balance -1180 ml LASHAUN BRIDGES MD Jan 23, 2019 11:19
[2019-01-23] MEDS: NORCO, ANEXSIA 5/325MG TABLET (HYDROcodone/ACETAMINOPHEN) PO PRN (12:24)
[2019-01-23 14:00] VITALS: BP 139/63
[2019-01-23] MEDS: LISINOPRIL 5 MG TAB PO SCH (21:13)
[2019-01-23 22:00] VITALS: BP 132/68
[2019-01-24] MEDS: NORCO, ANEXSIA 5/325MG TABLET (HYDROcodone/ACETAMINOPHEN) PO PRN (04:13)
[2019-01-24 05:56] LABS: HEMATOCRIT 39.2 % (42.0-52.0); HEMOGLOBIN 12.1 g/dl (13.5-17.5); MEAN CORPUSCULAR HEMOGLOBIN 26.1 pg (27.0-33.0); MEAN CORPUSCULAR HGB CONC 30.9 g/dl (32.0-36.5); MEAN CORPUSCULAR VOLUME 84.5 fl (80.0-96.0); PLATELET COUNT, AUTOMATED 410 10^3/uL (150-450); RED BLOOD COUNT 4.64 10^6/uL (4.30-6.10); WHITE BLOOD COUNT 16.5 10^3/uL (4.0-10.0)
[2019-01-24 06:00] VITALS: BP 140/72
[2019-01-24 06:18] LABS: BLOOD UREA NITROGEN 22 MG/DL (7-18); CALCIUM LEVEL 8.7 MG/DL (8.8-10.2); CARBON DIOXIDE LEVEL 24 MEQ/L (21-32); CHLORIDE LEVEL 107 MEQ/L (98-107); CREATININE FOR GFR 1.21 MG/DL (0.70-1.30); GLOMERULAR FILTRATION RATE > 60.0 (>42); GLUCOSE, FASTING 186 MG/DL (70-100); MAGNESIUM LEVEL 1.7 MG/DL (1.8-2.4); POTASSIUM SERUM 3.7 MEQ/L (3.5-5.1); SODIUM LEVEL 140 MEQ/L (136-145)
[2019-01-24] MEDS: TORSEMIDE (DEMADEX) 50 MG PER 1/2 TAB PO SCH (07:52)
[2019-01-24] MEDS: FERROUS SULFATE 325MG TAB PO SCH (07:53)
[2019-01-24] MEDS: SIMETHICONE 80 MG CHEW TAB PO SCH ×4 (07:53→20:48)
[2019-01-24] MEDS: NORTRIPTYLINE 10 MG CAP PO SCH ×3 (07:53→20:49)
[2019-01-24] MEDS: ATORVASTATIN 20 MG TAB PO SCH (07:53)
[2019-01-24] MEDS: SUCRALFATE 1 GM TAB PO SCH ×4 (07:53→20:49)
[2019-01-24] MEDS: PANTOPRAZOLE 40MG TAB (PROTONIX) PO SCH ×2 (07:53→20:48)
[2019-01-24] MEDS: POLYVINYL ALCOHOL OPHTH SOLN 15 ML(LIQUITEARS) OS SCH ×4 (07:54→20:48)
[2019-01-24] MEDS: ALLOPURINOL 100 MG TAB PO SCH (07:54)
[2019-01-24] MEDS: BISACODYL 10 MG SUPP PR SCH ×2 (07:54→20:42)
[2019-01-24] MEDS: HumaLOG INSULIN (NovoLOG) PER UNIT SC SCH ×4 (07:55→20:23)
[2019-01-24] MEDS ORDERED: MAGNESIUM OXIDE 400 MG TAB (MAG-OX) PO ONE (08:30)
--- NOTE | 2019-01-24 13:07 | IPN ---
DATE: 01/21/2019 Patient overall has been doing relatively well. He unfortunately still has a significant amount drainage of his Amador-Rico (J-P) drainage but his nasogastric (NG) tube fortunately has had minimal and has had a significant amount of flatus without bowel movements. He feels less distended and is thirsty at this time. He has been afebrile. His white count has been normal. On his physical exam, his abdomen is soft, nontender, nondistended. It is morbidly obese. The Amador-Rico drain is serous. IMPRESSION/PLAN: Patient has evidence of return of bowel function at this time. I would like to discontinue his NG tube, start him on a clear liquid diet and we will see how he does. He did have a significantly inflamed/dilated small bowel and it may take a while for this to resolve. So, we will go slowly with his diet but we will see how he does over the next day or two with a clear liquid diet.
--- NOTE | 2019-01-24 13:08 | IPN ---
DATE: 01/23/2019 The patient overall had started his diet to be progressed and when he had it progressed he had some vomiting and thus we put him back to a clear liquid diet but he states that last night he had a big bowel movement and this morning he also had a bowel movement. He has had no nausea or vomiting associated with this and otherwise feels good, is wondering if he could have some lunch today. His abdomen is soft, nondistended, nontender. His Amador-Rico drain is still serous, there is no evidence of purulent material, no bloody discharge from it. IMPRESSION AND PLAN: Will discontinue the Amador-Rico drain at this point. We will start him on a low residual diet. I do feel that we should at least watch him overnight with this and make sure that he is tolerating a regular diet before we discharge him home but it sounds as though he has probably resolved this at this point.
--- NOTE | 2019-01-24 13:13 | IPN ---
DATE: The patient actually has been doing quite well. He has been afebrile. His eyes and nose have been good. He had five bowel movements yesterday and overall states that these were relatively soft/diarrhea. His Amador-Rico drain was removed yesterday and all of his incision sites are clean and dry, healing quite nicely. He has been tolerating diet without being nauseated. IMPRESSION/PLAN: The patient's abdomen is soft. He does not really have an ileus anymore. I think he has resolved this. My concern, however is with his diarrhea whether he may be developing Clostridium (C) difficile. I have asked the nurses to collect a C diff if he has anymore diarrhea today and send off for gastrointestinal (GI) panel as well, and will see that looks like. Otherwise, we will just have to watch him over the next 24-48 hours to make sure that his white count diminishes and he makes some continued progress.
[2019-01-24 14:00] VITALS: BP 130/59
--- NOTE | 2019-01-24 14:45 | IPNPDOC ---
Subjective Date Seen The patient was seen on 01/24/19. Subjective Chief Complaint/HPI Patient seen and examined at the bedside. No acute overnight events noted. States that he had several soft/loose bowel movements yesterday and into today. Denies any abdominal pain at this time. Notes that he has been tolerating a diet without any acute complaints. No overnight fevers noted. However, the patient's white blood cell count was noted to be elevated this morning. Objective Physical Examination General Exam: Positive: Alert, Cooperative, No Acute Distress ENT Exam: Positive: Atraumatic, Mucous membr. moist/pink Neck Exam: Negative: JVD Chest Exam: Positive: Clear to auscultation, Normal air movement Heart Exam: Positive: Rate Normal, Normal S1, Normal S2 Abdomen Exam: Positive: Soft; Negative: Tenderness Extremity Exam: Negative: Tenderness, Swelling Psych Exam: Positive: Oriented x 3 Assessment /Plan Plan/VTE VTE Prophylaxis Ordered?: Yes Plan Abdominal pain 2/2 SBO s/p lysis of adhesion and partial small bowel resection (01/18) Patient continues to have flatus, and had several soft/liquid bowel movements yesterday and into today Cont Regular diet He has remained afebrile, and overall feels much better. However, his WBC is elevated at 16K this morning. We will cont to monitor the patient at this time General surgery on board; appreciate their input A. fib/ A. flutter Cont with Diltiazem Eliquis on hold; will resume on discharge Leukocytosis - likely 2/2 reactive etiology ROS negative for infectious etiology Will hold off on antibiotics at this time However, we will order a C Diff study if the patient develops frequent/watery stools Hypertension Cont Diltiazem and Lisinopril Diastolic CHF with moderate pulmonary hypertension Currently euvolemic and does not display any signs of fluid overload Cont Torsemide DLP Cont statin Diabetes Cont ISS Gout Cont Allopurinol GI prophylaxis Cont Protonix DVT prophylaxis Heparin Disposition-anticipate discharge in 24-48 hours pending continued clinical improvement. VS, I&O, 24H, Fishbone Vital Signs/I&O Vital Signs Date Time Temp Pulse Resp B/P (MAP) Pulse Ox O2 Delivery O2 Flow Rate FiO2 01/24/19 07:53 77 140/72 01/24/19 06:00 97.9 15 95 01/22/19 06:00 2.0 I&O- Last 24 Hours up to 6 AM 01/24/19 06:00 Intake Total 900 ml Output Total 120 ml Balance 780 ml Laboratory Data 24H LABS Laboratory Tests 2 01/23/19 16:43: Bedside Glucose (Misc Panel) 152H 01/23/19 20:55: Bedside Glucose (Misc Panel) 130H 01/24/19 05:34: Nucleated Red Blood Cells % (auto) 0.0, Anion Gap 9, Glomerular Filtration Rate > 60.0, Blood Urea Nitrogen 22H, Creatinine 1.21, Sodium Level 140, Potassium Level 3.7, Chloride Level 107, Carbon Dioxide Level 24, Calcium Level 8.7L, Magnesium Level 1.7L 01/24/19 11:29: Bedside Glucose (Misc Panel) 170H CBC/BMP Laboratory Tests 01/24/19 05:34 Red Blood Count 4.64, Mean Corpuscular Volume 84.5, Mean Corpuscular Hemoglobin 26.1 L, Mean Corpuscular Hemoglobin Concent 30.9 L, Red Cell Distribution Width 18.5 H, Calcium Level 8.7 L LIVE FATIMA MD Jan 24, 2019 14:45
[2019-01-24] MEDS: ONDANSETRON 4 MG TAB (S0181) PO PRN (20:42)
[2019-01-24] MEDS: LISINOPRIL 5 MG TAB PO SCH (20:48)
[2019-01-24] MEDS: HEPARIN SOD (PORCINE) 5000 UNITS/ML VIAL SQ SCH (20:48)
[2019-01-24 22:00] VITALS: BP 142/70
[2019-01-25 05:59] LABS: HEMOGLOBIN 12.7 g/dl (13.5-17.5); MEAN CORPUSCULAR HEMOGLOBIN 26.2 pg (27.0-33.0); MEAN CORPUSCULAR VOLUME 84.7 fl (80.0-96.0); RED BLOOD COUNT 4.84 10^6/uL (4.30-6.10); WHITE BLOOD COUNT 23.5 10^3/uL (4.0-10.0)
[2019-01-25 06:00] VITALS: BP 138/73
[2019-01-25 06:06] LABS: PLATELET COUNT, AUTOMATED 521 10^3/uL (150-450)
[2019-01-25 06:25] LABS: CALCIUM LEVEL 8.5 MG/DL (8.8-10.2); CREATININE FOR GFR 1.54 MG/DL (0.70-1.30); GLOMERULAR FILTRATION RATE 46.7 (>42); MAGNESIUM LEVEL 1.8 MG/DL (1.8-2.4); POTASSIUM SERUM 3.3 MEQ/L (3.5-5.1)
[2019-01-25] MEDS: HumaLOG INSULIN (NovoLOG) PER UNIT SC SCH ×4 (08:33→21:00)
[2019-01-25] MEDS: HEPARIN SOD (PORCINE) 5000 UNITS/ML VIAL SQ SCH ×2 (08:33→22:25)
[2019-01-25] MEDS: NORTRIPTYLINE 10 MG CAP PO SCH ×3 (08:34→22:24)
[2019-01-25] MEDS: ALLOPURINOL 100 MG TAB PO SCH (08:34)
[2019-01-25] MEDS: SIMETHICONE 80 MG CHEW TAB PO SCH ×4 (08:34→22:24)
[2019-01-25] MEDS: ATORVASTATIN 20 MG TAB PO SCH (08:34)
[2019-01-25] MEDS: PANTOPRAZOLE 40MG TAB (PROTONIX) PO SCH ×2 (08:34→22:24)
[2019-01-25] MEDS: SUCRALFATE 1 GM TAB PO SCH ×4 (08:35→22:24)
[2019-01-25] MEDS: FERROUS SULFATE 325MG TAB PO SCH (08:35)
[2019-01-25] MEDS: POLYVINYL ALCOHOL OPHTH SOLN 15 ML(LIQUITEARS) OS SCH ×4 (08:35→22:25)
[2019-01-25] MEDS: BISACODYL 10 MG SUPP PR SCH (08:42)
[2019-01-25] MEDS ORDERED: LR 1,000 ML IV SCH (09:45)
[2019-01-25] MEDS ORDERED: POTASSIUM CHLORIDE 10 MEQ SR TABLET PO ONE (09:45)
[2019-01-25 14:00] VITALS: BP 136/66
--- NOTE | 2019-01-25 15:08 | IPNPDOC ---
Subjective Date Seen The patient was seen on 01/25/19. Subjective Chief Complaint/HPI Patient seen and examined at bedside. States that he has had several loose bowel movements after a hard formed stool following a suppository treatment yesterday. Objective Physical Examination General Exam: Positive: Alert, Cooperative, No Acute Distress ENT Exam: Positive: Atraumatic, Mucous membr. moist/pink Neck Exam: Negative: JVD Chest Exam: Positive: Clear to auscultation, Normal air movement Heart Exam: Positive: Rate Normal, Normal S1, Normal S2 Abdomen Exam: Positive: Soft; Negative: Tenderness Extremity Exam: Negative: Tenderness, Swelling Psych Exam: Positive: Oriented x 3 Assessment /Plan Plan/VTE VTE Prophylaxis Ordered?: Yes Plan Abdominal pain 2/2 SBO s/p lysis of adhesion and partial small bowel resection (01/18) Patient continues to have flatus, and had several soft/liquid bowel movements yesterday following suppository He has remained afebrile, and overall feels much better. However, his WBC is elevated again at 23.5K this morning. The patient is tolerating a diet, and thinks that the scheduled suppository treatments caused him to have diarrhea after he initially passed a hard formed stool. However, denies any abdominal pain and is feeling well overall We will d/c dulcolax suppository We will cont to monitor the patient at this time General surgery on board; appreciate their input JEMIMA 2/2 Above Likely 2/2 diarrhea from laxative Will D/C dulcolax Nephrotoxins held Gentle IVF hydration ordered We will cont to monitor A. fib/ A. flutter Cont with Diltiazem Eliquis on hold; will resume on discharge Leukocytosis - likely 2/2 reactive etiology ROS negative for infectious etiology Will hold off on antibiotics at this time We will order a C Diff study if the patient develops frequent/watery stools following discontinuation of suppository Hypertension Cont Diltiazem, Lisinopril on hold 2/2 above Diastolic CHF with moderate pulmonary hypertension Torsemide on hold 2/2 above DLP Cont statin Diabetes Cont ISS Gout Cont Allopurinol GI prophylaxis Cont Protonix DVT prophylaxis Heparin VS, I&O, 24H, Fishbone Vital Signs/I&O Vital Signs Date Time Temp Pulse Resp B/P (MAP) Pulse Ox O2 Delivery O2 Flow Rate FiO2 01/25/19 08:34 100 138/73 6/28/19 06:00 97.6 16 97 01/22/19 06:00 2.0 I&O- Last 24 Hours up to 6 AM 01/25/19 06:00 Intake Total 1610 ml Output Total 300 ml Balance 1310 ml Laboratory Data 24H LABS Laboratory Tests 2 01/24/19 16:54: Bedside Glucose (Misc Panel) 182H 01/24/19 20:15: Bedside Glucose (Misc Panel) 182H 01/25/19 05:30: Nucleated Red Blood Cells % (auto) 0.0, Anion Gap 11, Glomerular Filtration Rate 46.7, Blood Urea Nitrogen 32H, Creatinine 1.54H, Sodium Level 136, Potassium [place]y 3.3L, Chloride Level 103, Carbon Dioxide Level 22, Calcium Level 8.5L, Magnesium Level 1.8 01/25/19 11:39: Bedside Glucose (Misc Panel) 152H CBC/BMP Laboratory Tests 01/25/19 05:30 Red Blood Count 4.84, Mean Corpuscular Volume 84.7, Mean Corpuscular Hemoglobin 26.2 L, Mean Corpuscular Hemoglobin Concent 31.0 L, Red Cell Distribution Width 18.3 H, Calcium Level 8.5 L LIVE FATIMA MD Jan 25, 2019 15:08
--- NOTE | 2019-01-25 17:26 | IPNPDOC ---
Subjective General Date/Time Seen The patient was seen on 01/25/19 at 17:22. Subject Chief Complaint/History The patient is a 78-year-old male admitted with a reason for visit of Sbo (Small Bowel Obstruction). Patient denies any abdominal discomfort. He reports he had some loose stools last night after the suppository. He reports normal appearing stools today. He reports passing flatus. He is on soft foods, could not progress because he doesn't have his teeth with him. He denies any abdominal pain or discomfort. Current Medications Current Medications Current Medications Acetaminophen (Tylenol Tab) 650 mg Q4HP PRN PO PAIN OR FEVER Last administered on 01/19/19at 20:17; Start 01/18/19 at 17:15 Acetaminophen/ Hydrocodone Bitart ([place], Anexsia 5/325) 1 tab Q4HP PRN PO MILD/MODERATE PAIN (PS 1-7) Last administered on 01/24/19at 04:13; Start 01/18/19 at 17:15 Acetaminophen/ Hydrocodone Bitart ([place], Anexsia 5/325) 2 tab Q4HP PRN PO SEVERE PAIN (PS 8-10) Last administered on 01/19/19at 03:55; Start 01/18/19 at 17:15 Allopurinol (Zyloprim) 200 mg DAILY PO Last administered on 01/25/19at 08:34; Start 01/22/19 at 09:00 Artificial Tears ([place] Tears) 1 drop QID OS Last administered on 01/25/19at 16:54; Start 01/14/19 at 09:00 Atorvastatin Calcium (Lipitor) 80 mg DAILY PO Last administered on 01/25/19at 08:34; Start 01/22/19 at 09:00 Bisacodyl (Dulcolax Suppository) 10 mg BID PA Last administered on 01/24/19at 20:42; Start 01/23/19 at 09:00; Stop 01/25/19 at 09:47; Status DC Dextrose (Dextrose 50%) 25 ml ASDIRECTED PRN IV SEE LABEL COMMENTS; Start 01/14/19 at 00:45 Dextrose (Dextrose 50%) 25 ml ASDIRECTED PRN IV SEE LABEL COMMENTS; Start 01/19 at 13:15; Status UNV Dextrose/Sodium Chloride 1,000 ml @ 80 mls/hr [id number] IV Last administered on 01/20/19at 06:42; Start 01/16/19 at 10:00; Stop 01/20/19 at 07:25; Status DC Dextrose/Sodium Chloride 1,000 ml @ 80 mls/hr [id number] IV Last administered on 01/21/19at 21:35; Start 01/20/19 at 08:00; Stop 01/21/19 at 22:50; Status DC Diatrizoate Meglum/ Diatrizoate Sod (Gastrografin) 10 ml Q30M PO Last administered on 01/18/19at 09:32; Start 01/18/19 at 08:30; Stop 01/18/19 at 09:01; Status DC Diltiazem HCl (Cardizem Cd) 240 mg DAILY PO Last administered on 01/25/19at 08:34; Start 01/14/19 at 09:00 Fentanyl Citrate (Sublimaze) 25 mcg Q5MP PRN IV MODERATE PAIN (PS 4-7) Last administered on 01/18/19at 14:50; Start 01/18/19 at 17:30; Stop 01/18/19 at 18:30; Status DC Fentanyl Citrate (Sublimaze) 25 mcg Q5MP PRN IV MODERATE PAIN (PS 4-7); Start 01/18/19 at 18:30; Stop 01/18/19 at 19:30; Status DC Ferrous Sulfate (Ferrous Sulfate) 325 mg DAILY PO Last administered on 01/25/19at 08:35; Start 01/22/19 at 09:00 Glucagon (Glucagon) 1 mg ASDIRECTED PRN SC SEE LABEL COMMENTS; Start 01/14/19 at 00:45 Glucagon (Glucagon) 1 mg ASDIRECTED PRN SC SEE LABEL COMMENTS; Start 01/19/19 at 13:15; Status UNV Glucose (Glucose) 16 GM ASDIRECTED PRN PO SEE LABEL COMMENTS; Start 01/14/19 at 00:45 Glucose (Glucose) 16 GM ASDIRECTED PRN PO SEE LABEL COMMENTS; Start 01/19/19 at 13:15; Status UNV Heparin Sodium (Porcine) (Heparin) 5,000 units Q12H SC Last administered on 01/17/19at 05:33; Start 01/14/19 at 06:00; Stop 01/17/19 at 15:25; Status DC Heparin Sodium (Porcine) (Heparin) 5,000 units Q12H SQ Last administered on 01/25/19at 08:33; Start 01/24/19 at 21:00 Home Med (Med Rec Complete!) ASDIRECTED XX ; Start 01/13/19 at 23:30; Stop 01/13/19 at 23:44; Status DC Insulin Human Lispro (HumaLOG INSULIN) SEE PROTOCOL TABLE Q6H SC Last administered on 01/21/19at 12:06; Start 01/19/19 at 12:00; Stop 01/21/19 at 12:14; Status DC Insulin Human Lispro (HumaLOG INSULIN) See Protocol Table AC SC Last administered on 01/15/19at 17:51; Start 01/14/19 at 07:30; Stop 01/16/19 at 00:07; Status DC Insulin Human Lispro (HumaLOG INSULIN) See Protocol Table AC SC Last administered on 01/25/19at 16:54; Start 01/21/19 at 17:30 Insulin Human Lispro (HumaLOG INSULIN) See Protocol Table QHS SC ; Start 01/21/19 at 21:00 Labetalol HCl (Normodyne, Trandate) 5 mg ASDIRECTED IV ; Start 01/18/19 at 18:30; Stop 01/18/19 at 19:30; Status Cancel Labetalol HCl (Normodyne, Trandate) 5 mg Q5M PRN IV TITRATE FOR SBP <180 Last administered on 01/18/19at 18:11; Start 01/18/19 at 18:15; Stop 01/18/19 at 19:15; Status DC Lactated Ringer's 1,000 ml @ 75 mls/hr [id number] IV ; Start 01/18/19 at 17:30; Stop 01/18/19 at 18:30; Status DC Lactated Ringer's 1,000 ml @ 75 mls/hr [id number] IV ; Start 01/18/19 at 18:30; Stop 01/18/19 at 19:30; Status Cancel Lactated Ringer's 1,000 ml @ 100 mls/hr Q10H IV Last administered on 01/25/19at 10:09; Start 01/25/19 at 09:45; Stop 01/25/19 at 19:44 Lisinopril (Prinivil) 5 mg QHS PO Last administered on 01/24/19at 20:48; Start 01/13/19 at 21:00; Stop 01/25/19 at 08:01; Status DC Miscellaneous (Unresolved Clarification Entry) SEE LABEL COMMENTS DAILY XX ; Start 01/20/19 at 09:00; Stop 01/21/19 at 12:19; Status DC Morphine Sulfate (Morphine Sulfate Inj) 2 mg Q3H PRN IV PAIN Last administered on 01/14/19at 21:47; Start 01/14/19 at 01:00; Stop 01/25/19 at 10:02; Status DC Morphine Sulfate (Morphine Sulfate Inj) 4 mg Q2HP PRN IV SEVERE PAIN (PS 8-10); Start 01/18/19 at 17:15; Stop 01/23/19 at 09:20; Status DC Morphine Sulfate (Morphine Sulfate Inj) 4 mg Q30M PRN IV SEVERE PAIN (PS 8-10) Last administered on 01/13/19at 20:37; Start 01/13/19 at 20:15; Stop 01/16/19 at 09:51; Status DC Nitroglycerin (Nitrostat (1/ 150)) 0.4 mg ASDIRECTED PRN SL CHEST PAIN; Start 01/22/19 at 10:30 Nortriptyline HCl (Pamelor) 10 mg TID PO Last administered on 01/25/19at 16:54; Start 01/14/19 at 09:00 Ondansetron HCl (ZOFRAN INJection) 4 mg Q4HP PRN IV NAUSEA OR VOMITING; Start 01/18/19 at 17:30; Stop 01/18/19 at 18:30; Status DC Ondansetron HCl (ZOFRAN INJection) 4 mg Q4HP PRN IV NAUSEA OR VOMITING; Start 01/18/19 at 18:30; Stop 01/18/19 at 19:30; Status Cancel Ondansetron HCl (Zofran) 4 mg Q6HP PRN PO NAUSEA OR VOMITING Last administered on 01/24/19at 20:42; Start 01/23/19 at 10:15 Pantoprazole Sodium (Protonix) 40 mg BID IV Last administered on 01/21/19at 21:34; Start 01/14/19 at 09:00; Stop 01/22/19 at 08:46; Status DC Pantoprazole Sodium (Protonix) 40 mg BID PO Last administered on 01/25/19 08:34; Start 01/22/19 at 21:00 Pantoprazole Sodium (Protonix) 40 mg DAILY PO Last administered on 01/22/19 08:55; Start 01/22/19 at 09:00; Stop 01/22/19 at 10:22; Status DC Simethicone (Mylicon) 120 mg QID PO Last administered on 01/25/19at 16:54; Start 01/17/19 at 13:00 Sodium Chloride 1,000 ml @ 60 mls/hr [id number] IV Last administered on 01/21/19at 23:24; Start 01/21/19 at 23:00; Stop 01/22/19 at 06:59; Status DC Sodium Chloride 1,000 ml @ 75 mls/hr [id number] IV Last administered on 01/16/19at 06:35; Start 01/14/19 at 00:33; Stop 01/16/19 at 09:46; Status DC Sucralfate (Carafate) 1 gm ACHS PO Last administered on 01/25/19 16:54; Start 01/22/19 at 12:00 Torsemide (Demadex) 50 mg DAILY PO Last administered on 01/24/19at 07:52; Start 01/23/19 at 09:00; Stop 01/25/19 at 08:01; Status DC Allergies Coded Allergies: No Known Allergies (Unverified , 10/24/18) Objective Physical Examination Examination GENERAL APPEARANCE: Looks very comfortable. SKIN: Warm and moist. HEENT: Mild pale palpebral conjunctiva. Lips are moist.. NECK: Supple, no thyromegaly. No obvious jugular venous distention. LUNGS: Clear to auscultation bilaterally. No wheezing appreciated. HEART: No chest wall abnormalities. Regular rate and rhythm with no murmurs appreciated. ABDOMEN: Abdomen is moderately rounded, protuberant, soft, mildly distended, tympanitic on the upper abdomen. Midline incision with vee in place, intact, no drainage no erythema. Abdomen is nontender on palpation.. EXTREMITIES: Extremities have no deformities. No edema identified. Vital Signs Vital Signs Date Time Temp Pulse Resp B/P (MAP) Pulse Ox O2 Delivery O2 Flow Rate FiO2 01/25/19 14:00 97.4 68 18 136/66 (89) 100 01/22/19 06:00 2.0 I&Os I&O- Last 24 Hours up to 6 AM 01/25/19 06:00 Intake Total 1610 ml Output Total 300 ml Balance 1310 ml Laboratory Data Labs 24H Laboratory Tests 2 01/24/19 20:15: Bedside Glucose (Misc Panel) 182H 01/25/19 05:30: Nucleated Red Blood Cells % (auto) 0.0, Anion Gap 11, Glomerular Filtration Rate 46.7, Blood Urea Nitrogen 32H, Creatinine 1.54H, Sodium Level 136, Potassium Level 3.3L, Chloride Level 103, Carbon Dioxide Level 22, Calcium Level 8.5L, Magnesium Level 1.8 01/25/19 11:39: Bedside Glucose (Misc Panel) 152H 01/25/19 16:49: Bedside Glucose (Misc Panel) 111H CBC/BMP Laboratory Tests 01/25/19 05:30 Red Blood Count 4.84, Mean Corpuscular Volume 84.7, Mean Corpuscular Hemoglobin 26.2 L, Mean Corpuscular Hemoglobin Concent 31.0 L, Red Cell Distribution Width 18.3 H, Calcium Level 8.5 L Impression Postop day 7 exploratory laparotomy, small bowel resection for bowel obstruction Clinically he looks to be doing okay. He is reporting bowel movements and passi ng flatus. Abdominal examination is pretty benign with some leftover tympany and distention in the upper abdomen. He does have an increasing white cell count though he is not showing any signs of sepsis. He continues to have diarrhea, I agree with the hospitalist note to check on C. difficile colitis. He does not clinically show any signs of surgical site infection, wound infection. We will need to closely follow him up look for any source of infection and if the white cell count continues to climb. Plan / VTE VTE Prophylaxis Ordered?: Yes WINDY RAPP MD Jan 25, 2019 17:26
[2019-01-25 22:00] VITALS: BP 140/67
[2019-01-26 06:00] VITALS: BP 148/67
[2019-01-26 06:11] LABS: HEMATOCRIT 34.8 % (42.0-52.0); MEAN CORPUSCULAR HEMOGLOBIN 26.1 pg (27.0-33.0); MEAN CORPUSCULAR HGB CONC 31.6 g/dl (32.0-36.5); MEAN CORPUSCULAR VOLUME 82.5 fl (80.0-96.0); PLATELET COUNT, AUTOMATED 406 10^3/uL (150-450); RED BLOOD COUNT 4.22 10^6/uL (4.30-6.10); WHITE BLOOD COUNT 28.4 10^3/uL (4.0-10.0)
[2019-01-26 06:40] LABS: BLOOD UREA NITROGEN 30 MG/DL (7-18); CARBON DIOXIDE LEVEL 24 MEQ/L (21-32); CHLORIDE LEVEL 105 MEQ/L (98-107); GLOMERULAR FILTRATION RATE > 60.0 (>42); GLUCOSE, FASTING 199 MG/DL (70-100); MAGNESIUM LEVEL 1.7 MG/DL (1.8-2.4); POTASSIUM SERUM 3.4 MEQ/L (3.5-5.1); SODIUM LEVEL 136 MEQ/L (136-145)
[2019-01-26] MEDS: SIMETHICONE 80 MG CHEW TAB PO SCH ×4 (09:26→21:39)
[2019-01-26] MEDS: HumaLOG INSULIN (NovoLOG) PER UNIT SC SCH ×4 (09:26→21:00)
[2019-01-26] MEDS: ATORVASTATIN 20 MG TAB PO SCH (09:27)
[2019-01-26] MEDS: HEPARIN SOD (PORCINE) 5000 UNITS/ML VIAL SQ SCH ×2 (09:27→21:39)
[2019-01-26] MEDS: NORTRIPTYLINE 10 MG CAP PO SCH ×3 (09:28→21:38)
[2019-01-26] MEDS: FERROUS SULFATE 325MG TAB PO SCH (09:29)
[2019-01-26] MEDS: SUCRALFATE 1 GM TAB PO SCH ×4 (09:29→21:38)
[2019-01-26] MEDS: PANTOPRAZOLE 40MG TAB (PROTONIX) PO SCH ×2 (09:29→21:38)
[2019-01-26] MEDS: ALLOPURINOL 100 MG TAB PO SCH (09:29)
[2019-01-26] MEDS: POLYVINYL ALCOHOL OPHTH SOLN 15 ML(LIQUITEARS) OS SCH ×4 (09:32→21:39)
[2019-01-26] MEDS ORDERED: POTASSIUM CHLORIDE 10 MEQ SR TABLET PO ONE (10:00)
[2019-01-26] MEDS ORDERED: MAGNESIUM OXIDE 400 MG TAB (MAG-OX) PO ONE (10:00)
[2019-01-26] MEDS: GASTROGRAFIN SOLUTION 30ML PO SCH ×2 (12:45→13:15)
[2019-01-26 14:00] VITALS: BP 161/71
[2019-01-26] MEDS ORDERED: ISOVUE-370 76% 100ML VIAL (Q9967) As Ordered ONE (14:11)
--- NOTE | 2019-01-26 14:48 | IPNPDOC ---
Subjective Date Seen The patient was seen on 01/26/19. Subjective Chief Complaint/HPI Patient seen and examined at the bedside. Denies any acute complaints of fevers, chills, chest pain, palpitations, abdominal pain, or any nausea/ vomiting/diarrhea. No overnight events noted as per house staff. However, the patient's white blood cell count continues to rise upward. Objective Physical Examination General Exam: Positive: Alert, Cooperative, No Acute Distress ENT Exam: Positive: Atraumatic, Mucous membr. moist/pink Neck Exam: Negative: JVD Chest Exam: Positive: Clear to auscultation, Normal air movement Heart Exam: Positive: Rate Normal, Normal S1, Normal S2 Abdomen Exam: Positive: Soft, Other (surgical wound with stapling noted. Area clean/dry/intact with no surrounding erythema or tenderness to palpation.); Negative: Tenderness Extremity Exam: Negative: Tenderness, Swelling Psych Exam: Positive: Oriented x 3 Assessment /Plan Plan/VTE VTE Prophylaxis Ordered?: Yes Plan Abdominal pain 2/2 SBO s/p lysis of adhesion and partial small bowel resection (01/18) Patient continues to have flatus, and has had several soft bowel movements Denies any more diarrhea since cessation of laxatives The patient denies any complaints of abdominal pain at all, and has been tolerating a diet w/o any issues. His abdomen is soft, non-distended, and non-tender. The surgical wound appears C/D/I Patient has remained afebrile However, the patient's WBC continues to increase? He denies any respiratory or urinary symptoms, and there is no clinical signs of infection We will repeat a CT Abd/Pel to follow up---surgery on board Peripheral smear ordered to r/o other etiology of leukocytosis Will hold off on antibiotic therapy until CT results are read Leukocytosis Mgmt as delineated above JEMIMA 2/2 Above, improved Likely 2/2 diarrhea from laxative, Dulcolax d/c'd Nephrotoxins held s/p Gentle IVF hydration We will cont to monitor A. fib/ A. flutter Cont with Diltiazem Eliquis on hold; will resume on discharge Hypertension Cont Diltiazem, Lisinopril on hold 2/2 above Diastolic CHF with moderate pulmonary hypertension Torsemide on hold 2/2 above DLP Cont statin Diabetes Cont ISS Gout Cont Allopurinol GI prophylaxis Cont Protonix DVT prophylaxis Heparin VS, I&O, [facility], [facility] Vital Signs/I&O Vital Signs Date Time Temp Pulse Resp B/P (MAP) Pulse Ox O2 Delivery O2 Flow Rate FiO2 01/26/19 09:28 99 148/67 01/26/19 06:00 96.9 18 99 2.0 I&O- Last 24 Hours up to 6 AM 01/26/19 06:00 Intake Total 1230 ml Output Total 0 ml Balance 1230 ml Laboratory Data 24H LABS Laboratory Tests 2 01/25/19 16:49: Bedside Glucose (Misc Panel) 111H 01/25/19 20:49: Bedside Glucose (Misc Panel) 162H 01/26/19 05:58: Nucleated Red Blood Cells % (auto) 0.0, Anion Gap 7L, Glomerular Filtration Rate > 60.0, Blood Urea Nitrogen 30H, Creatinine 1.20, Sodium Level 136, Potassium Level 3.4L, Chloride Level 105, Carbon Dioxide Level 24, Calcium Level 8.0L, Magnesium Level 1.7L CBC/BMP Laboratory Tests 01/26/19 05:58 Red Blood Count 4.22 L, Mean Corpuscular Volume 82.5, Mean Corpuscular Hemoglobin 26.1 L, Mean Corpuscular Hemoglobin Concent 31.6 L, Red Cell Distribution Width 18.1 H, Calcium Level 8.0 L LIVE FATIMA MD Jan 26, 2019 14:47
--- NOTE | 2019-01-26 15:03 | REP ---
Clinical: Postoperative abdominal pain and leukocytosis. Comparison: 01/18/2019. Technique: Axial contrast enhanced images from the lung bases to the pubic symphysis with coronal and sagittal re-formations. Findings: Lung bases again demonstrate small pleural effusions and minimal bibasilar atelectasis. Evidence for recent surgery with skin vee noted. There is a small amount of free fluid and free air consistent with recent surgery. The bowel gas pattern demonstrates dilated and partially fluid-filled loops of small and large bowel which are nonspecific and possibly represent postoperative ileus. Scattered colonic diverticula noted without acute diverticulitis. The gallbladder is moderately distended which is nonspecific, but correlation may be warranted to exclude acute cholecystitis. Liver, spleen, pancreas, bilateral adrenal glands and kidneys are normal / stable. The kidneys again demonstrate age-related cortical thinning and bilateral cysts without perinephric stranding or hydroureteronephrosis. Pelvis demonstrates normal bladder and age appropriate prostate/seminal vesicles. No adenopathy. Atherosclerotic changes to the aorta and vasculature without aneurysm or dissection. Musculoskeletal structures are intact. Impression: 1. Nonspecific findings likely postoperative in nature including possible postoperative ileus along with small amount of free fluid and free air. 2. Dilated gallbladder nonspecific but raises the possibility of acute cholecystitis. 3. Further chronic abdominal findings unchanged. 4. Small pleural effusions and basilar atelectasis. Electronically Signed by Melquiades Blanca MD 01/26/2019 02:41 P
[2019-01-26 16:15] LABS: ALBUMIN 1.7 GM/DL (3.2-5.2); ALT/SGPT 16 U/L (12-78); BILIRUBIN,DIRECT 0.2 MG/DL (0.0-0.2); BILIRUBIN,TOTAL 0.5 MG/DL (0.2-1.0); TOTAL PROTEIN 5.3 GM/DL (6.4-8.2)
[2019-01-26] MEDS: PIPERACILLIN/TAZOBACTAM SOD 3.375 GM in D5W MINI-BAG PLUS 50 ML IV SCH ×2 (17:47→23:09)
[2019-01-26 22:00] VITALS: BP 137/65
[2019-01-27] MEDS: PIPERACILLIN/TAZOBACTAM SOD 3.375 GM in D5W MINI-BAG PLUS 50 ML IV SCH ×4 (04:32→21:29)
[2019-01-27 05:45] VITALS: BP 149/65
[2019-01-27 06:11] LABS: HEMATOCRIT 33.6 % (42.0-52.0); HEMOGLOBIN 10.6 g/dl (13.5-17.5); MEAN CORPUSCULAR HEMOGLOBIN 25.7 pg (27.0-33.0); MEAN CORPUSCULAR HGB CONC 31.5 g/dl (32.0-36.5); MEAN CORPUSCULAR VOLUME 81.4 fl (80.0-96.0); PLATELET COUNT, AUTOMATED 405 10^3/uL (150-450); RED BLOOD COUNT 4.13 10^6/uL (4.30-6.10)
[2019-01-27 07:01] LABS: ALBUMIN 1.6 GM/DL (3.2-5.2); ALT/SGPT 19 U/L (12-78); BILIRUBIN,DIRECT 0.2 MG/DL (0.0-0.2); BILIRUBIN,TOTAL 0.5 MG/DL (0.2-1.0); BLOOD UREA NITROGEN 21 MG/DL (7-18); CALCIUM LEVEL 7.7 MG/DL (8.8-10.2); CARBON DIOXIDE LEVEL 23 MEQ/L (21-32); CHLORIDE LEVEL 104 MEQ/L (98-107); CREATININE FOR GFR 0.96 MG/DL (0.70-1.30); GLOMERULAR FILTRATION RATE > 60.0 (>42); GLUCOSE, FASTING 188 MG/DL (70-100); MAGNESIUM LEVEL 1.8 MG/DL (1.8-2.4); POTASSIUM SERUM 3.3 MEQ/L (3.5-5.1); SODIUM LEVEL 136 MEQ/L (136-145); TOTAL PROTEIN 5.2 GM/DL (6.4-8.2)
--- NOTE | 2019-01-27 07:20 | REPVR ---
EXAM: US Abdomen Limited, Right Upper Quadrant EXAM DATE/TIME: 01/27/2019 6:52 AM CLINICAL HISTORY: 78 years old, male; Abnormal findings; Abnormal radiologic finding of the abdomen; Radiologic exam and body structure: CT gallbladder; Additional info: R/O cholecystitis TECHNIQUE: Imaging protocol: Real-time ultrasound of the abdomen with image documentation. Examination was focused on the right upper quadrant. COMPARISON: CT ABD/PEL W/PO CONTRAST ONLY 01/18/2019 9:53 AM FINDINGS: Liver: Normal. No masses. Gallbladder: Distended gallbladder with sludge. No gallstones. Gallbladder wall is thickened measuring 4.7 mm. No sonographic Mclain's sign. Common bile duct: Common bile duct is normal measuring 4.8 mm. Pancreas: Pancreas is not visualized secondary to overlying bowel gas shadow. Right kidney: Right kidney measures 13.3 cm. Increase echogenicity in the central sinus fat and may represent medical renal disease. Numerous cysts in the right kidney largest one is measuring 3.0 x 1.5 x 2.7 cm. IMPRESSION: Distended gallbladder with sludge. No gallstones. Gallbladder wall is thickened measuring 4.7 mm. No sonographic Mclain's sign. Findings may represent acalculus cholecystitis. Electronically signed by: Emerald Mendez On 01/27/2019 07:20:50 AM
[2019-01-27] MEDS ORDERED: POTASSIUM CHLORIDE 10 MEQ SR TABLET PO ONE (09:00)
--- NOTE | 2019-01-27 09:23 | IPNPDOC ---
Subjective General Date/Time Seen The patient was seen on 01/27/19 at 09:20. Subject Chief Complaint/History The patient is a 78-year-old male admitted with a reason for visit of Sbo (Small Bowel Obstruction). Patient continues to look well despite his leukocytosis. He is seen sitting on his chair, finished his breakfast, very amiable and cooperative. Denies any abdominal discomfort and nausea or vomiting. Current Medications Current Medications Current Medications Reviewed. Zosyn day 2 Allergies Coded Allergies: No Known Allergies (Unverified , 10/24/18) Objective Physical Examination Examination GENERAL APPEARANCE: Looks well. SKIN: Warm and moist. HEENT: Normocephalic, atraumatic. Declo palpebral conjunctiva, anicteric sclerae. Lips and mucosa appear moist. NECK: Supple, no thyromegaly. No obvious jugular venous distention. LUNGS: Clear to auscultation bilaterally. No wheezing appreciated. HEART: No chest wall abnormalities. Regular rate and rhythm with no murmurs appreciated. ABDOMEN: Abdomen is moderately rounded, soft, mild distention, mild tympanitic to percussion. Midline incision with intermittent vee, and tacked no drainage no erythema no underlying fluctuance. Nontender on palpation throughout the whole abdomen. EXTREMITIES: Extremities have no deformities. No edema identified. Vital Signs Vital Signs Date Time Temp Pulse Resp B/P (MAP) Pulse Ox O2 Delivery O2 Flow Rate FiO2 01/27/19 05:45 97.3 89 18 149/65 (93) 93 01/26/19 06:00 2.0 I&Os I&O- Last 24 Hours up to 6 AM 01/27/19 06:00 Intake Total 1440 ml Output Total 650 ml Balance 790 ml 2 BMs recorded Laboratory Data CBC/BMP Laboratory Tests 01/27/19 05:11 Red Blood Count 4.13 L, Mean Corpuscular Volume 81.4, Mean Corpuscular Hemoglobin 25.7 L, Mean Corpuscular Hemoglobin Concent 31.5 L, Red Cell Distribution Width 18.[address] abdomen and pelvis Reviewed Abdominal US Reviewed Impression Postop day 9 exploratory laparotomy, small bowel resection for bowel obstruction Possibility of acalculous cholecystitis He was placed on Zosyn yesterday for the worsening leukocytosis. This is simply improve. The gallbladder is distended with some gallbladder wall thickening and sludge on ultrasound no examination does not provide any clues whether he really has cholecystitis. He does not have any tenderness in his upper abdomen. And despite the fact that his small bowel and colon is somewhat distended on CT, he continues to have normal bowel function so I doubt that he is obstructed. I think we can continue on given him oral intake which would help on the possibility of acalculous cholecystitis. Since his leukocytosis is responding to the antibiotics, we may not need to place a cholecystostomy tube. There also is some incidental finding of a few pockets of free air on the CT which most likely is left over from the previous surgery though this is more than a week after the surgery. Other possibilities may include a small anastomotic leakage though he is not showing any signs of peritonitis nor any abscesses not visibly forming on CT. We'll need to closely monitor for possibility of an enterocutaneous fistula forming. Plan / VTE VTE Prophylaxis Ordered?: Yes WINDY RAPP MD Jan 27, 2019 09:23
[2019-01-27] MEDS: SUCRALFATE 1 GM TAB PO SCH ×4 (09:24→21:30)
[2019-01-27] MEDS: FERROUS SULFATE 325MG TAB PO SCH (09:24)
[2019-01-27] MEDS: POLYVINYL ALCOHOL OPHTH SOLN 15 ML(LIQUITEARS) OS SCH ×4 (09:25→21:29)
[2019-01-27] MEDS: PANTOPRAZOLE 40MG TAB (PROTONIX) PO SCH ×2 (09:26→21:30)
[2019-01-27] MEDS: HEPARIN SOD (PORCINE) 5000 UNITS/ML VIAL SQ SCH ×2 (09:26→21:29)
[2019-01-27] MEDS: ALLOPURINOL 100 MG TAB PO SCH (09:26)
[2019-01-27] MEDS: ATORVASTATIN 20 MG TAB PO SCH (09:26)
[2019-01-27] MEDS: NORTRIPTYLINE 10 MG CAP PO SCH ×4 (09:26→22:51)
[2019-01-27] MEDS: SIMETHICONE 80 MG CHEW TAB PO SCH ×4 (09:26→21:31)
[2019-01-27] MEDS: HumaLOG INSULIN (NovoLOG) PER UNIT SC SCH ×4 (09:34→21:00)
--- NOTE | 2019-01-27 12:28 | IPNPDOC ---
Subjective Date Seen The patient was seen on 01/27/19. Subjective Chief Complaint/HPI Patient seen and examined at the bedside. Denies any acute complaints of fevers, chills, chest pain, palpitation, abdominal pain, or any nausea/v omiting/diarrhea. Objective Physical Examination General Exam: Positive: Alert, Cooperative, No Acute Distress ENT Exam: Positive: Atraumatic, Mucous membr. moist/pink Neck Exam: Negative: JVD Chest Exam: Positive: Clear to auscultation, Normal air movement Heart Exam: Positive: Rate Normal, Normal S1, Normal S2 Abdomen Exam: Positive: Soft, Other (surgical wound with stapling noted. Area clean/dry/intact with no surrounding erythema or tenderness to palpation.); Negative: Tenderness Extremity Exam: Negative: Tenderness, Swelling Psych Exam: Positive: Oriented x 3 Assessment /Plan Plan/VTE VTE Prophylaxis Ordered?: Yes Plan Abdominal pain 2/2 SBO s/p lysis of adhesion and partial small bowel resection (01/18) Patient with increasing leukocytosis, depite being afebrile, not having any abd pain, tolerating a diet, passing regular BMs, and no other overt sources of infection-->Repeat CT Abd/Pel on 01/26 and U/S GB from 01/27 revealed gallbladder wall thickening and sludge suggestive of acalculous cholecystitis Patient without any right upper quadrant abdominal pain. Given the aforementioned findings and leukocytosis, the patient was started on Zosyn yesterday The patient's leukocytosis has improved Discussed the plan with general surgery, we will continue to monitor the patient on antibiotic therapy at this time. Leukocytosis Mgmt as delineated above JEMIMA 2/2 Above, resolved Likely 2/2 diarrhea from laxative, Dulcolax d/c'd Nephrotoxins held s/p Gentle IVF hydration We will cont to monitor A. fib/ A. flutter Cont with Diltiazem Eliquis on hold; will resume on discharge Hypertension Cont Diltiazem, Lisinopril on hold 2/2 above Diastolic CHF with moderate pulmonary hypertension Torsemide on hold 2/2 above DLP Cont statin Diabetes Cont ISS Gout Cont Allopurinol GI prophylaxis Cont Protonix DVT prophylaxis Heparin SC VS, I&O, 24H, Fishbone Vital Signs/I&O Vital Signs Date Time Temp Pulse Resp B/P (MAP) Pulse Ox O2 Delivery O2 Flow Rate FiO2 01/27/19 09:25 89 149/65 01/27/19 05:45 97.3 18 93 01/26/19 06:00 2.0 I&O- Last 24 Hours up to 6 AM 01/27/19 06:00 Intake Total 1440 ml Output Total 650 ml Balance 790 ml Laboratory Data 24H LABS Laboratory Tests 2 01/27/19 05:11: Nucleated Red Blood Cells % (auto) 0.0, Anion Gap 9, Glomerular Filtration Rate > 60.0, Calcium Level 7.7L, Magnesium Level 1.8, Aspartate Amino Transf (AST/SGOT) 23, Alanine Aminotransferase (ALT/SGPT) 19, Alkaline Phosphatase 140H, Total Bilirubin 0.5, Direct Bilirubin 0.2, C-Reactive Protein, Quantitative 25.00H, Total Protein 5.2L, Albumin 1.6L, Albumin/Globulin Ratio 0.44L 01/27/19 11:38: Bedside Glucose (Misc Panel) 186H CBC/BMP Laboratory Tests 01/27/19 05:11 Red Blood Count 4.13 L, Mean Corpuscular Volume 81.4, Mean Corpuscular Hemoglobin 25.7 L, Mean Corpuscular Hemoglobin Concent 31.5 L, Red Cell Distribution Width 18.0 H LIVE FATIMA MD Jan 27, 2019 12:28
[2019-01-27 14:00] VITALS: BP 163/76
[2019-01-27] MEDS: NORCO, ANEXSIA 5/325MG TABLET (HYDROcodone/ACETAMINOPHEN) PO PRN (20:03)
[2019-01-27 22:00] VITALS: BP 151/78
[2019-01-28] MEDS: PIPERACILLIN/TAZOBACTAM SOD 3.375 GM in D5W MINI-BAG PLUS 50 ML IV SCH ×4 (03:21→22:30)
[2019-01-28 05:51] LABS: HEMATOCRIT 37.3 % (42.0-52.0); HEMOGLOBIN 11.9 g/dl (13.5-17.5); MEAN CORPUSCULAR HEMOGLOBIN 25.7 pg (27.0-33.0); MEAN CORPUSCULAR HGB CONC 31.9 g/dl (32.0-36.5); MEAN CORPUSCULAR VOLUME 80.6 fl (80.0-96.0); PLATELET COUNT, AUTOMATED 499 10^3/uL (150-450); RED BLOOD COUNT 4.63 10^6/uL (4.30-6.10); WHITE BLOOD COUNT 27.6 10^3/uL (4.0-10.0)
[2019-01-28 06:00] VITALS: BP 145/71
[2019-01-28 06:12] LABS: ALBUMIN 1.9 GM/DL (3.2-5.2); ALT/SGPT 27 U/L (12-78); BILIRUBIN,DIRECT 0.3 MG/DL (0.0-0.2); BILIRUBIN,TOTAL 0.5 MG/DL (0.2-1.0); BLOOD UREA NITROGEN 15 MG/DL (7-18); CALCIUM LEVEL 8.1 MG/DL (8.8-10.2); CARBON DIOXIDE LEVEL 23 MEQ/L (21-32); CHLORIDE LEVEL 102 MEQ/L (98-107); CREATININE FOR GFR 1.07 MG/DL (0.70-1.30); GLOMERULAR FILTRATION RATE > 60.0 (>42); GLUCOSE, FASTING 233 MG/DL (70-100); POTASSIUM SERUM 3.7 MEQ/L (3.5-5.1); SODIUM LEVEL 136 MEQ/L (136-145)
[2019-01-28 06:13] LABS: MAGNESIUM LEVEL 2.1 MG/DL (1.8-2.4)
[2019-01-28] MEDS: FERROUS SULFATE 325MG TAB PO SCH (08:14)
[2019-01-28] MEDS: HumaLOG INSULIN (NovoLOG) PER UNIT SC SCH ×4 (08:14→21:00)
[2019-01-28] MEDS: ALLOPURINOL 100 MG TAB PO SCH (08:15)
[2019-01-28] MEDS: ATORVASTATIN 20 MG TAB PO SCH (08:15)
[2019-01-28] MEDS: SUCRALFATE 1 GM TAB PO SCH ×4 (08:15→21:47)
[2019-01-28] MEDS: HEPARIN SOD (PORCINE) 5000 UNITS/ML VIAL SQ SCH ×2 (08:16→21:47)
[2019-01-28] MEDS: NORTRIPTYLINE 10 MG CAP PO SCH ×3 (08:16→21:47)
[2019-01-28] MEDS: POLYVINYL ALCOHOL OPHTH SOLN 15 ML(LIQUITEARS) OS SCH ×4 (08:17→21:48)
[2019-01-28] MEDS: PANTOPRAZOLE 40MG TAB (PROTONIX) PO SCH ×2 (08:28→21:47)
[2019-01-28] MEDS: SIMETHICONE 80 MG CHEW TAB PO SCH ×4 (08:28→21:47)
[2019-01-28] MEDS: NORCO, ANEXSIA 5/325MG TABLET (HYDROcodone/ACETAMINOPHEN) PO PRN (11:00)
[2019-01-28 14:00] VITALS: BP 128/90
--- NOTE | 2019-01-28 14:22 | IPNPDOC ---
Subjective Date Seen The patient was seen on 01/28/19. Subjective Chief Complaint/HPI Patient seen and examined at bedside. Apparently had vee removed from his abdominal wound this morning, and a large amount of purulent drainage was noted. This was packed with iodoform and covered with gauze. Otherwise, the patient states that he is feeling well and denies any acute complaints of pain. Given the patient's morbid obesity, history of diabetes, he is certainly at risk for a wound infection. We will continue with empiric antibiotic therapy with Zosyn, and closely follow the wound site, and surgical recommendations. Objective Physical Examination General Exam: Positive: Alert, Cooperative, No Acute Distress ENT Exam: Positive: Atraumatic, Mucous membr. moist/pink Neck Exam: Negative: JVD Chest Exam: Positive: Clear to auscultation, Normal air movement Heart Exam: Positive: Rate Normal, Normal S1, Normal S2 Abdomen Exam: Positive: Soft, Other (surgical wound covered with gauze. Surrounding area clean/dry/intact with no surrounding erythema or tenderness to palpation.); Negative: Tenderness Extremity Exam: Negative: Tenderness, Swelling Psych Exam: Positive: Oriented x 3 Assessment /Plan Plan/VTE VTE Prophylaxis Ordered?: Yes Plan Abdominal pain 2/2 SBO s/p lysis of adhesion and partial small bowel resection (01/18) Patient with increasing leukocytosis, despite being afebrile, not having any abd pain, tolerating a diet, passing regular BMs, and no other overt sources of infection-->Repeat CT Abd/Pel on 01/26 and US GB from 01/27 revealed gallbladder wall thickening and sludge suggestive of acalculous cholecystitis Patient without any right upper quadrant abdominal pain. General surgery removed the vee from midline incision this morning, and apparently the patient was noted to have a large amount of purulent drainage with a foul order from the site. This is likely to explain his worsening leukocytosis. 2 open sites on midline were packed with iodoform and covered with a gauze. Wound cultures were sent. We will continue Zosyn and monitor the patient. We will continue to trend white blood cell count and CRP markers Leukocytosis Peripheral smear suggestive of inflammatory/infectious process Mgmt as delineated above JEMIMA 2/2 Above, resolved Likely 2/2 diarrhea from laxative, Dulcolax d/c'd Nephrotoxins held s/p Gentle IVF hydration We will cont to monitor A. fib/ A. flutter Cont with Diltiazem Eliquis on hold; will resume on discharge Hypertension Cont Diltiazem, Lisinopril on hold 2/2 above Diastolic CHF with moderate pulmonary hypertension Torsemide on hold 2/2 above DLP Cont statin Diabetes Cont ISS Gout Cont Allopurinol GI prophylaxis Cont Protonix DVT prophylaxis Heparin SC VS, I&O, 24H, Fishbone Vital Signs/I&O Vital Signs Date Time Temp Pulse Resp B/P (MAP) Pulse Ox O2 Delivery O2 Flow Rate FiO2 01/28/19 11:30 16 01/28/19 08:16 146/76 01/28/19 06:00 97.3 102 95 2.0 I&O- Last 24 Hours up to 6 AM 01/28/19 06:00 Intake Total 1810 ml Output Total 350 ml Balance 1460 ml Laboratory Data 24H LABS Laboratory Tests 2 01/27/19 16:25: Bedside Glucose (Misc Panel) 99 01/27/19 20:34: Bedside Glucose (Misc Panel) 171H 01/28/19 05:39: Nucleated Red Blood Cells % (auto) 0.0, Anion Gap 11, Glomerular Filtration Rate > 60.0, Calcium Level 8.1L, Magnesium Level 2.1, Aspartate Amino Transf ( T/SGOT) 35, Alanine Aminotransferase (ALT/SGPT) 27, Alkaline Phosphatase 212H, Total Bilirubin 0.5, Direct Bilirubin 0.3H, C-Reactive Protein, Quantitative 21.80H, Total Protein 6.0L, Albumin 1.9L, Albumin/Globulin Ratio 0.46L 01/28/19 11:35: Bedside Glucose (Misc Panel) 279H CBC/BMP Laboratory Tests 01/28/19 05:39 Red Blood Count 4.63, Mean Corpuscular Volume 80.6, Mean Corpuscular Hemoglobin 25.7 L, Mean Corpuscular Hemoglobin Concent 31.9 L, Red Cell Distribution Width 17.9 H Microbiology Microbiology 01/28/19 Gram Stain, Received Pending 01/28/19 Wound Culture, Received Pending LIVE FATIMA MD Jan 28, 2019 14:22
[2019-01-28 22:00] VITALS: BP 117/59
[2019-01-29] MEDS: PIPERACILLIN/TAZOBACTAM SOD 3.375 GM in D5W MINI-BAG PLUS 50 ML IV SCH ×4 (03:56→21:20)
[2019-01-29 06:00] VITALS: BP 153/70
[2019-01-29 06:21] LABS: HEMATOCRIT 34.7 % (42.0-52.0); MEAN CORPUSCULAR HEMOGLOBIN 26.4 pg (27.0-33.0); MEAN CORPUSCULAR HGB CONC 31.7 g/dl (32.0-36.5); MEAN CORPUSCULAR VOLUME 83.4 fl (80.0-96.0); PLATELET COUNT, AUTOMATED 404 10^3/uL (150-450); RED BLOOD COUNT 4.16 10^6/uL (4.30-6.10)
[2019-01-29 06:55] LABS: ALBUMIN 1.6 GM/DL (3.2-5.2); ALT/SGPT 23 U/L (12-78); BILIRUBIN,DIRECT 0.3 MG/DL (0.0-0.2); BILIRUBIN,TOTAL 0.4 MG/DL (0.2-1.0); BLOOD UREA NITROGEN 15 MG/DL (7-18); CALCIUM LEVEL 8.1 MG/DL (8.8-10.2); CARBON DIOXIDE LEVEL 24 MEQ/L (21-32); CHLORIDE LEVEL 101 MEQ/L (98-107); CREATININE FOR GFR 0.97 MG/DL (0.70-1.30); GLOMERULAR FILTRATION RATE > 60.0 (>42); GLUCOSE, FASTING 237 MG/DL (70-100); POTASSIUM SERUM 4.9 MEQ/L (3.5-5.1); SODIUM LEVEL 135 MEQ/L (136-145); TOTAL PROTEIN 4.8 GM/DL (6.4-8.2)
[2019-01-29] MEDS: HEPARIN SOD (PORCINE) 5000 UNITS/ML VIAL SQ SCH ×2 (08:24→21:20)
[2019-01-29] MEDS: NORTRIPTYLINE 10 MG CAP PO SCH ×3 (08:25→21:21)
[2019-01-29] MEDS: SIMETHICONE 80 MG CHEW TAB PO SCH ×4 (08:25→21:20)
[2019-01-29] MEDS: SUCRALFATE 1 GM TAB PO SCH ×4 (08:25→21:21)
[2019-01-29] MEDS: ALLOPURINOL 100 MG TAB PO SCH (08:25)
[2019-01-29] MEDS: FERROUS SULFATE 325MG TAB PO SCH (08:26)
[2019-01-29] MEDS: PANTOPRAZOLE 40MG TAB (PROTONIX) PO SCH ×2 (08:26→21:21)
[2019-01-29] MEDS: ATORVASTATIN 20 MG TAB PO SCH (08:26)
[2019-01-29] MEDS: HumaLOG INSULIN (NovoLOG) PER UNIT SC SCH ×4 (08:27→21:00)
[2019-01-29] MEDS: POLYVINYL ALCOHOL OPHTH SOLN 15 ML(LIQUITEARS) OS SCH ×4 (08:27→21:19)
[2019-01-29 11:55] LABS: BASO % 0.2 % (0.0-1.0); LYMPH # 0.5 10^3/uL (1.5-4.5); LYMPH % 2.3 % (24.0-44.0); MONO % 4.4 % (0.0-5.0); NEUTROPHILS # 21.1 10^3/uL (1.8-7.7); NEUTROPHILS % 92.4 % (36.0-66.0)
[2019-01-29 11:59] LABS: APPEARANCE, URINE CLEAR (CLEAR); BACTERIA, URINE AUTO NEGATIVE (NEGATIVE); BILIRUBIN, URINE AUTO NEGATIVE (NEGATIVE); BLOOD, URINE BLOOD 1+ (NEGATIVE); COLOR, URINE YELLOW (YELLOW); GLUCOSE, URINE (UA) AUTO 2+ mg/dL (NEGATIVE); KETONE, URINE AUTO NEGATIVE (NEGATIVE); LEUKOCYTE ESTERASE, URINE AUTO NEGATIVE (NEGATIVE); NITRITE, URINE AUTO NEGATIVE (NEGATIVE); PROTEIN, URINE AUTO 1+ mg/dL (NEGATIVE); RBC, URINE AUTO 2 /HPF (0-3); SPECIFIC GRAVITY URINE AUTO 1.013 (1.002-1.035); SQUAMOUS EPITHELIAL CELL UR AU 0 /HPF (0-6); UROBILINOGEN, URINE AUTO 0.2 mg/dL (0.0-2.0); WBC, URINE AUTO 1 /HPF (0-3)
--- NOTE | 2019-01-29 12:19 | IPNPDOC ---
Date Seen The patient was seen on 01/29/19. Progress Note SUBJECTIVE: Patient is 78-year-old male with a PMhx of Atrial fibrillation/Atrial flutter (on Eliquis), CAD s/p stent, HTN, DLP, DM2, Diastolic CHF with moderate pulmonary hypertension, Gout, Hx of R hemicolectomy several years ago, followed by a transverse colectomy in 2018 for colon cancer who presented to the ER for abdominal evaluation of his abdominal pain. In the emergency room, patient was found to have imaging that was consistent with a small bowel obstruction. Patient was admitted to hospitalist service for further evaluation and treatment and general surgery was called on consultation. Patient was examined at bedside and was in a pleasant mood. He denies any acute complaints of pain and is anxious to go home. Had vee removed from his abdominal wound yesterday morning, and a large amount of purulent drainage was noted. This was packed with iodoform and covered with gauze that will be changed daily. Given the patient's morbid obesity, history of diabetes, he is certainly at risk for a wound infection. We will continue with empiric antibiotic therapy with Zosyn, and closely follow the wound site, and surgical recommendations. OBJECTIVE PHYSICAL EXAMINATION: VITAL SIGNS: Please see below. General Exam: Positive: Alert, Cooperative, No Acute Distress ENT Exam: Positive: Atraumatic, Mucous membr. moist/pink Neck Exam: Negative: JVD Chest Exam: Positive: Clear to auscultation, Normal air movement Heart Exam: Positive: Rate Normal, Normal S1, Normal S2 Abdomen Exam: Positive: Soft, Other (surgical wound covered with gauze. Surrounding area clean/dry/intact with no surrounding erythema. Slight tender ness around incision site with palpation.); Extremity Exam: Mild edema of lower extremities noted. No tenderness to palpation. Psych Exam: Positive: Oriented x 3 LABORATORY DATA, IMAGING STUDIES, MICROBIOLOGY: Please see below. DVT prophylaxis ordered?: Yes, Heparin SC ASSESSMENT AND PLAN: Patient is 78-year-old male with a PMhx of Atrial fibrillation/Atrial flutter (on Eliquis), CAD s/p stent, HTN, DLP, DM2, Diastolic CHF with moderate pulmonary hypertension, Gout, Hx of R hemicolectomy several years ago, followed by a transverse colectomy in 2018 for colon cancer. PROBLEMS: 1. Abdominal pain 2/2 SBO s/p lysis of adhesion and partial small bowel resection (01/18) Patient with increasing leukocytosis, despite being afebrile, not having any abd pain, tolerating a diet, passing regular BMs, and no other overt sources of infection-->Repeat CT Abd/Pel on 01/26 and US GB from 01/27 revealed gallbladder wall thickening and sludge suggestive of acalculous cholecystitis Patient without any right upper quadrant abdominal pain. General surgery removed the vee from midline incision and apparently was noted to have a large amount of purulent drainage with a foul order from the site. This is likely to explain his worsening leukocytosis. 2 open sites on midline were packed with iodoform and covered with a gauze. Wound cultures were sent. We will continue Zosyn and monitor the patient. We will continue to trend white blood cell count and CRP markers Ordered CBC with differential. 2. Leukocytosis Peripheral smear suggestive of inflammatory/infectious process Mgmt as delineated above 3. JEMIMA 2/2 Above, resolved Likely 2/2 diarrhea from laxative, Dulcolax d/c'd Nephrotoxins held s/p Gentle IVF hydration We will cont to monitor 4. Elevated Urobilinogen likely 2/2 to impaired reabsorption pathway Ordered repeat UA 5. A. fib/ A. flutter Cont with Diltiazem Eliquis on hold; will resume on discharge 6. Hypertension Cont Diltiazem, Lisinopril on hold 2/2 above 7. Diastolic CHF with moderate pulmonary hypertension Torsemide on hold 2/2 above 8. DLP Cont statin 9. Diabetes Cont ISS 10. Gout Cont Allopurinol 11. GI prophylaxis Cont Protonix 12. DVT prophylaxis Heparin SC DISPOSITION: Patient is stable and comfortable. Continuing patient on Zosyn. Waiting on wound culture results to decide on appropriate antibiotic for further treatment. VS, I&O, 24H, Fishbone Vital Signs/I&O Vital Signs Date Time Temp Pulse Resp B/P (MAP) Pulse Ox O2 Delivery O2 Flow Rate FiO2 01/29/19 09:54 2.0 01/29/19 08:25 91 142/94 01/29/19 06:00 97.0 20 93 I&O- Last 24 Hours up to 6 AM 01/29/19 06:00 Intake Total 1090 ml Output Total 300 ml Balance 790 ml Laboratory Data 24H LABS Laboratory Tests 2 01/28/19 16:48: Bedside Glucose (Misc Panel) 185H 01/28/19 21:13: Bedside Glucose (Misc Panel) 242H 01/29/19 05:21: Nucleated Red Blood Cells % (auto) 0.0, Anion Gap 10, Glomerular Filtration Rate > 60.0, Calcium Level 8.1L, Magnesium Level 2.0, Aspartate Amino Transf (AST/SGOT) 25, Alanine Aminotransferase (ALT/SGPT) 23, Alkaline Phosphatase 167H, Total Bilirubin 0.4, Direct Bilirubin 0.3H, C-Reactive Protein, Quantitative 22.30H, Total Protein 4.8L, Albumin 1.6L, Albumin/Globulin Ratio 0.50L 01/29/19 11:07: Bedside Glucose (Misc Panel) 221H CBC/BMP Laboratory Tests 01/29/19 05:21 Red Blood Count 4.16 L, Mean Corpuscular Volume 83.4, Mean Corpuscular Hemoglobin 26.4 L, Mean Corpuscular Hemoglobin Concent 31.7 L, Red Cell Distribution Width 18.1 H Microbiology Microbiology 01/28/19 Gram Stain - Final, Resulted 01/28/19 Wound Culture, Resulted Pending GME ATTESTATION GME ATTESTATION My faculty preceptor for this patient encounter was physically present during the encounter and was fully available. All aspects of the patient interview, examination, medical decision making process, and medical care plan development were reviewed and approved by the faculty preceptor. The faculty preceptor is aware and concurs with the plan as stated in the body of this note and will attest to such by his/her cosignature. ATTENDING NOTE I, Jun Bridges, have independently examined this patient and performed my own physical exam, as well as reviewed the documentation and edited where necessary. I have discussed in detail with the resident / student the findings and plan of treatment as documented by the resident / student and edited their note. I agree with their findings and treatment plan and have edited their documentation. I will continue to follow the patient during this hospital stay. KEATON SAWYER OMS-3 Jan 29, 2019 12:19 JUN BRIDGES MD Jan 29, 2019 16:27
--- NOTE | 2019-01-29 12:22 | IPNPDOC ---
Subjective General Date/Time Seen The patient was seen on 01/29/19 at 12:19. Subject Chief Complaint/History The patient is a 78-year-old male admitted with a reason for visit of Sbo (Small Bowel Obstruction). Patient seen sitting up on the chair, looks well. He denies any abdominal complaints. He has been afebrile. I opened up the top portion of the umbilicus and below it which was draining some purulent fluid got a good amount of purulent material out of it. The drainage seems to be tapering off now. Current Medications Current Medications Current Medications Acetaminophen (Tylenol Tab) 650 mg Q4HP PRN PO PAIN OR FEVER Last administered on 01/19/19at 20:17; Start 01/18/19 at 17:15 Acetaminophen/ Hydrocodone Bitart ([place], [place] 5/325) 1 tab Q4HP PRN PO MILD/MODERATE PAIN (PS 1-7) Last administered on 01/27/19at 20:03; Start 01/18/19 at 17:15 Acetaminophen/ Hydrocodone Bitart ([place], [place] 5/325) 2 tab Q4HP PRN PO SEVERE PAIN (PS 8-10) Last administered on 01/28/19at 11:00; Start 01/18/19 at 17:15 Allopurinol (Zyloprim) 200 mg DAILY PO Last administered on 01/29/19at 08:25; Start 01/22/19 at 09:00 Artificial Tears ([place] Tears) 1 drop QID OS Last administered on 01/29/19at 08:27; Start 01/14/19 at 09:00 Atorvastatin Calcium (Lipitor) 80 mg DAILY PO Last administered on 01/29/19at 08:26; Start 01/22/19 at 09:00 Bisacodyl (Dulcolax Suppository) 10 mg BID NM Last administered on 01/24/19at 20:42; Start 01/23/19 at 09:00; Stop 01/25/19 at 09:47; Status DC Dextrose (Dextrose 50%) 25 ml ASDIRECTED PRN IV SEE LABEL COMMENTS; Start 01/14/19 at 00:45 Dextrose (Dextrose 50%) 25 ml ASDIRECTED PRN IV SEE LABEL COMMENTS; Start 01/19/19 at 13:15; Status UNV Dextrose/Sodium Chloride 1,000 ml @ 80 mls/hr [id number] IV Last administered on 01/20/19at 06:42; Start 01/16/19 at 10:00; Stop 01/20/19 at 07:25; Status DC Dextrose/Sodium Chloride 1,000 ml @ 80 mls/hr [id number] IV Last administered on 01/21/19at 21:35; Start 01/20/19 at 08:00; Stop 01/21/19 at 22:50; Status DC Diatrizoate Meglum/ Diatrizoate Sod (Gastrografin) 10 ml Q30M PO Last admi nistered on 01/18/19at 09:32; Start 01/18/19 at 08:30; Stop 01/18/19 at 09:01; Status DC Diatrizoate Meglum/ Diatrizoate Sod (Gastrografin) 10 ml Q30M PO Last administered on 01/26/19at 13:15; Start 01/26/19 at 11:45; Stop 01/26/19 at 12:16; Status DC Diltiazem HCl (Cardizem Cd) 240 mg DAILY PO Last administered on 01/29/19at 08:25; Start 01/14/19 at 09:00 Fentanyl Citrate (Sublimaze) 25 mcg Q5MP PRN IV MODERATE PAIN (PS 4-7) Last administered on 01/18/19at 14:50; Start 01/18/19 at 17:30; Stop 01/18/19 at 18:30; Status DC Fentanyl Citrate (Sublimaze) 25 mcg Q5MP PRN IV MODERATE PAIN (PS 4-7); Start 01/18/19 at 18:30; Stop 01/18/19 at 19:30; Status DC Ferrous Sulfate (Ferrous Sulfate) 325 mg DAILY PO Last administered on 01/29/19at 08:26; Start 01/22/19 at 09:00 Glucagon (Glucagon) 1 mg ASDIRECTED PRN SC SEE LABEL COMMENTS; Start 01/14/19 at 00:45 Glucagon (Glucagon) 1 mg ASDIRECTED PRN SC SEE LABEL COMMENTS; Start 01/19/19 at 13:15; Status UNV Glucose (Glucose) 16 GM ASDIRECTED PRN PO SEE LABEL COMMENTS; Start 01/14/19 at 00:45 Glucose (Glucose) 16 GM ASDIRECTED PRN PO SEE LABEL COMMENTS; Start 01/19/19 at 13:15; Status UNV Heparin Sodium (Porcine) (Heparin) 5,000 units Q12H SC Last administered on 01/17/19at 05:33; Start 01/14/19 at 06:00; Stop 01/17/19 at 15:25; Status DC Heparin Sodium (Porcine) (Heparin) 5,000 units Q12H SQ Last administered on 01/29/19at 08:24; Start 01/24/19 at 21:00 Home Med (Med Rec Complete!) ASDIRECTED XX ; Start 01/13/19 at 23:30; Stop at 23:44; Status DC Insulin Human Lispro (HumaLOG INSULIN) SEE PROTOCOL TABLE Q6H SC Last ad ministered on 01/21/19at 12:06; Start 01/19/19 at 12:00; Stop 01/21/19 at 12:14; Status DC Insulin Human Lispro (HumaLOG INSULIN) See Protocol Table AC SC Last administered on 01/15/19at 17:51; Start 01/14/19 at 07:30; Stop 01/16/19 at 00:07; Status DC Insulin Human Lispro (HumaLOG INSULIN) See Protocol Table AC SC Last administered on 01/29/19at 08:27; Start 01/21/19 at 17:30 Insulin Human Lispro (HumaLOG INSULIN) See Protocol Table QHS SC ; Start 01/21/19 at 21:00 Labetalol HCl (Normodyne, Trandate) 5 mg ASDIRECTED IV ; Start 01/18/19 at 18:30; Stop 01/18/19 at 19:30; Status Cancel Labetalol HCl (Normodyne, Trandate) 5 mg Q5M PRN IV TITRATE FOR SBP <180 Last administered on 01/18/19at 18:11; Start 01/18/19 at 18:15; Stop 01/18/19 at 19:15; Status DC Lactated Ringer's 1,000 ml @ 75 mls/hr [id number] IV ; Start 01/18/19 at 17:30; Stop 01/18/19 at 18:30; Status DC Lactated Ringer's 1,000 ml @ 75 mls/hr [id number] IV ; Start 01/18/19 at 18:30; Stop 01/18/19 at 19:30; Status Cancel Lactated Ringer's 1,000 ml @ 100 mls/hr Q10H IV Last administered on 01/25/19at 10:09; Start 01/25/19 at 09:45; Stop 01/25/19 at 19:44; Status DC Lisinopril (Prinivil) 5 mg QHS PO Last administered on 01/24/19at 20:48; Start 01/13/19 at 21:00; Stop 01/25/19 at 08:01; Status DC Miscellaneous (Unresolved Clarification Entry) SEE LABEL COMMENTS DAILY XX ; Start 01/20/19 at 09:00; Stop 01/21/19 at 12:19; Status DC Miscellaneous (Unresolved Clarification Entry) SEE LABEL COMMENTS DAILY XX ; Start 01/29/19 at 09:00; Stop 01/29/19 at 11:30; Status DC Morphine Sulfate (Morphine Sulfate Inj) 2 mg Q3H PRN IV PAIN Last administered on 01/14/19at 21:47; Start 01/14/19 at 01:00; Stop 01/25/19 at 10:02; Status DC Morphine Sulfate (Morphine Sulfate Inj) 4 mg Q2HP PRN IV SEVERE PAIN (PS 8-10); Start 01/18/19 at 17:15; Stop 01/23/19 at 09:20; Status DC Morphine Sulfate (Morphine Sulfate Inj) 4 mg Q30M PRN IV SEVERE PAIN (PS 8-10) Last administered on 01/13/19at 20:37; Start 01/13/19 at 20:15; Stop 01/16/19 at 09:51; Status DC Nitroglycerin (Nitrostat (1/ 150)) 0.4 mg ASDIRECTED PRN SL CHEST PAIN; Start 01/22/19 at 10:30 Nortriptyline HCl (Pamelor) 10 mg TID PO Last administered on 01/29/19at 08:25; Start 01/14/19 at 09:00 Ondansetron HCl (ZOFRAN INJection) 4 mg Q4HP PRN IV NAUSEA OR VOMITING; Start 01/18/19 at 17:30; Stop 01/18/19 at 18:30; Status DC Ondansetron HCl (ZOFRAN INJection) 4 mg Q4HP PRN IV NAUSEA OR VOMITING; Start 01/18/19 at 18:30; Stop 01/18/19 at 19:30; Status Cancel Ondansetron HCl (Zofran) 4 mg Q6HP PRN PO NAUSEA OR VOMITING Last administered on 01/24/19 20:42; Start 01/23/19 at 10:15 Pantoprazole Sodium (Protonix) 40 mg BID IV Last administered on 01/21/19 21:3 4; Start 01/14/19 at 09:00; Stop 01/22/19 at 08:46; Status DC Pantoprazole Sodium (Protonix) 40 mg BID PO Last administered on 01/29/19 08:26; Start 01/22/19 at 21:00 Pantoprazole Sodium (Protonix) 40 mg DAILY PO Last administered on 01/22/19 08:55; Start 01/22/19 at 09:00; Stop 01/22/19 at 10:22; Status DC Piperacillin Sod/ Tazobactam Sod 3.375 gm/Dextrose 50 ml @ 50 mls/hr Q6H IV Last administered on 01/29/19 10:17; Start 01/26/19 at 16:00 Simethicone (Mylicon) 120 mg QID PO Last administered on 01/29/19 08:25; Start 01/17/19 at 13:00 Sodium Chloride 1,000 ml @ 60 mls/hr [id number] IV Last administered on 01/21/19 23:24; Start 01/21/19 at 23:00; Stop 01/22/19 at 06:59; Status DC Sodium Chloride 1,000 ml @ 75 mls/hr [id number] IV Last administered on 01/16/19 06:35; Start 01/14/19 at 00:33; Stop 01/16/19 at 09:46; Status DC Sucralfate (Carafate) 1 gm ACHS PO Last administered on 01/29/19 08:25; Start 01/22/19 at 12:00 Torsemide (Demadex) 50 mg DAILY PO Last administered on 01/24/19 07:52; Start 01/23/19 at 09:00; Stop 01/25/19 at 08:01; Status DC Allergies Coded Allergies: No Known Allergies (Unverified , 10/24/18) Objective Physical Examination Examination GENERAL APPEARANCE: Looks comfortable. SKIN: Warm and moist. HEENT: Normocephalic, atraumatic. [place] palpebral conjunctiva, anicteric sclerae. Lips and mucosa appear moist. NECK: Supple, no thyromegaly. No obvious jugular venous distention. LUNGS: Clear to auscultation bilaterally. No wheezing appreciated. HEART: No chest wall abnormalities. Regular rate and rhythm with no murmurs appreciated. ABDOMEN: Abdomen is rounded and protuberant, soft, nondistended. He is nontender in the right upper quadrant area. He has midline incision about a 3 cm portion is open on top of the umbilicus and a 2 cm portion is opened below the umbilicus. This was packed. I removed the packing and this has a small amount of remaining purulent material but no further drainage when I tried to express more around it. No skin erythema.. EXTREMITIES: Extremities have no deformities. No edema identified. Vital Signs Vital Signs Date Time Temp Pulse Resp B/P (MAP) Pulse Ox O2 Delivery O2 Flow Rate FiO2 01/29/19 09:54 2.0 01/29/19 08:25 91 142/94 01/29/19 06:00 97.0 20 93 I&Os I&O- Last 24 Hours up to 6 AM 01/29/19 06:00 Intake Total 1090 ml Output Total 300 ml Balance 790 ml Laboratory Data Labs 24H Laboratory Tests 2 01/28/19 16:48: Bedside Glucose (Misc Panel) 185H 01/28/19 21:13: Bedside Glucose (Misc Panel) 242H 01/29/19 05:21: Immature Granulocyte % (Auto) 0.7, White Blood Count 23.0H, Red Blood Count 4.16L, Hemoglobin 11.0L, Hematocrit 34.7L, Mean Corpuscular Volume 83.4, Mean Corpuscular Hemoglobin 26.4L, Mean Corpuscular Hemoglobin Concent 31.7L, Red Cell Distribution Width 18.1H, Platelet Count 404, Neutrophils (%) (Auto) 92.4H, Lymphocytes (%) (Auto) 2.3L, Monocytes (%) (Auto) 4.4, Eosinophils (%) (Auto) 0.0, Basophils (%) (Auto) 0.2, Neutrophils # (Auto) 21.1H, Lymphocytes # (Auto) 0.5L, Monocytes # (Auto) 1.0H, Eosinophils # (Auto) 0.0, Basophils # (Auto) 0.0, Nucleated Red Blood Cells % (auto) 0.0, Anion Gap 10, Glomerular Filtration Rate > 60.0, Calcium Level 8.1L, Magnesium Level 2.0, Aspartate Amino Transf (AST/SGOT) 25, Alanine Aminotransferase (ALT/SGPT) 23, Alkaline Phosphatase 1 67H, Total Bilirubin 0.4, Direct Bilirubin 0.3H, C-Reactive Protein, Quantitative 22.30H, Total Protein 4.8L, Albumin 1.6L, Albumin/Globulin Ratio 0.50L 01/29/19 11:07: Bedside Glucose (Misc Panel) 221H 01/29/19 11:35: Urine Appearance CLEAR, Urine Color YELLOW, Urine pH 6.0, Urine Specific [place] 1.013, Urine Protein 1+H, Urine Glucose (UA) 2+H, Urine Ketones NEGATIVE, Urine Urobilinogen 0.2, Urine Bilirubin NEGATIVE, Urine Leukocyte Esterase NEGATIVE, Urine Blood 1+H, Urine Nitrite NEGATIVE, Urine WBC (Auto) 1, Urine RBC (Auto) 2, Urine Hyaline Casts (Auto) 0, Urine Bacteria (Auto) NEGATIVE, Urine Squamous Epithelial Cells 0, Urine Sperm (Auto) CBC/BMP Laboratory Tests 01/29/19 05:21 Red Blood Count 4.16 L, Mean Corpuscular Volume 83.4, Mean Corpuscular Hemoglobin 26.4 L, Mean Corpuscular Hemoglobin Concent 31.7 L, Red Cell D istribution Width 18.1 H, Neutrophils (%) (Auto) 92.4 H, Lymphocytes (%) (Auto) 2.3 L, Monocytes (%) (Auto) 4.4, Eosinophils (%) (Auto) 0.0, Basophils (%) (Auto) 0.2, Neutrophils # (Auto) 21.1 H, Lymphocytes # (Auto) 0.5 L, Monocytes # (Auto) 1.0 H, Eosinophils # (Auto) 0.0, Basophils # (Auto) 0.0 Microbiology Microbiology 01/28/19 Gram Stain - Final, Resulted 01/28/19 Wound Culture, Resulted Pending Impression Postop day 11 exploratory laparotomy, small bowel resection for bowel obstruction Possibility of acalculous cholecystitis Wound infection I believe the was a ptosis more likely from the wound infection. Continue with IV antibiotics Zosyn for now. Change packing with iodoform placed gauze daily. Once there is a significant drop no leukocytosis and CRP could probably go home on oral antibiotics. He most likely will need visiting nurse referral for wound packing going home. Plan / VTE VTE Prophylaxis Ordered?: Yes WINDY RAPP MD Jan 29, 2019 12:21
[2019-01-29 14:00] VITALS: BP 150/62
[2019-01-29] MEDS ORDERED: PILL CUTTER 1 EACH XX PRN (14:15)
[2019-01-29 22:00] VITALS: BP 146/72
[2019-01-30] MEDS: PIPERACILLIN/TAZOBACTAM SOD 3.375 GM in D5W MINI-BAG PLUS 50 ML IV SCH (04:13)
[2019-01-30] MEDS: NORCO, ANEXSIA 5/325MG TABLET (HYDROcodone/ACETAMINOPHEN) PO PRN (04:20)
[2019-01-30 06:00] VITALS: BP 141/73
[2019-01-30 07:13] LABS: ALBUMIN 1.5 GM/DL (3.2-5.2); ALT/SGPT 25 U/L (12-78); BILIRUBIN,DIRECT 0.2 MG/DL (0.0-0.2); BILIRUBIN,TOTAL 0.4 MG/DL (0.2-1.0); TOTAL PROTEIN 5.5 GM/DL (6.4-8.2)
[2019-01-30 07:43] LABS: BASO % 0.1 % (0.0-1.0); BLOOD UREA NITROGEN 13 MG/DL (7-18); CALCIUM LEVEL 8.7 MG/DL (8.8-10.2); CARBON DIOXIDE LEVEL 23 MEQ/L (21-32); CHLORIDE LEVEL 103 MEQ/L (98-107); CREATININE FOR GFR 1.11 MG/DL (0.70-1.30); GLOMERULAR FILTRATION RATE > 60.0 (>42); GLUCOSE, FASTING 209 MG/DL (70-100); HEMATOCRIT 34.4 % (42.0-52.0); HEMOGLOBIN 10.8 g/dl (13.5-17.5); LYMPH # 0.5 10^3/uL (1.5-4.5); LYMPH % 2.5 % (24.0-44.0); MEAN CORPUSCULAR HEMOGLOBIN 26.3 pg (27.0-33.0); MEAN CORPUSCULAR HGB CONC 31.4 g/dl (32.0-36.5); MEAN CORPUSCULAR VOLUME 83.7 fl (80.0-96.0); MONO # 0.8 10^3/uL (0.0-0.8); MONO % 3.9 % (0.0-5.0); NEUTROPHILS % 92.7 % (36.0-66.0); PLATELET COUNT, AUTOMATED 372 10^3/uL (150-450); RED BLOOD COUNT 4.11 10^6/uL (4.30-6.10); SODIUM LEVEL 135 MEQ/L (136-145); WHITE BLOOD COUNT 21.6 10^3/uL (4.0-10.0)
[2019-01-30] MEDS: SUCRALFATE 1 GM TAB PO SCH ×4 (07:44→20:37)
[2019-01-30] MEDS: HumaLOG INSULIN (NovoLOG) PER UNIT SC SCH ×4 (07:45→20:37)
--- NOTE | 2019-01-30 08:01 | IPNPDOC ---
Subjective General Date/Time Seen The patient was seen on 01/30/19 at 07:59. Subject Chief Complaint/History The patient is a 78-year-old male admitted with a reason for visit of Sbo (Small Bowel Obstruction). No complaints at this time. Reports no abdominal discomfort, nausea or vomiting. Has informed that he has not had any bowel movement for 3-4 days now though he is passing flatus. Current Medications Current Medications Current Medications Acetaminophen (Tylenol Tab) 650 mg Q4HP PRN PO PAIN OR FEVER Last administered on 01/19/19at 20:17; Start 01/18/19 at 17:15 Acetaminophen/ Hydrocodone Bitart ([place], Anexsia 5/325) 1 tab Q4HP PRN PO MILD/MODERATE PAIN (PS 1-7) Last administered on 01/30/19at 04:20; Start 01/18/19 at 17:15 Acetaminophen/ Hydrocodone Bitart ([place], Anexsia 5/325) 2 tab Q4HP PRN PO SEVERE PAIN (PS 8-10) Last administered on 01/28/19at 11:00; Start 01/18/19 at 17:15 Allopurinol (Zyloprim) 200 mg DAILY PO Last administered on 01/29/19 08:25; Start 01/22/19 at 09:00 Artificial Tears ([place] Tears) 1 drop QID OS Last administered on 01/29/19 21:19; Start 01/14/19 at 09:00 Atorvastatin Calcium (Lipitor) 80 mg DAILY PO Last administered on 01/29/19at 08:26; Start 01/22/19 at 09:00 Bisacodyl (Dulcolax Suppository) 10 mg BID CA Last administered on 01/24/19at 20:42; Start 01/23/19 at 09:00; Stop 01/25/19 at 09:47; Status DC Dextrose (Dextrose 50%) 25 ml ASDIRECTED PRN IV SEE LABEL COMMENTS; Start 01/14/19 at 00:45 Dextrose (Dextrose 50%) 25 ml ASDIRECTED PRN IV SEE LABEL COMMENTS; Start 01/19/19 at 13:15; Status UNV Dextrose/Sodium Chloride 1,000 ml @ 80 mls/hr [id number] IV Last administered on 01/20/19at 06:42; Start 01/16/19 at 10:00; Stop 01/20/19 at 07:25; Status DC Dextrose/Sodium Chloride 1,000 ml @ 80 mls/hr [id number] IV Last administered on 01/21/19at 21:35; Start 01/20/19 at 08:00; Stop 01/21/19 at 22:50; Status DC Diatrizoate Meglum/ Diatrizoate Sod (Gastrografin) 10 ml Q30M PO Last administered on 01/18/19at 09:32; Start 01/18/19 at 08:30; Stop 01/18/19 at 09:01; Status DC Diatrizoate Meglum/ Diatrizoate Sod (Gastrografin) 10 ml Q30M PO Last administered on 01/26/19at 13:15; Start 01/26/19 at 11:45; Stop 01/26/19 at 12:16; Status DC Diltiazem HCl (Cardizem Cd) 240 mg DAILY PO Last administered on 01/29/19at 08:25; Start 01/14/19 at 09:00 Fentanyl Citrate (Sublimaze) 25 mcg Q5MP PRN IV MODERATE PAIN (PS 4-7) Last administered on 01/18/19at 14:50; Start 01/18/19 at 17:30; Stop 01/18/19 at 18:30; Status DC Fentanyl Citrate (Sublimaze) 25 mcg Q5MP PRN IV MODERATE PAIN (PS 4-7); Start 01/18/19 at 18:30; Stop 01/18/19 at 19:30; Status DC Ferrous Sulfate (Ferrous Sulfate) 325 mg DAILY PO Last administered on 01/29/19at 08:26; Start 01/22/19 at 09:00 Glucagon (Glucagon) 1 mg ASDIRECTED PRN SC SEE LABEL COMMENTS; Start 01/14/19 at 00:45 Glucagon (Glucagon) 1 mg ASDIRECTED PRN SC SEE LABEL COMMENTS; Start 01/19/19 at 13:15; Status UNV Glucose (Glucose) 16 GM ASDIRECTED PRN PO SEE LABEL COMMENTS; Start 01/14/19 at 00:45 Glucose (Glucose) 16 GM ASDIRECTED PRN PO SEE LABEL COMMENTS; Start 01/19/19 at 13:15; Status UNV Heparin Sodium (Porcine) (Heparin) 5,000 units Q12H SC Last administered on 01/17/19at 05:33; Start 01/14/19 at 06:00; Stop 01/17/19 at 15:25; Status DC Heparin Sodium (Porcine) (Heparin) 5,000 units Q12H SQ Last administered on 01/29/19at 21:20; Start 01/24/19 at 21:00 Home Med (Med Rec Complete!) ASDIRECTED XX ; Start 01/13/19 at 23:30; Stop 01/13/19 at 23:44; Status DC Insulin Human Lispro (HumaLOG INSULIN) SEE PROTOCOL TABLE Q6H SC Last administered on 01/21/19at 12:06; Start 01/19/19 at 12:00; Stop 01/21/19 at 12:14; Status DC Insulin Human Lispro (HumaLOG INSULIN) See Protocol Table AC SC Last administered on 01/15/19at 17:51; Start 01/14/19 at 07:30; Stop 01/16/19 at 00:07; Status DC Insulin Human Lispro (HumaLOG INSULIN) See Protocol Table AC SC Last administered on 01/30/19at 07:45; Start 01/21/19 at 17:30 Insulin Human Lispro (HumaLOG INSULIN) See Protocol Table QHS SC ; Start 01/21/19 at 21:00 Labetalol HCl (Normodyne, Trandate) 5 mg ASDIRECTED IV ; Start 01/18/19 at 18:30; Stop 01/18/19 at 19:30; Status Cancel Labetalol HCl (Normodyne, Trandate) 5 mg Q5M PRN IV TITRATE FOR SBP <180 Last administered on 01/18/19at 18:11; Start 01/18/19 at 18:15; Stop 01/18/19 at 19:15; Status DC Lactated Ringer's 1,000 ml @ 75 mls/hr [id number] IV ; Start 01/18/19 at 17:30; Stop 01/18/19 at 18:30; Status DC Lactated Ringer's 1,000 ml @ 75 mls/hr [id number] IV ; Start 01/18/19 at 18:30; Stop 01/18/19 at 19:30; Status Cancel Lactated Ringer's 1,000 ml @ 100 mls/hr Q10H IV Last administered on 01/25/19at 10:09; Start 01/25/19 at 09:45; Stop 01/25/19 at 19:44; Status DC Lisinopril (Prinivil) 5 mg QHS PO Last administered on 01/24/19at 20:48; Start 01/13/19 at 21:00; Stop 01/25/19 at 08:01; Status DC Miscellaneous (Unresolved Clarification Entry) SEE LABEL COMMENTS DAILY XX ; Start 01/20/19 at 09:00; Stop 01/21/19 at 12:19; Status DC Miscellaneous (Unresolved Clarification Entry) SEE LABEL COMMENTS DAILY XX ; Start 01/29/19 at 09:00; Stop 01/29/19 at 11:30; Status DC Morphine Sulfate (Morphine Sulfate Inj) 2 mg Q3H PRN IV PAIN Last administered on 01/14/19at 21:47; Start 01/14/19 at 01:00; Stop 01/25/19 at 10:02; Status DC Morphine Sulfate (Morphine Sulfate Inj) 4 mg Q2HP PRN IV SEVERE PAIN (PS 8-10); Start 01/18/19 at 17:15; Stop 01/23/19 at 09:20; Status DC Morphine Sulfate (Morphine Sulfate Inj) 4 mg Q30M PRN IV SEVERE PAIN (PS 8-10) Last administered on 01/13/19at 20:37; Start 01/13/19 at 20:15; Stop 01/16/19 at 09:51; Status DC Nitroglycerin (Nitrostat (1/ 150)) 0.4 mg ASDIRECTED PRN SL CHEST PAIN; Start 01/22/19 at 10:30 Nortriptyline HCl (Pamelor) 10 mg TID PO Last administered on 01/29/19at 21:21; Start 01/14/19 at 09:00 Ondansetron HCl (ZOFRAN INJection) 4 mg Q4HP PRN IV NAUSEA OR VOMITING; Start 01/18/19 at 17:30; Stop 01/18/19 at 18:30; Status DC Ondansetron HCl (ZOFRAN INJection) 4 mg Q4HP PRN IV NAUSEA OR VOMITING; Start 01/18/19 at 18:30; Stop 01/18/19 at 19:30; Status Cancel Ondansetron HCl (Zofran) 4 mg Q6HP PRN PO NAUSEA OR VOMITING Last administered on 01/24/19 20:42; Start 01/23/19 at 10:15 Pantoprazole Sodium (Protonix) 40 mg BID IV Last administered on 01/21/19 21:34; Start 01/14/19 at 09:00; Stop 01/22/19 at 08:46; Status DC Pantoprazole Sodium (Protonix) 40 mg BID PO Last administered on 01/29/19 21:21; Start 01/22/19 at 21:00 Pantoprazole Sodium (Protonix) 40 mg DAILY PO Last administered on 01/22/19 08:55; Start 01/22/19 at 09:00; Stop 01/22/19 at 10:22; Status DC Piperacillin Sod/ Tazobactam Sod 3.375 gm/Dextrose 50 ml @ 50 mls/hr Q6H IV Last administered on 01/30/19 04:13; Start 01/26/19 at 16:00 Simethicone (Mylicon) 120 mg QID PO Last administered on 01/29/19 21:20; Start 01/17/19 at 13:00 Sodium Chloride 1,000 ml @ 60 mls/hr [id number] IV Last administered on 01/21/19 23:24; Start 01/21/19 at 23:00; Stop 01/22/19 at 06:59; Status DC Sodium Chloride 1,000 ml @ 75 mls/hr [id number] IV Last administered on 01/16/19 06:35; Start 01/14/19 at 00:33; Stop 01/16/19 at 09:46; Status DC Sucralfate (Carafate) 1 gm ACHS PO Last administered on 01/30/19 07:44; Start 01/22/19 at 12:00 Torsemide (Demadex) 50 mg DAILY PO Last administered on 01/24/19 07:52; Start 01/23/19 at 09:00; Stop 01/25/19 at 08:01; Status DC Allergies Coded Allergies: No Known Allergies (Unverified , 10/24/18) Objective Physical Examination Examination GENERAL APPEARANCE: Comfortable. SKIN: Warm and moist. HEENT: Normocephalic, atraumatic. [place] palpebral conjunctiva, anicteric sclerae. Lips and mucosa appear moist. NECK: Supple, no thyromegaly. No obvious jugular venous distention. LUNGS: Clear to auscultation bilaterally. No wheezing appreciated. HEART: No chest wall abnormalities. Regular rate and rhythm with no murmurs appreciated. ABDOMEN: Abdomen is obese, soft, minimally distended. Midline incision with 2 points to where open has minimal drainage from it, packed with iodoform gauze no surrounding skin erythema. EXTREMITIES: Extremities have no deformities. No edema identified. Vital Signs Vital Signs Date Time Temp Pulse Resp B/P (MAP) Pulse Ox O2 Delivery O2 Flow Rate FiO2 01/30/19 06:00 96.9 97 17 141/73 (95) 97 01/29/19 21:30 2.0 I&Os I&O- Last 24 Hours up to 6 AM 01/30/19 06:00 Intake Total 1805 ml Output Total 500 ml Balance 1305 ml Laboratory Data Labs 24H Laboratory Tests 2 01/29/19 11:07: Bedside Glucose (Misc Panel) 221H 01/29/19 11:35: Urine Appearance CLEAR, Urine Color YELLOW, Urine pH 6.0, Urine Specific [place] 1.013, Urine Protein 1+H, Urine Glucose (UA) 2+H, Urine Ketones NEGATIVE, Urine Urobilinogen 0.2, Urine Bilirubin NEGATIVE, Urine Leukocyte Esterase NEGATIVE, Urine Blood 1+H, Urine Nitrite NEGATIVE, Urine WBC (Auto) 1, Urine RBC (Auto) 2, Urine Hyaline Casts (Auto) 0, Urine Bacteria (Auto) NEGATIVE, Urine Squamous Epithelial Cells 0, Urine Sperm (Auto) 01/29/19 17:00: Bedside Glucose (Misc Panel) 214H 01/29/19 20:45: Bedside Glucose (Misc Panel) 165H 01/30/19 06:00: Bedside Glucose (Misc Panel) 221H 01/30/19 06:29: Immature Granulocyte % (Auto) 0.8, White Blood Count 21.6H, Red Blood Count 4.11L, Hemoglobin 10.8L, Hematocrit 34.4L, Mean Corpuscular Volume 83.7, Mean Corpuscular Hemoglobin 26.3L, Mean Corpuscular Hemoglobin Concent 31.4L, Red Cell Distribution Width 18.2H, Platelet Count 372, Neutrophils (%) (Auto) 92.7H, Lymphocytes (%) (Auto) 2.5L, Monocytes (%) (Auto) 3.9, Eosinophils (%) (Auto) 0.0, Basophils (%) (Auto) 0.1, Neutrophils # (Auto) 20.0H, Lymphocytes # (Auto) 0.5L, Monocytes # (Auto) 0.8, Eosinophils # (Auto) 0.0, Basophils # (Auto) 0.0, Nucleated Red Blood Cells % (auto) 0.0, Anion Gap 9, Glomerular Filtration Rate > 60.0, Calcium Level 8.7L, Aspartate Amino Transf (AST/SGOT) 27, Alanine Aminotransferase (ALT/SGPT) 25, Alkaline Phosphatase 167H, Total Bilirubin 0.4, Direct Bilirubin 0.2, C-Reactive Protein, Quantitative 16.50H, Total Protein 5.5L, Albumin 1.5L, Albumin/Globulin Ratio 0.38L CBC/BMP Laboratory Tests 01/30/19 06:29 Red Blood Count 4.11 L, Mean Corpuscular Volume 83.7, Mean Corpuscular Hemoglo bin 26.3 L, Mean Corpuscular Hemoglobin Concent 31.4 L, Red Cell Distribution Width 18.2 H, Neutrophils (%) (Auto) 92.7 H, Lymphocytes (%) (Auto) 2.5 L, Monocytes (%) (Auto) 3.9, Eosinophils (%) (Auto) 0.0, Basophils (%) (Auto) 0.1, Neutrophils # (Auto) 20.0 H, Lymphocytes # (Auto) 0.5 L, Monocytes # (Auto) 0.8, Eosinophils # (Auto) 0.0, Basophils # (Auto) 0.0 Microbiology Microbiology 01/28/19 Gram Stain - Final, Complete 01/28/19 Wound Culture - Final, Complete Enterobacter Cloacae Complex Enterococcus Faecalis Impression Postop day 12 exploratory laparotomy, small bowel resection for bowel obstruc tion Possibility of acalculous cholecystitis Wound infection Wound cultures of come back as Enterobacter and enterococcus both of which are sensitive to Levaquin. I'll switch the Zosyn to oral Levaquin. His CRP has markedly come down though his WBC still trailing. He still not showing any signs of systemic infection. He is tolerating diet. I think it is reasonable to make plans on discharging him the next day or so with visiting nurses to help with wound care. Plan / VTE VTE Prophylaxis Ordered?: Yes WINDY RAPP MD Jan 30, 2019 08:01
[2019-01-30] MEDS: HEPARIN SOD (PORCINE) 5000 UNITS/ML VIAL SQ SCH ×2 (08:16→20:36)
[2019-01-30] MEDS: ATORVASTATIN 20 MG TAB PO SCH (08:17)
[2019-01-30] MEDS: LevoFLOXacin 750 MG TABLET PO SCH (08:18)
[2019-01-30] MEDS: NORTRIPTYLINE 10 MG CAP PO SCH ×3 (08:18→20:37)
[2019-01-30] MEDS: SIMETHICONE 80 MG CHEW TAB PO SCH ×4 (08:18→20:36)
[2019-01-30] MEDS: ALLOPURINOL 100 MG TAB PO SCH (08:18)
[2019-01-30] MEDS: POLYVINYL ALCOHOL OPHTH SOLN 15 ML(LIQUITEARS) OS SCH ×4 (08:21→20:37)
[2019-01-30] MEDS: FERROUS SULFATE 325MG TAB PO SCH (09:38)
[2019-01-30] MEDS: PANTOPRAZOLE 40MG TAB (PROTONIX) PO SCH ×2 (09:38→20:36)
--- NOTE | 2019-01-30 10:58 | IPNPDOC ---
Text Note Date of Service The patient was seen on 01/30/19. NOTE Subjective: Patient is 78-year-old male with a PMhx of Atrial fibrillation/Atrial flutter (on Eliquis), CAD s/p stent, HTN, DLP, DM2, Gout, Hx of R hemicolectomy several years ago, followed by a transverse colectomy in 2018 for colon cancer who presented to the ER for abdominal evaluation of his abdominal pain. In the emergency room, patient was found to have imaging that was consistent with a small bowel obstruction. Patient was admitted to hospitalist service for further evaluation and treatment and general surgery was called on consultation Patient was seen and examined at the bedside. Issue with constipation this morning. Denies abdominal pain, nausea, vomiting, chest pain, shortness of breath or palpitations Objective: Vitals (See below) General: Lying in bed, no acute distress, comfortable, Awake / Alert HEENT: NC, AT CVS: +S1S2 Lungs: Air entry is fair bilaterally. No rhonchi, rales or wheezing Abdomen: Soft without distention or tenderness Extremities: No edema appreciated, - Calf tenderness Imaging: - XR Abdomen 01/16: Persistent small bowel obstruction pattern. - CT abdomen / pelvis 01/18: Findings are compatible with small bowel obstruction , the complete versus partial, the tip of the with dilated proximal small bowel loops and nondilated distal small bowel loops. There appears to be a transition zone in the midabdomen slightly to the right of midline. The transition appears to be near surgical clips in the bowel compatible with anastomosis from the right hemicolectomy. There is a small volume of ascites adjacent to the liver and spleen. There are small bilateral pleural effusions. 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 Assessment and plan: Abdominal pain - likely 2/2 SBO s/p lysis of adhesion and partial small bowel resection (01/18) - Clinically is feeling better - Imaging was consistent with SBO; s/p surgical prevention - s/p IV fluids and NG tube removal - c/w Regular diet - General surgery on consultation; anticipate surgical clearance by tomorrow Leukocytosis - likely 2/2 Wound infection / drainage of pus - Patient remains afebrile and hemodynamically stable - Leukocytosis is improving and CRPs are trending down - Wound culture. 01/28: Enterobacter cloacae complex, Enterococcus faecalis - Antibiotics have been adjusted to Levaquin based on sensitivities Constipation - Will start stool softener s/p JEMIMA A. fib/ A. flutter - Remains rate controlled - c/w rate control with Diltiazem - Eliquis on hold; will resume on discharge Hypertension - BP well controlled - c/w Diltiazem and Lisinopril Diastolic CHF with moderate pulmonary hypertension - Patient is currently euvolemic and does not display any signs of fluid overload - s/p IV fluids - c/w Torsemide - was resumed today s/p Hypernatremia - likely 2/2 normal saline DLP - c/w statin Diabetes - c/w ISS Gout - Resumed Allopurinol GI prophylaxis - c/w Protonix DVT prophylaxis - c/w Heparin Disposition: - Resume anticoagulation VS,Fishbone, I+O VS, Fishbone, I+O Laboratory Tests 01/30/19 06:29 Red Blood Count 4.11 L, Mean Corpuscular Volume 83.7, Mean Corpuscular Hemoglobin 26.3 L, Mean Corpuscular Hemoglobin Concent 31.4 L, Red Cell Distribution Width 18.2 H, Neutrophils (%) (Auto) 92.7 H, Lymphocytes (%) (Auto) 2.5 L, Monocytes (%) (Auto) 3.9, Eosinophils (%) (Auto) 0.0, Basophils (%) (Auto) 0.1, Neutrophils # (Auto) 20.0 H, Lymphocytes # (Auto) 0.5 L, Monocytes # (Auto) 0.8, Eosinophils # (Auto) 0.0, Basophils # (Auto) 0.0 Vital Signs Date Time Temp Pulse Resp B/P (MAP) Pulse Ox O2 Delivery O2 Flow Rate FiO2 01/30/19 08:18 97 141/73 01/30/19 06:00 96.9 17 97 01/29/19 21:30 2.0 I&O- Last 24 Hours up to 6 AM 01/30/19 06:00 Intake Total 1805 ml Output Total 500 ml Balance 1305 ml LASHAUN BRIDGES MD Jan 30, 2019 10:58
[2019-01-30] MEDS ORDERED: MOM 30ML SUSPENSION UDC PO ONE (11:00)
[2019-01-30] MEDS: SENNA 8.6 MG TAB (SENOKOT) PO SCH ×2 (11:12→20:37)
[2019-01-30 14:00] VITALS: BP 138/73
[2019-01-30 22:00] VITALS: BP 135/67
[2019-01-31 06:00] VITALS: BP 145/75
[2019-01-31] MEDS: LevoFLOXacin 750 MG TABLET PO SCH (06:29)
[2019-01-31 07:11] LABS: BASO % 0.2 % (0.0-1.0); EOS % 0.1 % (0.0-3.0); HEMATOCRIT 36.7 % (42.0-52.0); HEMOGLOBIN 11.7 g/dl (13.5-17.5); LYMPH # 0.6 10^3/uL (1.5-4.5); MEAN CORPUSCULAR HEMOGLOBIN 26.5 pg (27.0-33.0); MEAN CORPUSCULAR HGB CONC 31.9 g/dl (32.0-36.5); MONO # 0.6 10^3/uL (0.0-0.8); MONO % 3.2 % (0.0-5.0); NEUTROPHILS # 18.2 10^3/uL (1.8-7.7); NEUTROPHILS % 92.6 % (36.0-66.0); PLATELET COUNT, AUTOMATED 418 10^3/uL (150-450); RED BLOOD COUNT 4.42 10^6/uL (4.30-6.10); WHITE BLOOD COUNT 19.6 10^3/uL (4.0-10.0)
[2019-01-31 07:40] LABS: ALBUMIN 1.8 GM/DL (3.2-5.2); ALT/SGPT 36 U/L (12-78); BILIRUBIN,DIRECT 0.2 MG/DL (0.0-0.2); BILIRUBIN,TOTAL 0.4 MG/DL (0.2-1.0); BLOOD UREA NITROGEN 12 MG/DL (7-18); CALCIUM LEVEL 8.6 MG/DL (8.8-10.2); CARBON DIOXIDE LEVEL 24 MEQ/L (21-32); CHLORIDE LEVEL 103 MEQ/L (98-107); CREATININE FOR GFR 1.02 MG/DL (0.70-1.30); GLOMERULAR FILTRATION RATE > 60.0 (>42); GLUCOSE, FASTING 209 MG/DL (70-100); MAGNESIUM LEVEL 2.3 MG/DL (1.8-2.4); SODIUM LEVEL 137 MEQ/L (136-145); TOTAL PROTEIN 5.4 GM/DL (6.4-8.2)
[2019-01-31] MEDS: HumaLOG INSULIN (NovoLOG) PER UNIT SC SCH ×2 (08:05→12:00)
[2019-01-31] MEDS: HEPARIN SOD (PORCINE) 5000 UNITS/ML VIAL SQ SCH (08:05)
[2019-01-31] MEDS: ALLOPURINOL 100 MG TAB PO SCH (08:07)
[2019-01-31 08:08] VITALS: BP 148/76
[2019-01-31] MEDS: ATORVASTATIN 20 MG TAB PO SCH (08:08)
[2019-01-31] MEDS: SIMETHICONE 80 MG CHEW TAB PO SCH (08:08)
[2019-01-31] MEDS: SENNA 8.6 MG TAB (SENOKOT) PO SCH (08:08)
[2019-01-31] MEDS: PANTOPRAZOLE 40MG TAB (PROTONIX) PO SCH (08:09)
[2019-01-31] MEDS: POLYVINYL ALCOHOL OPHTH SOLN 15 ML(LIQUITEARS) OS SCH (08:09)
[2019-01-31] MEDS: NORTRIPTYLINE 10 MG CAP PO SCH (08:09)
[2019-01-31] MEDS: FERROUS SULFATE 325MG TAB PO SCH (08:09)
[2019-01-31] MEDS: SUCRALFATE 1 GM TAB PO SCH ×2 (08:09→12:00)
[2019-01-31] MEDS ORDERED: LEVA750T7 PO (09:20)
[2019-01-31] MEDS ORDERED: INSULANT SC (09:20)
[2019-01-31] MEDS ORDERED: OXYC1TAB23 PO ×2 (09:20→09:21)
--- NOTE | 2019-01-31 10:04 | DS.PDOC ---
Discharge Summary General Date of Admission Jan 14, 2019 at 00:33 Date of Discharge 01/31/2019 Discharge Summary PROCEDURES PERFORMED DURING STAY: [None]. ADMITTING DIAGNOSES / DISCHARGE DIAGNOSES: Abdominal pain - likely 2/2 SBO s/p lysis of adhesion and partial small bowel resection (01/18) Leukocytosis - likely 2/2 Wound infection / drainage of pus Constipation s/p JEMIMA A. fib/ A. flutter Hypertension Diastolic CHF with moderate pulmonary hypertension s/p Hypernatremia - likely 2/2 normal saline DLP Diabetes Gout GI prophylaxis DVT prophylaxis COMPLICATIONS/CHIEF COMPLAINT: Abdominal pain / Constipation HISTORY OF PRESENT ILLNESS: Patient is 78-year-old male with a PMhx of Atrial fibrillation/Atrial flutter (on Eliquis), CAD s/p stent, HTN, DLP, DM2, Gout, Hx of R hemicolectomy several years ago, followed by a transverse colectomy in 2018 for colon cancer who presented to the ER for abdominal evaluation of his abdominal pain. In the emergency room, patient was found to have imaging that was consistent with a small bowel obstruction. Patient was admitted to hospitalist service for further evaluation and treatment and general surgery was called on consultation. HOSPITAL COURSE: Abdominal pain - likely 2/2 SBO s/p lysis of adhesion and partial small bowel resection (01/18) - Clinically is feeling better - Imaging was consistent with SBO; s/p surgical prevention - s/p IV fluids and NG tube removal - c/w Regular diet - General surgery on consultation; will have outpatient follow up Leukocytosis - likely 2/2 Wound infection / drainage of pus - Patient remains afebrile and hemodynamically stable - Leukocytosis is improving and CRPs are trending down - Wound culture. 01/28: Enterobacter cloacae complex, Enterococcus faecalis - Antibiotics have been adjusted to Levaquin based on sensitivities - will complete course as an outpatient Constipation - c/w stool softener s/p JEMIMA A. fib/ A. flutter - Remains rate controlled - c/w rate control with Diltiazem - Will resume Eliquis and ASA on discharge Hypertension - BP well controlled - c/w Diltiazem and Lisinopril Diastolic CHF with moderate pulmonary hypertension - Patient is currently euvolemic and does not display any signs of fluid overload - s/p IV fluids - Will resume Torsemide on discharge s/p Hypernatremia - likely 2/2 normal saline DLP - c/w statin Diabetes - c/w ISS Gout - c/w Allopurinol GI prophylaxis - c/w Protonix DVT prophylaxis - c/w Heparin DISCHARGE MEDICATIONS: Please see below. ALLERGIES: Please see below. PHYSICAL EXAMINATION ON DISCHARGE: Vitals (See below) General: Lying in bed, no acute distress, comfortable, Awake / Alert HEENT: NC, AT CVS: +S1S2 Lungs: Air entry is fair bilaterally. Auscultations without any wheezing, rhonchi or rales Abdomen: Soft without distention or tenderness. Midline incision with packing in place. Dressing over top Extremities: Mild LE edema, - Calf tenderness LABORATORY DATA: Please see below. IMAGING: - XR Abdomen 01/16: Persistent small bowel obstruction pattern. - CT abdomen / pelvis 01/18: Findings are compatible with small bowel obstruction , the complete versus partial, the tip of the with dilated proximal small lindsey l loops and nondilated distal small bowel loops. There appears to be a transition zone in the midabdomen slightly to the right of midline. The transition appears to be near surgical clips in the bowel compatible with anastomosis from the right hemicolectomy. There is a small volume of ascites adjacent to the liver and spleen. There are small bilateral pleural effusions. 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 - CT abdomen / pelvis 01/18: 1. Nonspecific findings likely postoperative in nature including possible postoperative ileus along with small amount of free fluid and free air. 2. Dilated gallbladder nonspecific but raises the possibility of acute cholecystitis. 3. Further chronic abdominal findings unchanged. 4. Small pleural effusions and basilar atelectasis. - US abdomen 01/27: Distended gallbladder with sludge. No gallstones. Gallbladder wall is thickened measuring 4.7 mm. No sonographic Mclain's sign. Findings may represent acalculus cholecystitis. ACTIVITY: [As tolerated]. DISCHARGE PLAN: Follow up with Dr. Spring Lofton and Dr. Britton within 7 days Remain compliant with treatment plan and medications Return to the ER if you experience any problems DISPOSITION: Home with Services DISCHARGE CONDITION: [Stable]. TIME SPENT ON DISCHARGE: 40 minutes Vital Signs/I&Os Vital Signs Date Time Temp Pulse Resp B/P (MAP) Pulse Ox O2 Delivery O2 Flow Rate FiO2 01/31/19 08:08 93 148/76 01/31/19 06:00 98.2 17 99 2.0 I&O- Last 24 Hours up to 6 AM0 01/31/19 06:00 Intake Total 1640 ml Balance 1640 ml Laboratory Data Labs 24H Laboratory Tests 2 01/30/19 11:29: Bedside Glucose (Misc Panel) 216H 01/30/19 16:40: Bedside Glucose (Misc Panel) 182H 01/30/19 20:18: Bedside Glucose (Misc Panel) 239H 01/31/19 06:46: Immature Granulocyte % (Auto) 0.9, White Blood Count 19.6H, Red Blood Count 4.42, Hemoglobin 11.7L, Hematocrit 36.7L, Mean Corpuscular Volume 83.0, Mean Corpuscular Hemoglobin 26.5L, Mean Corpuscular Hemoglobin Concent 31.9L, Red Cell Distribution Width 18.4H, Platelet Count 418, Neutrophils (%) (Auto) 92.6H, Lymphocytes (%) (Auto) 3.0L, Monocytes (%) (Auto) 3.2, Eosinophils (%) (Auto) 0.1, Basophils (%) (Auto) 0.2, Neutrophils # (Auto) 18.2H, Lymphocytes # (Auto) 0.6L, Monocytes # (Auto) 0.6, Eosinophils # (Auto) 0.0, Basophils # (Auto) 0.0, Nucleated Red Blood Cells % (auto) 0.0, Anion Gap 10, Glomerular Filtration Rate > 60.0, Blood Urea Nitrogen 12, Creatinine 1.02, Sodium Level 137, Potassium Level 4.0, Chloride Level 103, Carbon Dioxide Level 24, Calcium Level 8.6L, Aspartate Amino Transf (AST/SGOT) 48H, Alanine Aminotransferase (ALT/SGPT) 36, Alkaline Phosphatase 204H, Total Bilirubin 0.4, Direct Bilirubin 0.2, Total Protein 5.4L, Albumin 1.8L, Magnesium Level 2.3, C-Reactive Protein, Quantitative 13.50H, Albumin/Globulin Ratio 0.50L CBC/BMP Laboratory Tests 01/31/19 06:46 Red Blood Count 4.42, Mean Corpuscular Volume 83.0, Mean Corpuscular Hemoglobin 26.5 L, Mean Corpuscular Hemoglobin Concent 31.9 L, Red Cell Distribution Width 18.4 H, Neutrophils (%) (Auto) 92.6 H, Lymphocytes (%) (Auto) 3.0 L, Monocytes (%) (Auto) 3.2, Eosinophils (%) (Auto) 0.1, Basophils (%) (Auto) 0.2, Neutrophils # (Auto) 18.2 H, Lymphocytes # (Auto) 0.6 L, Monocytes # (Auto) 0.6, Eosinophils # (Auto) 0.0, Basophils # (Auto) 0.0, Calcium Level 8.6 L, Aspartate Amino Transf (AST/SGOT) 48 H, Alanine Aminotransferase (ALT/SGPT) 36, Alkaline Phosphatase 204 H, Total Bilirubin 0.4, Direct Bilirubin 0.2, Total Protein 5.4 L, Albumin 1.8 L FSBS Laboratory Tests Test 01/30/19 11:29 01/30/19 16:40 01/30/19 20:18 Range/Units Bedside Glucose (Misc Panel) 216 182 239 83-110 MG/DL Microbiology Microbiology 01/28/19 Gram Stain - Final, Complete 01/28/19 Wound Culture - Final, Complete Enterobacter Cloacae Complex Enterococcus Faecalis Discharge Medications Scheduled Allopurinol (Allopurinol) 100 Mg Tab, 200 MG PO DAILY, (Reported) Apixaban (Eliquis) 5 Mg Tablet, 5 MG PO BID, (Reported) Aspirin (Aspir 81) 81 Mg Tab, 81 MG PO DAILY, (Reported) Atorvastatin Calcium (Atorvastatin Calcium) 80 Mg Tab, 80 MG PO DAILY, (Reported) Diltiazem HCl (Diltiazem 24Hr ER) 240 Mg Cap, 240 MG PO DAILY, (Reported) Ferrous Sulfate (Ferrous Sulfate) 325 Mg Tab, 325 MG PO DAILY, (Reported) Insulin Glargine (Lantus) 1 Units/0.01 Ml Susp, 15 UNITS SC BID Levofloxacin (Levaquin) 750 Mg Tablet, 750 MG PO DAILY@06 Liraglutide (Victoza 2-[place]) 18 Mg/3 Ml Inj, 0.6 MG SC DAILY, (Reported) Lisinopril (Lisinopril) 5 Mg Tablet, 5 MG PO QHS, (Reported) Metformin HCl (Metformin HCl) 500 Mg Tab, 1,000 MG PO BID, (Reported) Nortriptyline HCl (Nortriptyline HCl) 10 Mg Cap, 10 MG PO TID, (Reported) Pantoprazole Sodium (Pantoprazole Sodium) 40 Mg Tab, 40 MG PO BID, (Reported) Propylene Glycol/Peg 400 (Systane 0.3-0.4% Eye Drops) 15 Ml Drops, 1 DROP OS QID, (Reported) ORDERED QID, PATIENT USES BID Sucralfate (Carafate) 1 Gm Tab, 1 GM PO ACHS, (Reported) Torsemide (Torsemide) 100 Mg Tab, 50 MG PO DAILY, (Reported) Scheduled PRN Nitroglycerin (Nitrostat) 0.4 Mg Subl, 0.4 MG SL NITRO PRN for CHEST PAIN, (Reported) Oxycodone HCl/Acetaminophen (Oxycodone-Acetaminophen 5-325) 1 Each Tablet, 1-2 TAB PO TIDP PRN for pain Allergies Coded Allergies: No Known Allergies (Unverified , 10/24/18) LASHAUN BRIDGES MD Jan 31, 2019 10:04
== END 2019-01-31 12:44 | disposition home health service (06) | DRG 330 ==
LOC: EDBD 19:38 → M ED 19:38 → M ED INP 01-14 00:33 → M MSPAV 01-14 03:52
PROVIDERS: ADMIT Hospitalist; ATTEND Internal Medicine
PROC: 0DN84ZZ Release Small Intestine, Percutaneous Endoscopic Approach (ICD-10-PCS; 2019-01-18)
PROC: 0DB80ZZ Excision of Small Intestine, Open Approach (ICD-10-PCS; principal; 2019-01-18 14:00)
DX: K56.50 Intestinal adhesions [bands], unspecified as to partial versus complete obstruction (principal); I48.92 Unspecified atrial flutter; I50.32 Chronic diastolic (congestive) heart failure; E87.0 Hyperosmolality and hypernatremia; N17.9 Acute kidney failure, unspecified; T81.49XA Infection following a procedure, other surgical site, initial encounter; I48.2 Chronic atrial fibrillation; I27.20 Pulmonary hypertension, unspecified; K81.9 Cholecystitis, unspecified; E11.9 Type 2 diabetes mellitus without complications; M10.9 Gout, unspecified; D72.829 Elevated white blood cell count, unspecified; I11.0 Hypertensive heart disease with heart failure; K59.00 Constipation, unspecified; Z85.038 Personal history of other malignant neoplasm of large intestine; Z79.01 Long term (current) use of anticoagulants; Z95.2 Presence of prosthetic heart valve; Z79.82 Long term (current) use of aspirin; Z79.899 Other long term (current) drug therapy; E78.5 Hyperlipidemia, unspecified; Z66 Do not resuscitate; G47.33 Obstructive sleep apnea (adult) (pediatric); R19.7 Diarrhea, unspecified; Y83.8 Other surgical procedures as the cause of abnormal reaction of the patient, or of later complication, without mention of misadventure at the time of the procedure

== ENCOUNTER → 2019-05-08 | Outpatient (CLI) | payer MEDICARE, MEDICAID ==
[~2019-05-08] MED LIST changes: -ARTI99.0 OU; +ARTIDRO2 OU; +LEVA750T7 PO; +OXYC1TAB23 PO; +SYST1SOL OS
[2019-05-08 12:24] LABS: BLOOD UREA NITROGEN 23 MG/DL (7-18); CALCIUM LEVEL 9.2 MG/DL (8.8-10.2); CARBON DIOXIDE LEVEL 28 MEQ/L (21-32); CHLORIDE LEVEL 103 MEQ/L (98-107); CREATININE FOR GFR 1.22 MG/DL (0.70-1.30); GLOMERULAR FILTRATION RATE > 60.0 (>42); GLUCOSE, FASTING 134 MG/DL (70-100); POTASSIUM SERUM 4.1 MEQ/L (3.5-5.1); SODIUM LEVEL 141 MEQ/L (136-145)
[2019-05-08 12:32] LABS: HEMOGLOBIN A1c 6.2 %
== END ==
LOC: M WUC 09:05
PROVIDERS: ATTEND Family Medicine
DX: E11.9 Type 2 diabetes mellitus without complications (principal); I50.32 Chronic diastolic (congestive) heart failure

== ENCOUNTER → 2019-12-30 | Outpatient (CLI) | payer MEDICARE, MEDICAID ==
[~2019-12-30] MED LIST changes: -ARTIDRO2 OU; +CVS5CHW2 PO; -GLIM4TAB PO; +GLIM4TAB5 PO; +POLYOPD OU
== END ==
LOC: M LABSMTC 09:31
PROVIDERS: ATTEND Anesthesiology
DX: Z01.818 Encounter for other preprocedural examination (principal); Z11.59 Encounter for screening for other viral diseases
CPT/HCPCS: C9803; U0003

== ENCOUNTER 2020-01-02 09:24 | Day surgery (SDC) | payer OTHER, MEDICAID ==
[~2020-01-02] VITALS: Ht 180.3 cm; Wt 54.0 kg
[~2020-01-02 09:24] MED LIST changes: +NS 1,000 ML IV ONE
[2020-01-02] MEDS ORDERED: propofoL 200 MG/20 ML VIAL As Ordered ONE (10:07)
[2020-01-02] MEDS ORDERED: LIDOCAINE 2% 100MG/5ML SDV (FOR ANES.) As Ordered ONE (10:07)
[2020-01-02] MEDS ORDERED: NS 500 ML IV ONE (10:30)
[2020-01-02 10:38] VITALS: BP 146/82
--- NOTE | 2020-01-02 11:54 | ROOR ---
Patient Name: Lucien Gillis Procedure Date: 01/02/2020 11:31 AM Date of : 1940 Age: 79 Room: [facility] Gender: Male Note Status: Finalized Procedure: Colonoscopy Indications: High risk colon cancer surveillance: Personal history of colon cancer Providers: Dionisio Nino Jr, MD Referring MD: Mikhail Wen MD Requesting Provider: Medicines: Propofol per Anesthesia Complications: No immediate complications. Procedure: Pre-Anesthesia Assessment: - Prior to the procedure, a History and Physical was performed, and patient medications and allergies were reviewed. The patient is competent. The risks and benefits of the procedure and the sedation options and risks were discussed with the patient. All questions were answered and informed consent was obtained. Patient identification and proposed procedure were verified by the physician and the nurse in the pre-procedure area and in the procedure room. Mental Status Examination: alert and oriented. Airway Examination: normal oropharyngeal airway and neck mobility. Respiratory Examination: clear to auscultation. CV Examination: normal. ASA Grade Assessment: II - A patient with mild systemic disease. After reviewing the risks and benefits, the patient was deemed in satisfactory condition to undergo the procedure. The anesthesia plan was to use moderate sedation / analgesia (conscious sedation). Immediately prior to administration of medications, the patient was re-assessed for adequacy to receive sedatives. The heart rate, respiratory rate, oxygen saturations, blood pressure, adequacy of pulmonary ventilation, and response to care were monitored throughout the procedure. The physical status of the patient was re-assessed after the procedure. The Colonoscope was introduced through the anus and advanced to the ileocolonic anastomosis. The colonoscopy was performed without difficulty. The patient tolerated the procedure well. The quality of the bowel preparation was adequate. Findings: The rectum, recto-sigmoid colon, descending colon, transverse colon and anastomosis appeared normal. Many small and large-mouthed diverticula were found in the sigmoid colon. Non-bleeding internal hemorrhoids were found during endoscopy. The hemorrhoids were Grade II (internal hemorrhoids that prolapse but reduce spontaneously) and Grade III (internal hemorrhoids that prolapse but require manual reduction). Impression: - The rectum, recto-sigmoid colon, descending colon, transverse colon and colonic anastomosis are normal. - Diverticulosis in the sigmoid colon. - Non-bleeding internal hemorrhoids. - No specimens collected. Recommendation: - Discharge patient to home (ambulatory). - Repeat colonoscopy in 5 years for screening purposes. Dionisio Nino MD Dionisio Nino Jr, MD 01/02/2020 11:53:35 AM Electronically signed by Dionisio Nino Jr, MD Number of Addenda: 0 Note Initiated On: 01/02/2020 11:31 AM Estimated Blood Loss: Estimated blood loss: none.
[2020-01-02 12:20] VITALS: BP 126/60
--- NOTE | 2020-01-02 19:02 | ECGEPIP ---
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
== END 2020-01-02 12:28 | disposition home or self-care (01) ==
LOC: M OPP 09:24
PROVIDERS: ATTEND Surgery
DX: Z12.11 Encounter for screening for malignant neoplasm of colon (principal); Z85.038 Personal history of other malignant neoplasm of large intestine; K57.30 Diverticulosis of large intestine without perforation or abscess without bleeding; K64.2 Third degree hemorrhoids; I48.91 Unspecified atrial fibrillation; E11.9 Type 2 diabetes mellitus without complications; I50.9 Heart failure, unspecified; Z79.4 Long term (current) use of insulin; Z79.82 Long term (current) use of aspirin; Z79.899 Other long term (current) drug therapy; Z87.891 Personal history of nicotine dependence
CPT/HCPCS: 93005; G0105

== ENCOUNTER → 2020-02-12 | Outpatient (CLI) | payer OTHER, MEDICAID ==
[~2020-02-12] MED LIST changes: -ASPI81TA85 PO; +ASPI81TA86 PO; -NS 1,000 ML IV ONE; +PANT40TA29 PO; -PANT40TA3 PO
--- NOTE | 2020-02-12 13:42 | REP ---
REASON: Back pain. PRIORS: None. There is disc space narrowing and anterior lipping at every level. The bones are demineralized. Vertebral body height and alignment is within normal limits. Partial syndesmophytes/marginal osteophyte formation is seen bilaterally at every level and to varying degrees. Pedicles appear to be intact bilaterally. IMPRESSION: Chronic changes. Electronically Signed by Enzo Carrington DO 02/12/2020 04:08 P
== END ==
LOC: M WUC 09:30
PROVIDERS: ATTEND Family Medicine
DX: M54.9 Dorsalgia, unspecified (principal)

== ENCOUNTER → 2020-05-04 | Outpatient (CLI) | payer OTHER, MEDICAID ==
[2020-05-04 14:41] LABS: CALCIUM LEVEL 9.5 MG/DL (8.8-10.2); CREATININE FOR GFR 1.41 MG/DL (0.70-1.30); GLOMERULAR FILTRATION RATE 51.6 (>42); POTASSIUM SERUM 4.9 MEQ/L (3.5-5.1)
== END ==
LOC: M WUC 09:13
PROVIDERS: ATTEND Physician Assistant
DX: I48.21 Permanent atrial fibrillation (principal); I50.32 Chronic diastolic (congestive) heart failure; Z79.01 Long term (current) use of anticoagulants

== ENCOUNTER → 2020-10-05 | Outpatient (CLI) | payer OTHER, MEDICAID ==
[~2020-10-05] MED LIST changes: -LISI-542 PO; +LISI-898 PO
[2020-10-05 12:29] LABS: HEMATOCRIT 46.3 % (42.0-52.0); HEMOGLOBIN 13.5 g/dl (13.5-17.5); MEAN CORPUSCULAR HEMOGLOBIN 27.1 pg (27.0-33.0); MEAN CORPUSCULAR HGB CONC 29.2 g/dl (32.0-36.5); MEAN CORPUSCULAR VOLUME 92.8 fl (80.0-96.0); PLATELET COUNT, AUTOMATED 321 10^3/uL (150-450); RED BLOOD COUNT 4.99 10^6/uL (4.30-6.10); WHITE BLOOD COUNT 12.5 10^3/uL (4.0-10.0)
[2020-10-05 12:59] LABS: ALBUMIN 4.1 GM/DL (3.2-5.2); BILIRUBIN,TOTAL 0.6 MG/DL (0.2-1.0); CALCIUM LEVEL 9.2 MG/DL (8.8-10.2); CHOLESTEROL RISK RATIO 2.117 (<5); CREATININE FOR GFR 1.58 MG/DL (0.70-1.30); GLOMERULAR FILTRATION RATE 45.3 (>42); MAGNESIUM LEVEL 1.8 MG/DL (1.8-2.4); POTASSIUM SERUM 4.1 MEQ/L (3.5-5.1); TOTAL PROTEIN 7.1 GM/DL (6.4-8.2)
== END ==
LOC: M WUC 09:09
PROVIDERS: ATTEND Physician Assistant
DX: I25.10 Atherosclerotic heart disease of native coronary artery without angina pectoris (principal); I48.21 Permanent atrial fibrillation; E78.00 Pure hypercholesterolemia, unspecified

== ENCOUNTER 2021-02-27 11:41 | Emergency (ER) | payer OTHER, MEDICAID ==
[~2021-02-27 11:41] MED LIST changes: -CVS5CHW2 PO; +MELA5TAB47 PO
[2021-02-27] MEDS ORDERED: METO1TAB7 PO (11:52)
[2021-02-27 12:11] LABS: VENOUS BASE EXCESS -0.4 (-2.0-2.0); VENOUS HCO3 24.8 MEQ/L (23.0-27.0); VENOUS O2 SATURATION 92.3 % (60.0-80.0); VENOUS PARTIAL PRESSURE CO2 42.7 mmHg (38.0-50.0); VENOUS PARTIAL PRESSURE O2 66.7 mmHg (30.0-50.0); VENOUS PH 7.382 UNITS (7.330-7.430); VENOUS TOTAL CO2 26.1 MEQ/L (24.0-28.0)
[2021-02-27 12:12] LABS: BASO % 0.3 % (0.0-1.0); EOS # 0.1 10^3/uL (0.0-0.5); EOS % 1.4 % (0.0-3.0); HEMATOCRIT 41.7 % (42.0-52.0); HEMOGLOBIN 12.9 g/dl (13.5-17.5); LYMPH # 1.2 10^3/uL (1.5-5.0); MEAN CORPUSCULAR HGB CONC 30.9 g/dl (32.0-36.5); MEAN CORPUSCULAR VOLUME 90.7 fl (80.0-96.0); MONO # 0.5 10^3/uL (0.0-0.8); NEUTROPHILS # 8.2 10^3/uL (1.5-8.5); NEUTROPHILS % 80.7 % (36.0-66.0); PLATELET COUNT, AUTOMATED 278 10^3/uL (150-450); WHITE BLOOD COUNT 10.1 10^3/uL (4.0-10.0)
--- NOTE | 2021-02-27 12:46 | REP ---
INDICATION: DYSPNEA/COUGH. COMPARISON: PA chest, 01/17/2019 TECHNIQUE: Portable view of the chest was obtained. FINDINGS: There is cardiomegaly and pulmonary venous hypertension without congestive heart failure. There is no lobar consolidation or pleural effusion. There is calcific vascular disease of the thoracic aorta. There are no bony abnormalities. IMPRESSION: Cardiomegaly and pulmonary venous hypertension without congestive heart failure. No significant lung disease. <Electronically signed by Nato Sanderson > 02/27/21 [id number]
[2021-02-27 12:50] LABS: ALBUMIN 3.5 GM/DL (3.2-5.2); ALT/SGPT 18 U/L (12-78); BILIRUBIN,DIRECT < 0.1 MG/DL (0.0-0.2); BILIRUBIN,TOTAL 0.7 MG/DL (0.2-1.0); BLOOD UREA NITROGEN 31 MG/DL (7-18); CALCIUM LEVEL 8.7 MG/DL (8.8-10.2); CARBON DIOXIDE LEVEL 29 MEQ/L (21-32); CHLORIDE LEVEL 104 MEQ/L (98-107); CREATININE FOR GFR 1.41 MG/DL (0.70-1.30); GLOMERULAR FILTRATION RATE 51.5 (>35); GLUCOSE, FASTING 139 MG/DL (70-100); NT-PRO BNP 1542 PG/ML (<450); POTASSIUM SERUM 5.8 MEQ/L (3.5-5.1); SODIUM LEVEL 138 MEQ/L (136-145); TOTAL PROTEIN 6.6 GM/DL (6.4-8.2)
--- NOTE | 2021-02-27 14:32 | ECGEPIP ---
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
[2021-02-27] MEDS ORDERED: FUROSEMIDE 40MG/4ML VIAL (J1940) IV ONE (15:40)
[2021-02-27 19:24] VITALS: BP 148/69
--- NOTE | 2021-03-01 19:29 | ECGEPIP ---
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
== END 2021-02-27 19:30 | disposition home or self-care (01) ==
LOC: EDBD 11:41 → M ED 11:41
DX: R07.9 Chest pain, unspecified (principal); I11.0 Hypertensive heart disease with heart failure; K21.9 Gastro-esophageal reflux disease without esophagitis; I48.91 Unspecified atrial fibrillation; Z79.01 Long term (current) use of anticoagulants
CPT/HCPCS: 71045; 80048; 80076; 82803; 83880; 84443; 84484; 85025; 93005; 93041; 96374; 99285; J1940

== ENCOUNTER → 2021-03-15 | Outpatient (CLI) | payer OTHER, MEDICAID ==
[~2021-03-15] MED LIST changes: +METO1TAB7 PO
[2021-03-15 12:15] LABS: CALCIUM LEVEL 9.2 MG/DL (8.8-10.2); CREATININE FOR GFR 1.48 MG/DL (0.70-1.30); GLOMERULAR FILTRATION RATE 48.7 (>35); POTASSIUM SERUM 4.6 MEQ/L (3.5-5.1)
== END ==
LOC: M WUC 09:20
PROVIDERS: ATTEND Physician Assistant
DX: I50.42 Chronic combined systolic (congestive) and diastolic (congestive) heart failure (principal); Z79.01 Long term (current) use of anticoagulants

== ENCOUNTER → 2021-06-07 | Outpatient (CLI) | payer OTHER, MEDICAID ==
[2021-06-07 11:54] LABS: HEMOGLOBIN 14.1 g/dl (13.5-17.5); MEAN CORPUSCULAR HEMOGLOBIN 27.8 pg (27.0-33.0); MEAN CORPUSCULAR HGB CONC 30.7 g/dl (32.0-36.5); MEAN CORPUSCULAR VOLUME 90.7 fl (80.0-96.0); PLATELET COUNT, AUTOMATED 310 10^3/uL (150-450); RED BLOOD COUNT 5.07 10^6/uL (4.30-6.10); WHITE BLOOD COUNT 11.1 10^3/uL (4.0-10.0)
[2021-06-07 13:03] LABS: CALCIUM LEVEL 9.4 MG/DL (8.8-10.2); CREATININE FOR GFR 1.56 MG/DL (0.70-1.30); GLOMERULAR FILTRATION RATE 45.8 (>35); MAGNESIUM LEVEL 1.4 MG/DL (1.8-2.4); POTASSIUM SERUM 3.9 MEQ/L (3.5-5.1)
== END ==
LOC: M WUC 09:38
PROVIDERS: ATTEND Physician Assistant
DX: I50.42 Chronic combined systolic (congestive) and diastolic (congestive) heart failure (principal)

== ENCOUNTER → 2021-06-29 | Outpatient (CLI) | payer OTHER, MEDICAID ==
[~2021-06-29] MED LIST changes: +ASPI81TA26 PO; +BRIM1OPD; +ENTR1TAB PO; +LANTINJ4 SC; -LISI-898 PO; +LISI5TAB11 PO; +SPIR-10 PO
[2021-06-29 12:26] LABS: CALCIUM LEVEL 10.1 MG/DL (8.8-10.2); CREATININE FOR GFR 1.56 MG/DL (0.70-1.30); GLOMERULAR FILTRATION RATE 45.8 (>35); MAGNESIUM LEVEL 1.6 MG/DL (1.8-2.4); POTASSIUM SERUM 4.2 MEQ/L (3.5-5.1)
== END ==
LOC: M WUC 09:00
PROVIDERS: ATTEND Physician Assistant
DX: I50.42 Chronic combined systolic (congestive) and diastolic (congestive) heart failure (principal); Z79.01 Long term (current) use of anticoagulants

== ENCOUNTER → 2021-08-23 | Outpatient (CLI) | payer OTHER, MEDICAID | LOC: M LABSMTC 10:17 | PROVIDERS: ATTEND Anesthesiology | DX: Z01.812 Encounter for preprocedural laboratory examination (principal); Z20.822 Contact with and (suspected) exposure to COVID-19 ==

== ENCOUNTER 2021-08-27 08:40 | Day surgery (SDC) | payer OTHER, MEDICAID ==
[~2021-08-27] VITALS: Ht 180.3 cm; Wt 96.3 kg
[~2021-08-27 08:40] MED LIST changes: +CEFUROXIME 1MG/0.1ML INTRACAMERAL INJ As Ordered ONE; +LIDOCAINE 1% SDV 5ML VIAL As Ordered ONE; +OFLOXACIN 0.3 % (OCUFLOX) OPTH SOL 5ML OS SCH; +PHENYLEPHRINE 2.5% OPHTH SOL 2ML OS SCH; +PROPARACAINE 0.5% OPHTH SOL 15ML OS ONE; +TROPICAMIDE 1% OPHTH SOLN 2ML OS SCH; +TRYPAN BLUE 0.06 % 2.25 ML OPHTH SYR (VISIONBLUE) As Ordered ONE
[2021-08-27] MEDS ORDERED: BSS IRR 500ML/OMIDRIA 4ML IRR BAG (OR ONLY) As Ordered ONE (10:25)
[2021-08-27] MEDS ORDERED: TRYPAN BLUE 0.06 % 2.25 ML OPHTH SYR (VISIONBLUE) As Ordered ONE (11:14)
[2021-08-27] MEDS ORDERED: MIDAZOLAM INJ 2MG/2ML VIAL (J2250 PER 1MG) As Ordered ONE (11:36)
[2021-08-27 14:31] VITALS: BP 160/69
== END 2021-08-27 16:00 | disposition home or self-care (01) ==
LOC: M SDC 08:40
PROVIDERS: ATTEND Ophthalmology
DX: H25.12 Age-related nuclear cataract, left eye (principal); H53.31 Abnormal retinal correspondence; E11.9 Type 2 diabetes mellitus without complications; I25.118 Atherosclerotic heart disease of native coronary artery with other forms of angina pectoris; I25.2 Old myocardial infarction; I50.42 Chronic combined systolic (congestive) and diastolic (congestive) heart failure; I11.0 Hypertensive heart disease with heart failure; Z79.4 Long term (current) use of insulin; Z79.82 Long term (current) use of aspirin; Z79.891 Long term (current) use of opiate analgesic; Z79.899 Other long term (current) drug therapy
CPT/HCPCS: 66984; J1097; J2250; V2632

== ENCOUNTER → 2021-09-22 | Outpatient (CLI) | payer OTHER, MEDICAID ==
[~2021-09-22] MED LIST changes: -CEFUROXIME 1MG/0.1ML INTRACAMERAL INJ As Ordered ONE; -LIDOCAINE 1% SDV 5ML VIAL As Ordered ONE; -OFLOXACIN 0.3 % (OCUFLOX) OPTH SOL 5ML OS SCH; -PHENYLEPHRINE 2.5% OPHTH SOL 2ML OS SCH; -PROPARACAINE 0.5% OPHTH SOL 15ML OS ONE; -TROPICAMIDE 1% OPHTH SOLN 2ML OS SCH; -TRYPAN BLUE 0.06 % 2.25 ML OPHTH SYR (VISIONBLUE) As Ordered ONE
[2021-09-22 13:36] LABS: CALCIUM LEVEL 9.2 MG/DL (8.8-10.2); CREATININE FOR GFR 1.77 MG/DL (0.70-1.30); GLOMERULAR FILTRATION RATE 39.6 (>35); MAGNESIUM LEVEL 1.8 MG/DL (1.8-2.4); POTASSIUM SERUM 4.9 MEQ/L (3.5-5.1)
== END ==
LOC: M WUC 08:57
PROVIDERS: ATTEND Physician Assistant
DX: I50.42 Chronic combined systolic (congestive) and diastolic (congestive) heart failure (principal); Z79.01 Long term (current) use of anticoagulants

== ENCOUNTER 2021-12-08 06:26 | Emergency (ER) | payer OTHER, MEDICAID ==
[~2021-12-08] VITALS: Ht 180.3 cm; Wt 99.5 kg
[2021-12-08 08:21] LABS: BASO # 0.1 10^3/uL (0.0-0.2); BASO % 0.3 % (0.0-1.0); EOS # 0.1 10^3/uL (0.0-0.5); EOS % 0.4 % (0.0-3.0); HEMATOCRIT 43.7 % (42.0-52.0); LYMPH # 1.1 10^3/uL (1.5-5.0); MEAN CORPUSCULAR HEMOGLOBIN 29.4 pg (27.0-33.0); MEAN CORPUSCULAR VOLUME 91.8 fl (80.0-96.0); MONO # 0.8 10^3/uL (0.0-0.8); MONO % 5.6 % (2.0-8.0); NEUTROPHILS % 86.3 % (36.0-66.0); PLATELET COUNT, AUTOMATED 305 10^3/uL (150-450); RED BLOOD COUNT 4.76 10^6/uL (4.30-6.10); WHITE BLOOD COUNT 15.1 10^3/uL (4.0-10.0)
[2021-12-08] MEDS ORDERED: traMADol 50 MG TAB PO ONE (08:30)
[2021-12-08 08:40] LABS: C REACTIVE PROTEIN QUANTITATIV 6.12 MG/DL (0.00-0.30); CALCIUM LEVEL 9.5 MG/DL (8.8-10.2); CREATININE FOR GFR 1.59 MG/DL (0.70-1.30); GLOMERULAR FILTRATION RATE 44.8 (>35); POTASSIUM SERUM 3.9 MEQ/L (3.5-5.1)
[2021-12-08 09:00] LABS: ERYTHROCYTE SEDIMENTATION RATE 41 mm/hr (0-20)
[2021-12-08] MEDS ORDERED: CEPHALEXIN 500 MG CAP PO ONE (09:25)
[2021-12-08] MEDS ORDERED: COLCHICINE 0.6 MG TABLET PO ONE ×2 (09:25→09:40)
[2021-12-08] MEDS ORDERED: CEPH500C PO (09:36)
[2021-12-08] MEDS ORDERED: TRAM50TA2 PO (09:36)
[2021-12-08 09:46] VITALS: BP 141/72
== END 2021-12-08 09:53 | disposition home or self-care (01) ==
LOC: M ED 06:26 → EDBD 06:26 → M ED 09:53
DX: R22.32 Localized swelling, mass and lump, left upper limb (principal); I25.2 Old myocardial infarction; E11.9 Type 2 diabetes mellitus without complications; E78.5 Hyperlipidemia, unspecified; I10 Essential (primary) hypertension; J44.9 Chronic obstructive pulmonary disease, unspecified; Z86.79 Personal history of other diseases of the circulatory system; Z87.39 Personal history of other diseases of the musculoskeletal system and connective tissue; Z79.4 Long term (current) use of insulin; Z79.899 Other long term (current) drug therapy; Z79.01 Long term (current) use of anticoagulants

== ENCOUNTER 2022-03-02 04:47 | Emergency (ER) | payer OTHER, MEDICAID ==
[~2022-03-02] VITALS: Ht 180.3 cm; Wt 90.9 kg
[~2022-03-02 04:47] MED LIST changes: +CEPH500C PO; +TRAM50TA2 PO
[2022-03-02 04:51] VITALS: BP 135/73
[2022-03-02] MEDS ORDERED: BRIM1OPD OP (05:08)
[2022-03-02] MEDS ORDERED: PAME10CA PO (05:08)
[2022-03-02] MEDS ORDERED: PREDOPD OP (05:08)
== END 2022-03-02 10:00 | disposition left against medical advice (07) ==
LOC: M ED 04:47
DX: Z53.21 Procedure and treatment not carried out due to patient leaving prior to being seen by health care provider (principal)

== ENCOUNTER → 2022-07-05 | Outpatient (CLI) | payer OTHER, MEDICAID ==
[~2022-07-05] MED LIST changes: +BRIM1OPD OP; +PAME10CA PO; +PREDOPD OP
[2022-07-05 13:33] LABS: HEMATOCRIT 46.4 % (42.0-52.0); HEMOGLOBIN 14.2 g/dl (13.5-17.5); MEAN CORPUSCULAR HEMOGLOBIN 28.7 pg (27.0-33.0); MEAN CORPUSCULAR HGB CONC 30.6 g/dl (32.0-36.5); MEAN CORPUSCULAR VOLUME 93.7 fl (80.0-96.0); PLATELET COUNT, AUTOMATED 300 10^3/uL (150-450); RED BLOOD COUNT 4.95 10^6/uL (4.30-6.10); WHITE BLOOD COUNT 10.7 10^3/uL (4.0-10.0)
[2022-07-05 15:24] LABS: MAGNESIUM LEVEL 1.5 MG/DL (1.8-2.4)
[2022-07-05 15:25] LABS: ALBUMIN 3.5 G/DL (3.2-5.2); BILIRUBIN,TOTAL 0.4 MG/DL (0.3-1.2); CALCIUM LEVEL 8.6 MG/DL (8.3-10.6); CHOLESTEROL RISK RATIO 1.88 (<5); CREATININE FOR GFR 1.77 MG/DL (0.70-1.30); GLOMERULAR FILTRATION RATE 39.5 (>35); HDL CHOLESTEROL 46.7 MG/DL (>40); LDL CHOLESTEROL 24.3 MG/DL (<100); POTASSIUM SERUM 4.3 MMOL/L (3.5-5.1); TOTAL PROTEIN 6.4 G/DL (5.7-8.2)
== END ==
LOC: M WUC 09:22
PROVIDERS: ATTEND Physician Assistant
DX: I48.21 Permanent atrial fibrillation (principal); I50.42 Chronic combined systolic (congestive) and diastolic (congestive) heart failure; I25.118 Atherosclerotic heart disease of native coronary artery with other forms of angina pectoris; E78.00 Pure hypercholesterolemia, unspecified; Z79.01 Long term (current) use of anticoagulants; I48.3 Typical atrial flutter

== ENCOUNTER 2022-07-27 22:25 | Emergency (ER) | payer OTHER, MEDICAID ==
[2022-07-27] MEDS ORDERED: METHOCARBAMOL 1,000 MG/10 ML VIAL IV ONE (23:00)
[2022-07-27] MEDS ORDERED: KETOROLAC 30 MG/ML 1ML VIAL IV ONE (23:00)
[2022-07-27 23:40] LABS: BASO % 0.3 % (0.0-1.0); EOS # 0.1 10^3/uL (0.0-0.5); EOS % 0.9 % (0.0-3.0); HEMATOCRIT 41.5 % (42.0-52.0); LYMPH # 1.1 10^3/uL (1.5-5.0); LYMPH % 9.3 % (24.0-44.0); MEAN CORPUSCULAR HEMOGLOBIN 28.8 pg (27.0-33.0); MEAN CORPUSCULAR HGB CONC 31.3 g/dl (32.0-36.5); MEAN CORPUSCULAR VOLUME 91.8 fl (80.0-96.0); MONO # 0.8 10^3/uL (0.0-0.8); MONO % 7.2 % (2.0-8.0); NEUTROPHILS # 9.5 10^3/uL (1.5-8.5); NEUTROPHILS % 81.7 % (36.0-66.0); PLATELET COUNT, AUTOMATED 236 10^3/uL (150-450); RED BLOOD COUNT 4.52 10^6/uL (4.30-6.10); WHITE BLOOD COUNT 11.6 10^3/uL (4.0-10.0)
[2022-07-27 23:53] LABS: INR 1.26; PARTIAL THROMBOPLASTIN TIME 33.7 SECONDS (24.8-34.2); PROTHROMBIN TIME 16.1 SECONDS (12.5-14.5)
[2022-07-27 23:54] LABS: ERYTHROCYTE SEDIMENTATION RATE 40 mm/hr (0-20)
[2022-07-28 00:15] VITALS: BP 136/63
[2022-07-28 00:16] LABS: CALCIUM LEVEL 8.5 MG/DL (8.3-10.6); CREATININE FOR GFR 1.62 MG/DL (0.70-1.30); GLOMERULAR FILTRATION RATE 43.8 (>35); POTASSIUM SERUM 3.8 MMOL/L (3.5-5.1)
[2022-07-28 00:33] LABS: C REACTIVE PROTEIN QUANTITATIV 3.1 MG/DL (<1.0)
[2022-07-28] MEDS ORDERED: METH-1165 PO (01:03)
[2022-07-28] MEDS ORDERED: PRED20TA PO (01:03)
== END 2022-07-28 01:08 | disposition home or self-care (01) ==
LOC: M ED 22:25
DX: S16.1XXA Strain of muscle, fascia and tendon at neck level, initial encounter (principal); I10 Essential (primary) hypertension; Z86.79 Personal history of other diseases of the circulatory system; Z79.01 Long term (current) use of anticoagulants; Z79.82 Long term (current) use of aspirin; Z79.4 Long term (current) use of insulin; Z79.811 Long term (current) use of aromatase inhibitors; Z79.899 Other long term (current) drug therapy
CPT/HCPCS: 36415; 70450; 72125; 80048; 85025; 85610; 85652; 85730; 86140; 96374; 96375; 99284; J1885; J2800

== ENCOUNTER → 2022-08-30 | Outpatient (CLI) | payer OTHER, MEDICAID ==
[~2022-08-30] MED LIST changes: +METH-1165 PO; +PRED20TA PO
[2022-08-30 12:57] LABS: CALCIUM LEVEL 8.9 MG/DL (8.3-10.6); CREATININE FOR GFR 1.55 MG/DL (0.70-1.30); MAGNESIUM LEVEL 1.6 MG/DL (1.8-2.4); POTASSIUM SERUM 4.2 MMOL/L (3.5-5.1)
== END ==
LOC: M WUC 09:34
PROVIDERS: ATTEND Physician Assistant
DX: I50.42 Chronic combined systolic (congestive) and diastolic (congestive) heart failure (principal)

== ENCOUNTER → 2022-10-28 | Outpatient (CLI) | payer OTHER, MEDICAID ==
[2022-10-28 12:34] LABS: CALCIUM LEVEL 9.3 MG/DL (8.3-10.6); CREATININE FOR GFR 1.47 MG/DL (0.70-1.30); GLOMERULAR FILTRATION RATE 48.9 (>35); MAGNESIUM LEVEL 1.6 MG/DL (1.8-2.4); POTASSIUM SERUM 4.9 MMOL/L (3.5-5.1)
== END ==
LOC: M WUC 09:40
PROVIDERS: ATTEND Physician Assistant
DX: I50.42 Chronic combined systolic (congestive) and diastolic (congestive) heart failure (principal)

== ENCOUNTER → 2022-11-21 | Outpatient (CLI) | payer OTHER, MEDICAID ==
[~2022-11-21] MED LIST changes: +ARTIDRO4 OU; -POLYOPD OU
== END ==
LOC: M RAD 12:41
PROVIDERS: ATTEND Family Medicine
DX: I73.9 Peripheral vascular disease, unspecified (principal)

== ENCOUNTER 2022-12-05 07:43 | Inpatient (IN) | payer OTHER, MEDICAID ==
[~2022-12-05] VITALS: Ht 180.3 cm; Wt 89.9 kg
[~2022-12-05 07:43] MED LIST changes: -BRIM1OPD OP; +BRIM1OPD OU
[2022-12-05 08:45] LABS: BASO % 0.3 % (0.0-1.0); EOS # 0.1 10^3/uL (0.0-0.5); EOS % 0.5 % (0.0-3.0); HEMATOCRIT 39.6 % (42.0-52.0); HEMOGLOBIN 12.4 g/dl (13.5-17.5); LYMPH # 0.9 10^3/uL (1.5-5.0); LYMPH % 6.6 % (24.0-44.0); MEAN CORPUSCULAR HEMOGLOBIN 29.3 pg (27.0-33.0); MEAN CORPUSCULAR HGB CONC 31.3 g/dl (32.0-36.5); MEAN CORPUSCULAR VOLUME 93.6 fl (80.0-96.0); MONO # 0.8 10^3/uL (0.0-0.8); MONO % 6.3 % (2.0-8.0); NEUTROPHILS # 11.3 10^3/uL (1.5-8.5); PLATELET COUNT, AUTOMATED 231 10^3/uL (150-450); RED BLOOD COUNT 4.23 10^6/uL (4.30-6.10); WHITE BLOOD COUNT 13.1 10^3/uL (4.0-10.0)
[2022-12-05 09:10] LABS: ALBUMIN 3.3 G/DL (3.2-5.2); BILIRUBIN,DIRECT 0.4 MG/DL (<0.4); BILIRUBIN,TOTAL 1.1 MG/DL (0.3-1.2)
[2022-12-05] MEDS ORDERED: ISOVUE-370 76% 100ML VIAL As Ordered ONE (09:55)
[2022-12-05 10:13] LABS: RSV AMPLIFICATION NEGATIVE (NEGATIVE)
[2022-12-05] MEDS ORDERED: NS 1,000 ML IV ONE (11:05)
[2022-12-05] MEDS ORDERED: IPRATROPIUM 0.5MG/ALBUTEROL 2.5MG INH SOL UD 3ML (DUONEB) NEB ONE (12:35)
[2022-12-05] MEDS ORDERED: AZITHROMYCIN INJ 500 MG, VIAL MATE ADAPTER 1 EACH in D5W 250 ML IV ONE (12:35)
[2022-12-05] MEDS ORDERED: ALBUTEROL SULFATE 2.5MG/0.5ML INH NEB SOLN INH ONE (12:35)
[2022-12-05] MEDS ORDERED: methylPREDNISolone 125MG 2ML VIAL IV ONE (12:35)
[2022-12-05] MEDS ORDERED: cefTRIAXone SOD 1 GM in D5W MINI-BAG PLUS 50 ML IV ONE (12:35)
[2022-12-05 13:08] LABS: ABG BASE EXCESS 0.6 (-2.0-2.0); ABG O2 SATURATION 97.3 % (95.0-99.0); ABG PARTIAL PRESSURE CO2 34.5 mmHg (35.0-45.0); ABG PARTIAL PRESSURE O2 93.6 mmHg (75.0-100.0)
[2022-12-05] MEDS ORDERED: NITR0.4S14 PO (14:25)
[2022-12-05] MEDS ORDERED: TYLE650T38 PO (14:25)
[2022-12-05] MEDS ORDERED: NOTE (14:25)
[2022-12-05] MEDS ORDERED: MAGN400T2 PO (14:25)
[2022-12-05] MEDS ORDERED: HOME MED LIST COMPLETE! XX SCH (14:30)
[2022-12-05] MEDS ORDERED: DEXTROSE 50% 50ML SYRINGE IV PRN (16:00)
[2022-12-05] MEDS ORDERED: FUROSEMIDE 100MG/10ML VIAL IV ONE (16:00)
[2022-12-05] MEDS: ALBUTEROL SULFATE 2.5MG/0.5ML INH NEB SOLN NEB SCH ×2 (16:00→23:17)
[2022-12-05] MEDS ORDERED: GLUCOSE 4GM CHEW TABLET PO PRN (16:00)
[2022-12-05] MEDS ORDERED: GLUCAGON INJ 1MG VIAL SC PRN (16:00)
[2022-12-05 17:19] VITALS: BP 156/73
[2022-12-05] MEDS: INSULIN LISPRO (NovoLOG) PER UNIT SC SCH ×2 (17:55→22:09)
[2022-12-05] MEDS: ENTRESTO 24-26MG TABLET (SACUBITRIL/VALSARTAN) PO SCH (21:00)
[2022-12-05 21:36] VITALS: BP 120/61
[2022-12-05] MEDS: APIXABAN 5 MG TAB (ELIQUIS) PO SCH (22:07)
[2022-12-05] MEDS: ATORVASTATIN 20 MG TAB PO SCH (22:07)
[2022-12-05] MEDS: DOCUSATE SODIUM 100MG CAPSULE PO SCH (22:08)
[2022-12-05] MEDS: PANTOPRAZOLE 40MG TAB (PROTONIX) PO SCH (22:08)
[2022-12-05] MEDS: METOPROLOL SUCC (TopROL XL) 50MG **XL** TAB PO SCH (22:08)
[2022-12-05] MEDS: MAGNESIUM OXIDE 400MG TAB (MAG-OX) PO SCH (22:08)
[2022-12-05] MEDS: LEVEMIR (INSULIN DETEMIR) 1 UNITS/0.01ML SC SCH (22:09)
[2022-12-05] MEDS: NORTRIPTYLINE 10 MG CAP PO SCH (22:19)
[2022-12-06 06:00] VITALS: BP 114/64
[2022-12-06] MEDS: ALBUTEROL SULFATE 2.5MG/0.5ML INH NEB SOLN NEB SCH ×3 (07:31→23:20)
[2022-12-06] MEDS: ENTRESTO 24-26MG TABLET (SACUBITRIL/VALSARTAN) PO SCH ×2 (08:44→20:54)
[2022-12-06] MEDS: ASPIRIN 81MG ENTERIC TABLET PO SCH (08:44)
[2022-12-06] MEDS: INSULIN LISPRO (NovoLOG) PER UNIT SC SCH ×4 (08:44→21:00)
[2022-12-06] MEDS: LEVEMIR (INSULIN DETEMIR) 1 UNITS/0.01ML SC SCH ×2 (08:44→21:27)
[2022-12-06] MEDS: AZITHROMYCIN 250MG TABLET PO SCH (08:45)
[2022-12-06] MEDS: PANTOPRAZOLE 40MG TAB (PROTONIX) PO SCH ×2 (08:45→20:53)
[2022-12-06] MEDS: SPIRONOLACTONE 12.5MG PER 1/2 TABLET PO SCH (08:45)
[2022-12-06] MEDS: NORTRIPTYLINE 10 MG CAP PO SCH ×2 (08:45→20:53)
[2022-12-06] MEDS: APIXABAN 5 MG TAB (ELIQUIS) PO SCH ×2 (08:45→20:54)
[2022-12-06] MEDS: allopurinoL 100 MG TAB PO SCH (08:45)
[2022-12-06] MEDS: TORSEMIDE 100 MG TAB PO SCH (08:45)
[2022-12-06] MEDS: MAGNESIUM OXIDE 400MG TAB (MAG-OX) PO SCH ×2 (08:46→20:54)
[2022-12-06] MEDS: DOCUSATE SODIUM 100MG CAPSULE PO SCH ×2 (08:46→20:53)
[2022-12-06] MEDS: MIRALAX *UNIT DOSE* 17GM PACKET PO SCH (08:46)
[2022-12-06 09:32] LABS: BASO % 0.1 % (0.0-1.0); HEMOGLOBIN 12.4 g/dl (13.5-17.5); LYMPH # 0.9 10^3/uL (1.5-5.0); LYMPH % 4.2 % (24.0-44.0); MEAN CORPUSCULAR HEMOGLOBIN 29.4 pg (27.0-33.0); MEAN CORPUSCULAR HGB CONC 31.8 g/dl (32.0-36.5); MEAN CORPUSCULAR VOLUME 92.4 fl (80.0-96.0); NEUTROPHILS # 18.5 10^3/uL (1.5-8.5); NEUTROPHILS % 89.9 % (36.0-66.0); PLATELET COUNT, AUTOMATED 269 10^3/uL (150-450); RED BLOOD COUNT 4.22 10^6/uL (4.30-6.10); WHITE BLOOD COUNT 20.5 10^3/uL (4.0-10.0)
[2022-12-06 10:00] LABS: CALCIUM LEVEL 8.9 MG/DL (8.3-10.6); CREATININE FOR GFR 1.46 MG/DL (0.70-1.30); GLOMERULAR FILTRATION RATE 49.3 (>35); POTASSIUM SERUM 3.9 MMOL/L (3.5-5.1)
[2022-12-06] MEDS: cefTRIAXone SOD 1 GM in D5W MINI-BAG PLUS 50 ML IV SCH (13:00)
[2022-12-06 14:00] VITALS: BP 138/72
[2022-12-06] MEDS: ATORVASTATIN 20 MG TAB PO SCH (20:53)
[2022-12-06 20:55] VITALS: BP 137/70
[2022-12-06] MEDS: METOPROLOL SUCC (TopROL XL) 50MG **XL** TAB PO SCH (20:55)
[2022-12-06 21:14] VITALS: BP 133/68
[2022-12-07 05:27] VITALS: BP 150/73
[2022-12-07 06:05] LABS: BASO % 0.2 % (0.0-1.0); EOS % 0.1 % (0.0-3.0); HEMATOCRIT 36.8 % (42.0-52.0); HEMOGLOBIN 11.8 g/dl (13.5-17.5); LYMPH # 0.9 10^3/uL (1.5-5.0); LYMPH % 6.8 % (24.0-44.0); MEAN CORPUSCULAR HEMOGLOBIN 29.6 pg (27.0-33.0); MEAN CORPUSCULAR HGB CONC 32.1 g/dl (32.0-36.5); MEAN CORPUSCULAR VOLUME 92.2 fl (80.0-96.0); MONO # 0.9 10^3/uL (0.0-0.8); MONO % 6.8 % (2.0-8.0); NEUTROPHILS # 11.8 10^3/uL (1.5-8.5); NEUTROPHILS % 85.7 % (36.0-66.0); PLATELET COUNT, AUTOMATED 255 10^3/uL (150-450); RED BLOOD COUNT 3.99 10^6/uL (4.30-6.10); WHITE BLOOD COUNT 13.8 10^3/uL (4.0-10.0)
[2022-12-07 06:20] LABS: CALCIUM LEVEL 8.6 MG/DL (8.3-10.6); CREATININE FOR GFR 1.48 MG/DL (0.70-1.30); GLOMERULAR FILTRATION RATE 48.6 (>35); POTASSIUM SERUM 3.9 MMOL/L (3.5-5.1)
[2022-12-07] MEDS: ALBUTEROL SULFATE 2.5MG/0.5ML INH NEB SOLN NEB SCH (07:27)
[2022-12-07] MEDS: INSULIN LISPRO (NovoLOG) PER UNIT SC SCH ×2 (07:30→12:17)
[2022-12-07 07:48] LABS: MAGNESIUM LEVEL 2.2 MG/DL (1.8-2.4)
[2022-12-07] MEDS: ASPIRIN 81MG ENTERIC TABLET PO SCH (08:12)
[2022-12-07] MEDS: SPIRONOLACTONE 12.5MG PER 1/2 TABLET PO SCH (08:12)
[2022-12-07] MEDS: TORSEMIDE 100 MG TAB PO SCH (08:12)
[2022-12-07] MEDS: APIXABAN 5 MG TAB (ELIQUIS) PO SCH (08:13)
[2022-12-07] MEDS: PANTOPRAZOLE 40MG TAB (PROTONIX) PO SCH (08:13)
[2022-12-07] MEDS: allopurinoL 100 MG TAB PO SCH (08:13)
[2022-12-07] MEDS: AZITHROMYCIN 250MG TABLET PO SCH (08:13)
[2022-12-07] MEDS: MIRALAX *UNIT DOSE* 17GM PACKET PO SCH (08:13)
[2022-12-07] MEDS: NORTRIPTYLINE 10 MG CAP PO SCH (08:13)
[2022-12-07] MEDS: DOCUSATE SODIUM 100MG CAPSULE PO SCH (08:13)
[2022-12-07] MEDS: MAGNESIUM OXIDE 400MG TAB (MAG-OX) PO SCH (08:13)
[2022-12-07] MEDS: ENTRESTO 24-26MG TABLET (SACUBITRIL/VALSARTAN) PO SCH (08:15)
[2022-12-07] MEDS: LEVEMIR (INSULIN DETEMIR) 1 UNITS/0.01ML SC SCH (10:05)
[2022-12-07] MEDS ORDERED: METF-839 PO (11:39)
[2022-12-07] MEDS ORDERED: AZIT500T5 PO (11:39)
[2022-12-07] MEDS ORDERED: MAGN400T2 PO (11:39)
[2022-12-07] MEDS ORDERED: AMOX875T2 PO (11:39)
[2022-12-07] MEDS ORDERED: MIRA1POW3 PO (11:39)
[2022-12-07] MEDS ORDERED: VENTAER INH (11:43)
[2022-12-07] MEDS: cefTRIAXone SOD 1 GM in D5W MINI-BAG PLUS 50 ML IV SCH (12:17)
== END 2022-12-07 14:14 | disposition home or self-care (01) | DRG 194 ==
LOC: M ED 07:43 → M ED INP 14:12 → M MSPAV 16:52
PROVIDERS: ADMIT Internal Medicine Nephrology; ATTEND Internal Medicine
DX: J18.9 Pneumonia, unspecified organism (principal); I13.0 Hypertensive heart and chronic kidney disease with heart failure and stage 1 through stage 4 chronic kidney disease, or unspecified chronic kidney disease; I50.42 Chronic combined systolic (congestive) and diastolic (congestive) heart failure; K56.7 Ileus, unspecified; I48.92 Unspecified atrial flutter; E11.22 Type 2 diabetes mellitus with diabetic chronic kidney disease; J98.01 Acute bronchospasm; I25.10 Atherosclerotic heart disease of native coronary artery without angina pectoris; E78.5 Hyperlipidemia, unspecified; N18.30 Chronic kidney disease, stage 3 unspecified; H40.9 Unspecified glaucoma; E83.42 Hypomagnesemia; I27.20 Pulmonary hypertension, unspecified; R09.02 Hypoxemia; G47.33 Obstructive sleep apnea (adult) (pediatric); K57.90 Diverticulosis of intestine, part unspecified, without perforation or abscess without bleeding; M10.9 Gout, unspecified; I71.43 Infrarenal abdominal aortic aneurysm, without rupture; K21.9 Gastro-esophageal reflux disease without esophagitis; I48.91 Unspecified atrial fibrillation; Z79.899 Other long term (current) drug therapy; Z79.82 Long term (current) use of aspirin; Z79.4 Long term (current) use of insulin

== ENCOUNTER → 2022-12-28 | Outpatient (CLI) | payer OTHER, MEDICAID ==
[~2022-12-28] MED LIST changes: +AMOX875T2 PO; +AZIT500T5 PO; +MAGN400T2 PO; +MIRA1POW3 PO; +NITR0.4S14 PO; +NOTE; +TYLE650T38 PO; +VENTAER INH
[2022-12-28 13:01] LABS: CALCIUM LEVEL 8.5 MG/DL (8.3-10.6); CREATININE FOR GFR 1.72 MG/DL (0.70-1.30); GLOMERULAR FILTRATION RATE 40.7 (>35); MAGNESIUM LEVEL 2.2 MG/DL (1.8-2.4); POTASSIUM SERUM 4.5 MMOL/L (3.5-5.1)
== END ==
LOC: M WUC 09:39
PROVIDERS: ATTEND Physician Assistant
DX: I50.42 Chronic combined systolic (congestive) and diastolic (congestive) heart failure (principal)

== ENCOUNTER 2023-02-27 13:04 | Emergency (ER) | payer OTHER, MEDICAID ==
[~2023-02-27] VITALS: Ht 180.3 cm; Wt 88.9 kg
[2023-02-27] MEDS ORDERED: ACETAMINOPHEN 500 MG TAB PO ONE (17:10)
[2023-02-27 18:56] VITALS: BP 112/60; TEMP 98.2; O2SAT 98
== END 2023-02-27 19:25 | disposition home or self-care (01) ==
LOC: M ED 13:04
DX: S16.1XXA Strain of muscle, fascia and tendon at neck level, initial encounter (principal); S40.011A Contusion of right shoulder, initial encounter; E11.9 Type 2 diabetes mellitus without complications; G47.33 Obstructive sleep apnea (adult) (pediatric); N18.30 Chronic kidney disease, stage 3 unspecified; E78.5 Hyperlipidemia, unspecified; I10 Essential (primary) hypertension; Z87.891 Personal history of nicotine dependence; Z85.038 Personal history of other malignant neoplasm of large intestine; Z79.01 Long term (current) use of anticoagulants; Z79.4 Long term (current) use of insulin; Z79.82 Long term (current) use of aspirin; Z79.02 Long term (current) use of antithrombotics/antiplatelets; Z79.899 Other long term (current) drug therapy

== ENCOUNTER 2023-04-14 10:05 | Inpatient (IN) | payer OTHER, MEDICAID ==
[~2023-04-14] VITALS: Ht 180.3 cm; Wt 88.1 kg
[2023-04-14 10:45] LABS: BASO % 0.3 % (0.0-1.0); EOS # 0.1 10^3/uL (0.0-0.5); EOS % 0.6 % (0.0-3.0); HEMATOCRIT 43.1 % (42.0-52.0); HEMOGLOBIN 12.9 g/dl (13.5-17.5); LYMPH # 0.9 10^3/uL (1.5-5.0); MEAN CORPUSCULAR HEMOGLOBIN 28.4 pg (27.0-33.0); MEAN CORPUSCULAR HGB CONC 29.9 g/dl (32.0-36.5); MEAN CORPUSCULAR VOLUME 94.9 fl (80.0-96.0); MONO # 0.4 10^3/uL (0.0-0.8); MONO % 4.3 % (2.0-8.0); NEUTROPHILS # 8.5 10^3/uL (1.5-8.5); NEUTROPHILS % 85.5 % (36.0-66.0); PLATELET COUNT, AUTOMATED 307 10^3/uL (150-450); RED BLOOD COUNT 4.54 10^6/uL (4.30-6.10); WHITE BLOOD COUNT 9.9 10^3/uL (4.0-10.0)
[2023-04-14] MEDS ORDERED: FUROSEMIDE 40MG/4ML VIAL IV ONE (10:55)
[2023-04-14 11:05] LABS: CK-MB VALUE MASS 3.1 NG/ML (<3.6); MB/CK RELATIVE INDEX 4.13 (< OR =4)
[2023-04-14 11:06] LABS: ALBUMIN 3.4 G/DL (3.2-5.2); BILIRUBIN,DIRECT 0.4 MG/DL (<0.4); BILIRUBIN,TOTAL 0.9 MG/DL (0.3-1.2); CALCIUM LEVEL 8.8 MG/DL (8.3-10.6); CREATININE FOR GFR 1.4 MG/DL (0.70-1.30); GLOMERULAR FILTRATION RATE 51.7 (>35); POTASSIUM SERUM 4.3 MMOL/L (3.5-5.1); TOTAL PROTEIN 6.2 G/DL (5.7-8.2)
[2023-04-14] MEDS ORDERED: MED REC IN PROGRESS XX SCH (12:15)
[2023-04-14] MEDS ORDERED: MED REC CURRENTLY UNOBTAINABLE XX SCH (12:45)
[2023-04-14] MEDS ORDERED: MOM 30ML SUSPENSION UDC PO PRN (13:05)
[2023-04-14] MEDS ORDERED: GLUCAGON INJ 1MG VIAL SC PRN (14:25)
[2023-04-14] MEDS ORDERED: DEXTROSE 50% 50ML SYRINGE IV PRN (14:25)
[2023-04-14] MEDS ORDERED: GLUCOSE 4GM CHEW TABLET PO PRN (14:25)
[2023-04-14 15:48] VITALS: BP 157/85; TEMP 96.9; O2SAT 93
[2023-04-14] MEDS: INSULIN LISPRO (NovoLOG) PER UNIT SC SCH (17:30)
[2023-04-14] MEDS: FUROSEMIDE 40MG/4ML VIAL IV SCH (18:09)
[2023-04-14] MEDS ORDERED: TREL1AER PO (19:02)
[2023-04-14] MEDS ORDERED: ATOR80TA59 PO (19:02)
[2023-04-14] MEDS ORDERED: METF-839 PO (19:03)
[2023-04-14] MEDS ORDERED: HOME MED LIST COMPLETE! XX SCH (19:05)
[2023-04-14 20:00] VITALS: BP 146/72; TEMP 98; O2SAT 95
[2023-04-14] MEDS ORDERED: ALBUTEROL 90 MCG/ACT 8GM HFA INHALER INH PRN (20:15)
[2023-04-14] MEDS: DOCUSATE SODIUM 100MG CAPSULE PO SCH (20:24)
[2023-04-14] MEDS: LEVEMIR (INSULIN DETEMIR) 1 UNITS/0.01ML SC SCH (20:25)
[2023-04-15] VITALS (13 sets, daily range): BP systolic 139–160; BP diastolic 65–84; TEMP 96–97.2; O2SAT 91–96
[2023-04-15] MEDS: FUROSEMIDE 40MG/4ML VIAL IV SCH (03:15)
[2023-04-15 06:35] LABS: BASO # 0.1 10^3/uL (0.0-0.2); BASO % 0.5 % (0.0-1.0); EOS # 0.2 10^3/uL (0.0-0.5); EOS % 1.6 % (0.0-3.0); HEMATOCRIT 40.6 % (42.0-52.0); HEMOGLOBIN 12.6 g/dl (13.5-17.5); LYMPH % 10.2 % (24.0-44.0); MEAN CORPUSCULAR HEMOGLOBIN 28.6 pg (27.0-33.0); MEAN CORPUSCULAR VOLUME 92.3 fl (80.0-96.0); MONO # 0.6 10^3/uL (0.0-0.8); MONO % 5.8 % (2.0-8.0); NEUTROPHILS # 7.7 10^3/uL (1.5-8.5); NEUTROPHILS % 81.6 % (36.0-66.0); PLATELET COUNT, AUTOMATED 277 10^3/uL (150-450); WHITE BLOOD COUNT 9.4 10^3/uL (4.0-10.0)
[2023-04-15 07:14] LABS: CALCIUM LEVEL 8.8 MG/DL (8.3-10.6); CREATININE FOR GFR 1.3 MG/DL (0.70-1.30); GLOMERULAR FILTRATION RATE 56.3 (>35); POTASSIUM SERUM 4.3 MMOL/L (3.5-5.1)
[2023-04-15] MEDS: INSULIN LISPRO (NovoLOG) PER UNIT SC SCH ×3 (07:30→17:30)
[2023-04-15] MEDS: TIOTROPIUM INHALER/CAPSULE (SPIRIVA) INH SCH (08:32)
[2023-04-15] MEDS: SYMBICORT 160/4.5MCG INHALER 6GM INH SCH ×2 (08:32→19:48)
[2023-04-15] MEDS: allopurinoL 100 MG TAB PO SCH (09:54)
[2023-04-15] MEDS: ACETAMINOPHEN 650MG ER TAB (TYLENOL ARTHRITIS) PO SCH (09:54)
[2023-04-15] MEDS: PANTOPRAZOLE 40MG TAB (PROTONIX) PO SCH ×2 (09:54→20:11)
[2023-04-15] MEDS: DOCUSATE SODIUM 100MG CAPSULE PO SCH ×2 (09:54→20:11)
[2023-04-15] MEDS: APIXABAN 5 MG TAB (ELIQUIS) PO SCH ×2 (09:54→20:11)
[2023-04-15] MEDS: SPIRONOLACTONE 12.5MG PER 1/2 TABLET PO SCH (09:54)
[2023-04-15] MEDS: FERROUS SULFATE 325MG TAB PO SCH (09:54)
[2023-04-15] MEDS: NORTRIPTYLINE 10 MG CAP PO SCH ×2 (09:54→20:11)
[2023-04-15] MEDS: ASPIRIN 81MG ENTERIC TABLET PO SCH (09:54)
[2023-04-15] MEDS: LEVEMIR (INSULIN DETEMIR) 1 UNITS/0.01ML SC SCH ×2 (09:55→20:11)
[2023-04-15] MEDS ORDERED: ATORVASTATIN 20 MG TAB PO SCH (18:00)
[2023-04-16 03:51] VITALS: BP 166/88; TEMP 98.1; O2SAT 98
[2023-04-16] MEDS: TIOTROPIUM INHALER/CAPSULE (SPIRIVA) INH SCH (07:06)
[2023-04-16] MEDS: SYMBICORT 160/4.5MCG INHALER 6GM INH SCH (07:06)
[2023-04-16 07:45] LABS: BASO % 0.2 % (0.0-1.0); EOS # 0.2 10^3/uL (0.0-0.5); EOS % 1.9 % (0.0-3.0); HEMATOCRIT 42.6 % (42.0-52.0); HEMOGLOBIN 13.3 g/dl (13.5-17.5); LYMPH # 1.3 10^3/uL (1.5-5.0); LYMPH % 12.2 % (24.0-44.0); MEAN CORPUSCULAR HEMOGLOBIN 28.9 pg (27.0-33.0); MEAN CORPUSCULAR HGB CONC 31.2 g/dl (32.0-36.5); MEAN CORPUSCULAR VOLUME 92.4 fl (80.0-96.0); MONO # 0.6 10^3/uL (0.0-0.8); NEUTROPHILS # 8.2 10^3/uL (1.5-8.5); NEUTROPHILS % 79.3 % (36.0-66.0); PLATELET COUNT, AUTOMATED 326 10^3/uL (150-450); RED BLOOD COUNT 4.61 10^6/uL (4.30-6.10); WHITE BLOOD COUNT 10.4 10^3/uL (4.0-10.0)
[2023-04-16 08:14] LABS: CALCIUM LEVEL 9.1 MG/DL (8.3-10.6); CREATININE FOR GFR 1.37 MG/DL (0.70-1.30); POTASSIUM SERUM 4.3 MMOL/L (3.5-5.1)
[2023-04-16] MEDS ORDERED: FUROSEMIDE 40MG/4ML VIAL IV SCH (09:00)
[2023-04-16] MEDS ORDERED: METO25TA PO (09:29)
[2023-04-16] MEDS: FERROUS SULFATE 325MG TAB PO SCH (10:08)
[2023-04-16] MEDS: ASPIRIN 81MG ENTERIC TABLET PO SCH (10:08)
[2023-04-16] MEDS: PANTOPRAZOLE 40MG TAB (PROTONIX) PO SCH (10:08)
[2023-04-16] MEDS: allopurinoL 100 MG TAB PO SCH (10:08)
[2023-04-16] MEDS: DOCUSATE SODIUM 100MG CAPSULE PO SCH (10:08)
[2023-04-16] MEDS: NORTRIPTYLINE 10 MG CAP PO SCH (10:09)
[2023-04-16] MEDS: APIXABAN 5 MG TAB (ELIQUIS) PO SCH (10:09)
[2023-04-16] MEDS: SPIRONOLACTONE 12.5MG PER 1/2 TABLET PO SCH (10:09)
[2023-04-16] MEDS: LEVEMIR (INSULIN DETEMIR) 1 UNITS/0.01ML SC SCH (10:24)
[2023-04-16] MEDS: ACETAMINOPHEN 650MG ER TAB (TYLENOL ARTHRITIS) PO SCH (10:24)
[2023-04-16] MEDS: INSULIN LISPRO (NovoLOG) PER UNIT SC SCH (10:25)
== END 2023-04-16 11:57 | disposition home health service (06) | DRG 291 ==
LOC: EDBD 10:05 → M ED 10:05 → M ED INP 13:05 → ENRESERV 14:38 → M PCU 15:41
PROVIDERS: ADMIT Internal Medicine Nephrology; ATTEND Internal Medicine Nephrology
DX: I13.0 Hypertensive heart and chronic kidney disease with heart failure and stage 1 through stage 4 chronic kidney disease, or unspecified chronic kidney disease (principal); I50.43 Acute on chronic combined systolic (congestive) and diastolic (congestive) heart failure; I48.20 Chronic atrial fibrillation, unspecified; I48.92 Unspecified atrial flutter; M10.9 Gout, unspecified; N18.30 Chronic kidney disease, stage 3 unspecified; I27.20 Pulmonary hypertension, unspecified; G47.33 Obstructive sleep apnea (adult) (pediatric); Z99.81 Dependence on supplemental oxygen; K21.9 Gastro-esophageal reflux disease without esophagitis; K57.90 Diverticulosis of intestine, part unspecified, without perforation or abscess without bleeding; E78.5 Hyperlipidemia, unspecified; N20.0 Calculus of kidney; J44.9 Chronic obstructive pulmonary disease, unspecified; E11.40 Type 2 diabetes mellitus with diabetic neuropathy, unspecified; K64.8 Other hemorrhoids; H40.9 Unspecified glaucoma; Z85.038 Personal history of other malignant neoplasm of large intestine; I25.10 Atherosclerotic heart disease of native coronary artery without angina pectoris; Z79.899 Other long term (current) drug therapy; Z79.82 Long term (current) use of aspirin

== ENCOUNTER → 2023-10-11 | Outpatient (CLI) | payer OTHER, MEDICAID, MEDICARE ==
[~2023-10-11] MED LIST changes: +METO25TA PO; -MIRA1POW3 PO; +MIRA33506 PO; +TREL1AER PO
[2023-10-11 12:09] LABS: HEMATOCRIT 46.7 % (42.0-52.0); HEMOGLOBIN 14.6 g/dl (13.5-17.5); MEAN CORPUSCULAR HEMOGLOBIN 29.7 pg (27.0-33.0); MEAN CORPUSCULAR HGB CONC 31.3 g/dl (32.0-36.5); MEAN CORPUSCULAR VOLUME 95.1 fl (80.0-96.0); PLATELET COUNT, AUTOMATED 305 10^3/uL (150-450); RED BLOOD COUNT 4.91 10^6/uL (4.30-6.10); WHITE BLOOD COUNT 10.1 10^3/uL (4.0-10.0)
[2023-10-11 12:42] LABS: ALBUMIN 3.8 G/DL (3.2-5.2); BILIRUBIN,TOTAL 0.9 MG/DL (0.3-1.2); CALCIUM LEVEL 8.6 MG/DL (8.3-10.6); CHOLESTEROL RISK RATIO 1.99 (<5); CREATININE FOR GFR 1.54 MG/DL (0.70-1.30); GLOMERULAR FILTRATION RATE 46.3 (>35); HDL CHOLESTEROL 57.6 MG/DL (>40); MAGNESIUM LEVEL 1.5 MG/DL (1.8-2.4); NON-HDL-C 57.4 MG/DL; POTASSIUM SERUM 4.6 MMOL/L (3.5-5.1); TOTAL PROTEIN 6.7 G/DL (5.7-8.2)
== END ==
LOC: M WUC 09:45
PROVIDERS: ATTEND Physician Assistant
DX: I50.42 Chronic combined systolic (congestive) and diastolic (congestive) heart failure (principal); I48.21 Permanent atrial fibrillation; E78.00 Pure hypercholesterolemia, unspecified; I25.10 Atherosclerotic heart disease of native coronary artery without angina pectoris

== ENCOUNTER 2023-11-16 14:48 | Emergency (ER) | payer OTHER, MEDICAID ==
[~2023-11-16] VITALS: Ht 180.3 cm; Wt 81.8 kg
[2023-11-16 16:36] LABS: HEMATOCRIT 45.9 % (42.0-52.0); HEMOGLOBIN 14.5 g/dl (13.5-17.5); MEAN CORPUSCULAR HEMOGLOBIN 28.7 pg (27.0-33.0); MEAN CORPUSCULAR HGB CONC 31.6 g/dl (32.0-36.5); MEAN CORPUSCULAR VOLUME 90.9 fl (80.0-96.0); PLATELET COUNT, AUTOMATED 303 10^3/uL (150-450); RED BLOOD COUNT 5.05 10^6/uL (4.30-6.10); WHITE BLOOD COUNT 10.7 10^3/uL (4.0-10.0)
[2023-11-16] MEDS ORDERED: VENTAER INH (17:02)
[2023-11-16] MEDS ORDERED: TOBRSUS8 OD (17:03)
[2023-11-16 17:05] LABS: AMPHETAMINES LEVEL URINE NEGATIVE (NEGATIVE); BARBITURATES URINE NEGATIVE (NEGATIVE); BENZODIAZEPINES URINE NEGATIVE (NEGATIVE); CANNABINOIDS URINE NEGATIVE (NEGATIVE); COCAINE METABOLITE URINE NEGATIVE (NEGATIVE); METHADONE URINE NEGATIVE (NEGATIVE); OPIATES URINE NEGATIVE (NEGATIVE); PHENCYCLIDINE URINE NEGATIVE (NEGATIVE)
[2023-11-16] MEDS ORDERED: HOME MED LIST COMPLETE! XX SCH (17:05)
[2023-11-16 18:55] LABS: CK-MB VALUE MASS 2.9 NG/ML (<3.6)
[2023-11-16 18:56] LABS: ETHYL ALCOHOL (ETHANOL) < 0.003 % (0.000-0.010)
[2023-11-16 18:57] LABS: C REACTIVE PROTEIN QUANTITATIV < 0.40 MG/DL (<1.0)
[2023-11-16 18:58] LABS: SALICYLATE LEVEL < 3.0 MG/DL (<30)
[2023-11-16 18:59] LABS: FREE T4 1.46 NG/DL (0.89-1.76)
[2023-11-16 19:00] LABS: THYROID STIMULATING HORMONE 2.675 uIU/ML (0.55-4.78)
[2023-11-16 19:05] LABS: ALBUMIN 3.7 G/DL (3.2-5.2); ALKALINE PHOSPHATASE 130 U/L (46-116); ALT/SGPT 20 U/L (7.0-40); AST/SGOT 21 U/L (<34); BILIRUBIN,DIRECT 0.2 MG/DL (<0.4); BILIRUBIN,TOTAL 0.7 MG/DL (0.3-1.2); BLOOD UREA NITROGEN 49 MG/DL (9-23); CARBON DIOXIDE LEVEL 29 MMOL/L (20-31); CHLORIDE LEVEL 103 MMOL/L (98-107); CPK CREATINE PHOSPHOKINASE 146 U/L (46-171); CREATININE FOR GFR 1.43 MG/DL (0.70-1.30); GLOMERULAR FILTRATION RATE 50.4 (>35); GLUCOSE, FASTING 127 MG/DL (74-106); MB/CK RELATIVE INDEX 1.98 (< OR =4); POTASSIUM SERUM 4.3 MMOL/L (3.5-5.1); PROCALCITONIN 0.09 ng/ml; SODIUM LEVEL 142 MMOL/L (136-145); TOTAL PROTEIN 7.1 G/DL (5.7-8.2)
[2023-11-16 20:23] VITALS: BP 154/74; TEMP 97; O2SAT 97
== END 2023-11-16 20:15 | disposition home or self-care (01) ==
LOC: EDBD 14:48 → M ED 14:48
DX: T50.901A Poisoning by unspecified drugs, medicaments and biological substances, accidental (unintentional), initial encounter (principal); I48.91 Unspecified atrial fibrillation; I11.0 Hypertensive heart disease with heart failure; I50.22 Chronic systolic (congestive) heart failure; G47.33 Obstructive sleep apnea (adult) (pediatric); Z79.1 Long term (current) use of non-steroidal anti-inflammatories (NSAID); Z79.51 Long term (current) use of inhaled steroids; Z79.4 Long term (current) use of insulin; Z79.84 Long term (current) use of oral hypoglycemic drugs; Z79.899 Other long term (current) drug therapy

== ENCOUNTER → 2024-01-11 | Outpatient (CLI) | payer OTHER, MEDICAID ==
[~2024-01-11] MED LIST changes: +TOBRSUS8 OD
== END ==
LOC: M LAB 09:35 → M RAD 09:35
PROVIDERS: ATTEND Family Medicine
DX: M54.9 Dorsalgia, unspecified (principal)

== ENCOUNTER 2024-01-20 07:10 | Emergency (ER) | payer OTHER, MEDICAID ==
[~2024-01-20] VITALS: Ht 180.3 cm; Wt 80.6 kg
[2024-01-20 09:24] VITALS: BP 110/57; TEMP 97.9; O2SAT 96
== END 2024-01-20 09:25 | disposition home or self-care (01) ==
LOC: M ED 07:10 → EDBD 07:10 → M ED 09:25
DX: S30.0XXA Contusion of lower back and pelvis, initial encounter (principal); T45.515A Adverse effect of anticoagulants, initial encounter; W19.XXXA Unspecified fall, initial encounter; M25.859 Other specified joint disorders, unspecified hip; M50.221 Other cervical disc displacement at C4-C5 level; M50.222 Other cervical disc displacement at C5-C6 level; M50.223 Other cervical disc displacement at C6-C7 level; N18.30 Chronic kidney disease, stage 3 unspecified; M54.50 Low back pain, unspecified; E11.9 Type 2 diabetes mellitus without complications; F32.A Depression, unspecified; Z86.79 Personal history of other diseases of the circulatory system; Z79.01 Long term (current) use of anticoagulants; Z79.4 Long term (current) use of insulin; Z79.52 Long term (current) use of systemic steroids; Z79.02 Long term (current) use of antithrombotics/antiplatelets; Z79.82 Long term (current) use of aspirin; Z79.899 Other long term (current) drug therapy; Y92.009 Unspecified place in unspecified non-institutional (private) residence as the place of occurrence of the external cause; Y93.89 Activity, other specified; Y99.9 Unspecified external cause status

== ENCOUNTER 2024-05-10 08:32 | Observation (INO) | payer OTHER, MEDICAID ==
[~2024-05-10] VITALS: Ht 180.3 cm; Wt 76.4 kg
[2024-05-10] MEDS ORDERED: METF500T13 PO (09:06)
[2024-05-10 09:22] LABS: BASO % 0.3 % (0.0-1.0); EOS # 0.1 10^3/uL (0.0-0.5); EOS % 0.7 % (0.0-3.0); HEMATOCRIT 45.9 % (42.0-52.0); HEMOGLOBIN 15.3 g/dl (13.5-17.5); LYMPH # 1.3 10^3/uL (1.5-5.0); LYMPH % 9.9 % (24.0-44.0); MEAN CORPUSCULAR HEMOGLOBIN 30.4 pg (27.0-33.0); MEAN CORPUSCULAR HGB CONC 33.3 g/dl (32.0-36.5); MEAN CORPUSCULAR VOLUME 91.1 fl (80.0-96.0); MONO # 0.6 10^3/uL (0.0-0.8); MONO % 4.7 % (2.0-8.0); NEUTROPHILS # 10.7 10^3/uL (1.5-8.5); PLATELET COUNT, AUTOMATED 291 10^3/uL (150-450); RED BLOOD COUNT 5.04 10^6/uL (4.30-6.10); WHITE BLOOD COUNT 12.7 10^3/uL (4.0-10.0)
[2024-05-10 09:49] LABS: ALBUMIN 3.6 G/DL (3.2-5.2); BILIRUBIN,DIRECT 0.2 MG/DL (<0.4); BILIRUBIN,TOTAL 0.6 MG/DL (0.3-1.2); CALCIUM LEVEL 10.1 MG/DL (8.3-10.6); CREATININE FOR GFR 1.78 MG/DL (0.70-1.30); GLOMERULAR FILTRATION RATE 39.1 (>35); POTASSIUM SERUM 5.6 MMOL/L (3.5-5.1); TOTAL PROTEIN 6.9 G/DL (5.7-8.2)
[2024-05-10] MEDS: NS 500 ML IV ONE (10:56)
[2024-05-10] MEDS: LIDOCAINE 2% 5ML JELLY UROJET TOP ONE (12:50)
[2024-05-10 15:35] LABS: CALCIUM LEVEL 9.4 MG/DL (8.3-10.6); CREATININE FOR GFR 1.74 MG/DL (0.70-1.30); GLOMERULAR FILTRATION RATE 40.1 (>35); POTASSIUM SERUM 5.2 MMOL/L (3.5-5.1)
[2024-05-10] MEDS ORDERED: MAALOX 30 ML SUSP *UDC PO PRN (17:15)
[2024-05-10] MEDS: INSULIN LISPRO (NovoLOG) PER UNIT SC SCH ×2 (17:30→21:00)
[2024-05-10] MEDS: TAMSULOSIN 0.4 MG CAP PO ONE (17:31)
[2024-05-10] MEDS ORDERED: ACE65ERTAB PO (17:38)
[2024-05-10] MEDS ORDERED: HOME MED LIST COMPLETE! XX SCH (17:40)
[2024-05-10] MEDS ORDERED: DEXTROSE 50% 50ML SYRINGE IV PRN (18:05)
[2024-05-10] MEDS ORDERED: GLUCOSE 4 GM CHEW PO PRN (18:05)
[2024-05-10] MEDS ORDERED: GLUCAGON INJ 1MG VIAL SC PRN (18:05)
[2024-05-10 18:18] LABS: C REACTIVE PROTEIN QUANTITATIV 1.7 MG/DL (<1.0)
[2024-05-10 18:29] LABS: ERYTHROCYTE SEDIMENTATION RATE 54 mm/hr (0-20)
[2024-05-10] MEDS ORDERED: IPRATROPIUM 0.5MG/ALBUTEROL 2.5MG INH SOL UD 3ML (DUONEB) NEB PRN (18:45)
[2024-05-10] MEDS: BOOSTRIX VACCINE (TETANUS/DIPHTH/ACEL. PERTUSSIS) 0.5ML SYR IM ONE (19:19)
[2024-05-10] MEDS: cefTRIAXone SOD 1 GM in D5W MINI-BAG PLUS 50 ML IV SCH (20:27)
[2024-05-10 21:21] VITALS: BP 135/80; TEMP 98.2; O2SAT 93
[2024-05-10] MEDS: PANTOPRAZOLE 40MG TAB (PROTONIX) PO SCH (21:31)
[2024-05-10] MEDS: DOXYCYCLINE HYCLATE 100MG TABLET PO SCH (21:31)
[2024-05-10] MEDS: ATORVASTATIN 20 MG TAB PO SCH (21:31)
[2024-05-10] MEDS: LEVEMIR (INSULIN DETEMIR) 1 UNITS/0.01ML SC SCH (21:32)
[2024-05-10] MEDS: APIXABAN 5 MG TAB (ELIQUIS) PO SCH (21:32)
[2024-05-10] MEDS: MUPIROCIN 2% OINT 22 GM TUBE TOP SCH (21:46)
[2024-05-10] MEDS: NORTRIPTYLINE 10 MG CAP PO SCH (21:46)
[2024-05-10] MEDS: ALBUTEROL SULFATE 2.5MG/0.5ML INH NEB SOLN NEB STA (22:22)
[2024-05-11 00:22] LABS: CALCIUM LEVEL 9.5 MG/DL (8.3-10.6); CREATININE FOR GFR 1.78 MG/DL (0.70-1.30); GLOMERULAR FILTRATION RATE 39.1 (>35); POTASSIUM SERUM 4.7 MMOL/L (3.5-5.1)
[2024-05-11] MEDS: PATIROMER SORBITEX CALCIUM 8.4 GM POWDER PACKET (VELTASSA) PO ONE (01:14)
[2024-05-11 04:11] VITALS: BP 124/64; TEMP 98.6; O2SAT 94
[2024-05-11 06:43] LABS: CALCIUM LEVEL 10.2 MG/DL (8.3-10.6); CREATININE FOR GFR 1.59 MG/DL (0.70-1.30); GLOMERULAR FILTRATION RATE 44.5 (>35); MAGNESIUM LEVEL 1.7 MG/DL (1.8-2.4)
[2024-05-11] MEDS: SYMBICORT 160/4.5MCG INHALER 6GM INH SCH (07:33)
[2024-05-11] MEDS: TAMSULOSIN 0.4 MG CAP PO SCH (08:27)
[2024-05-11] MEDS: MAGNESIUM OXIDE 400MG TAB (MAG-OX) PO SCH (08:28)
[2024-05-11] MEDS ORDERED: NITROGLYCERIN 0.4MG SUBL TABLET SL PRN (09:00)
[2024-05-11] MEDS ORDERED: SPIRONOLACTONE 12.5MG PER 1/2 TABLET PO SCH (09:00)
[2024-05-11 09:07] LABS: BASO % 0.4 % (0.0-1.0); EOS # 0.1 10^3/uL (0.0-0.5); EOS % 0.7 % (0.0-3.0); HEMATOCRIT 44.8 % (42.0-52.0); HEMOGLOBIN 14.6 g/dl (13.5-17.5); LYMPH # 1.2 10^3/uL (1.5-5.0); LYMPH % 11.5 % (24.0-44.0); MEAN CORPUSCULAR HEMOGLOBIN 29.8 pg (27.0-33.0); MEAN CORPUSCULAR HGB CONC 32.6 g/dl (32.0-36.5); MEAN CORPUSCULAR VOLUME 91.4 fl (80.0-96.0); MONO # 0.7 10^3/uL (0.0-0.8); MONO % 6.5 % (2.0-8.0); NEUTROPHILS % 80.1 % (36.0-66.0); PLATELET COUNT, AUTOMATED 232 10^3/uL (150-450)
[2024-05-11 12:00] VITALS: BP 135/98; TEMP 97.8; O2SAT 92
[2024-05-11] MEDS: ASPIRIN 81MG ENTERIC TABLET PO SCH (12:29)
[2024-05-11] MEDS: TORSEMIDE 100 MG TAB PO SCH (12:29)
[2024-05-11] MEDS: FERROUS SULFATE 325MG TAB PO SCH (12:29)
[2024-05-11 20:18] VITALS: BP 140/71; TEMP 98.2; O2SAT 97
[2024-05-12 03:29] VITALS: BP 106/53; TEMP 97.9; O2SAT 96
[2024-05-12 07:20] LABS: BASO % 0.3 % (0.0-1.0); EOS # 0.1 10^3/uL (0.0-0.5); EOS % 1.4 % (0.0-3.0); HEMATOCRIT 46.8 % (42.0-52.0); LYMPH # 1.1 10^3/uL (1.5-5.0); LYMPH % 11.5 % (24.0-44.0); MEAN CORPUSCULAR HEMOGLOBIN 29.2 pg (27.0-33.0); MEAN CORPUSCULAR HGB CONC 32.1 g/dl (32.0-36.5); MEAN CORPUSCULAR VOLUME 91.1 fl (80.0-96.0); MONO # 0.6 10^3/uL (0.0-0.8); MONO % 6.8 % (2.0-8.0); NEUTROPHILS # 7.5 10^3/uL (1.5-8.5); NEUTROPHILS % 79.5 % (36.0-66.0); PLATELET COUNT, AUTOMATED 257 10^3/uL (150-450); RED BLOOD COUNT 5.14 10^6/uL (4.30-6.10); WHITE BLOOD COUNT 9.5 10^3/uL (4.0-10.0)
[2024-05-12 07:32] LABS: CALCIUM LEVEL 9.9 MG/DL (8.3-10.6); CREATININE FOR GFR 1.89 MG/DL (0.70-1.30); GLOMERULAR FILTRATION RATE 36.4 (>35); POTASSIUM SERUM 5.2 MMOL/L (3.5-5.1)
[2024-05-12] MEDS: ACETAMINOPHEN 325 MG TAB PO PRN (08:52)
[2024-05-12] MEDS: SENOKOT S TAB PO SCH (11:40)
[2024-05-12 12:10] VITALS: BP 98/62; TEMP 98.2; O2SAT 96
[2024-05-12 14:30] LABS: CREATININE FOR GFR 1.96 MG/DL (0.70-1.30); GLOMERULAR FILTRATION RATE 34.9 (>35)
[2024-05-12] MEDS: MOM 30ML SUSPENSION UDC PO PRN (15:34)
[2024-05-12 20:00] VITALS: BP 133/76; TEMP 97.9; O2SAT 96
[2024-05-13 04:00] VITALS: BP 129/69; TEMP 96.9; O2SAT 99
[2024-05-13 08:49] LABS: CALCIUM LEVEL 9.9 MG/DL (8.3-10.6); CREATININE FOR GFR 1.68 MG/DL (0.70-1.30); GLOMERULAR FILTRATION RATE 41.7 (>35); MAGNESIUM LEVEL 2.3 MG/DL (1.8-2.4); POTASSIUM SERUM 5.4 MMOL/L (3.5-5.1)
[2024-05-13] MEDS: BISACODYL 10MG SUPP PR PRN (10:10)
[2024-05-13] MEDS: SOD POLYSTYRENE SULFONATE SUSP 15GM 60ML UD PO ONE (13:59)
[2024-05-13] MEDS: BISACODYL 10MG SUPP PR ONE (15:37)
[2024-05-13] MEDS: BISACODYL 10MG SUPP PR SCH (22:00)
[2024-05-14 01:25] VITALS: BP 120/65; TEMP 97.5; O2SAT 97
[2024-05-14 05:59] VITALS: BP 146/76; TEMP 97.7; O2SAT 96
[2024-05-14] MEDS ORDERED: DEXTROSE 50% 50ML SYRINGE IV STA (06:44)
[2024-05-14] MEDS ORDERED: HumuLIN R (REGULAR) INSULIN (NovoLIN R) **100U/ML** PER UNIT IV STA (06:44)
[2024-05-14] MEDS: ALBUTEROL SULFATE 2.5MG/0.5ML INH NEB SOLN NEB ONE (07:00)
[2024-05-14 07:37] LABS: CALCIUM LEVEL 9.5 MG/DL (8.3-10.6); CREATININE FOR GFR 1.4 MG/DL (0.70-1.30); GLOMERULAR FILTRATION RATE 51.5 (>35); MAGNESIUM LEVEL 2.6 MG/DL (1.8-2.4); POTASSIUM SERUM 4.5 MMOL/L (3.5-5.1)
[2024-05-14] MEDS ORDERED: PATIROMER SORBITEX CALCIUM 8.4 GM POWDER PACKET (VELTASSA) PO ONE (09:00)
[2024-05-14 12:00] VITALS: BP 133/57; TEMP 98.4; O2SAT 96
[2024-05-14] MEDS ORDERED: BISA10SU PR (12:15)
[2024-05-14] MEDS ORDERED: DOXY100T PO (12:15)
[2024-05-14] MEDS ORDERED: FLOM0.4C39 PO (12:15)
[2024-05-14] MEDS ORDERED: MUPI2OI TOP (12:15)
[2024-05-14] MEDS ORDERED: PROBCAP14 PO (12:19)
[2024-05-14] MEDS ORDERED: CEFD1CAP9 PO (12:19)
[2024-05-14 15:05] LABS: CALCIUM LEVEL 9.5 MG/DL (8.3-10.6); CREATININE FOR GFR 1.41 MG/DL (0.70-1.30); GLOMERULAR FILTRATION RATE 51.1 (>35); POTASSIUM SERUM 4.1 MMOL/L (3.5-5.1)
== END 2024-05-14 15:30 | disposition home health service (06) ==
LOC: EDBD 08:32 → M ED 08:32 → M ED INP 08:33 → M MS4PR 21:17
PROVIDERS: ADMIT Student in an Organized Health Care Education/Training Program; ATTEND Student in an Organized Health Care Education/Training Program
DX: N17.9 Acute kidney failure, unspecified (principal); R33.9 Retention of urine, unspecified; N40.0 Benign prostatic hyperplasia without lower urinary tract symptoms; K80.20 Calculus of gallbladder without cholecystitis without obstruction; R31.0 Gross hematuria; D72.829 Elevated white blood cell count, unspecified; L97.519 Non-pressure chronic ulcer of other part of right foot with unspecified severity; N18.9 Chronic kidney disease, unspecified; I48.91 Unspecified atrial fibrillation; E11.9 Type 2 diabetes mellitus without complications; Z79.4 Long term (current) use of insulin; I50.42 Chronic combined systolic (congestive) and diastolic (congestive) heart failure; Z79.01 Long term (current) use of anticoagulants; Z79.82 Long term (current) use of aspirin; Z79.84 Long term (current) use of oral hypoglycemic drugs; Z79.899 Other long term (current) drug therapy; Z23 Encounter for immunization
CPT/HCPCS: 36415; 51703; 71045; 73700; 73718; 76705; 80048; 80076; 81001; 83690; 83735; 84132; 84484; 85025; 85652; 86140; 87070; 87077; 87186; 87205; 90471; 90715; 93005; 94640; 96365; 96366; 96375; 97116; 97161; 97530; 99285; G0378; J0696; J1815

== ENCOUNTER 2024-05-20 10:44 | Observation (INO) | payer OTHER, MEDICAID ==
[~2024-05-20] VITALS: Ht 180.3 cm; Wt 81.3 kg
[~2024-05-20 10:44] MED LIST changes: +ACE65ERTAB PO; +BISA10SU PR; +CEFD1CAP9 PO; +DOXY100T PO; +FLOM0.4C39 PO; +METF500T13 PO; +MUPI2OI TOP; +PROBCAP14 PO
[2024-05-20 12:21] LABS: BASO % 0.4 % (0.0-1.0); EOS # 0.1 10^3/uL (0.0-0.5); EOS % 0.9 % (0.0-3.0); HEMATOCRIT 43.7 % (42.0-52.0); HEMOGLOBIN 14.2 g/dl (13.5-17.5); LYMPH # 1.1 10^3/uL (1.5-5.0); LYMPH % 10.5 % (24.0-44.0); MEAN CORPUSCULAR HEMOGLOBIN 30.1 pg (27.0-33.0); MEAN CORPUSCULAR HGB CONC 32.5 g/dl (32.0-36.5); MEAN CORPUSCULAR VOLUME 92.6 fl (80.0-96.0); MONO # 0.6 10^3/uL (0.0-0.8); MONO % 5.9 % (2.0-8.0); NEUTROPHILS # 8.6 10^3/uL (1.5-8.5); NEUTROPHILS % 81.9 % (36.0-66.0); PLATELET COUNT, AUTOMATED 300 10^3/uL (150-450); RED BLOOD COUNT 4.72 10^6/uL (4.30-6.10); WHITE BLOOD COUNT 10.5 10^3/uL (4.0-10.0)
[2024-05-20 12:46] LABS: THYROID STIMULATING HORMONE 1.403 uIU/ML (0.55-4.78)
[2024-05-20 12:52] LABS: ALBUMIN 3.3 G/DL (3.2-5.2); BILIRUBIN,DIRECT 0.2 MG/DL (<0.4); BILIRUBIN,TOTAL 0.7 MG/DL (0.3-1.2); CALCIUM LEVEL 9.8 MG/DL (8.3-10.6); CK-MB VALUE MASS 2.3 NG/ML (<3.6); CREATININE FOR GFR 1.77 MG/DL (0.70-1.30); GLOMERULAR FILTRATION RATE 39.3 (>35); MB/CK RELATIVE INDEX 1.93 (< OR =4); TOTAL PROTEIN 6.5 G/DL (5.7-8.2)
[2024-05-20] MEDS: DOXYCYCLINE HYCLATE 100MG TABLET PO ONE (13:37)
[2024-05-20] MEDS: cefTRIAXone SOD 1 GM in DEXTROSE 5% (D5W) ADV/MINI-BAG 50 ML IV ONE (13:37)
[2024-05-20] MEDS: NS 1,000 ML IV SCH (13:37)
[2024-05-20] MEDS ORDERED: GLUCOSE 4 GM CHEW PO PRN (15:45)
[2024-05-20] MEDS ORDERED: GLUCAGON INJ 1MG VIAL SC PRN (15:45)
[2024-05-20] MEDS ORDERED: DEXTROSE 50% 50ML SYRINGE IV PRN (15:45)
[2024-05-20 16:08] VITALS: BP 129/74; TEMP 97.3; O2SAT 97
[2024-05-20] MEDS: LACTULOSE 20GM/30ML SYRUP UDC PO ONE (16:25)
[2024-05-20] MEDS: INSULIN LISPRO (NovoLOG) PER UNIT SC SCH (17:02)
[2024-05-20 17:11] LABS: ABG BASE EXCESS -1.1 (-2.0-2.0); ABG HCO3 21.6 MMOL/L (22.0-26.0); ABG O2 SATURATION 97.8 % (95.0-99.0); ABG PARTIAL PRESSURE CO2 30.7 mmHg (35.0-45.0); ABG PARTIAL PRESSURE O2 102.4 mmHg (75.0-100.0); ABG STANDARD HCO3 23.6 MMOL/L. (22.0-26.0); ABG TOTAL CO2 22.6 MMOL/L (23.0-31.0); ABG pH (ARTERIAL) 7.466 UNITS (7.350-7.450)
[2024-05-20] MEDS ORDERED: MUPI2OI TOP (18:10)
[2024-05-20] MEDS ORDERED: FLOM0.4C39 PO (18:10)
[2024-05-20] MEDS ORDERED: BISA10SU27 PR (18:10)
[2024-05-20] MEDS ORDERED: HOME MED LIST COMPLETE! XX SCH (18:10)
[2024-05-20] MEDS ORDERED: NITROGLYCERIN 0.4MG SUBL TABLET SL SCH (18:20)
[2024-05-20] MEDS ORDERED: BISACODYL 10MG SUPP PR PRN (18:20)
[2024-05-20] MEDS: ADVAIR HFA 115/21MCG INHALER INH SCH (19:23)
[2024-05-20] MEDS: MUPIROCIN 2% OINT 22 GM TUBE TOP SCH (20:52)
[2024-05-20] MEDS: PANTOPRAZOLE 40MG TAB (PROTONIX) PO SCH (20:52)
[2024-05-20] MEDS: NORTRIPTYLINE 10 MG CAP PO SCH (20:53)
[2024-05-20] MEDS: ATORVASTATIN 20 MG TAB PO SCH (20:53)
[2024-05-20] MEDS: APIXABAN 5 MG TAB (ELIQUIS) PO SCH (20:53)
[2024-05-20] MEDS: LEVEMIR (INSULIN DETEMIR) 1 UNITS/0.01ML SC SCH (20:54)
[2024-05-20 21:00] VITALS: BP 129/72; TEMP 97.2; O2SAT 96
[2024-05-21 04:43] VITALS: BP 127/54; TEMP 97.2; O2SAT 95
[2024-05-21 05:40] LABS: BASO % 0.2 % (0.0-1.0); EOS # 0.2 10^3/uL (0.0-0.5); HEMATOCRIT 38.6 % (42.0-52.0); HEMOGLOBIN 12.4 g/dl (13.5-17.5); LYMPH % 12.7 % (24.0-44.0); MEAN CORPUSCULAR HGB CONC 32.1 g/dl (32.0-36.5); MEAN CORPUSCULAR VOLUME 93.2 fl (80.0-96.0); MONO # 0.6 10^3/uL (0.0-0.8); NEUTROPHILS # 6.3 10^3/uL (1.5-8.5); NEUTROPHILS % 77.7 % (36.0-66.0); PLATELET COUNT, AUTOMATED 258 10^3/uL (150-450); RED BLOOD COUNT 4.14 10^6/uL (4.30-6.10); WHITE BLOOD COUNT 8.1 10^3/uL (4.0-10.0)
[2024-05-21 06:07] LABS: CALCIUM LEVEL 8.8 MG/DL (8.3-10.6); CREATININE FOR GFR 1.41 MG/DL (0.70-1.30); GLOMERULAR FILTRATION RATE 51.1 (>35); MAGNESIUM LEVEL 1.7 MG/DL (1.8-2.4); POTASSIUM SERUM 4.3 MMOL/L (3.5-5.1)
[2024-05-21] MEDS: TIOTROPIUM INHALER/CAPSULE (SPIRIVA) INH SCH (08:39)
[2024-05-21] MEDS: ASPIRIN 81MG ENTERIC TABLET PO SCH (08:48)
[2024-05-21] MEDS: TAMSULOSIN 0.4 MG CAP PO SCH (08:48)
[2024-05-21] MEDS: ACETAMINOPHEN 650MG ER TAB (TYLENOL ARTHRITIS) PO SCH (08:49)
[2024-05-21] MEDS: FERROUS SULFATE 325MG TAB PO SCH (08:49)
[2024-05-21] MEDS ORDERED: TORS100T PO (11:11)
[2024-05-21] MEDS: MAGNESIUM OXIDE 400MG TAB (MAG-OX) PO ONE (11:24)
[2024-05-21 12:00] VITALS: BP 136/77; TEMP 98; O2SAT 93
[2024-05-21] MEDS: cefTRIAXone SOD 1 GM in DEXTROSE 5% (D5W) ADV/MINI-BAG 50 ML IV SCH (12:52)
== END 2024-05-21 14:09 | disposition home or self-care (01) ==
LOC: EDBD 10:44 → M ED 10:44 → M ED INP 13:33 → M MSPAV 15:02
PROVIDERS: ADMIT Internal Medicine; ATTEND Internal Medicine
DX: T83.510A Infection and inflammatory reaction due to cystostomy catheter, initial encounter (principal); R33.9 Retention of urine, unspecified; N17.0 Acute kidney failure with tubular necrosis; N18.30 Chronic kidney disease, stage 3 unspecified; E83.42 Hypomagnesemia; E11.9 Type 2 diabetes mellitus without complications; I12.9 Hypertensive chronic kidney disease with stage 1 through stage 4 chronic kidney disease, or unspecified chronic kidney disease; I50.40 Unspecified combined systolic (congestive) and diastolic (congestive) heart failure; I48.91 Unspecified atrial fibrillation; E78.5 Hyperlipidemia, unspecified; Z98.61 Coronary angioplasty status; G47.33 Obstructive sleep apnea (adult) (pediatric); Z79.82 Long term (current) use of aspirin; Z79.84 Long term (current) use of oral hypoglycemic drugs; Z79.01 Long term (current) use of anticoagulants; I25.10 Atherosclerotic heart disease of native coronary artery without angina pectoris; M10.9 Gout, unspecified; Z85.038 Personal history of other malignant neoplasm of large intestine
CPT/HCPCS: 36415; 70450; 71046; 74176; 80048; 80076; 81000; 81001; 81015; 82077; 82140; 82550; 82553; 82803; 83605; 83735; 84132; 84443; 84484; 85025; 85652; 86140; 87040; 87086; 93005; 93041; 94640; 94760; 96365; 96366; 96375; 97161; 99285; G0378; J0696; J1815

== ENCOUNTER 2024-06-19 15:53 | Emergency (ER) | payer OTHER, MEDICAID ==
[~2024-06-19] VITALS: Ht 180.3 cm; Wt 75.0 kg
[~2024-06-19 15:53] MED LIST changes: +BISA10SU27 PR
[2024-06-19 17:06] LABS: HEMATOCRIT 39.1 % (42.0-52.0); HEMOGLOBIN 12.5 g/dl (13.5-17.5); MEAN CORPUSCULAR HEMOGLOBIN 29.2 pg (27.0-33.0); MEAN CORPUSCULAR VOLUME 91.4 fl (80.0-96.0); PLATELET COUNT, AUTOMATED 234 10^3/uL (150-450); RED BLOOD COUNT 4.28 10^6/uL (4.30-6.10); WHITE BLOOD COUNT 8.9 10^3/uL (4.0-10.0)
[2024-06-19 17:30] LABS: CALCIUM LEVEL 9.3 MG/DL (8.3-10.6); CREATININE FOR GFR 1.44 MG/DL (0.70-1.30); GLOMERULAR FILTRATION RATE 49.9 (>35); POTASSIUM SERUM 4.9 MMOL/L (3.5-5.1)
[2024-06-19 18:06] VITALS: BP 140/90; TEMP 98; O2SAT 94
[2024-06-19] MEDS: FOSFOMYCIN TROMETHAMINE 3 GM POWDER PACKET (MONUROL) PO ONE (19:05)
== END 2024-06-19 19:17 | disposition home or self-care (01) ==
LOC: EDBD 15:53 → M ED 15:53
DX: R31.9 Hematuria, unspecified (principal); T45.515A Adverse effect of anticoagulants, initial encounter; E11.9 Type 2 diabetes mellitus without complications; N40.0 Benign prostatic hyperplasia without lower urinary tract symptoms; K21.9 Gastro-esophageal reflux disease without esophagitis; E78.5 Hyperlipidemia, unspecified; I10 Essential (primary) hypertension; Z79.01 Long term (current) use of anticoagulants; Z79.02 Long term (current) use of antithrombotics/antiplatelets; Z79.4 Long term (current) use of insulin; Z79.899 Other long term (current) drug therapy; Z86.79 Personal history of other diseases of the circulatory system

== ENCOUNTER → 2024-08-14 | Outpatient (CLI) | payer OTHER, MEDICAID ==
[2024-08-14 11:31] LABS: BASO % 0.4 % (0.0-1.0); EOS # 0.1 10^3/uL (0.0-0.5); EOS % 1.1 % (0.0-3.0); HEMATOCRIT 45.6 % (42.0-52.0); HEMOGLOBIN 14.5 g/dl (13.5-17.5); LYMPH # 1.3 10^3/uL (1.5-5.0); LYMPH % 12.3 % (24.0-44.0); MEAN CORPUSCULAR HEMOGLOBIN 29.3 pg (27.0-33.0); MEAN CORPUSCULAR HGB CONC 31.8 g/dl (32.0-36.5); MEAN CORPUSCULAR VOLUME 92.1 fl (80.0-96.0); MONO # 0.5 10^3/uL (0.0-0.8); NEUTROPHILS # 8.5 10^3/uL (1.5-8.5); NEUTROPHILS % 80.7 % (36.0-66.0); PLATELET COUNT, AUTOMATED 299 10^3/uL (150-450); RED BLOOD COUNT 4.95 10^6/uL (4.30-6.10); WHITE BLOOD COUNT 10.5 10^3/uL (4.0-10.0)
[2024-08-14 11:51] LABS: HEMOGLOBIN A1c 6.9 % (4.0-6.0)
[2024-08-14 11:53] LABS: CREATININE, URINE 64.6 MG/DL
[2024-08-14 11:55] LABS: ALBUMIN 4.1 G/DL (3.2-5.2); BILIRUBIN,TOTAL 0.8 MG/DL (0.3-1.2); CALCIUM LEVEL 9.7 MG/DL (8.3-10.6); CHOLESTEROL RISK RATIO 2.48 (<5); CREATININE FOR GFR 1.5 MG/DL (0.70-1.30); GLOMERULAR FILTRATION RATE 47.6 (>35); LDL CHOLESTEROL 62.4 MG/DL (<100); MAU/CREAT RATIO 151.7 MCG/MG (0.0-30.0); POTASSIUM SERUM 4.7 MMOL/L (3.5-5.1)
== END ==
LOC: M LAB 09:56
PROVIDERS: ATTEND Family Medicine
DX: E11.69 Type 2 diabetes mellitus with other specified complication (principal); M25.552 Pain in left hip; M16.12 Unilateral primary osteoarthritis, left hip

== ENCOUNTER → 2024-10-24 | Outpatient (CLI) | payer OTHER, MEDICAID ==
[2024-10-24 12:59] LABS: HEMATOCRIT 49.1 % (42.0-52.0); HEMOGLOBIN 15.2 g/dl (13.5-17.5); MEAN CORPUSCULAR VOLUME 93.5 fl (80.0-96.0); PLATELET COUNT, AUTOMATED 318 10^3/uL (150-450); RED BLOOD COUNT 5.25 10^6/uL (4.30-6.10)
[2024-10-24 13:25] LABS: CALCIUM LEVEL 9.4 MG/DL (8.3-10.6); CREATININE FOR GFR 1.75 MG/DL (0.70-1.30); GLOMERULAR FILTRATION RATE 39.8 (>35); MAGNESIUM LEVEL 1.5 MG/DL (1.8-2.4)
== END ==
LOC: M WUC 09:14
PROVIDERS: ATTEND Physician Assistant
DX: I50.42 Chronic combined systolic (congestive) and diastolic (congestive) heart failure (principal); I48.21 Permanent atrial fibrillation

== ENCOUNTER → 2024-11-14 | Outpatient (CLI) | payer OTHER, MEDICAID ==
[~2024-11-14] MED LIST changes: +PROHANCE 279.3MG/ML 5ML VIAL As Ordered ONE
== END ==
LOC: M RAD 08:53
PROVIDERS: ATTEND Physician Assistant
DX: N28.1 Cyst of kidney, acquired (principal); E27.9 Disorder of adrenal gland, unspecified; I71.40 Abdominal aortic aneurysm, without rupture, unspecified; R16.1 Splenomegaly, not elsewhere classified
CPT/HCPCS: 74183; A9576

== ENCOUNTER 2024-11-20 15:57 | Emergency (ER) | payer OTHER, MEDICAID ==
[~2024-11-20] VITALS: Ht 180.3 cm; Wt 78.2 kg
[~2024-11-20 15:57] MED LIST changes: -BRIM1OPD; -BRIM1OPD OU; +BRIM5DRO25; +BRIM5DRO25 OU; -FLOM0.4C39 PO; -PROHANCE 279.3MG/ML 5ML VIAL As Ordered ONE; +TAMS-18 PO
[2024-11-20] MEDS ORDERED: ELIQ2.5T (16:10)
[2024-11-20 17:01] LABS: BASO % 0.3 % (0.0-1.0); EOS % 0.5 % (0.0-3.0); HEMOGLOBIN 13.7 g/dl (13.5-17.5); LYMPH % 12.2 % (24.0-44.0); MEAN CORPUSCULAR HEMOGLOBIN 29.5 pg (27.0-33.0); MEAN CORPUSCULAR HGB CONC 32.6 g/dl (32.0-36.5); MEAN CORPUSCULAR VOLUME 90.5 fl (80.0-96.0); MONO # 0.5 10^3/uL (0.0-0.8); MONO % 6.3 % (2.0-8.0); NEUTROPHILS # 6.4 10^3/uL (1.5-8.5); NEUTROPHILS % 80.3 % (36.0-66.0); PLATELET COUNT, AUTOMATED 238 10^3/uL (150-450); RED BLOOD COUNT 4.64 10^6/uL (4.30-6.10)
[2024-11-20] MEDS ORDERED: MORPHINE 2 MG/ML 1ML VIAL IV PRN (17:20)
[2024-11-20 17:22] LABS: ALBUMIN 3.6 G/DL (3.2-5.2); BILIRUBIN,DIRECT 0.3 MG/DL (<0.4); BILIRUBIN,TOTAL 0.8 MG/DL (0.3-1.2); CALCIUM LEVEL 8.8 MG/DL (8.3-10.6); CREATININE FOR GFR 1.56 MG/DL (0.70-1.30); GLOMERULAR FILTRATION RATE 43.8 (>35); POTASSIUM SERUM 3.9 MMOL/L (3.5-5.1); TOTAL PROTEIN 6.3 G/DL (5.7-8.2)
[2024-11-20] MEDS ORDERED: ISOVUE-370 76% 100ML VIAL As Ordered ONE (17:26)
[2024-11-20] MEDS ORDERED: COLA100C5 PO (18:34)
[2024-11-20 20:16] VITALS: BP 102/63; TEMP 98.6; O2SAT 96
== END 2024-11-20 20:53 | disposition home or self-care (01) ==
LOC: M ED 15:57
DX: K59.00 Constipation, unspecified (principal); R10.9 Unspecified abdominal pain; I48.91 Unspecified atrial fibrillation; I50.22 Chronic systolic (congestive) heart failure; I25.119 Atherosclerotic heart disease of native coronary artery with unspecified angina pectoris; E11.9 Type 2 diabetes mellitus without complications; I11.0 Hypertensive heart disease with heart failure; E78.5 Hyperlipidemia, unspecified; G47.33 Obstructive sleep apnea (adult) (pediatric); N18.9 Chronic kidney disease, unspecified; Z87.891 Personal history of nicotine dependence; Z79.1 Long term (current) use of non-steroidal anti-inflammatories (NSAID); Z79.01 Long term (current) use of anticoagulants; Z79.899 Other long term (current) drug therapy; Z79.84 Long term (current) use of oral hypoglycemic drugs
CPT/HCPCS: 36415; 74177; 80047; 80048; 80076; 83605; 83690; 85025; 93005; 93041; 99285; Q9967

== ENCOUNTER 2024-12-11 21:34 | Emergency (ER) | payer OTHER, MEDICAID ==
[~2024-12-11 21:34] MED LIST changes: +ELIQ2.5T
[2024-12-11 21:50] VITALS: TEMP 96.8
[2024-12-11 22:12] LABS: BASO % 0.3 % (0.0-1.0); EOS # 0.1 10^3/uL (0.0-0.5); EOS % 1.3 % (0.0-3.0); HEMATOCRIT 41.7 % (42.0-52.0); HEMOGLOBIN 13.6 g/dl (13.5-17.5); LYMPH # 1.2 10^3/uL (1.5-5.0); LYMPH % 12.2 % (24.0-44.0); MEAN CORPUSCULAR HEMOGLOBIN 29.8 pg (27.0-33.0); MEAN CORPUSCULAR HGB CONC 32.6 g/dl (32.0-36.5); MEAN CORPUSCULAR VOLUME 91.2 fl (80.0-96.0); MONO # 0.5 10^3/uL (0.0-0.8); MONO % 5.3 % (2.0-8.0); NEUTROPHILS # 7.6 10^3/uL (1.5-8.5); NEUTROPHILS % 80.2 % (36.0-66.0); PLATELET COUNT, AUTOMATED 287 10^3/uL (150-450); RED BLOOD COUNT 4.57 10^6/uL (4.30-6.10); WHITE BLOOD COUNT 9.5 10^3/uL (4.0-10.0)
[2024-12-11 22:34] LABS: ALBUMIN 3.2 G/DL (3.2-5.2); BILIRUBIN,DIRECT 0.1 MG/DL (<0.4); BILIRUBIN,TOTAL 0.4 MG/DL (0.3-1.2); CREATININE FOR GFR 1.44 MG/DL (0.70-1.30); GLOMERULAR FILTRATION RATE 48.2 (>35); POTASSIUM SERUM 4.7 MMOL/L (3.5-5.1); TOTAL PROTEIN 6.1 G/DL (5.7-8.2)
[2024-12-11] MEDS ORDERED: ISOVUE-370 76% 100ML VIAL As Ordered ONE (23:23)
[2024-12-11 23:32] LABS: CK-MB VALUE MASS 2.4 NG/ML (<3.6)
[2024-12-11 23:38] LABS: MB/CK RELATIVE INDEX 2.72 (< OR =4)
[2024-12-12 00:01] LABS: CK-MB VALUE MASS 2.5 NG/ML (<3.6)
[2024-12-12 00:13] LABS: MB/CK RELATIVE INDEX 3.01 (< OR =4)
[2024-12-12] MEDS: PANTOPRAZOLE 40MG VIAL IV ONE (03:20)
[2024-12-12] MEDS: SUCRALFATE SUSP 1GM/10ML UD PO ONE (03:20)
[2024-12-12] MEDS ORDERED: SUCR1SS PO (03:29)
[2024-12-12 03:30] VITALS: BP 122/56; O2SAT 98
== END 2024-12-12 03:54 | disposition home or self-care (01) ==
LOC: M ED 21:34
DX: R10.9 Unspecified abdominal pain (principal); E11.9 Type 2 diabetes mellitus without complications; I10 Essential (primary) hypertension; E78.5 Hyperlipidemia, unspecified; Z86.79 Personal history of other diseases of the circulatory system; Z87.891 Personal history of nicotine dependence; Z79.01 Long term (current) use of anticoagulants; Z79.1 Long term (current) use of non-steroidal anti-inflammatories (NSAID); Z79.4 Long term (current) use of insulin; Z79.899 Other long term (current) drug therapy
CPT/HCPCS: 74177; 80048; 80076; 82550; 82553; 83690; 84484; 85025; 93005; 96374; 99285; J2470; Q9967

== ENCOUNTER 2025-02-13 10:34 | Emergency (ER) | payer OTHER, MEDICAID ==
[~2025-02-13] VITALS: Ht 180.3 cm; Wt 74.5 kg
[~2025-02-13 10:34] MED LIST changes: +DOXY-441 PO; +SUCR1SS PO
[2025-02-13 11:46] LABS: BASO # 0.0 10^3/uL (0.0-0.2); BASO % 0.3 % (0.0-1.0); EOS # 0.2 10^3/uL (0.0-0.5); EOS % 2.3 % (0.0-3.0); LYMPH # 1.1 10^3/uL (1.5-5.0); LYMPH % 10.9 % (24.0-44.0); MONO # 0.6 10^3/uL (0.0-0.8); MONO % 5.8 % (2.0-8.0); NEUTROPHILS # 8.1 10^3/uL (1.5-8.5); NEUTROPHILS % 80.3 % (36.0-66.0); PLATELET COUNT, AUTOMATED 325 10^3/uL (150-450)
[2025-02-13 12:13] LABS: ALT/SGPT 21.0 U/L (7.0-40); AST/SGOT 18.0 U/L (<34); CALCIUM LEVEL 9.1 MG/DL (8.3-10.6); CARBON DIOXIDE LEVEL 30.0 MMOL/L (20-31); CHLORIDE LEVEL 98.0 MMOL/L (98-107); CREATININE FOR GFR 1.64 MG/DL (0.70-1.30); GLOMERULAR FILTRATION RATE 41.0 (>35); POTASSIUM SERUM 4.0 MMOL/L (3.5-5.1); SODIUM LEVEL 141.0 MMOL/L (136-145)
[2025-02-13 12:23] LABS: ERYTHROCYTE SEDIMENTATION RATE 50 mm/hr (0-20)
[2025-02-13 12:27] LABS: C REACTIVE PROTEIN QUANTITATIV 1.6 MG/DL (<1.0)
[2025-02-13] MEDS: ACETAMINOPHEN *IV* 1,000 MG in IV 1 EA IV ONE (13:02)
[2025-02-13] MEDS ORDERED: ISOVUE-370 76% 100 ML VIAL As Ordered ONE (13:17)
[2025-02-13 13:21] LABS: INR 1.17
[2025-02-13 14:30] VITALS: O2SAT 78
[2025-02-13 15:05] LABS: KETONE, URINE AUTO RFX NEGATIVE (NEGATIVE); LEUKOCYTE ESTERASE UR AUTO RFX NEGATIVE (NEGATIVE); NITRITE, URINE AUTO RFX NEGATIVE (NEGATIVE); RBC, URINE AUTO RFX 0 /HPF (0-3); SQUAM EPITHELIAL CELL UR AURFX 0 /HPF (0-6); WBC, URINE AUTO RFX 1 /HPF (0-3)
[2025-02-13] MEDS: DICYCLOMINE 10 MG CAP PO ONE (15:50)
[2025-02-13 16:01] VITALS: BP 118/59; TEMP 97.4
== END 2025-02-13 16:13 | disposition home or self-care (01) ==
LOC: M ED 10:34 → EDBD 10:34 → M ED 16:13
DX: K80.20 Calculus of gallbladder without cholecystitis without obstruction (principal); I48.91 Unspecified atrial fibrillation; I25.2 Old myocardial infarction; E11.9 Type 2 diabetes mellitus without complications; M54.50 Low back pain, unspecified; K21.9 Gastro-esophageal reflux disease without esophagitis; K57.30 Diverticulosis of large intestine without perforation or abscess without bleeding; Z79.01 Long term (current) use of anticoagulants; Z79.1 Long term (current) use of non-steroidal anti-inflammatories (NSAID); Z79.4 Long term (current) use of insulin; Z79.899 Other long term (current) drug therapy
CPT/HCPCS: 71046; 74177; 76705; 80048; 80076; 81001; 82150; 83605; 83690; 84145; 85025; 85610; 85652; 85730; 86140; 93005; 96374; 99284; J0131; Q9967

== ENCOUNTER 2025-02-15 17:26 | Emergency (ER) | payer OTHER, MEDICAID ==
[~2025-02-15] VITALS: Ht 180.3 cm; Wt 78.5 kg
[2025-02-15 19:03] LABS: BASO # 0.0 10^3/uL (0.0-0.2); BASO % 0.3 % (0.0-1.0); EOS # 0.3 10^3/uL (0.0-0.5); EOS % 2.7 % (0.0-3.0); LYMPH # 1.1 10^3/uL (1.5-5.0); LYMPH % 12.4 % (24.0-44.0); MONO # 0.5 10^3/uL (0.0-0.8); MONO % 5.8 % (2.0-8.0); NEUTROPHILS # 7.2 10^3/uL (1.5-8.5); NEUTROPHILS % 78.5 % (36.0-66.0); PLATELET COUNT, AUTOMATED 306 10^3/uL (150-450)
[2025-02-15 19:21] LABS: ALT/SGPT 17.0 U/L (7.0-40); AST/SGOT 19.0 U/L (<34); CALCIUM LEVEL 9.1 MG/DL (8.3-10.6); CARBON DIOXIDE LEVEL 26.0 MMOL/L (20-31); CHLORIDE LEVEL 100.0 MMOL/L (98-107); CREATININE FOR GFR 1.76 MG/DL (0.70-1.30); GLOMERULAR FILTRATION RATE 37.7 (>35); POTASSIUM SERUM 5.3 MMOL/L (3.5-5.1); SODIUM LEVEL 139.0 MMOL/L (136-145)
[2025-02-15] MEDS: PATIROMER SORBITEX CALCIUM 8.4GM POWDER PACKET PO ONE (22:00)
[2025-02-15] MEDS: NS 500 ML IV ONE (22:01)
[2025-02-15 23:57] LABS: KETONE, URINE AUTO RFX NEGATIVE (NEGATIVE); LEUKOCYTE ESTERASE UR AUTO RFX NEGATIVE (NEGATIVE); NITRITE, URINE AUTO RFX NEGATIVE (NEGATIVE); RBC, URINE AUTO RFX 0 /HPF (0-3); SQUAM EPITHELIAL CELL UR AURFX 0 /HPF (0-6); WBC, URINE AUTO RFX 1 /HPF (0-3)
[2025-02-16] MEDS ORDERED: MIRA3350 PO (00:02)
[2025-02-16] MEDS ORDERED: DULC10SU2 PR (00:02)
[2025-02-16 00:13] VITALS: TEMP 96
[2025-02-16 00:15] VITALS: BP 129/65; O2SAT 92
== END 2025-02-16 00:30 | disposition home or self-care (01) ==
LOC: M ED 17:26
DX: K59.00 Constipation, unspecified (principal); E87.5 Hyperkalemia; R10.9 Unspecified abdominal pain; I48.91 Unspecified atrial fibrillation; Z79.1 Long term (current) use of non-steroidal anti-inflammatories (NSAID); Z79.01 Long term (current) use of anticoagulants; Z79.84 Long term (current) use of oral hypoglycemic drugs; Z79.899 Other long term (current) drug therapy

== ENCOUNTER 2025-03-14 09:14 | Emergency (ER) | payer OTHER, MEDICAID ==
[~2025-03-14] VITALS: Ht 180.3 cm; Wt 76.7 kg
[~2025-03-14 09:14] MED LIST changes: -ACE65ERTAB PO; +ACET-1593 PO; +DULC10SU2 PR; +MIRA3350 PO
[2025-03-14 09:24] VITALS: TEMP 96.9
[2025-03-14 09:54] LABS: BASO # 0.0 10^3/uL (0.0-0.2); BASO % 0.3 % (0.0-1.0); EOS # 0.2 10^3/uL (0.0-0.5); EOS % 1.3 % (0.0-3.0); LYMPH # 1.0 10^3/uL (1.5-5.0); LYMPH % 8.7 % (24.0-44.0); MONO # 0.6 10^3/uL (0.0-0.8); MONO % 5.0 % (2.0-8.0); NEUTROPHILS # 9.7 10^3/uL (1.5-8.5); NEUTROPHILS % 84.3 % (36.0-66.0); PLATELET COUNT, AUTOMATED 257 10^3/uL (150-450)
[2025-03-14] MEDS ORDERED: ISOVUE-370 76% 100 ML VIAL As Ordered ONE (10:16)
[2025-03-14 10:25] LABS: ALT/SGPT 16.0 U/L (7.0-40); AST/SGOT 15.0 U/L (<34); CALCIUM LEVEL 9.3 MG/DL (8.3-10.6); CARBON DIOXIDE LEVEL 27.0 MMOL/L (20-31); CHLORIDE LEVEL 100.0 MMOL/L (98-107); CREATININE FOR GFR 1.59 MG/DL (0.70-1.30); GLOMERULAR FILTRATION RATE 42.5 (>35); POTASSIUM SERUM 4.4 MMOL/L (3.5-5.1); SODIUM LEVEL 139.0 MMOL/L (136-145)
[2025-03-14 10:39] LABS: BASO # 0.0 10^3/uL (0.0-0.2); BASO % 0.3 % (0.0-1.0); EOS # 0.1 10^3/uL (0.0-0.5); EOS % 1.0 % (0.0-3.0); LYMPH # 0.8 10^3/uL (1.5-5.0); LYMPH % 7.5 % (24.0-44.0); MONO # 0.5 10^3/uL (0.0-0.8); MONO % 5.0 % (2.0-8.0); NEUTROPHILS # 8.8 10^3/uL (1.5-8.5); NEUTROPHILS % 85.8 % (36.0-66.0); PLATELET COUNT, AUTOMATED 228 10^3/uL (150-450)
[2025-03-14 10:54] LABS: INR 1.17
[2025-03-14 11:02] LABS: CK-MB VALUE MASS 2.5 NG/ML (<3.6)
[2025-03-14 11:08] LABS: ALT/SGPT 15.0 U/L (7.0-40); AST/SGOT 16.0 U/L (<34); CPK CREATINE PHOSPHOKINASE 63.0 U/L (46-171); MB/CK RELATIVE INDEX 3.96 (< OR =4)
[2025-03-14] MEDS: SUCRALFATE 1 GM TAB PO ONE (11:53)
[2025-03-14 12:33] LABS: CK-MB VALUE MASS 2.1 NG/ML (<3.6)
[2025-03-14 12:38] LABS: CPK CREATINE PHOSPHOKINASE 58.0 U/L (46-171); MB/CK RELATIVE INDEX 3.62 (< OR =4)
[2025-03-14] MEDS: LIDOCAINE 2% 5 ML JELLY UROJET TOP ONE (14:41)
[2025-03-14 15:54] LABS: KETONE, URINE AUTO RFX NEGATIVE (NEGATIVE); LEUKOCYTE ESTERASE UR AUTO RFX NEGATIVE (NEGATIVE); NITRITE, URINE AUTO RFX NEGATIVE (NEGATIVE); RBC, URINE AUTO RFX 1 /HPF (0-3); SQUAM EPITHELIAL CELL UR AURFX 0 /HPF (0-6); WBC, URINE AUTO RFX 0 /HPF (0-3)
[2025-03-14 16:30] VITALS: BP 156/69; O2SAT 95
== END 2025-03-14 17:21 | disposition home or self-care (01) ==
LOC: EDUNIT# 09:14 → EDBD 09:14 → M ED 10:47
DX: K80.20 Calculus of gallbladder without cholecystitis without obstruction (principal); R33.9 Retention of urine, unspecified; R10.13 Epigastric pain; K76.0 Fatty (change of) liver, not elsewhere classified; K59.00 Constipation, unspecified; I48.91 Unspecified atrial fibrillation; I45.81 Long QT syndrome; M54.50 Low back pain, unspecified; E11.9 Type 2 diabetes mellitus without complications; I10 Essential (primary) hypertension; I25.2 Old myocardial infarction; E78.5 Hyperlipidemia, unspecified; F32.A Depression, unspecified; J98.11 Atelectasis; Z79.01 Long term (current) use of anticoagulants; Z79.02 Long term (current) use of antithrombotics/antiplatelets; Z79.899 Other long term (current) drug therapy; Z79.1 Long term (current) use of non-steroidal anti-inflammatories (NSAID)
CPT/HCPCS: 36415; 51702; 71275; 74177; 76705; 80047; 80053; 80076; 81001; 82550; 82553; 83605; 83690; 83880; 84443; 84484; 85025; 85610; 85730; 93005; 93041; 94760; 99285; Q9967

== ENCOUNTER 2025-03-20 19:27 | Emergency (ER) | payer OTHER, MEDICAID ==
[~2025-03-20] VITALS: Ht 175.3 cm; Wt 77.3 kg
[2025-03-20 22:05] LABS: KETONE, URINE AUTO RFX NEGATIVE (NEGATIVE); NITRITE, URINE AUTO RFX NEGATIVE (NEGATIVE); RBC, URINE AUTO RFX TNTC /HPF (0-3); SQUAM EPITHELIAL CELL UR AURFX 0 /HPF (0-6)
[2025-03-20 22:22] LABS: LEUKOCYTE ESTERASE UR AUTO RFX 3+ (NEGATIVE); WBC, URINE AUTO RFX 92 /HPF (0-3)
[2025-03-20 23:24] VITALS: BP 124/66; TEMP 98.3; O2SAT 95
== END 2025-03-20 23:33 | disposition home or self-care (01) ==
LOC: M ED 19:27 → EDBD 19:27 → M ED 23:33
DX: R31.0 Gross hematuria (principal); E11.9 Type 2 diabetes mellitus without complications; I10 Essential (primary) hypertension; Z87.440 Personal history of urinary (tract) infections

== ENCOUNTER 2025-04-09 14:05 | Emergency (ER) | payer OTHER, MEDICAID ==
[~2025-04-09] VITALS: Ht 177.8 cm; Wt 76.0 kg
[2025-04-09 16:45] VITALS: BP 137/67; TEMP 96.8; O2SAT 97
== END 2025-04-09 16:55 | disposition home or self-care (01) ==
LOC: EDBD 14:05 → M ED 14:05
DX: T83.091A Other mechanical complication of indwelling urethral catheter, initial encounter (principal); E11.9 Type 2 diabetes mellitus without complications; I10 Essential (primary) hypertension; E78.5 Hyperlipidemia, unspecified; G47.30 Sleep apnea, unspecified; J44.9 Chronic obstructive pulmonary disease, unspecified; Z79.01 Long term (current) use of anticoagulants; Z79.02 Long term (current) use of antithrombotics/antiplatelets; Z79.899 Other long term (current) drug therapy; Z79.4 Long term (current) use of insulin; Z86.79 Personal history of other diseases of the circulatory system

== ENCOUNTER → 2025-04-30 | Outpatient (CLI) | payer OTHER, MEDICAID ==
[2025-04-30 12:42] LABS: CALCIUM LEVEL 9.3 MG/DL (8.3-10.6); CARBON DIOXIDE LEVEL 27.0 MMOL/L (20-31); CHLORIDE LEVEL 100.0 MMOL/L (98-107); CREATININE FOR GFR 1.95 MG/DL (0.70-1.30); GLOMERULAR FILTRATION RATE 33.3 (>35); MAGNESIUM LEVEL 1.1 MG/DL (1.8-2.4); POTASSIUM SERUM 5.1 MMOL/L (3.5-5.1); SODIUM LEVEL 137.0 MMOL/L (136-145)
== END ==
LOC: M WUC 09:07
PROVIDERS: ATTEND Physician Assistant
DX: I50.42 Chronic combined systolic (congestive) and diastolic (congestive) heart failure (principal); I48.21 Permanent atrial fibrillation

== ENCOUNTER → 2025-05-01 | Outpatient (REF) | payer OTHER, MEDICAID ==
[2025-05-01 13:21] LABS: APPEARANCE, URINE TURBID (CLEAR); BACTERIA, URINE AUTO NEGATIVE (NEGATIVE); BILIRUBIN, URINE AUTO NEGATIVE (NEGATIVE); BLOOD, URINE BLOOD NEGATIVE (NEGATIVE); GLUCOSE, URINE (UA) AUTO NEGATIVE (NEGATIVE); KETONE, URINE AUTO NEGATIVE (NEGATIVE); LEUKOCYTE ESTERASE, URINE AUTO 3+ (NEGATIVE); NITRITE, URINE AUTO NEGATIVE (NEGATIVE); PROTEIN, URINE AUTO 2+ mg/dL (NEGATIVE); RBC, URINE AUTO 7 /HPF (0-3); SPECIFIC GRAVITY URINE AUTO 1.010 (1.002-1.035); SQUAMOUS EPITHELIAL CELL UR AU 0 /HPF (0-6); UROBILINOGEN, URINE AUTO 0.2 mg/dL (0.0-2.0); WBC, URINE AUTO TNTC /HPF (0-3)
== END ==
LOC: M LABSMT 10:39
PROVIDERS: ATTEND Physician Assistant
DX: R39.9 Unspecified symptoms and signs involving the genitourinary system (principal)

== ENCOUNTER → 2025-05-13 | Outpatient (CLI) | payer OTHER, MEDICAID ==
[~2025-05-13] MED LIST changes: +ACET-1592 PO; +AZIT-12 PO; +BRIM5DRO15 OU; -ELIQ2.5T; +ELIQ2.5T PO; +FERR325T19 PO; +MAGN400T33 PO; +TORS20TA2 PO; +[UNRECOGNIZED DRUG - OTHER]
[2025-05-13 15:03] LABS: CALCIUM LEVEL 9.5 MG/DL (8.3-10.6); CARBON DIOXIDE LEVEL 28.0 MMOL/L (20-31); CHLORIDE LEVEL 99.0 MMOL/L (98-107); CREATININE FOR GFR 1.35 MG/DL (0.70-1.30); GLOMERULAR FILTRATION RATE 51.8 (>35); MAGNESIUM LEVEL 1.6 MG/DL (1.8-2.4); POTASSIUM SERUM 4.6 MMOL/L (3.5-5.1); SODIUM LEVEL 140.0 MMOL/L (136-145)
== END ==
LOC: M WUC 11:09
PROVIDERS: ATTEND Physician Assistant
DX: I50.42 Chronic combined systolic (congestive) and diastolic (congestive) heart failure (principal); I48.21 Permanent atrial fibrillation

== ENCOUNTER 2025-05-15 14:24 | Observation (INO) | payer OTHER, MEDICAID ==
[~2025-05-15] VITALS: Ht 180.3 cm; Wt 73.6 kg
[~2025-05-15 14:24] MED LIST changes: -ACET-1592 PO; -AZIT-12 PO; -BRIM5DRO15 OU; -FERR325T19 PO
[2025-05-15 15:10] LABS: BASO # 0.0 10^3/uL (0.0-0.2); BASO % 0.5 % (0.0-1.0); EOS # 0.1 10^3/uL (0.0-0.5); EOS % 1.1 % (0.0-3.0); LYMPH # 0.9 10^3/uL (1.5-5.0); LYMPH % 11.2 % (24.0-44.0); MONO # 0.5 10^3/uL (0.0-0.8); MONO % 6.1 % (2.0-8.0); NEUTROPHILS # 6.7 10^3/uL (1.5-8.5); NEUTROPHILS % 80.9 % (36.0-66.0); PLATELET COUNT, AUTOMATED 269 10^3/uL (150-450)
[2025-05-15] MEDS ORDERED: BRIM5DRO15 OU (15:27)
[2025-05-15] MEDS ORDERED: FERR325T19 PO (15:27)
[2025-05-15] MEDS ORDERED: ACET-1592 PO (15:27)
[2025-05-15] MEDS ORDERED: HOME MED LIST COMPLETE! XX SCH (15:30)
[2025-05-15 15:40] LABS: ALT/SGPT 16.0 U/L (7.0-40); AST/SGOT 18.0 U/L (<34); CALCIUM LEVEL 9.2 MG/DL (8.3-10.6); CARBON DIOXIDE LEVEL 26.0 MMOL/L (20-31); CHLORIDE LEVEL 105.0 MMOL/L (98-107); CREATININE FOR GFR 1.28 MG/DL (0.70-1.30); GLOMERULAR FILTRATION RATE 55.2 (>35); POTASSIUM SERUM 4.5 MMOL/L (3.5-5.1); SODIUM LEVEL 143.0 MMOL/L (136-145)
[2025-05-15 16:24] LABS: INR 1.01
[2025-05-15] MEDS ORDERED: ISOVUE-370 76% 100 ML VIAL As Ordered ONE (16:24)
[2025-05-15] MEDS ORDERED: MAALOX 30 ML SUSP *UDC PO PRN (20:05)
[2025-05-15] MEDS ORDERED: MOM 30 ML SUSPENSION UDC PO PRN (20:05)
[2025-05-15] MEDS ORDERED: ACETAMINOPHEN 325 MG TAB PO PRN (20:05)
[2025-05-15] MEDS ORDERED: DEXTROSE 50% 50 ML SYRINGE IV PRN (21:30)
[2025-05-15] MEDS ORDERED: GLUCAGON INJ 1 MG VIAL SC PRN (21:30)
[2025-05-15] MEDS ORDERED: GLUCOSE 4 GM CHEW PO PRN (21:30)
[2025-05-15 21:45] VITALS: BP 134/79; TEMP 96.8
[2025-05-15] MEDS: cefTRIAXone SOD 1 GM in DEXTROSE 5% (D5W) ADV/MINI-BAG 50 ML IV SCH (22:31)
[2025-05-15] MEDS: AZITHROMYCIN INJ 500 MG, VIAL MATE ADAPTER 1 EACH in NS 250 ML IV SCH (23:16)
[2025-05-16 05:38] VITALS: BP 150/61; TEMP 96; O2SAT 95
[2025-05-16 06:55] LABS: PLATELET COUNT, AUTOMATED 257 10^3/uL (150-450)
[2025-05-16 07:22] LABS: ALT/SGPT 16.0 U/L (7.0-40); AST/SGOT 14.0 U/L (<34); CALCIUM LEVEL 9.5 MG/DL (8.3-10.6); CARBON DIOXIDE LEVEL 30.0 MMOL/L (20-31); CHLORIDE LEVEL 104.0 MMOL/L (98-107); CREATININE FOR GFR 1.27 MG/DL (0.70-1.30); GLOMERULAR FILTRATION RATE 55.7 (>35); MAGNESIUM LEVEL 1.7 MG/DL (1.8-2.4); POTASSIUM SERUM 3.8 MMOL/L (3.5-5.1); SODIUM LEVEL 146.0 MMOL/L (136-145)
[2025-05-16] MEDS: BRIMONIDINE 0.1% OPHTH SOLN 5 ML OU SCH (08:48)
[2025-05-16] MEDS: ENTRESTO 24-26 MG TABLET (SACUBITRIL/VALSARTAN) PO SCH (08:54)
[2025-05-16] MEDS: NORTRIPTYLINE 10 MG CAP PO SCH (08:54)
[2025-05-16] MEDS: FERROUS SULFATE 325 MG TAB PO SCH (08:54)
[2025-05-16] MEDS: PANTOPRAZOLE 40MG TAB PO SCH (08:55)
[2025-05-16] MEDS: APIXABAN 2.5 MG TAB PO SCH (08:55)
[2025-05-16] MEDS: MAGNESIUM OXIDE 400 MG TAB PO SCH (08:55)
[2025-05-16] MEDS ORDERED: TORSEMIDE 20 MG TAB PO SCH (09:00)
[2025-05-16 09:42] LABS: CHOLESTEROL LEVEL 135.0 MG/DL (<200); CHOLESTEROL RISK RATIO 2.76 (<5); LDL CHOLESTEROL 65.5 MG/DL (<100); NON-HDL-C 86.1 MG/DL; TRIGLYCERIDES LEVEL 103.0 MG/DL (<150)
[2025-05-16 10:00] VITALS: BP 122/70; TEMP 96.8
[2025-05-16 10:29] LABS: ESTIMATED AVERAGE GLUCOSE 180.0 MG/DL (60-110)
[2025-05-16] MEDS: INSULIN LISPRO (NovoLOG) PER UNIT SC SCH (12:34)
[2025-05-16] MEDS ORDERED: CEFD1CAP9 PO (13:04)
[2025-05-16] MEDS ORDERED: AZIT-12 PO (13:04)
[2025-05-16] MEDS: MAG SULF 1GM/100ML (MAG RUN) 1 GM in IV 1 EA IV ONE (14:03)
[2025-05-16 14:31] LABS: CALCIUM LEVEL 9.7 MG/DL (8.3-10.6); CARBON DIOXIDE LEVEL 32.0 MMOL/L (20-31); CHLORIDE LEVEL 103.0 MMOL/L (98-107); CREATININE FOR GFR 1.27 MG/DL (0.70-1.30); GLOMERULAR FILTRATION RATE 55.7 (>35); MAGNESIUM LEVEL 1.8 MG/DL (1.8-2.4); POTASSIUM SERUM 3.7 MMOL/L (3.5-5.1); SODIUM LEVEL 146.0 MMOL/L (136-145)
[2025-05-16] MEDS ORDERED: ATORVASTATIN 20 MG TAB PO SCH (21:00)
[2025-05-16] MEDS ORDERED: INSULIN LISPRO (NovoLOG) PER UNIT SC SCH (21:00)
[2025-05-16] MEDS ORDERED: AZITHROMYCIN 250 MG TABLET PO SCH (21:00)
[2025-05-16] MEDS ORDERED: TAMSULOSIN 0.4 MG CAP PO SCH (21:00)
[2025-05-17] MEDS ORDERED: FLUZONE HIGH DOSE (65+) 0.5 ML SYRINGE (25-26) IM.IMMUN ONE (09:00)
[2025-05-17] MEDS ORDERED: PNEUMOC 21-VAL CONJ-DIP CRM/PF 0.5 ML SYRINGE IM.IMMUN ONE (09:00)
[2025-05-21 22:36] LABS: MYCOPLASMA PNEUMONIAE IGG 1.38 (<=0.90); MYCOPLASMA PNEUMONIAE IGM 47.0 U/mL (<770)
== END 2025-05-16 15:45 | disposition home health service (06) ==
LOC: M ED 14:24 → EDBD 14:24 → M ED INP 14:25 → M MS5PR 21:36 → INTOOBSV 05-16 12:09 → OBSVTOIN 05-16 12:09
PROVIDERS: ADMIT Student in an Organized Health Care Education/Training Program; ATTEND Student in an Organized Health Care Education/Training Program
DX: R29.6 Repeated falls (principal); J18.9 Pneumonia, unspecified organism; E87.0 Hyperosmolality and hypernatremia; E86.0 Dehydration; T50.1X5A Adverse effect of loop [high-ceiling] diuretics, initial encounter; I48.91 Unspecified atrial fibrillation; R47.81 Slurred speech; E83.42 Hypomagnesemia; E88.09 Other disorders of plasma-protein metabolism, not elsewhere classified; M85.80 Other specified disorders of bone density and structure, unspecified site; I77.811 Abdominal aortic ectasia; I65.23 Occlusion and stenosis of bilateral carotid arteries; I25.10 Atherosclerotic heart disease of native coronary artery without angina pectoris; Z98.61 Coronary angioplasty status; E11.9 Type 2 diabetes mellitus without complications; I11.0 Hypertensive heart disease with heart failure; I50.42 Chronic combined systolic (congestive) and diastolic (congestive) heart failure; E78.5 Hyperlipidemia, unspecified; Z79.01 Long term (current) use of anticoagulants; Z79.4 Long term (current) use of insulin; Z79.899 Other long term (current) drug therapy
CPT/HCPCS: 36415; 70450; 70496; 70498; 70551; 71045; 72125; 72128; 72131; 80047; 80048; 80053; 80061; 80076; 82140; 83036; 83605; 83735; 84443; 85025; 85027; 85610; 85730; 86738; 86850; 86900; 86901; 87205; 87486; 87581; 87633; 87641; 87798; 92610; 93005; 93041; 94760; 96365; 96367; 97116; 97161; 97530; 99285; G0378; J0456; J0696; J1815; J3475; Q9967

== ENCOUNTER 2025-05-20 16:03 | Emergency (ER) | payer OTHER, MEDICAID ==
[~2025-05-20] VITALS: Ht 180.3 cm; Wt 76.7 kg
[~2025-05-20 16:03] MED LIST changes: +ACET-1592 PO; +AZIT-12 PO; +BRIM5DRO15 OU; +FERR325T19 PO
[2025-05-20 16:06] VITALS: BP 134/78; TEMP 97.4; O2SAT 97
== END 2025-05-20 19:47 | disposition left against medical advice (07) ==
LOC: M ED 16:03
DX: Z53.21 Procedure and treatment not carried out due to patient leaving prior to being seen by health care provider (principal)

== ENCOUNTER 2025-05-21 04:44 | Emergency (ER) | payer OTHER, MEDICAID ==
[~2025-05-21] VITALS: Ht 175.3 cm; Wt 76.7 kg
[2025-05-21 08:19] LABS: BASO # 0.0 10^3/uL (0.0-0.2); BASO % 0.3 % (0.0-1.0); EOS # 0.1 10^3/uL (0.0-0.5); EOS % 1.0 % (0.0-3.0); LYMPH # 0.8 10^3/uL (1.5-5.0); LYMPH % 8.5 % (24.0-44.0); MONO # 0.5 10^3/uL (0.0-0.8); MONO % 4.7 % (2.0-8.0); NEUTROPHILS # 8.4 10^3/uL (1.5-8.5); NEUTROPHILS % 85.2 % (36.0-66.0); PLATELET COUNT, AUTOMATED 275 10^3/uL (150-450)
[2025-05-21 08:46] LABS: ALT/SGPT 15.0 U/L (7.0-40); AST/SGOT 17.0 U/L (<34); CALCIUM LEVEL 9.5 MG/DL (8.3-10.6); CARBON DIOXIDE LEVEL 27.0 MMOL/L (20-31); CHLORIDE LEVEL 103.0 MMOL/L (98-107); CREATININE FOR GFR 1.4 MG/DL (0.70-1.30); GLOMERULAR FILTRATION RATE 49.6 (>35); POTASSIUM SERUM 5.0 MMOL/L (3.5-5.1); SODIUM LEVEL 141.0 MMOL/L (136-145)
[2025-05-21] MEDS: NS 500 ML IV ONE ×2 (09:32→10:55)
[2025-05-21 11:01] VITALS: BP 147/65; TEMP 96.8; O2SAT 94
== END 2025-05-21 11:25 | disposition home or self-care (01) ==
LOC: M ED 04:44
DX: E86.0 Dehydration (principal); R19.7 Diarrhea, unspecified; N17.9 Acute kidney failure, unspecified; I25.2 Old myocardial infarction; E11.9 Type 2 diabetes mellitus without complications; Z86.79 Personal history of other diseases of the circulatory system; Z79.84 Long term (current) use of oral hypoglycemic drugs; Z79.4 Long term (current) use of insulin; Z79.01 Long term (current) use of anticoagulants; Z79.1 Long term (current) use of non-steroidal anti-inflammatories (NSAID); Z79.899 Other long term (current) drug therapy; Z79.02 Long term (current) use of antithrombotics/antiplatelets; Z79.2 Long term (current) use of antibiotics

== ENCOUNTER 2025-05-26 06:55 | Inpatient (IN) | payer OTHER, MEDICAID ==
[~2025-05-26] VITALS: Ht 180.3 cm; Wt 88.0 kg
[~2025-05-26 06:55] MED LIST changes: +ACET-1387 PO; -ACET-1593 PO
[2025-05-26] MEDS ORDERED: ISOVUE-370 76% 100 ML VIAL As Ordered ONE (07:13)
[2025-05-26 07:28] LABS: VENOUS BASE EXCESS 0.6 (-2.0-2.0); VENOUS HCO3 22.5 MMOL/L (23.0-27.0); VENOUS O2 SATURATION 98.9 % (60.0-80.0); VENOUS PARTIAL PRESSURE CO2 28.9 mmHg (38.0-50.0); VENOUS PARTIAL PRESSURE O2 127.3 mmHg (30.0-50.0); VENOUS PH 7.510 UNITS (7.330-7.430); VENOUS STANDARD HCO3 25.0 MMOL/L; VENOUS TOTAL CO2 23.4 MMOL/L (24.0-28.0)
[2025-05-26 07:36] LABS: BASO # 0.0 10^3/uL (0.0-0.2); BASO % 0.2 % (0.0-1.0); EOS # 0.0 10^3/uL (0.0-0.5); EOS % 0.3 % (0.0-3.0); LYMPH # 0.8 10^3/uL (1.5-5.0); LYMPH % 8.3 % (24.0-44.0); MONO # 0.7 10^3/uL (0.0-0.8); MONO % 7.0 % (2.0-8.0); NEUTROPHILS # 8.2 10^3/uL (1.5-8.5); NEUTROPHILS % 83.8 % (36.0-66.0); PLATELET COUNT, AUTOMATED 296 10^3/uL (150-450)
[2025-05-26] MEDS: NS 500 ML IV ONE ×3 (07:45→14:18)
[2025-05-26 07:52] LABS: INR 1.13
[2025-05-26 07:55] LABS: CK-MB VALUE MASS 2.8 NG/ML (<3.6)
[2025-05-26 07:56] LABS: ETHYL ALCOHOL (ETHANOL) < 0.003 % (0.000-0.010)
[2025-05-26 07:57] LABS: SALICYLATE LEVEL < 3.0 MG/DL (<30)
[2025-05-26 07:58] LABS: ALT/SGPT 14 U/L (7.0-40); AST/SGOT 17 U/L (<34); CALCIUM LEVEL 9.2 MG/DL (8.3-10.6); CARBON DIOXIDE LEVEL 23 MMOL/L (20-31); CHLORIDE LEVEL 101 MMOL/L (98-107); CREATININE FOR GFR 1.83 MG/DL (0.70-1.30); GLOMERULAR FILTRATION RATE 35.9 (>35); POTASSIUM SERUM 5.2 MMOL/L (3.5-5.1); SODIUM LEVEL 135 MMOL/L (136-145)
[2025-05-26] MEDS: TIOTROPIUM BROM 2.5MCG/ACTUATION 4GM INH INH SCH (08:00)
[2025-05-26 08:05] LABS: CPK CREATINE PHOSPHOKINASE 140 U/L (46-171); MB/CK RELATIVE INDEX 2.00 (< OR =4)
[2025-05-26 08:37] LABS: MAGNESIUM LEVEL 1.9 MG/DL (1.8-2.4)
[2025-05-26 08:59] LABS: CK-MB VALUE MASS 3.2 NG/ML (<3.6)
[2025-05-26 09:01] LABS: CPK CREATINE PHOSPHOKINASE 148.0 U/L (46-171); MB/CK RELATIVE INDEX 2.16 (< OR =4)
[2025-05-26 09:49] LABS: KETONE, URINE AUTO RFX NEGATIVE (NEGATIVE); LEUKOCYTE ESTERASE UR AUTO RFX NEGATIVE (NEGATIVE); NITRITE, URINE AUTO RFX NEGATIVE (NEGATIVE); RBC, URINE AUTO RFX 0 /HPF (0-3); SQUAM EPITHELIAL CELL UR AURFX 0 /HPF (0-6); WBC, URINE AUTO RFX 0 /HPF (0-3)
[2025-05-26] MEDS: LIDOCAINE 2% 5 ML JELLY UROJET TOP ONE (09:51)
[2025-05-26 10:12] LABS: AMPHETAMINES LEVEL URINE NEGATIVE (NEGATIVE); BARBITURATES URINE NEGATIVE (NEGATIVE); BENZODIAZEPINES URINE NEGATIVE (NEGATIVE); CANNABINOIDS URINE NEGATIVE (NEGATIVE); COCAINE METABOLITE URINE NEGATIVE (NEGATIVE); METHADONE URINE NEGATIVE (NEGATIVE); OPIATES URINE NEGATIVE (NEGATIVE); PHENCYCLIDINE URINE NEGATIVE (NEGATIVE)
[2025-05-26] MEDS ORDERED: MED REC IN PROGRESS XX SCH (10:30)
[2025-05-26] MEDS ORDERED: HOME MED LIST COMPLETE! XX SCH (11:55)
[2025-05-26] MEDS ORDERED: GLUCAGON INJ 1 MG VIAL SC PRN (11:55)
[2025-05-26] MEDS ORDERED: GLUCOSE 4 GM CHEW PO PRN (11:55)
[2025-05-26] MEDS ORDERED: DEXTROSE 50% 50 ML SYRINGE IV PRN (11:55)
[2025-05-26] MEDS: INSULIN LISPRO (NovoLOG) PER UNIT SC SCH (12:00)
[2025-05-26] MEDS: ADVAIR HFA 115/21 MCG INHALER INH SCH (15:46)
[2025-05-26] MEDS: NORTRIPTYLINE 10 MG CAP PO SCH (16:00)
[2025-05-26] MEDS: OLANZapine INTRAMUSCULAR 10MG VIAL IM ONE (17:49)
[2025-05-26 19:40] VITALS: BP 152/61; TEMP 97.7; O2SAT 94
[2025-05-26] MEDS: DOCUSATE SODIUM 100 MG CAPSULE PO SCH (20:42)
[2025-05-26] MEDS: ATORVASTATIN 20 MG TAB PO SCH (20:42)
[2025-05-26] MEDS: traZODone 25MG PER 1/2 TABLET PO SCH (20:42)
[2025-05-26] MEDS: APIXABAN 2.5 MG TAB PO SCH (20:42)
[2025-05-26] MEDS: MAGNESIUM OXIDE 400 MG TAB PO SCH (20:42)
[2025-05-26] MEDS: HALOPERIDOL LACTATE 5 MG/ML VIAL IV ONE (20:42)
[2025-05-26] MEDS: TAMSULOSIN 0.4 MG CAP PO SCH (20:44)
[2025-05-26] MEDS ORDERED: ADVAIR HFA 230/21 MCG INHALER INH SCH (21:00)
[2025-05-26] MEDS: PANTOPRAZOLE 40MG TAB PO SCH (21:58)
[2025-05-26] MEDS: BRIMONIDINE 0.1% OPHTH SOLN 5 ML OU SCH (21:59)
[2025-05-26] MEDS: RAMELTEON 8 MG TAB PO ONE (23:35)
[2025-05-27 05:16] VITALS: BP 139/81; TEMP 97.3; O2SAT 98
[2025-05-27 06:36] LABS: BASO # 0.0 10^3/uL (0.0-0.2); BASO % 0.3 % (0.0-1.0); EOS # 0.0 10^3/uL (0.0-0.5); EOS % 0.5 % (0.0-3.0); LYMPH # 0.7 10^3/uL (1.5-5.0); LYMPH % 8.4 % (24.0-44.0); MONO # 0.5 10^3/uL (0.0-0.8); MONO % 6.3 % (2.0-8.0); NEUTROPHILS # 7.2 10^3/uL (1.5-8.5); NEUTROPHILS % 84.2 % (36.0-66.0); PLATELET COUNT, AUTOMATED 269 10^3/uL (150-450)
[2025-05-27 07:03] LABS: CALCIUM LEVEL 10.1 MG/DL (8.3-10.6); CARBON DIOXIDE LEVEL 24.0 MMOL/L (20-31); CHLORIDE LEVEL 106.0 MMOL/L (98-107); CREATININE FOR GFR 1.67 MG/DL (0.70-1.30); GLOMERULAR FILTRATION RATE 40.1 (>35); POTASSIUM SERUM 4.5 MMOL/L (3.5-5.1); SODIUM LEVEL 144.0 MMOL/L (136-145)
[2025-05-27] MEDS ORDERED: OLANZapine INTRAMUSCULAR 10MG VIAL IM PRN (07:05)
[2025-05-27] MEDS: OLANZapine 5 MG TAB PO SCH (10:21)
[2025-05-27] MEDS: FERROUS SULFATE 325 MG TAB PO SCH (10:21)
[2025-05-27] MEDS: FLUZONE HIGH DOSE (65+) 0.5 ML SYRINGE (25-26) IM.IMMUN ONE (10:24)
[2025-05-27] MEDS: RAMELTEON 8 MG TAB PO ONE (23:11)
[2025-05-28 05:38] VITALS: BP 140/76; TEMP 97.6
[2025-05-28 06:39] LABS: BASO # 0.0 10^3/uL (0.0-0.2); BASO % 0.2 % (0.0-1.0); EOS # 0.0 10^3/uL (0.0-0.5); EOS % 0.0 % (0.0-3.0); LYMPH # 0.4 10^3/uL (1.5-5.0); LYMPH % 2.1 % (24.0-44.0); MONO # 1.0 10^3/uL (0.0-0.8); MONO % 4.9 % (2.0-8.0); NEUTROPHILS # 19.2 10^3/uL (1.5-8.5); NEUTROPHILS % 92.3 % (36.0-66.0); PLATELET COUNT, AUTOMATED 292 10^3/uL (150-450)
[2025-05-28 07:09] LABS: CALCIUM LEVEL 9.1 MG/DL (8.3-10.6); CARBON DIOXIDE LEVEL 20.0 MMOL/L (20-31); CHLORIDE LEVEL 106.0 MMOL/L (98-107); CREATININE FOR GFR 1.68 MG/DL (0.70-1.30); GLOMERULAR FILTRATION RATE 39.8 (>35); POTASSIUM SERUM 4.6 MMOL/L (3.5-5.1); SODIUM LEVEL 142.0 MMOL/L (136-145)
[2025-05-28] MEDS: ENTRESTO 24-26 MG TABLET (SACUBITRIL/VALSARTAN) PO SCH (09:00)
[2025-05-28] MEDS: SENNOSIDES/DOCUSATE SODIUM 8.6 MG/50MG TAB PO SCH (09:00)
[2025-05-28] MEDS: MIRALAX *UNIT DOSE* 17 GM PACKET PO SCH (09:00)
[2025-05-28 11:00] VITALS: BP 156/88; TEMP 100; O2SAT 94
[2025-05-28] MEDS ORDERED: CHLORASEPTIC SPRAY MT PRN (11:30)
[2025-05-28] MEDS: NS 500 ML IV ONE (11:30)
[2025-05-28] MEDS ORDERED: BISACODYL 10 MG SUPP PR PRN (12:50)
[2025-05-28 13:38] VITALS: BP 140/80; TEMP 98.5; O2SAT 96
[2025-05-28] MEDS: OLANZapine 5 MG TAB PO SCH (17:00)
[2025-05-28 22:00] VITALS: BP 121/76; TEMP 97.3; O2SAT 93
[2025-05-28] MEDS: RAMELTEON 8 MG TAB PO PRN (22:04)
[2025-05-28] MEDS: ACETAMINOPHEN 325 MG TAB PO PRN (22:05)
[2025-05-29 05:28] VITALS: BP 137/77; TEMP 97.2; O2SAT 92
[2025-05-29 06:38] LABS: BASO # 0.0 10^3/uL (0.0-0.2); BASO % 0.1 % (0.0-1.0); EOS # 0.0 10^3/uL (0.0-0.5); EOS % 0.0 % (0.0-3.0); LYMPH # 0.7 10^3/uL (1.5-5.0); LYMPH % 4.6 % (24.0-44.0); MONO # 0.8 10^3/uL (0.0-0.8); MONO % 4.9 % (2.0-8.0); NEUTROPHILS # 14.0 10^3/uL (1.5-8.5); NEUTROPHILS % 90.0 % (36.0-66.0); PLATELET COUNT, AUTOMATED 281 10^3/uL (150-450)
[2025-05-29 07:05] LABS: CALCIUM LEVEL 9.0 MG/DL (8.3-10.6); CARBON DIOXIDE LEVEL 20.0 MMOL/L (20-31); CHLORIDE LEVEL 109.0 MMOL/L (98-107); CREATININE FOR GFR 1.8 MG/DL (0.70-1.30); GLOMERULAR FILTRATION RATE 36.7 (>35); POTASSIUM SERUM 5.3 MMOL/L (3.5-5.1); SODIUM LEVEL 144.0 MMOL/L (136-145)
[2025-05-29] MEDS: NS 500 ML IV ONE (10:34)
[2025-05-29 20:36] VITALS: BP 120/63; TEMP 97.2; O2SAT 94
[2025-05-29 22:00] VITALS: BP 120/63; TEMP 97.2; O2SAT 94
[2025-05-30 05:34] VITALS: BP 125/65; TEMP 97.3; O2SAT 95
[2025-05-30 07:19] LABS: BASO # 0.0 10^3/uL (0.0-0.2); BASO % 0.2 % (0.0-1.0); EOS # 0.1 10^3/uL (0.0-0.5); EOS % 0.6 % (0.0-3.0); LYMPH # 0.8 10^3/uL (1.5-5.0); LYMPH % 8.2 % (24.0-44.0); MONO # 0.5 10^3/uL (0.0-0.8); MONO % 5.1 % (2.0-8.0); NEUTROPHILS # 8.2 10^3/uL (1.5-8.5); NEUTROPHILS % 85.4 % (36.0-66.0); PLATELET COUNT, AUTOMATED 245 10^3/uL (150-450)
[2025-05-30 07:43] LABS: CALCIUM LEVEL 8.8 MG/DL (8.3-10.6); CARBON DIOXIDE LEVEL 22.0 MMOL/L (20-31); CHLORIDE LEVEL 109.0 MMOL/L (98-107); CREATININE FOR GFR 1.33 MG/DL (0.70-1.30); GLOMERULAR FILTRATION RATE 52.7 (>35); POTASSIUM SERUM 4.4 MMOL/L (3.5-5.1); SODIUM LEVEL 143.0 MMOL/L (136-145)
[2025-05-30 14:00] VITALS: BP_SYST 142; BP_DIAS 78; BP_DIAS 8; TEMP 97.3; O2SAT 97
[2025-05-30] MEDS: ACETAMINOPHEN 325 MG TAB PO PRN (17:10)
[2025-05-30 20:38] VITALS: BP 143/74; TEMP 97.7; O2SAT 97
[2025-05-31 05:36] VITALS: BP 142/73; TEMP 97.3; O2SAT 95
[2025-05-31 07:18] LABS: BASO # 0.0 10^3/uL (0.0-0.2); BASO % 0.3 % (0.0-1.0); EOS # 0.1 10^3/uL (0.0-0.5); EOS % 1.1 % (0.0-3.0); LYMPH # 0.8 10^3/uL (1.5-5.0); LYMPH % 7.1 % (24.0-44.0); MONO # 0.6 10^3/uL (0.0-0.8); MONO % 5.8 % (2.0-8.0); NEUTROPHILS # 9.4 10^3/uL (1.5-8.5); NEUTROPHILS % 85.2 % (36.0-66.0); PLATELET COUNT, AUTOMATED 261 10^3/uL (150-450)
[2025-05-31 07:36] LABS: CALCIUM LEVEL 8.2 MG/DL (8.3-10.6); CARBON DIOXIDE LEVEL 23.0 MMOL/L (20-31); CHLORIDE LEVEL 106.0 MMOL/L (98-107); CREATININE FOR GFR 1.13 MG/DL (0.70-1.30); GLOMERULAR FILTRATION RATE 64.1 (>35); POTASSIUM SERUM 4.9 MMOL/L (3.5-5.1); SODIUM LEVEL 138.0 MMOL/L (136-145)
[2025-05-31 08:19] VITALS: BP 119/54
[2025-05-31 15:00] VITALS: BP 118/57; TEMP 97.3; O2SAT 95
[2025-05-31 19:23] VITALS: BP 144/82; TEMP 97.5; O2SAT 97
[2025-06-01 03:53] VITALS: BP 137/68; TEMP 97.9; O2SAT 98
[2025-06-01 07:00] LABS: BASO # 0.0 10^3/uL (0.0-0.2); BASO % 0.2 % (0.0-1.0); EOS # 0.1 10^3/uL (0.0-0.5); EOS % 1.7 % (0.0-3.0); LYMPH # 0.7 10^3/uL (1.5-5.0); LYMPH % 8.9 % (24.0-44.0); MONO # 0.6 10^3/uL (0.0-0.8); MONO % 7.7 % (2.0-8.0); NEUTROPHILS # 6.5 10^3/uL (1.5-8.5); NEUTROPHILS % 80.8 % (36.0-66.0); PLATELET COUNT, AUTOMATED 270 10^3/uL (150-450)
[2025-06-01 07:29] LABS: CALCIUM LEVEL 8.8 MG/DL (8.3-10.6); CARBON DIOXIDE LEVEL 22.0 MMOL/L (20-31); CHLORIDE LEVEL 108.0 MMOL/L (98-107); CREATININE FOR GFR 1.19 MG/DL (0.70-1.30); GLOMERULAR FILTRATION RATE 60.2 (>35); POTASSIUM SERUM 5.0 MMOL/L (3.5-5.1); SODIUM LEVEL 142.0 MMOL/L (136-145)
[2025-06-01 08:10] VITALS: BP 165/69; TEMP 97.5
[2025-06-01 14:00] VITALS: BP 151/72; TEMP 97.5; O2SAT 92
[2025-06-01 19:33] VITALS: BP 155/77; TEMP 97.7; O2SAT 95
[2025-06-02 04:20] VITALS: BP 137/73; TEMP 97.5; O2SAT 92
[2025-06-02 07:01] LABS: BASO # 0.0 10^3/uL (0.0-0.2); BASO % 0.1 % (0.0-1.0); EOS # 0.1 10^3/uL (0.0-0.5); EOS % 0.3 % (0.0-3.0); LYMPH # 0.8 10^3/uL (1.5-5.0); LYMPH % 5.4 % (24.0-44.0); MONO # 0.8 10^3/uL (0.0-0.8); MONO % 5.6 % (2.0-8.0); NEUTROPHILS # 12.8 10^3/uL (1.5-8.5); NEUTROPHILS % 88.2 % (36.0-66.0); PLATELET COUNT, AUTOMATED 301 10^3/uL (150-450)
[2025-06-02 07:30] LABS: CALCIUM LEVEL 8.8 MG/DL (8.3-10.6); CARBON DIOXIDE LEVEL 23.0 MMOL/L (20-31); CHLORIDE LEVEL 107.0 MMOL/L (98-107); CREATININE FOR GFR 1.28 MG/DL (0.70-1.30); GLOMERULAR FILTRATION RATE 55.2 (>35); POTASSIUM SERUM 5.8 MMOL/L (3.5-5.1); SODIUM LEVEL 140.0 MMOL/L (136-145)
[2025-06-02 16:54] VITALS: BP 137/72; TEMP 97.7; O2SAT 94
[2025-06-02 20:45] VITALS: BP 130/71; TEMP 97.7; O2SAT 92
[2025-06-03 06:18] VITALS: BP 133/70; TEMP 97.7; O2SAT 90
[2025-06-03 07:05] LABS: BASO # 0.0 10^3/uL (0.0-0.2); BASO % 0.2 % (0.0-1.0); EOS # 0.1 10^3/uL (0.0-0.5); EOS % 0.8 % (0.0-3.0); LYMPH # 0.8 10^3/uL (1.5-5.0); LYMPH % 7.4 % (24.0-44.0); MONO # 0.7 10^3/uL (0.0-0.8); MONO % 6.3 % (2.0-8.0); NEUTROPHILS # 9.0 10^3/uL (1.5-8.5); NEUTROPHILS % 84.7 % (36.0-66.0); PLATELET COUNT, AUTOMATED 228 10^3/uL (150-450)
[2025-06-03 07:38] LABS: ALT/SGPT 21.0 U/L (7.0-40); AST/SGOT 16.0 U/L (<34); CALCIUM LEVEL 8.9 MG/DL (8.3-10.6); CARBON DIOXIDE LEVEL 18.0 MMOL/L (20-31); CHLORIDE LEVEL 108.0 MMOL/L (98-107); CREATININE FOR GFR 1.33 MG/DL (0.70-1.30); GLOMERULAR FILTRATION RATE 52.7 (>35); POTASSIUM SERUM 5.5 MMOL/L (3.5-5.1); SODIUM LEVEL 139.0 MMOL/L (136-145)
[2025-06-03 08:00] VITALS: BP 152/66; TEMP 97.5; O2SAT 85
[2025-06-03] MEDS ORDERED: **hydrALAZINE HCL** 25 MG TAB PO PRN (11:20)
[2025-06-03] MEDS: NS (Normal Saline) 0.9% 1,000 ML IV ONE (11:49)
[2025-06-03] MEDS: PATIROMER SORBITEX CALCIUM 8.4GM POWDER PACKET PO ONE (11:50)
[2025-06-03] MEDS: amLODIPine 5 MG TAB PO SCH (11:51)
[2025-06-03 13:52] VITALS: BP 156/76; TEMP 97.8; O2SAT 98
[2025-06-03 14:00] VITALS: BP 156/76; TEMP 97.8; O2SAT 98
[2025-06-03 16:00] VITALS: BP 157/76; TEMP 97.7; O2SAT 98
[2025-06-03] MEDS: DOCUSATE SODIUM 100 MG CAPSULE PO SCH (20:02)
[2025-06-03 22:30] VITALS: BP 151/79; TEMP 97.7; O2SAT 96
[2025-06-04 06:42] LABS: BASO # 0.0 10^3/uL (0.0-0.2); BASO % 0.3 % (0.0-1.0); EOS # 0.1 10^3/uL (0.0-0.5); EOS % 1.1 % (0.0-3.0); LYMPH # 0.8 10^3/uL (1.5-5.0); LYMPH % 8.4 % (24.0-44.0); MONO # 0.6 10^3/uL (0.0-0.8); MONO % 5.5 % (2.0-8.0); NEUTROPHILS # 8.3 10^3/uL (1.5-8.5); NEUTROPHILS % 83.8 % (36.0-66.0); PLATELET COUNT, AUTOMATED 318 10^3/uL (150-450)
[2025-06-04 06:53] LABS: CALCIUM LEVEL 9.1 MG/DL (8.3-10.6); CARBON DIOXIDE LEVEL 19.0 MMOL/L (20-31); CHLORIDE LEVEL 107.0 MMOL/L (98-107); CREATININE FOR GFR 1.23 MG/DL (0.70-1.30); GLOMERULAR FILTRATION RATE 57.9 (>35); POTASSIUM SERUM 6.0 MMOL/L (3.5-5.1); SODIUM LEVEL 139.0 MMOL/L (136-145)
[2025-06-04 07:06] VITALS: BP 157/73; TEMP 97.9; O2SAT 94
[2025-06-04] MEDS: ALBUTEROL SULFATE 2.5 MG/0.5 ML INH CONCENTRATE NEB SOLN NEB SCH (07:50)
[2025-06-04] MEDS: DEXTROSE 50% 50 ML SYRINGE IV STA (08:13)
[2025-06-04] MEDS: CALCIUM GLUCONATE 1,000 MG in DEXTROSE 5% (D5W) MINI-BAG PLU 100 ML IV ONE (08:14)
[2025-06-04] MEDS: HumuLIN R (REGULAR) INSULIN (NovoLIN R) **100 U/ML** PER UNIT IV STA (08:14)
[2025-06-04] MEDS: PATIROMER SORBITEX CALCIUM 8.4GM POWDER PACKET PO ONE (08:14)
[2025-06-04] MEDS: amLODIPine 5 MG TAB PO SCH (08:41)
[2025-06-04] MEDS: SODIUM BICARBONATE 150 MEQ in D5W 1,000 ML IV SCH (09:47)
[2025-06-04 14:00] VITALS: BP 164/71; TEMP 98; O2SAT 94
[2025-06-04 16:02] LABS: CALCIUM LEVEL 8.9 MG/DL (8.3-10.6); CARBON DIOXIDE LEVEL 25.0 MMOL/L (20-31); CHLORIDE LEVEL 104.0 MMOL/L (98-107); CREATININE FOR GFR 1.21 MG/DL (0.70-1.30); GLOMERULAR FILTRATION RATE 59.0 (>35); POTASSIUM SERUM 4.9 MMOL/L (3.5-5.1); SODIUM LEVEL 139.0 MMOL/L (136-145)
[2025-06-04 22:03] VITALS: BP 125/55; TEMP 98; O2SAT 93
[2025-06-05 06:57] VITALS: BP 140/82; TEMP 97.5; O2SAT 95
[2025-06-05 07:11] LABS: CALCIUM LEVEL 9.0 MG/DL (8.3-10.6); CARBON DIOXIDE LEVEL 22.0 MMOL/L (20-31); CHLORIDE LEVEL 105.0 MMOL/L (98-107); CREATININE FOR GFR 1.27 MG/DL (0.70-1.30); GLOMERULAR FILTRATION RATE 55.7 (>35); POTASSIUM SERUM 5.0 MMOL/L (3.5-5.1); SODIUM LEVEL 138.0 MMOL/L (136-145)
[2025-06-05 08:21] VITALS: BP 167/73; TEMP 97.8; O2SAT 99
[2025-06-05] MEDS: PATIROMER SORBITEX CALCIUM 8.4GM POWDER PACKET PO SCH (12:12)
[2025-06-05 14:00] VITALS: BP 132/67; TEMP 97.9; O2SAT 96
[2025-06-05] MEDS: LanTUS (INSULIN GLARGINE INJ) 1 UNITS/0.01 ML SC SCH (21:08)
[2025-06-05 22:00] VITALS: BP 176/74; TEMP 98.5; O2SAT 92
[2025-06-06 06:00] VITALS: BP 150/66; TEMP 98.7; O2SAT 90
[2025-06-06 07:00] VITALS: BP 140/70; TEMP 98; O2SAT 92
[2025-06-06 08:20] LABS: CALCIUM LEVEL 8.8 MG/DL (8.3-10.6); CARBON DIOXIDE LEVEL 21.0 MMOL/L (20-31); CHLORIDE LEVEL 104.0 MMOL/L (98-107); CREATININE FOR GFR 1.27 MG/DL (0.70-1.30); GLOMERULAR FILTRATION RATE 55.7 (>35); POTASSIUM SERUM 5.3 MMOL/L (3.5-5.1); SODIUM LEVEL 137.0 MMOL/L (136-145)
[2025-06-06] MEDS: PATIROMER SORBITEX CALCIUM 8.4GM POWDER PACKET PO SCH (13:17)
[2025-06-06 14:00] VITALS: BP 130/64; TEMP 98.1; O2SAT 94
[2025-06-06 19:36] VITALS: BP 142/65; TEMP 98.3; O2SAT 92
[2025-06-07 06:46] VITALS: BP 120/58; TEMP 98; O2SAT 94
[2025-06-07 07:10] LABS: PLATELET COUNT, AUTOMATED 216 10^3/uL (150-450)
[2025-06-07 07:34] LABS: CALCIUM LEVEL 9.1 MG/DL (8.3-10.6); CARBON DIOXIDE LEVEL 20.0 MMOL/L (20-31); CHLORIDE LEVEL 107.0 MMOL/L (98-107); CREATININE FOR GFR 1.35 MG/DL (0.70-1.30); GLOMERULAR FILTRATION RATE 51.8 (>35); MAGNESIUM LEVEL 2.0 MG/DL (1.8-2.4); PHOSPHORUS LEVEL 3.9 MG/DL (2.4-5.1); POTASSIUM SERUM 4.7 MMOL/L (3.5-5.1); SODIUM LEVEL 141.0 MMOL/L (136-145)
[2025-06-07] MEDS: TORSEMIDE 20 MG TAB PO SCH (13:03)
[2025-06-07 14:25] VITALS: BP 141/69; TEMP 97.9; O2SAT 94
[2025-06-07] MEDS: SODIUM BICARBONATE 325 MG TAB PO SCH (16:35)
[2025-06-07 21:55] VITALS: BP 152/62; TEMP 98.4; O2SAT 93
[2025-06-08 05:00] VITALS: BP 147/67; TEMP 97.6; O2SAT 93
[2025-06-08 07:15] LABS: CALCIUM LEVEL 8.4 MG/DL (8.3-10.6); CARBON DIOXIDE LEVEL 23.0 MMOL/L (20-31); CHLORIDE LEVEL 108.0 MMOL/L (98-107); CREATININE FOR GFR 1.42 MG/DL (0.70-1.30); GLOMERULAR FILTRATION RATE 48.7 (>35); PHOSPHORUS LEVEL 4.5 MG/DL (2.4-5.1); POTASSIUM SERUM 4.4 MMOL/L (3.5-5.1); SODIUM LEVEL 141.0 MMOL/L (136-145)
[2025-06-09 04:56] VITALS: BP 142/64; TEMP 97.9; O2SAT 91
[2025-06-09 08:30] VITALS: BP 138/76; TEMP 97.6; O2SAT 95
[2025-06-10 06:30] VITALS: BP 148/83; TEMP 98.4; O2SAT 91
[2025-06-11 06:01] VITALS: BP 146/65; TEMP 98.7; O2SAT 94
[2025-06-11 10:51] VITALS: BP 138/68; TEMP 98.3; O2SAT 97
[2025-06-12 05:43] VITALS: BP 136/58; TEMP 98.5; O2SAT 91
[2025-06-13 05:45] VITALS: BP 137/63; TEMP 98.7; O2SAT 93
[2025-06-14 04:33] VITALS: BP 128/58; TEMP 97.2; O2SAT 95
[2025-06-15 05:02] VITALS: BP 138/67; TEMP 98.5; O2SAT 92
[2025-06-15 12:46] VITALS: O2SAT 93
[2025-06-16 05:14] VITALS: BP 139/64; TEMP 98.5; O2SAT 93
[2025-06-16 08:00] VITALS: BP 143/63; TEMP 98; O2SAT 95
[2025-06-17 06:56] VITALS: BP 123/59; TEMP 98.2; O2SAT 91
[2025-06-18 06:35] VITALS: BP 168/69; TEMP 98.1; O2SAT 93
[2025-06-18 08:30] VITALS: BP 158/78; TEMP 97.9; O2SAT 92
[2025-06-19 06:54] VITALS: BP 164/66; TEMP 99.3; O2SAT 90
[2025-06-20 06:51] VITALS: BP 153/65; TEMP 98.4; O2SAT 90
[2025-06-20 21:24] VITALS: BP 133/63
[2025-06-21 05:01] VITALS: BP 129/73; TEMP 97.7
[2025-06-22 04:55] VITALS: BP 130/56; TEMP 98.4; O2SAT 91
[2025-06-23 07:05] VITALS: BP 142/63; TEMP 98.7; O2SAT 93
[2025-06-23] MEDS: TORSEMIDE 20 MG TAB PO ONE (20:31)
[2025-06-23] MEDS: PANTOPRAZOLE 40MG TAB PO SCH (20:31)
[2025-06-23] MEDS: ENTRESTO 24-26 MG TABLET (SACUBITRIL/VALSARTAN) PO SCH (23:29)
[2025-06-24 06:15] VITALS: BP 118/57; TEMP 97.9; O2SAT 85
[2025-06-24 07:09] LABS: BASO # 0.0 10^3/uL (0.0-0.2); BASO % 0.5 % (0.0-1.0); EOS # 0.1 10^3/uL (0.0-0.5); EOS % 1.3 % (0.0-3.0); LYMPH # 0.6 10^3/uL (1.5-5.0); LYMPH % 10.5 % (24.0-44.0); MONO # 0.5 10^3/uL (0.0-0.8); MONO % 8.9 % (2.0-8.0); NEUTROPHILS # 4.8 10^3/uL (1.5-8.5); NEUTROPHILS % 78.5 % (36.0-66.0); PLATELET COUNT, AUTOMATED 277 10^3/uL (150-450)
[2025-06-24 07:25] LABS: CALCIUM LEVEL 8.2 MG/DL (8.3-10.6); CARBON DIOXIDE LEVEL 24.0 MMOL/L (20-31); CHLORIDE LEVEL 108.0 MMOL/L (98-107); CREATININE FOR GFR 1.48 MG/DL (0.70-1.30); GLOMERULAR FILTRATION RATE 46.4 (>35); POTASSIUM SERUM 4.1 MMOL/L (3.5-5.1); SODIUM LEVEL 143.0 MMOL/L (136-145)
[2025-06-24 07:55] VITALS: O2SAT 95
[2025-06-24] MEDS: TORSEMIDE 20 MG TAB PO SCH (08:17)
[2025-06-24 08:51] VITALS: BP 118/56; TEMP 98.3; O2SAT 96
[2025-06-25 07:01] VITALS: BP 133/62; TEMP 98.2; O2SAT 90
[2025-06-25] MEDS ORDERED: PILL CUTTER 1 EACH XX ONE (08:48)
[2025-06-25 08:51] VITALS: BP 102/58; TEMP 97.9; O2SAT 99
[2025-06-26 06:53] VITALS: BP 120/56; TEMP 98.1; O2SAT 91
[2025-06-26] MEDS: TORSEMIDE 20 MG TAB PO SCH (08:11)
[2025-06-26 19:39] LABS: PLATELET COUNT, AUTOMATED 363 10^3/uL (150-450)
[2025-06-26 20:07] LABS: CALCIUM LEVEL 8.6 MG/DL (8.3-10.6); CARBON DIOXIDE LEVEL 25.0 MMOL/L (20-31); CHLORIDE LEVEL 106.0 MMOL/L (98-107); CREATININE FOR GFR 1.48 MG/DL (0.70-1.30); GLOMERULAR FILTRATION RATE 46.4 (>35); POTASSIUM SERUM 4.6 MMOL/L (3.5-5.1); SODIUM LEVEL 142.0 MMOL/L (136-145)
[2025-06-27 06:08] VITALS: BP 157/70; TEMP 98.7; O2SAT 90
[2025-06-28 06:09] VITALS: BP 150/64; TEMP 97.9; O2SAT 89
[2025-06-28 08:37] VITALS: BP 125/58; TEMP 97.8; O2SAT 95
[2025-06-29 03:46] VITALS: BP 141/65; TEMP 98; O2SAT 95
[2025-06-29 09:00] VITALS: BP 135/56; TEMP 98.4; O2SAT 93
[2025-06-30 03:40] VITALS: BP 141/63; TEMP 98; O2SAT 97
[2025-06-30 14:50] VITALS: BP 134/60; TEMP 97.5; O2SAT 94
[2025-06-30 19:18] LABS: PLATELET COUNT, AUTOMATED 380 10^3/uL (150-450)
[2025-06-30 19:48] LABS: CALCIUM LEVEL 9.6 MG/DL (8.3-10.6); CARBON DIOXIDE LEVEL 25.0 MMOL/L (20-31); CHLORIDE LEVEL 105.0 MMOL/L (98-107); CREATININE FOR GFR 1.27 MG/DL (0.70-1.30); GLOMERULAR FILTRATION RATE 55.7 (>35); POTASSIUM SERUM 4.7 MMOL/L (3.5-5.1); SODIUM LEVEL 141.0 MMOL/L (136-145)
[2025-06-30 20:38] VITALS: BP 164/73
[2025-06-30] MEDS: ONDANSETRON 4MG TAB PO ONE (22:21)
[2025-07-01 05:48] VITALS: BP 126/54; TEMP 97.6; O2SAT 91
[2025-07-01 09:41] VITALS: BP 124/60; TEMP 97.9; O2SAT 94
[2025-07-01] MEDS ORDERED: MIRALAX *UNIT DOSE* 17 GM PACKET PO PRN (13:55)
[2025-07-01] MEDS ORDERED: DOCUSATE SODIUM 100 MG CAPSULE PO PRN (13:55)
[2025-07-02 06:34] VITALS: BP 122/60; TEMP 98.1; O2SAT 91
[2025-07-02 09:27] VITALS: BP 132/58
[2025-07-02 11:54] LABS: BASO # 0.0 10^3/uL (0.0-0.2); BASO % 0.3 % (0.0-1.0); EOS # 0.0 10^3/uL (0.0-0.5); EOS % 0.4 % (0.0-3.0); LYMPH # 0.8 10^3/uL (1.5-5.0); LYMPH % 11.6 % (24.0-44.0); MONO # 0.5 10^3/uL (0.0-0.8); MONO % 7.6 % (2.0-8.0); NEUTROPHILS # 5.6 10^3/uL (1.5-8.5); NEUTROPHILS % 79.8 % (36.0-66.0); PLATELET COUNT, AUTOMATED 298 10^3/uL (150-450)
[2025-07-02 12:18] LABS: CALCIUM LEVEL 8.3 MG/DL (8.3-10.6); CARBON DIOXIDE LEVEL 26.0 MMOL/L (20-31); CHLORIDE LEVEL 104.0 MMOL/L (98-107); CREATININE FOR GFR 1.52 MG/DL (0.70-1.30); GLOMERULAR FILTRATION RATE 44.9 (>35); POTASSIUM SERUM 5.0 MMOL/L (3.5-5.1); SODIUM LEVEL 139.0 MMOL/L (136-145)
[2025-07-02] MEDS ORDERED: COLA100C5 PO (13:55)
[2025-07-02] MEDS ORDERED: ACET32TAB PO (13:55)
[2025-07-02] MEDS ORDERED: BISA10SU PR (13:55)
[2025-07-02] MEDS ORDERED: MIRA33506 PO (13:55)
[2025-07-02] MEDS ORDERED: CHLORSP MT (13:55)
[2025-07-02] MEDS ORDERED: PANT40TA29 PO (13:55)
[2025-07-02 14:20] LABS: MAGNESIUM LEVEL 2.1 MG/DL (1.8-2.4)
[2025-07-02] MEDS ORDERED: OLAN1TAB16 PO (14:20)
== END 2025-07-02 14:40 | DRG 884 ==
LOC: M ED 06:55 → M ED INP 11:07 → INTOOBSV 11:07 → OBSVTOIN 11:25 → M MS5PR 19:40
PROVIDERS: ADMIT Internal Medicine Nephrology; ATTEND Internal Medicine Nephrology
DX: F01.518 Vascular dementia, unspecified severity, with other behavioral disturbance (principal); I50.43 Acute on chronic combined systolic (congestive) and diastolic (congestive) heart failure; E87.1 Hypo-osmolality and hyponatremia; I13.0 Hypertensive heart and chronic kidney disease with heart failure and stage 1 through stage 4 chronic kidney disease, or unspecified chronic kidney disease; R44.3 Hallucinations, unspecified; F05 Delirium due to known physiological condition; N17.9 Acute kidney failure, unspecified; E87.20 Acidosis, unspecified; R29.6 Repeated falls; I27.20 Pulmonary hypertension, unspecified; J44.9 Chronic obstructive pulmonary disease, unspecified; E11.22 Type 2 diabetes mellitus with diabetic chronic kidney disease; N18.30 Chronic kidney disease, stage 3 unspecified; I48.91 Unspecified atrial fibrillation; K21.9 Gastro-esophageal reflux disease without esophagitis; D50.9 Iron deficiency anemia, unspecified; E78.5 Hyperlipidemia, unspecified; N40.0 Benign prostatic hyperplasia without lower urinary tract symptoms; E87.5 Hyperkalemia; E86.0 Dehydration; I25.10 Atherosclerotic heart disease of native coronary artery without angina pectoris; Z95.2 Presence of prosthetic heart valve; E83.42 Hypomagnesemia; Z79.01 Long term (current) use of anticoagulants; I08.3 Combined rheumatic disorders of mitral, aortic and tricuspid valves; R47.1 Dysarthria and anarthria; Z79.899 Other long term (current) drug therapy; I65.22 Occlusion and stenosis of left carotid artery; Z66 Do not resuscitate